=== PATIENT | male | born 1945 | race Caucasian/White ===

== ENCOUNTER 2018-07-10 10:20 | Inpatient (IN) ==
[2018-07-10] MEDS ORDERED: ACETAMINOPHEN 500 MG TAB PO STA (10:54)
[2018-07-10] MEDS ORDERED: SODIUM CHLORIDE 0.9% 500 ML IV SCH (11:00)
[2018-07-10] MEDS ORDERED: ACETAMINOPHEN 650 MG SUPP PR STA (11:14)
[2018-07-10 11:25] LABS: Basophils # (auto) 0.02 K/uL (0-0.2); Basophils % (auto) 0.1 %; Eosinophils # (auto) 0.18 K/uL (0-0.5); Eosinophils % (auto) 1.1 %; Hematocrit (blood only) 38.1 % (42-52); Hemoglobin 12.4 g/dL (14.0-18.0); Immature Granulocytes # (auto) 0.04 K/uL (0.00-0.02); Immature Granulocytes % (auto) 0.2 %; Lymphocytes # (auto) 1.27 K/uL (1.2-3.4); Lymphocytes % (auto) 7.7 %; Mean Corpuscular Hgb Conc 32.5 g/dL (32-36); Mean Corpuscular Volume 76.4 fL (80-100); Mean Platelet Volume 10.4 fL (7.4-10.4); Monocytes # (auto) 0.79 K/uL (0.11-0.59); Monocytes % (auto) 4.8 %; Neutrophils # (auto) 14.23 K/uL (1.4-6.5); Neutrophils % (auto) 86.1 %; Platelet Count 118 K/uL (130-400); RDW Coefficient of Variation 19.7 % (11.5-14.5); RDW Standard Deviation 54.1 fL (36.4-46.3); Red Blood Count 4.99 M/uL (4.7-6.1); White Blood Count 16.53 K/uL (4.8-10.8)
[2018-07-10 11:41] LABS: Albumin Level 3.2 gm/dl (3.4-5.0); BUN Creatinine Ratio 22.7 (10-20); Creatinine Clr Calc Pharmacy 40.5 ml/min; Est GFR (African American) 43.2; Est GFR (Non-African American) 37.3; Potassium 3.9 mmol/L (3.5-5.1)
[2018-07-10 11:45] LABS: Albumin Globulin Ratio 0.7 (0.9-2); Bilirubin,Total 0.3 mg/dl (0.2-1); Globulin 4.5 gm/dl (2.5-4.0); Total Protein 7.7 gm/dl (6.4-8.2); Troponin I 0.038 ng/ml (0-0.045)
[2018-07-10 11:48] LABS: Appearance Urine Clear (Clear); Bilirubin Urine Negative (Negative); Blood Urine Negative (Negative); Color Urine Yellow; Glucose Urine UA Negative (Negative); Ketones Urine Negative (Negative); Leukocyte Esterase Urine Negative (Negative); Nitrite Urine Negative (Negative); Protein Urine Negative (Negative); Specific Gravity Urine 1.015 (1.000-1.030); Urobilinogen Urine Negative (Negative)
[2018-07-10 11:53] LABS: Influenza A virus by PCR Neg for Influ A (Neg); Influenza B virus by PCR Neg for Influ B (Neg)
[2018-07-10] MEDS ORDERED: SODIUM CHLORIDE 0.9% 1000ML 500 ML IV ONE (12:08)
--- NOTE | 2018-07-10 12:35 | XRay Report ---
XR chest 1V portable HISTORY: fever COMPARISON: Chest 03/20/2018. FINDINGS: The lungs are clear. The heart remains mildly enlarged. There is a left-sided dual-chamber pacemaker. No pleural effusions. No pneumothorax. IMPRESSION: Stable mild cardiomegaly. No acute process within the chest. Electronically signed by: Stewart Winslow M.D. 07/10/2018 12:34 PM
[2018-07-10] MEDS ORDERED: PIPERACILLIN/TAZOBACTAM 4.5 GM/120 ML BAG IV ONE (12:45)
[2018-07-10] MEDS ORDERED: VANCOMYCIN HCL 1,750 MG in SODIUM CHLORIDE 0.9% 500 ML IV ONE (12:45)
[2018-07-10] MEDS ORDERED: VANCOMYCIN CONSULT ACTIVE PRN ×2 (12:45→18:23)
[2018-07-10] MEDS ORDERED: PIPERACILL/TAZOBAC CONSULT ACTIVE PRN (12:45)
--- NOTE | 2018-07-10 13:18 | Cardiology Consultation ---
Date of Consultation July 10, 2018 Assessment & Plan (1) Left lower lobe pneumonia: When the patient had initially been assessed by the undersigned in the emergency room earlier this afternoon, I ordered a stat CT of the chest. Results reveal that the sternotomy wires have been removed and there is mild soft tissue thickening around the sternum but no organized fluid collection to suggest abscess as per the radiology report. There is however a described patchy airspace consolidation throughout the left lower lobe of the lung. Per the radiology report this is typical in appearance for pneumonia/aspiration pneumonitis. A transthoracic echocardiogram has already been performed and reviewed by the undersigned. Within the limitations of this imaging modality, there is no gross abnormality to suggest aortic valve prosthetic dysfunction or vegetation or vegetation elsewhere. I had initially planned to proceed with a transesophageal echocardiogram today, but with the results the CT I think it is most prudent to cancel the transesophageal echocardiogram and avoid sedation and potential further aspiration risk, pending the availability of culture results and reassessment after treatment with appropriate antibiotics for pneumonia. 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 Recurrence doing well wound infection has therefore been considered, but based on CT results and the patient's clinical presentation, I believe it is most reasonable to proceed with treatment for pneumonia. The patient did note mild cough this morning. He has been outside having been to his grandson's [employer] meet yesterday, and although it was mild outside there was a significant weaned. Influenza screen was negative. The patient's clinical presentation was discussed with Dr. Stark of CT surgery at [facility] who has operated on the patient for the initial aortic valve surgery as well as the sternal wound operation. The CT images obtained at the [facility] emergency department today was successfully transferred electronically to the [employer] PACS system, and her impression was that the CT was consistent with stable postoperative changes in the sternum rather than recurrent infection. (2) Fever: As above (3) CESAR (acute kidney injury): Gentle IV fluids (4) S/P AVR: Bioprosthetic aortic valve function stable on transthoracic echo today. History of Present Illness History of Present Illness Tariq Fischer is a 72 year old male seen in cardiology consultation in the emergency department per the request of Dr Stevie. The patient's primary collection officer is Dr Vinnie Stephens. The patient was seen and examined in emergency department room D1B. His spouse was accompanying him at the bedside. He was comfortable and in no acute distress at the time when I had seen him. He states that overall he has been feeling well. He had recently had significant lower extremity edema that had trended toward improvement in his nearly completely resolved. He notes no recent infections symptoms within the last few weeks until this morning when he woke up with a sensation of chills, with inability to get warm, and rigors. His spouse took his temperature orally at home this morning and he was found to have a fever 102 F. He had a routine cardiology follow-up appointment with Dr. Stephens already scheduled for today and when he arrived for that appointment, vital signs included a tympanic temperature of 102.5 F. He was afebrile on arrival to the emergency room, with most recent temperature 37.1C. Past Cardiac / Cardiac Surgery History: 1. History of paroxysmal atrial arrhythmias including atrial fibrillation, previously on beta-yesenia and flecainide, now on amiodarone and metoprolol. Off of anticoagulation. 2. 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 Follows with [facility], Dr Ashley, most recent device interrogation had apparently been performed yesterday 07/09/18 at the [facility] office with stable findings per patien'ts recollection. 3. History of calcific aortic stenosis for which patient underwent bioprosthetic aortic valve replacement 02/11/2018, [facility] Dr. Rachelle Mathew, with placement of a [address] Joey Epic prosthesis and application of left atrial appendage clip 4. 03/26/18: Sternal wound infection, underwent sternal debridement, application of wound VAC 5. 03/31/18: Further sternal debridement took place 6. 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 Wound was found to have Enterobacter cloque and staph aureus 8. Patient completed 6 week course of IV cefepime, tunneled catheter subsequently removed on 05/13/18 9. Diagnostic cardiac catheterization January 2018 with normal coronaries Allergies Allergy/AdvReac Type Severity Reaction Status Date / Time carbamazepine Allergy Unknown TOXIC, Verified 07/10/18 10:49 DOUBLE VISION indigotindisulfonic acid Allergy Unknown TOXIC, Verified 07/10/18 10:49 DOUBLE VISION doxazosin AdvReac Unknown BP LOSS Verified 07/10/18 10:49 nitrofurantoin AdvReac Unknown DIZZINESS Verified 07/10/18 10:49 Home Medications Home Medications Medication Instructions Recorded Confirmed Type acetaminophen [Tylenol] 650 mg PO DIRECTED PRN 03/20/18 07/10/18 History aspirin 81 mg PO DAILY 03/20/18 07/10/18 History divalproex 500 mg PO DAILY 03/20/18 07/10/18 History divalproex 750 mg PO PM 03/20/18 07/10/18 History fluticasone propionate [Flonase 2 spray INTRANASAL DAILY 03/20/18 07/10/18 History Allergy Relief] furosemide [Lasix] 40 mg PO DAILY 03/20/18 07/10/18 History levothyroxine 75 mcg PO DAILY 03/20/18 07/10/18 History metoprolol succinate [Toprol XL] 100 mg PO DAILY 03/20/18 07/10/18 History multivitamin 1 tab PO DAILY 03/20/18 07/10/18 History pyridoxine (vitamin B6) 100 mg PO DAILY 03/20/18 07/10/18 History ropinirole [Requip] 1.5 mg PO TID 03/20/18 07/10/18 History simvastatin 10 mg PO HS 03/20/18 07/10/18 History amiodarone 100 mg PO DAILY 07/10/18 07/10/18 History docusate sodium [Colace] 100 mg PO DAILY 07/10/18 07/10/18 History fexofenadine [Maria E Allergy] 180 mg PO DAILY 07/10/18 07/10/18 History lisinopril 2.5 mg PO DAILY 07/10/18 07/10/18 History spironolactone 12.5 mg PO DAILY 07/10/18 07/10/18 History Patient History Medical History Sinoatrial node dysfunction (Chronic) Thrombocytopenia (Chronic) Hypothyroidism (Chronic) Chronic systolic heart failure (Chronic) BPH (benign prostatic hyperplasia) (Chronic) Atrial fibrillation (Chronic) GERD (gastroesophageal reflux disease) (Chronic) Dyslipidemia (Chronic) Parkinson's disease (Chronic) Hypertension (Chronic) Aortic stenosis (Chronic) Seizure disorder (Chronic) Surgical History History of cholecystectomy (Resolved) S/P placement of cardiac pacemaker (Chronic) History of cardiac cath (Resolved) 01/29/18 - Dr Stephens - normal coronary arteries History of cataract extraction with lens replacement (Resolved) History of aortic valve replacement (Resolved) 02/11/18 bioprosthetic valve and left atrial appendege clip at [facility] by Dr Rachelle Stark Social History Preferred Language: Surinamese Beliefs That Will Affect Care: None marital status: Current Living Situation: Spouse Feels Safe at Home: Yes Smoking Status: Never smoker Hx Alcohol Use: No Hx Substance Use: No Review of Systems 10 point review systems is reviewed and is negative with the exception of that above Physical Exam Vital Signs (Past 24 Hours): Last Vital Signs Temp 37.1 C 07/10/18 10:24 Pulse 67 07/10/18 12:39 Resp 14 07/10/18 12:39 BP 113/52 L 07/10/18 12:39 Pulse Ox 95 07/10/18 12:39 Constitutional: no acute distress Neck: trachea midline, no thyromegaly Cardiovascular: RRR, no murmur, no edema Vessels: no JVD Extremities: no edema Chest (Breasts): Chest: + pacemaker (Pocket incision clean dry and intact without evidence of erythema or erosion) Additional Comments: Well-healed midline sternotomy incision and chest tube incisions without drainage Gastrointestinal (Abdomen): normal bowel sounds, soft, nontender, no hepatosplenomegaly Skin: no rashes, warm and dry Neurologic: Mild tremor of Parkinson's, chronic finding, alert and oriented, no focal deficits, follows commands Results & Data Laboratory Results Cardiac Enzymes 07/10/18 Range/Units 11:11 AST 32 (15-37) U/L Troponin I 0.038 (0-0.045) ng/ml CBC 07/10/18 Range/Units 11:11 WBC 16.53 H (4.8-10.8) K/uL RBC 4.99 (4.7-6.1) M/uL Hgb 12.4 L (14.0-18.0) g/dL Hct 38.1 L (42-52) % Plt Count 118 L (130-400) K/uL Neut # (Auto) 14.23 H (1.4-6.5) K/uL Lymph # (Auto) 1.27 (1.2-3.4) K/uL Saunders # (Auto) 0.79 H (0.11-0.59) K/uL Eos # (Auto) 0.18 (0-0.5) K/uL Baso # (Auto) 0.02 (0-0.2) K/uL Comprehensive Metabolic Panel 07/10/18 Range/Units 11:11 Sodium 141 (136-145) mmol/L Potassium 3.9 (3.5-5.1) mmol/L Chloride 104 (98-107) mmol/L Carbon Dioxide 32 (21-32) mmol/L BUN 40 H (7-18) mg/dl Creatinine 1.78 H (0.6-1.4) mg/dl Glucose 67 L (70-99) mg/dl Calcium 9.0 (8.5-10.1) mg/dl AST 32 (15-37) U/L ALT 19 (12-78) U/L Alkaline Phosphatase 112 (45-117) U/L Total Protein 7.7 (6.4-8.2) gm/dl Albumin 3.2 L (3.4-5.0) gm/dl Intake and Output 07/09/18 07/10/18 07/10/18 22:59 06:59 14:59 Intake Total 1000 / 1000 Balance 1000 / 1000 Intake: IV 1000 / 1000 Nss 1000ML 500 ml @ 999 mls/hr 500 / 500 IV .Q31M ONE Rx#:[id number] Nss 500 ml @ 999 mls/hr IV . 500 / 500 Q31M [facility] Rx#:[id number] Other: Weight 85 kg Patient Weight 07/11/18 06:59 Weight 85 kg Diagnostic Findings EKG reveals sinus rhythm with atrial pacing, gambell QRS complexes, with diffuse repolarization changes. Compared to prior EKG dated 03/20/18 atrial pacing is now present, the repolarization changes are unchanged.
[2018-07-10] MEDS ORDERED: IOVERSOL 100ml IV PRN (13:30)
[2018-07-10] MEDS: SODIUM CHLORIDE 0.9% 1000ML 1,000 ML IV SCH ×2 (13:44→17:51)
--- NOTE | 2018-07-10 13:59 | CT Scan Report ---
CT SCAN OF THE CHEST WITH IV CONTRAST CLINICAL HISTORY: Fever. History of sternal wound infection. COMPARISON STUDY: Chest x-ray dated 07/10/2018. TECHNIQUE: Following the IV administration of 70 cc of Optiray 320, CT scan of the thorax was perform ed from the thoracic inlet to the upper abdomen. Images are reviewed in the axial, sagittal, and mohit nal planes. IV contrast was administered without complication. A dose lowering technique was utilize d adhering to the principles of ALARA. CT DOSE: 412.81 mGy.cm FINDINGS: Thyroid: Imaged portions of the thyroid gland are normal in size and attenuation. Thoracic aorta: There is atherosclerotic calcification of the thoracic aorta, which is normal in shannan jorge and demonstrates bovine variant arch anatomy. No dissection is seen. Pulmonary vasculature: The pulmonary trunk is normal in caliber. There are no filling defects identif ied in the central pulmonary vessels to indicate pulmonary embolus. Note that this examination was no t protocoled for evaluation of the pulmonary arteries. Heart: A 2-lead cardiac pacemaker is present in the left chest wall. There is evidence of previous ao rtic valve surgery. The heart is enlarged and there is trace pericardial effusion. The coronary arter ies are densely calcified. Lungs and pleural spaces: There is mild emphysematous change. Patchy airspace consolidation is seen t hroughout the left lower lobe the right lung appears clear. The trachea and central airways are paten t. Mediastinum: There are numerous subcentimeter mediastinal lymph nodes. These are not pathologically e nlarged by size criteria. Cherri: Clear. Axillae: There is no axillary lymphadenopathy. Upper abdomen: Cholecystectomy clips are noted. There is mild intrahepatic biliary ductal dilatation. A duodenal diverticulum is noted. There is a fat-containing ventral hernia located at and below the xiphoid process of the sternum. Skeletal structures: The skeletal structures are osteopenic. There is evidence of previous sternotomy . There is mild soft tissue induration surrounding the sternotomy site and sternotomy wires have been removed. No organized fluid collection is identified. Degenerative change is noted throughout the th oracic spine. No lytic or blastic bony lesions are seen. IMPRESSION: 1. There is patchy airspace consolidation throughout the left lower lobe. This is typical in appearan ce for pneumonia/aspiration pneumonitis. Clinical correlation will be required and radiographic follo w-up to resolution is recommended. 2. Cardiomegaly and mild emphysema. 3. The patient is status post midline sternotomy. The sternotomy wires have been removed and there is mild soft tissue thickening around the sternum. This is likely related to the reported history of pr evious sternal infection. There is no organized fluid collection to suggest abscess. 4. Additional findings as above. Electronically signed by: Salvatore Rodrigez M.D. 07/10/2018 1:57 PM
[2018-07-10] MEDS ORDERED: PERFLUTREN LIPID MICROSPHERE (DEFINITY) IV ONE (14:20)
--- NOTE | 2018-07-10 16:10 | History & Physical Report ---
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 -Fever of 102 F, leukocytosis of 16.5 K, CT chest with evidence of patchy airspace consolidation throughout left lower lobe -No evidence of active infection or abscess in area of prior sternal osteomyelitis -Dr. Davis discussed imaging with patient's surgeon, Dr. Stark of CT surgery at [facility], who felt that CT was consistent with stable postoperative changes in the sternum rather than recurrent infection -Bedside 2D echo with normal left ventricular systolic function with estimated EF of 55-60%. No regional wall abnormalities, no evidence of vegetation on bioprosthetic aortic valve -Will consider BONG pending the availability of culture results and reassessment after treatment with appropriate antibiotics for pneumonia -Started on Zosyn and Vanco empirically in the ED. 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 -Follows with [facility], Dr Ashley, most recent device interrogation had apparently been performed yesterday 07/09/18 at the [facility] [place] with stable findings per patien'ts recollection. (7) Hypertension: Normotensive. Continue Toprol, Spironolactone -Holding lisinopril in setting of CESAR (8) Paroxysmal atrial fibrillation: Continue amiodarone and Toprol (9) Parkinson's disease: Continue home dose Requip (10) Hypothyroidism: Continue levothyroxine (11) Dyslipidemia: Continue statin DVT Ppx: SQ heparin Code status: FULL per discussion with patient PCP: Kj Dispo: [facility]. Plan to return home once medically stable. Patient seen in collaboration with Dr. Hernandez. Please see addendum. 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 Patient completed IV antibiotics for sternal osteomyelitis and wound infection (growing Enterobacter cloque and staph aureus) at the beginning of May 2018. Since then, patient has been feeling well until this morning when he woke up with sensation of chills, rigors and cough. His spouse took his temperature orally at home this morning and he was found to have a fever 102 F. Was found to be febrile at 102.5 F upon arrival to routine cardiology appointment with Dr. Stephens and was directed to ED for further evaluation. Patient was afebrile on arrival to the emergency room, with most recent temperature 37.1C. Still with intermittent dry cough. Denies any chills, rigors, lightheadedness, headache, wheezing, hemoptysis, chest pain, shortness of breath, nausea, vomiting, abdominal pain, dysuria, diarrhea or constipation. Was recently experiencing bilateral lower extremity edema but it has recently resolved. Vital signs stable, leukocytosis of 16.5 K, CT chest with evidence of patchy airspace consolidation throughout left lower lobe. No evidence of active infection or abscess in area of prior sternal osteomyelitis. Was evaluated by Dr. Davis in the ED, who performed an echo that showed normal left ventricular systolic function with estimated EF of 55-60%. No regional wall abnormalities, no evidence of vegetation on bioprosthetic aortic valve. Allergies Allergy/AdvReac Type Severity Reaction Status Date / Time carbamazepine Allergy Unknown TOXIC, Verified 07/10/18 10:49 DOUBLE VISION indigotindisulfonic acid Allergy Unknown TOXIC, Verified 07/10/18 10:49 DOUBLE VISION doxazosin AdvReac Unknown BP LOSS Verified 07/10/18 10:49 nitrofurantoin AdvReac Unknown DIZZINESS Verified 07/10/18 10:49 Home Medications Home Medications Medication Instructions Recorded Confirmed Type acetaminophen [Tylenol] 650 mg PO DIRECTED PRN 03/20/18 07/10/18 History aspirin 81 mg PO DAILY 03/20/18 07/10/18 History divalproex 500 mg PO DAILY 03/20/18 07/10/18 History divalproex 750 mg PO PM 03/20/18 07/10/18 History fluticasone propionate [Flonase 2 spray INTRANASAL DAILY 03/20/18 07/10/18 History Allergy Relief] furosemide [Lasix] 40 mg PO DAILY 03/20/18 07/10/18 History metoprolol succinate [Toprol XL] 100 mg PO DAILY 03/20/18 07/10/18 History multivitamin 1 tab PO DAILY 03/20/18 07/10/18 History pyridoxine (vitamin B6) 100 mg PO DAILY 03/20/18 07/10/18 History ropinirole [Requip] 1.5 mg PO TID 03/20/18 07/10/18 History simvastatin 10 mg PO HS 03/20/18 07/10/18 History amiodarone 100 mg PO DAILY 07/10/18 07/10/18 History docusate sodium [Colace] 100 mg PO DAILY 07/10/18 07/10/18 History fexofenadine [Maria E Allergy] 180 mg PO DAILY 07/10/18 07/10/18 History levothyroxine 88 mcg PO DAILY 07/10/18 07/10/18 History lisinopril 2.5 mg PO DAILY 07/10/18 07/10/18 History spironolactone 12.5 mg PO DAILY 07/10/18 07/10/18 History Past Med/Surg History Medical History Paroxysmal atrial fibrillation (Chronic) Sinoatrial node dysfunction (Chronic) Thrombocytopenia (Chronic) Hypothyroidism (Chronic) Chronic systolic heart failure (Chronic) BPH (benign prostatic hyperplasia) (Chronic) GERD (gastroesophageal reflux disease) (Chronic) Dyslipidemia (Chronic) Parkinson's disease (Chronic) Hypertension (Chronic) Aortic stenosis (Chronic) Seizure disorder (Chronic) Surgical History History of cholecystectomy (Resolved) S/P placement of cardiac pacemaker (Chronic) History of cardiac cath (Resolved) 01/29/18 - Dr Stephens - normal coronary arteries History of cataract extraction with lens replacement (Resolved) History of aortic valve replacement (Resolved) 02/11/18 bioprosthetic valve and left atrial appendege clip at [facility] by Dr Rachelle Stark Social History Preferred Language: Slovenian Communication Ability: Effective Sash Sticker Required: No Beliefs That Will Affect Care: None marital status: Current Living Situation: Spouse Other Information That Helps Us Care for You: No Feels Safe at Home: Yes Safety Concerns: Feels Safe At This Time Smoking Status: Never smoker Hx Alcohol Use: No Hx Substance Use: No Review of Systems All systems reviewed & are unremarkable except as noted in HPI & below Physical Exam Vital Signs (Past 24 Hours): Last Vital Signs Temp 37.1 C 07/10/18 10:24 Pulse 68 07/10/18 13:47 Resp 16 07/10/18 13:47 BP 108/60 07/10/18 13:47 Pulse Ox 97 07/10/18 13:47 Physical Exam: General Appearance: WD/WN, no apparent distress, resting comfortably Head: normocephalic, atraumatic Eyes: normal inspection, PERRL, EOMI ENT: hearing grossly normal, pharynx normal (dry mucous membranes) Neck: supple, no JVD, no adenopathy Respiratory/Chest: Chest with sternotomy scar clean, dry, intact. No drainage. Lungs clear to auscultation. No wheezes, rales or rhonci. No respiratory distress or accessory muscle use Cardiovascular: regular rate, rhythm, no murmur, normal peripheral pulses, no BLE edema Abdomen/GI: normal bowel sounds, soft, non-tender to palpation Extremities/Musculoskelatal: normal inspection, no calf tenderness, normal capillary refill, no pedal edema Neurologic/Psych: alert, normal mood/affect, oriented x 3 Skin: normal color, warm/dry Results & Data Laboratory Results Short CBC 07/10/18 Range/Units 11:11 WBC 16.53 H (4.8-10.8) K/uL Hgb 12.4 L (14.0-18.0) g/dL Hct 38.1 L (42-52) % Plt Count 118 L (130-400) K/uL BMP 07/10/18 11:11 Sodium 141 Potassium 3.9 Chloride 104 Carbon Dioxide 32 BUN 40 H Creatinine 1.78 H Glucose 67 L Calcium 9.0 Cardiac Enzymes 07/10/18 Range/Units 11:11 Troponin I 0.038 (0-0.045) ng/ml Liver Function 07/10/18 Range/Units 11:11 Total Bilirubin 0.3 (0.2-1) mg/dl AST 32 (15-37) U/L ALT 19 (12-78) U/L Alkaline Phosphatase 112 (45-117) U/L Albumin 3.2 L (3.4-5.0) gm/dl Urine 07/10/18 Range/Units 11:35 Urine Color Yellow Urine Appearance Clear (Clear) Urine pH 5.0 (4.5-7.5) Ur Specific Disney 1.015 (1.000-1.030) Urine Protein Negative (Negative) Urine Glucose (UA) Negative (Negative) Diagnostic Findings CXR: IMPRESSION: Stable mild cardiomegaly. No acute process within the chest. CT Chest: IMPRESSION: 1. There is patchy airspace consolidation throughout the left lower lobe. This is typical in appearance for pneumonia/aspiration pneumonitis. Clinical correlation will be required and radiographic follow-up to resolution is recommended. 2. Cardiomegaly and mild emphysema. 3. The patient is status post midline sternotomy. The sternotomy wires have been removed and there is mild soft tissue thickening around the sternum. This is likely related to the reported history of previous sternal infection. There is no organized fluid collection to suggest abscess. 4. Additional findings as above. ECG Findings: + paced rhythm Supervising Physician Co-Signing Physician Notes Patient is a 72-year-old male with history of bioprosthetic aortic valve replacement, sternal osteomyelitis, tachybradycardia syndrome and other medical problems presents with history of fever, chills, rigors and cough since 1 day duration. Patient was referred by his research librarian for further evaluation and management. Please review HPI for complete details of the presentation. Patient was noted to have patchy airspace consolidation throughout the left lower lobe. Patient was also noted to have mild creatinine elevation from his baseline. On exam patient is moderately built and nourished, no apparent distress, normocephalic atraumatic, lungs clear to auscultation, normal breath sounds, abdomen is soft nontender, S1-S2,+ murmur, + pacemaker, abdomen is soft nontender, 1+ bilateral lower extremity edema, grossly no focal deficits neurologically. Patient is admitted for management of left lower lobe pneumonia. Patient will be started on broad-spectrum antibiotics including Vanco and Zosyn. His echo showed no gross abnormality to suggest aortic valve prosthetic dysfunction or vegetation. Appreciate cardiology recommendations. Consider BONG based on blood cultures. Monitor platelets while on subcu heparin. Agree with holding lisinopril until his renal function is baseline. Gentle IV fluids. Currently patient is not on any chronic anticoagulation. I personally reviewed the record. Patient is interviewed and examined at bedside. Patient's care is coordinated with Zo Melendez PA-C. Please refer to the documentation above for details of patient's presentation and for discussion of other issues. (1) PNA (pneumonia) Laterality: left Lung location: lower lobe of lung Pneumonia type: due to unspecified organism Qualified Code(s): J18.1 - Lobar pneumonia, unspecified organism
--- NOTE | 2018-07-10 16:48 | Emergency Department Note ---
Entered by Ernestine Rivera acting as a scribe for Winnie Hubbard MD History of Present Illness General Chief complaint: Fever Stated complaint: FEVER, WEAK Time Seen by Provider: 07/10/18 10:39 Source: patient and family () History of Present Illness Provider complaint: shaking Onset (ago): hour(s) (this morning ) Location: left and right Maximum Pain Intensity: 0 Quality: + other (shaking) Associated symptoms: + fever/chills (fever) and + weakness; no chest pain and no shortness of breath The patient is a 72 year old male who presents to the Emergency Room with complaints of shaking this morning. The patient also reports feeling weak but denies having chest pain or shortness of breath. 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 Per wi fe, the patient did take his morning medication including Aspirin. His states that Dr. Stephens-cardiology referred the patient here. 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 The patient states that he has not been on antibiotics recently. His states that the patient is no longer on blood thinners. Home Medications Home Medications Medication Instructions Recorded Confirmed Type acetaminophen [Tylenol] 650 mg PO DIRECTED PRN 03/20/18 07/10/18 History aspirin 81 mg PO DAILY 03/20/18 07/10/18 History divalproex 500 mg PO DAILY 03/20/18 07/10/18 History divalproex 750 mg PO PM 03/20/18 07/10/18 History fluticasone propionate [Flonase 2 spray INTRANASAL DAILY 03/20/18 07/10/18 History Allergy Relief] furosemide [Lasix] 40 mg PO DAILY 03/20/18 07/10/18 History metoprolol succinate [Toprol XL] 100 mg PO DAILY 03/20/18 07/10/18 History multivitamin 1 tab PO DAILY 03/20/18 07/10/18 History pyridoxine (vitamin B6) 100 mg PO DAILY 03/20/18 07/10/18 History ropinirole [Requip] 1.5 mg PO TID 03/20/18 07/10/18 History simvastatin 10 mg PO HS 03/20/18 07/10/18 History amiodarone 100 mg PO DAILY 07/10/18 07/10/18 History docusate sodium [Colace] 100 mg PO DAILY 07/10/18 07/10/18 History fexofenadine [Maria E Allergy] 180 mg PO DAILY 07/10/18 07/10/18 History levothyroxine 88 mcg PO DAILY 07/10/18 07/10/18 History lisinopril 2.5 mg PO DAILY 07/10/18 07/10/18 History spironolactone 12.5 mg PO DAILY 07/10/18 07/10/18 History Allergies Allergy/AdvReac Type Severity Reaction Status Date / Time carbamazepine Allergy Unknown TOXIC, Verified 07/10/18 10:49 DOUBLE VISION indigotindisulfonic acid Allergy Unknown TOXIC, Verified 07/10/18 10:49 DOUBLE VISION doxazosin AdvReac Unknown BP LOSS Verified 07/10/18 10:49 nitrofurantoin AdvReac Unknown DIZZINESS Verified 07/10/18 10:49 Past Med/Surg History Medical History Paroxysmal atrial fibrillation (Chronic) Sinoatrial node dysfunction (Chronic) Thrombocytopenia (Chronic) Hypothyroidism (Chronic) Chronic systolic heart failure (Chronic) BPH (benign prostatic hyperplasia) (Chronic) GERD (gastroesophageal reflux disease) (Chronic) Dyslipidemia (Chronic) Parkinson's disease (Chronic) Hypertension (Chronic) Aortic stenosis (Chronic) Seizure disorder (Chronic) Surgical History History of cholecystectomy (Resolved) S/P placement of cardiac pacemaker (Chronic) History of cardiac cath (Resolved) 01/29/18 - Dr Stephens - normal coronary arteries History of cataract extraction with lens replacement (Resolved) History of aortic valve replacement (Resolved) 02/11/18 bioprosthetic valve and left atrial appendege clip at [facility] by Dr Rachelle Stark Social History Communication Ability: Effective Beliefs That Will Affect Care: None marital status: Current Living Situation: Spouse Other Information That Helps Us Care for You: No Feels Safe at Home: Yes Safety Concerns: Feels Safe At This Time Smoking Status: Never smoker Hx Alcohol Use: No Hx Substance Use: No Review of Systems See HPI for pertinent positives & negatives. and A total of 10 systems reviewed and were otherwise negative Physical Exam Vital Signs Vital Signs - 24 hr 07/11/18 07:22 07/11/18 08:00 07/11/18 11:57 Temperature 36.5 C 36.4 C L Temperature Source Oral Oral Pulse Rate 72 Pulse Rate [Right Finger] 71 Respiratory Rate 17 17 Respiratory Effort / Characteristics Respiratory Depth Respiratory Pattern Blood Pressure [Left Arm] 146/79 H 146/70 H Blood Pressure Mean [Left Arm] 101 95 Blood Pressure Position [Left Arm] Lying Lying Pulse Oximetry 100 99 Oxygen Delivery Method Room Air Room Air 07/11/18 15:58 07/11/18 16:00 07/11/18 20:39 Temperature 36.5 C 36.5 C Temperature Source Oral Oral Pulse Rate 68 Pulse Rate [Right Finger] 72 75 Respiratory Rate 17 18 Respiratory Effort / Characteristics Non-Labored Spontaneous Respiratory Depth Normal Respiratory Pattern Regular Blood Pressure [Left Arm] 110/65 177/83 H Blood Pressure Mean [Left Arm] 80 114 Blood Pressure Position [Left Arm] Lying Pulse Oximetry 99 100 Oxygen Delivery Method Room Air Room Air Room Air 07/12/18 00:06 07/12/18 00:31 07/12/18 03:00 Temperature 36.5 C 36.6 C Temperature Source Oral Oral Pulse Rate Pulse Rate [Right Finger] 70 66 Respiratory Rate 17 17 Respiratory Effort / Characteristics Non-Labored Spontaneous Respiratory Depth Normal Respiratory Pattern Blood Pressure [Left Arm] 165/78 H 186/76 H Blood Pressure Mean [Left Arm] 107 112 Blood Pressure Position [Left Arm] Pulse Oximetry 96 96 Oxygen Delivery Method Room Air Room Air Vital signs reviewed. General: Well-appearing male, in some discomfort. HEENT: No scleral icterus, PERRLA, neck supple. Atraumatic. Cardiovascular: Regular rate and rhythm, systolic ejection murmur. Pulmonary: Clear to auscultation bilaterally, normal work of breathing. Abdomen: Soft, nontender, nondistended, positive bowel sounds. Musculoskeletal: Atraumatic, no peripheral edema. Neurologic: Patient awake alert and oriented x 3 Skin: Warm, dry, no rash. Large midline incision that appears to be healing with some scabbing and mild erythematous changes. No drainage. Course 1053: The patient was evaluated in room D1B, and a complete history and physical examination were performed. 1246: I discussed the patient's case with Dr. Davis-Cardiology. 1415: I spoke with Dr. Davis who said that the CT surgeon in [place] will look at the CT. The tech is doing the TTE right now. He will let me know about transferring versus keeping the patient. 1434: Dr. Davis said to keep the patient here and that he will call the hospitalist. Consultations Consultation #1: Dr. Davis-Cardiology Time: 12:46 Administered Medications Amiodarone HCl (Cordarone) 100 mg PO DAILY VARSHA Stop: 08/10/18 08:59 Last Admin: 07/11/18 08:24 Dose: 100 mg Documented by: [id number] Aspirin (Ecotrin Ectab) 81 mg PO DAILY VARSHA Stop: 08/10/18 08:59 Last Admin: 07/11/18 08:25 Dose: 81 mg Documented by: [id number] Divalproex Sodium (Depakote Delay Release) 500 mg PO DAILY VARSHA Stop: 08/10/18 08:59 Last Admin: 07/11/18 08:25 Dose: 500 mg Documented by: [id number] Divalproex Sodium (Depakote Delay Release) 750 mg PO PM VARSHA Stop: 08/09/18 20:59 Last Admin: 07/11/18 20:33 Dose: 750 mg Documented by: [id number] Admin: 07/10/18 19:47 Dose: 750 mg Documented by: [id number] Docusate Sodium (Colace) 100 mg PO DAILY VARSHA Stop: 08/10/18 08:59 Last Admin: 07/11/18 08:24 Dose: 100 mg Documented by: [id number] Fexofenadine HCl (Maria E) 180 mg PO DAILY VARSHA Stop: 08/10/18 08:59 Last Admin: 07/11/18 08:25 Dose: 180 mg Documented by: [id number] Fluticasone Propionate (Flonase) 2 sprays VIOLETA DAILY VARSHA Stop: 08/10/18 08:59 Last Admin: 07/11/18 08:25 Dose: 2 sprays Documented by: [id number] Heparin Sodium (Porcine) (Heparin Sodium (Porcine)) 5,000 units SQ Q8 VARSHA Stop: 08/09/18 21:59 Last Admin: 07/11/18 13:52 Dose: Not Given Documented by: [id number] Admin: 07/11/18 05:46 Dose: Not Given Documented by: [id number] Admin: 07/10/18 21:54 Dose: Not Given Documented by: [id number] Piperacillin Sod/Tazobactam (Sod 3.375 gm/ Dextrose) 115 mls @ 28.75 mls/hr IV Q8H FOR[facility], 1928–1983; Protocol Stop: 07/17/18 18:59 Last Admin: 07/12/18 03:05 Dose: 28.8 mls/hr Documented by: [id number] Infusion: 07/11/18 23:01 Dose: 0 mls/hr Documented by: [id number] Admin: 07/11/18 19:01 Dose: 28.8 mls/hr Documented by: [id number] Infusion: 07/11/18 16:14 Dose: 0 mls/hr Documented by: [id number] Admin: 07/11/18 11:23 Dose: 28.8 mls/hr Documented by: [id number] Infusion: 07/11/18 07:31 Dose: 0 mls/hr Documented by: [id number] Admin: 07/11/18 03:16 Dose: 28.8 mls/hr Documented by: [id number] Infusion: 07/10/18 23:54 Dose: 0 mls/hr Documented by: [id number] Admin: 07/10/18 19:42 Dose: 28.8 mls/hr Documented by: [id number] Levothyroxine Sodium (Synthroid) 88 mcg PO DAILYBB [facility], 1928–1983 Stop: 08/10/18 06:29 Last Admin: 07/12/18 06:35 Dose: 88 mcg Documented by: [id number] Admin: 07/11/18 05:46 Dose: 88 mcg Documented by: [id number] Metoprolol Succinate (Toprol Xl) 100 mg PO DAILY [facility], [facility]1983 Stop: 08/10/18 08:59 Last Admin: 07/11/18 08:24 Dose: 100 mg Documented by: [id number] Multivitamins (Multivitamin Tab) 1 tab PO DAILY [facility], [facility] Stop: 08/10/18 08:59 Last Admin: 07/11/18 08:25 Dose: 1 tab Documented by: [id number] Pyridoxine HCl (Vitamin B-6) 100 mg PO DAILY [facility], [facility] Stop: 08/10/18 08:59 Last Admin: 07/11/18 08:25 Dose: 100 mg Documented by: [id number] Ropinirole HCl (Requip) 1.5 mg PO TID [facility], [facility] Stop: 08/09/18 20:59 Last Admin: 07/11/18 20:32 Dose: 1.5 mg Documented by: [id number] Admin: 07/11/18 13:52 Dose: 1.5 mg Documented by: [id number] Admin: 07/11/18 08:25 Dose: 1.5 mg Documented by: [id number] Admin: 07/10/18 19:45 Dose: 1.5 mg Documented by: [id number] Simvastatin (Zocor) 10 mg PO HS VARSHA Stop: 08/09/18 20:59 Last Admin: 07/11/18 20:32 Dose: 10 mg Documented by: [id number] Admin: 07/10/18 19:46 Dose: 10 mg Documented by: [id number] Spironolactone (Aldactone) 12.5 mg PO DAILY VARSHA Stop: 08/10/18 08:59 Last Admin: 07/11/18 08:25 Dose: 12.5 mg Documented by: [id number] Discontinued Medications Acetaminophen (Tylenol) 1,000 mg PO ONE STA Stop: 07/10/18 10:55 Last Admin: 07/10/18 11:28 Dose: Not Given Documented by: [id number] Acetaminophen (Tylenol) 650 mg PA NOW STA Stop: 07/10/18 11:15 Last Admin: 07/10/18 11:28 Dose: 650 mg Documented by: [id number] Sodium Chloride (Nss) 500 mls @ 999 mls/hr IV .Q31M VARSHA Stop: 07/10/18 11:30 Last Infusion: 07/10/18 12:06 Dose: 0 mls/hr Documented by: [id number] Admin: 07/10/18 11:28 Dose: 999 mls/hr Documented by: [id number] Sodium Chloride (Nss 1000ml) 500 mls @ 999 mls/hr IV .Q31M ONE Stop: 07/10/18 12:38 Last Infusion: 07/10/18 12:41 Dose: 0 mls/hr Documented by: [id number] Admin: 07/10/18 12:10 Dose: 999 mls/hr Documented by: [id number] Vancomycin HCl 1,750 mg/ (Sodium Chloride) 535 mls @ 200 mls/hr IV NOW ONE Stop: 07/10/18 15:25 Last Infusion: 07/10/18 17:51 Dose: 0 mls/hr Documented by: [id number] Admin: 07/10/18 13:44 Dose: 200 mls/hr Documented by: [id number] Piperacillin Sod/Tazobactam Sod (Zosyn) 4.5 gm in 120 mls @ 240 mls/hr IV NOW ONE Stop: 07/10/18 13:14 Last Infusion: 07/10/18 13:30 Dose: 0 mls/hr Documented by: [id number] Admin: 07/10/18 13:00 Dose: 240 mls/hr Documented by: [id number] Sodium Chloride (Nss 1000ml) 1,000 mls @ 200 mls/hr IV .Q5H VARSHA Stop: 08/09/18 12:44 Last Admin: 07/10/18 17:51 Dose: Not Given Documented by: [id number] Infusion: 07/10/18 16:46 Dose: 0 mls/hr Documented by: [id number] Admin: 07/10/18 13:44 Dose: 200 mls/hr Documented by: [id number] Sodium Chloride (Nss 1000ml) 1,000 mls @ 80 mls/hr IV .[id number] [facility], [facility]–1983 Stop: 07/11/18 06:16 Last Infusion: 07/11/18 08:28 Dose: 0 mls/hr Documented by: [id number] Infusion: 07/11/18 03:22 Dose: 0 mls/hr Documented by: [id number] Admin: 07/10/18 18:13 Dose: 80 mls/hr Documented by: [id number] Ioversol (Optiray 320 100ml) 70 ml IV ONCE PRN PRN Reason: Interaction Checking Stop: 07/14/18 13:29 Last Admin: 07/10/18 13:31 Dose: 70 ml Documented by: [id number] Perflutren Lipid Microsphere (Definity) 1 ml IV ONCE ONE Stop: 07/10/18 14:21 Last Admin: 07/10/18 14:21 Dose: 1 ml Documented by: [id number] Medical Decision Making Differential Diagnosis Differential diagnosis: Etiologies such as osteomyelitis, abscess collection of the chest, pacemaker infection, endocarditis, viral syndrome, otitis, pharyngitis, pneumonia, influenza, meningitis, urinary tract infection, septic arthritis, soft tissue infectious process, intra-abdominal process, sepsis, bacteremia, as well as others were entertained. Medical Records Attestation: I reviewed the patient's medical records. Home Medications Current Medication List: was personally reviewed by me Laboratory Data Attestation: I reviewed the patient's lab results. Result diagrams: 07/12/18 05:19 07/12/18 05:19 Lab Results 07/10/18 07/10/18 07/10/18 Range/Units 11:05 11:11 11:11 WBC 16.53 H (4.8-10.8) K/uL RBC 4.99 (4.7-6.1) M/uL Hgb 12.4 L (14.0-18.0) g/dL Hct 38.1 L (42-52) % MCV 76.4 L (80-100) fL MCH 24.8 L (25-34) pg MCHC 32.5 (32-36) g/dL RDW Std Deviation 54.1 H (36.4-46.3) fL RDW Coeff of Arik 19.7 H (11.5-14.5) % Plt Count 118 L (130-400) K/uL MPV 10.4 (7.4-10.4) fL Immature Gran % (Auto) 0.2 % Neut % (Auto) 86.1 % Lymph % (Auto) 7.7 % [place] % (Auto) 4.8 % Eos % (Auto) 1.1 % Baso % (Auto) 0.1 % Immature Gran # (Auto) 0.04 H (0.00-0.02) K/uL Neut # (Auto) 14.23 H (1.4-6.5) K/uL Lymph # (Auto) 1.27 (1.2-3.4) K/uL [place] # (Auto) 0.79 H (0.11-0.59) K/uL Eos # (Auto) 0.18 (0-0.5) K/uL Baso # (Auto) 0.02 (0-0.2) K/uL Platelet Estimate (Normal) PT (9.0-12.0) Seconds INR (0.9-1.1) APTT (21.0-31.0) Seconds PTT Ratio Sodium 141 (136-145) mmol/L Potassium 3.9 (3.5-5.1) mmol/L Chloride 104 (98-107) mmol/L Carbon Dioxide 32 (21-32) mmol/L Anion Gap 5.0 (3-11) BUN 40 H (7-18) mg/dl Creatinine 1.78 H (0.6-1.4) mg/dl Est Cr Clr Drug Dosing 40.5 ml/min Est GFR ( Amer) 43.2 Est GFR (Non-Af Amer) 37.3 BUN/Creatinine Ratio 22.7 H (10-20) Glucose 67 L (70-99) mg/dl Lactate (0.4-2.0) mmol/L Calcium 9.0 (8.5-10.1) mg/dl Magnesium (1.8-2.4) mg/dl Total Bilirubin 0.3 (0.2-1) mg/dl AST 32 (15-37) U/L ALT 19 (12-78) U/L Alkaline Phosphatase 112 (45-117) U/L Troponin I 0.038 (0-0.045) ng/ml Total Protein 7.7 (6.4-8.2) gm/dl Albumin 3.2 L (3.4-5.0) gm/dl Globulin 4.5 H (2.5-4.0) gm/dl Albumin/Globulin Ratio 0.7 L (0.9-2) Urine Color Urine Appearance (Clear) Urine pH (4.5-7.5) Ur Specific [place] (1.000-1.030) Urine Protein (Negative) Urine Glucose (UA) (Negative) Urine Ketones (Negative) Urine Blood (Negative) Urine Nitrite (Negative) Urine Bilirubin (Negative) Urine Urobilinogen (Negative) Ur Leukocyte Esterase (Negative) Nasal Screen MRSA (PCR) (Negative) Influenza Type A (PCR) Neg for Influ A (Neg) Influenza Type B (PCR) Neg for Influ B (Neg) 07/10/18 07/10/18 07/10/18 Range/Units 11:11 11:35 18:58 WBC (4.8-10.8) K/uL RBC (4.7-6.1) M/uL Hgb (14.0-18.0) g/dL Hct (42-52) % MCV (80-100) fL MCH (25-34) pg MCHC (32-36) g/dL RDW Std Deviation (36.4-46.3) fL RDW Coeff of Arik (11.5-14.5) % Plt Count (130-400) K/uL MPV (7.4-10.4) fL Immature Gran % (Auto) % Neut % (Auto) % Lymph % (Auto) % [place] % (Auto) % Eos % (Auto) % Baso % (Auto) % Immature Gran # (Auto) (0.00-0.02) K/uL Neut # (Auto) (1.4-6.5) K/uL Lymph # (Auto) (1.2-3.4) K/uL [place] # (Auto) (0.11-0.59) K/uL Eos # (Auto) (0-0.5) K/uL Baso # (Auto) (0-0.2) K/uL Platelet Estimate (Normal) PT (9.0-12.0) Seconds INR (0.9-1.1) APTT 25.2 (21.0-31.0) Seconds PTT Ratio 0.9 Sodium (136-145) mmol/L Potassium (3.5-5.1) mmol/L Chloride (98-107) mmol/L Carbon Dioxide (21-32) mmol/L Anion Gap (3-11) BUN (7-18) mg/dl Creatinine (0.6-1.4) mg/dl Est Cr Clr Drug Dosing ml/min Est GFR ( Amer) Est GFR (Non-Af Amer) BUN/Creatinine Ratio (10-20) Glucose (70-99) mg/dl Lactate 1.6 (0.4-2.0) mmol/L Calcium (8.5-10.1) mg/dl Magnesium (1.8-2.4) mg/dl Total Bilirubin (0.2-1) mg/dl AST (15-37) U/L ALT (12-78) U/L Alkaline Phosphatase (45-117) U/L Troponin I (0-0.045) ng/ml Total Protein (6.4-8.2) gm/dl Albumin (3.4-5.0) gm/dl Globulin (2.5-4.0) gm/dl Albumin/Globulin Ratio (0.9-2) Urine Color Yellow Urine Appearance Clear (Clear) Urine pH 5.0 (4.5-7.5) Ur Specific [place] 1.015 (1.000-1.030) Urine Protein Negative (Negative) Urine Glucose (UA) Negative (Negative) Urine Ketones Negative (Negative) Urine Blood Negative (Negative) Urine Nitrite Negative (Negative) Urine Bilirubin Negative (Negative) Urine Urobilinogen Negative (Negative) Ur Leukocyte Esterase Negative (Negative) Nasal Screen MRSA (PCR) (Negative) Influenza Type A (PCR) (Neg) Influenza Type B (PCR) (Neg) 07/10/18 07/10/18 07/11/18 Range/Units 18:58 Unknown 06:24 WBC 12.70 H (4.8-10.8) K/uL RBC 4.28 L (4.7-6.1) M/uL Hgb 10.5 L (14.0-18.0) g/dL Hct 33.2 L (42-52) % MCV 77.6 L (80-100) fL MCH 24.5 L (25-34) pg MCHC 31.6 L (32-36) g/dL RDW Std Deviation 56.7 H (36.4-46.3) fL RDW Coeff of Arik 20.5 H (11.5-14.5) % Plt Count 79 L (130-400) K/uL MPV 10.8 H (7.4-10.4) fL Immature Gran % (Auto) % Neut % (Auto) % Lymph % (Auto) % [place] % (Auto) % Eos % (Auto) % Baso % (Auto) % Immature Gran # (Auto) (0.00-0.02) K/uL Neut # (Auto) (1.4-6.5) K/uL Lymph # (Auto) (1.2-3.4) K/uL [place] # (Auto) (0.11-0.59) K/uL Eos # (Auto) (0-0.5) K/uL Baso # (Auto) (0-0.2) K/uL Platelet Estimate Decreased (Normal) PT 12.2 H (9.0-12.0) Seconds INR 1.2 H (0.9-1.1) APTT (21.0-31.0) Seconds PTT Ratio Sodium (136-145) mmol/L Potassium (3.5-5.1) mmol/L Chloride (98-107) mmol/L Carbon Dioxide (21-32) mmol/L Anion Gap (3-11) BUN (7-18) mg/dl Creatinine (0.6-1.4) mg/dl Est Cr Clr Drug Dosing ml/min Est GFR ( Amer) Est GFR (Non-Af Amer) BUN/Creatinine Ratio (10-20) Glucose (70-99) mg/dl Lactate (0.4-2.0) mmol/L Calcium (8.5-10.1) mg/dl Magnesium (1.8-2.4) mg/dl Total Bilirubin (0.2-1) mg/dl AST (15-37) U/L ALT (12-78) U/L Alkaline Phosphatase (45-117) U/L Troponin I (0-0.045) ng/ml Total Protein (6.4-8.2) gm/dl Albumin (3.4-5.0) gm/dl Globulin (2.5-4.0) gm/dl Albumin/Globulin Ratio (0.9-2) Urine Color Urine Appearance (Clear) Urine pH (4.5-7.5) Ur Specific [place] (1.000-1.030) Urine Protein (Negative) Urine Glucose (UA) (Negative) Urine Ketones (Negative) Urine Blood (Negative) Urine Nitrite (Negative) Urine Bilirubin (Negative) Urine Urobilinogen (Negative) Ur Leukocyte Esterase (Negative) Nasal Screen MRSA (PCR) Negative (Negative) Influenza Type A (PCR) (Neg) Influenza Type B (PCR) (Neg) 07/11/18 07/12/18 07/12/18 Range/Units 06:24 05:19 05:19 WBC 8.04 (4.8-10.8) K/uL RBC 4.19 L (4.7-6.1) M/uL Hgb 10.6 L (14.0-18.0) g/dL Hct 32.5 L (42-52) % MCV 77.6 L (80-100) fL MCH 25.3 (25-34) pg MCHC 32.6 (32-36) g/dL RDW Std Deviation 57.1 H (36.4-46.3) fL RDW Coeff of Arik 20.4 H (11.5-14.5) % Plt Count 75 L (130-400) K/uL MPV 10.4 (7.4-10.4) fL Immature Gran % (Auto) % Neut % (Auto) % Lymph % (Auto) % [place] % (Auto) % Eos % (Auto) % Baso % (Auto) % Immature Gran # (Auto) (0.00-0.02) K/uL Neut # (Auto) (1.4-6.5) K/uL Lymph # (Auto) (1.2-3.4) K/uL [place] # (Auto) (0.11-0.59) K/uL Eos # (Auto) (0-0.5) K/uL Baso # (Auto) (0-0.2) K/uL Platelet Estimate (Normal) PT (9.0-12.0) Seconds INR (0.9-1.1) APTT (21.0-31.0) Seconds PTT Ratio Sodium 141 141 (136-145) mmol/L Potassium 3.9 4.1 (3.5-5.1) mmol/L Chloride 107 107 (98-107) mmol/L Carbon Dioxide 30 29 (21-32) mmol/L Anion Gap 4.0 5.0 (3-11) BUN 32 H 24 H (7-18) mg/dl Creatinine 1.46 H D 1.14 D (0.6-1.4) mg/dl Est Cr Clr Drug Dosing 49.4 64.1 ml/min Est GFR ( Amer) 54.9 74.1 Est GFR (Non-Af Amer) 47.4 63.9 BUN/Creatinine Ratio 21.6 H 20.6 H (10-20) Glucose 76 84 (70-99) mg/dl Lactate (0.4-2.0) mmol/L Calcium 8.6 8.7 (8.5-10.1) mg/dl Magnesium 2.1 (1.8-2.4) mg/dl Total Bilirubin (0.2-1) mg/dl AST (15-37) U/L ALT (12-78) U/L Alkaline Phosphatase (45-117) U/L Troponin I (0-0.045) ng/ml Total Protein (6.4-8.2) gm/dl Albumin (3.4-5.0) gm/dl Globulin (2.5-4.0) gm/dl Albumin/Globulin Ratio (0.9-2) Urine Color Urine Appearance (Clear) Urine pH (4.5-7.5) Ur Specific [place] (1.000-1.030) Urine Protein (Negative) Urine Glucose (UA) (Negative) Urine Ketones (Negative) Urine Blood (Negative) Urine Nitrite (Negative) Urine Bilirubin (Negative) Urine Urobilinogen (Negative) Ur Leukocyte Esterase (Negative) Nasal Screen MRSA (PCR) (Negative) Influenza Type A (PCR) (Neg) Influenza Type B (PCR) (Neg) Imaging Data Radiologist's Impression: Radiology results as stated below per my review and the radiologist's interpretation: XR chest 1V portable HISTORY: fever COMPARISON: Chest 03/20/2018. FINDINGS: The lungs are clear. The heart remains mildly enlarged. There is a left-sided dual-chamber pacemaker. No pleural effusions. No pneumothorax. IMPRESSION: Stable mild cardiomegaly. No acute process within the chest. Electronically signed by: Stewart Winslow M.D. 07/10/2018 12:[address] SCAN OF THE CHEST WITH IV CONTRAST CLINICAL HISTORY: Fever. History of sternal wound infection. COMPARISON STUDY: Chest x-ray dated 07/10/2018. TECHNIQUE: Following the IV administration of 70 cc of Optiray 320, CT scan of the thorax was performed from the thoracic inlet to the upper abdomen. Images are reviewed in the axial, sagittal, and coronal planes. IV contrast was administered without complication. A dose lowering technique was utilized adhering to the principles of ALARA. CT DOSE: 412.81 mGy.cm FINDINGS: Thyroid: Imaged portions of the thyroid gland are normal in size and attenuation. Thoracic aorta: There is atherosclerotic calcification of the thoracic aorta, which is normal in caliber and demonstrates bovine variant arch anatomy. No dissection is seen. Pulmonary vasculature: The pulmonary trunk is normal in caliber. There are no filling defects identified in the central pulmonary vessels to indicate pulmonary embolus. Note that this examination was not protocoled for evaluation of the pulmonary arteries. Heart: A 2-lead cardiac pacemaker is present in the left chest wall. There is evidence of previous aortic valve surgery. The heart is enlarged and there is trace pericardial effusion. The coronary arteries are densely calcified. Lungs and pleural spaces: There is mild emphysematous change. Patchy airspace consolidation is seen throughout the left lower lobe the right lung appears clear. The trachea and central airways are patent. Mediastinum: There are numerous subcentimeter mediastinal lymph nodes. These are not pathologically enlarged by size criteria. Cherri: Clear. Axillae: There is no axillary lymphadenopathy. Upper abdomen: Cholecystectomy clips are noted. There is mild intrahepatic biliary ductal dilatation. A duodenal diverticulum is noted. There is a fat- containing ventral hernia located at and below the xiphoid process of the sternum. Skeletal structures: The skeletal structures are osteopenic. There is evidence of previous sternotomy. There is mild soft tissue induration surrounding the sternotomy site and sternotomy wires have been removed. No organized fluid collection is identified. Degenerative change is noted throughout the thoracic spine. No lytic or blastic bony lesions are seen. IMPRESSION: 1. There is patchy airspace consolidation throughout the left lower lobe. This is typical in appearance for pneumonia/aspiration pneumonitis. Clinical correlation will be required and radiographic follow-up to resolution is recommended. 2. Cardiomegaly and mild emphysema. 3. The patient is status post midline sternotomy. The sternotomy wires have been removed and there is mild soft tissue thickening around the sternum. This is likely related to the reported history of previous sternal infection. There is no organized fluid collection to suggest abscess. 4. Additional findings as above. Electronically signed by: Salvatore Rodrigez M.D. 07/10/2018 1:57 PM ECG Data Attestation: I personally reviewed and interpreted this ECG as follows: Indication: weakness Rate (beats per minute): 72 Rhythm: other (atrial paced) Findings: + other (prolonged AV conduction, repolarization abnormality in the lateral leads, QTC 444); no ST depression, no ST elevation and no acute ischemic change Blood Pressure Blood Pressure Findings: Normal blood pressure MDM Narrative This patient was evaluated and appeared to be in no significant distress. Patient is noted to be slightly febrile. Vital signs are stable. Upon review of old records and discussion with cardiology, the patient has had an extensive history status post aortic valve replacement and sternal infection postoperatively. IV access was obtained and laboratory work was drawn. The patient was placed on the dye operator. Treated with normal saline solution, given Tylenol PA for fever. Chest x-ray is negative. Influenza swab was negative. Patient has a leukocytosis. Blood cultures were obtained, lactate is normal. Dr. Davis of cardiology did arrive in the emergency department to e valuate the patient as he is familiar. Patient was started on IV Zosyn and vancomycin due to history of postoperative wound infections. CT scan of the chest was ordered by Dr. Davis. There is evidence of pneumonia, otherwise the sternum has chronic changes but no acute abnormality. Bedside echo was performed at cardiology's request. After discussion with CT surgery at [facility], Dr. Davis thought it was reasonable to keep the patient here at [facility] and the patient will be evaluated for further management. Impression & Plan PNA (pneumonia), Fever Discharge Plan Visit Data *Final* Discharge Date/Time: 07/10/18 17:56 Chief Complaint: Fever Stated Complaint: FEVER, WEAK ED Provider: Winnie Hubbard Discharge Problem: PNA (pneumonia), Fever Patient Disposition: Admitted As Inpatient Discharge Instructions Interventions: ED Discharge Assessment Last Done: 07/10/18 17:56 Discharge Problem: PNA (pneumonia) Qualifiers: Pneumonia type: due to unspecified organism Laterality: left Lung location: lower lobe of lung Qualified Code(s): J18.1 - Lobar pneumonia, unspecified organism The scribe's documentation has been prepared under my direction and personally reviewed by me in its entirety. I confirm that the note above accurately reflects all work, treatment, procedures, and medical decision making performed by me.
[2018-07-10] MEDS ORDERED: POLYETHYLENE (MIRALAX) 17 GM PACK PO PRN (17:47)
[2018-07-10] MEDS ORDERED: SODIUM CHLORIDE 0.9% 1000ML 1,000 ML IV SCH (17:47)
[2018-07-10] MEDS ORDERED: ACETAMINOPHEN 325 MG TAB PO PRN (17:47)
[2018-07-10 19:22] LABS: Partial Thromboplastin Ratio 0.9; Partial Thromboplastin Time 25.2 Seconds (21.0-31.0)
[2018-07-10] MEDS: PIPERACILLIN/TAZOBACTAM 3.375 GM in DEXTROSE 5% 100 ML IV SCH (19:42)
[2018-07-10] MEDS: ROPINIROLE HCL 1 MG TABLET PO SCH (19:45)
[2018-07-10] MEDS: SIMVASTATIN 10 MG TAB PO SCH (19:46)
[2018-07-10] MEDS: DIVALPROEX DELAY RELEASE 250 MG TABEC PO SCH (19:47)
[2018-07-10 20:05] LABS: INR 1.2 (0.9-1.1); Prothrombin Time 12.2 Seconds (9.0-12.0)
[2018-07-10] MEDS: HEPARIN SOD 5,000 UNIT/0.5 ML VIAL SQ SCH (21:54)
[2018-07-11] MEDS ORDERED: VANCOMYCIN HCL 1,500 MG in SODIUM CHLORIDE 0.9% 500 ML IV SCH (02:00)
[2018-07-11] MEDS: PIPERACILLIN/TAZOBACTAM 3.375 GM in DEXTROSE 5% 100 ML IV SCH ×3 (03:16→19:01)
[2018-07-11] MEDS: LEVOTHYROXINE SODIUM 88 MCG TABLET PO SCH (05:46)
[2018-07-11] MEDS: HEPARIN SOD 5,000 UNIT/0.5 ML VIAL SQ SCH ×2 (05:46→13:52)
[2018-07-11 07:11] LABS: Hematocrit (blood only) 33.2 % (42-52); Hemoglobin 10.5 g/dL (14.0-18.0); Mean Corpuscular Hgb Conc 31.6 g/dL (32-36); Mean Corpuscular Volume 77.6 fL (80-100); RDW Coefficient of Variation 20.5 % (11.5-14.5); RDW Standard Deviation 56.7 fL (36.4-46.3); Red Blood Count 4.28 M/uL (4.7-6.1)
[2018-07-11 07:31] LABS: Mean Platelet Volume 10.8 fL (7.4-10.4); Platelet Count 79 K/uL (130-400)
[2018-07-11 07:32] LABS: Platelet Estimate Decreased (Normal)
[2018-07-11 07:38] LABS: BUN Creatinine Ratio 21.6 (10-20); Calcium 8.6 mg/dl (8.5-10.1); Creatinine Clr Calc Pharmacy 49.4 ml/min; Est GFR (African American) 54.9; Est GFR (Non-African American) 47.4; Magnesium 2.1 mg/dl (1.8-2.4); Potassium 3.9 mmol/L (3.5-5.1)
[2018-07-11] MEDS: DOCUSATE SODIUM 100 MG CAP PO SCH (08:24)
[2018-07-11] MEDS: METOPROLOL SUCC 50MG EXT REL TAB PO SCH (08:24)
[2018-07-11] MEDS: AMIODARONE 200 MG TAB PO SCH (08:24)
[2018-07-11] MEDS: FLUTICASONE PROPIONATE NA SPR 16 GM BTL NAE SCH (08:25)
[2018-07-11] MEDS: PYRIDOXINE HCL 50 MG TAB PO SCH (08:25)
[2018-07-11] MEDS: MULTIVITAMIN TAB PO SCH (08:25)
[2018-07-11] MEDS: ASPIRIN 81 MG ECTAB PO SCH (08:25)
[2018-07-11] MEDS: ROPINIROLE HCL 1 MG TABLET PO SCH ×3 (08:25→20:32)
[2018-07-11] MEDS: FEXOFENADINE HCL 180 MG TAB PO SCH (08:25)
[2018-07-11] MEDS: SPIRONOLACTONE 25 MG TAB PO SCH (08:25)
[2018-07-11] MEDS: DIVALPROEX DELAY RELEASE 500 MG TAB PO SCH (08:25)
--- NOTE | 2018-07-11 12:18 | Hospitalist Progress Note ---
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 -Fever of 102 F, Now afebrile, leukocytosis of 16.5 on admission, CT chest with evidence of patchy airspace consolidation throughout left lower lobe -No evidence of active infection or abscess in area of prior sternal osteomyelit is -Dr. Davis discussed imaging with patient's surgeon, Dr. Stark of CT surgery at [facility], who felt that CT was consistent with stable postoperative changes in the sternum rather than recurrent infection -Bedside 2D echo with normal left ventricular systolic function with estimated EF of 55-60%. No regional wall abnormalities, no evidence of vegetation on bioprosthetic aortic valve -Will consider BONG pending the availability of culture results and reassessment after treatment with appropriate antibiotics for pneumonia -Started on Zosyn and Vanco empirically in the ED. We will continue with Vanco and Zosyn for now -Follow blood cultures (2) Acute kidney injury superimposed on chronic kidney disease: Cr elevated to 1.78 (baseline ~1.4) -In setting of lasix, lisinopril use -Denies decreased PO intake, so likely a renal etiology -Giving gentle fluids, will plan to hold lasix and lisinopril tomorrow -Repeat BMP in AM (3) Aortic stenosis: s/p AVR (4) History of aortic valve replacement: Performed in Feb 2018, complicated by sternal osteomyelitis in Mar 2018 (s/p sternal debridement and IV antibiotics) (5) Seizure disorder: Most recent seizure was 2003 -Continue home dose Depakote (6) S/P placement of cardiac pacemaker: 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 -Follows with [facility], Dr Ashley, most recent device interrogation had apparently been performed yesterday 07/09/18 at the [facility] office with stable findings per patien'ts recollection. (7) Hypertension: Normotensive. Continue Toprol, Spironolactone -Holding lisinopril in setting of CESAR (8) Paroxysmal atrial fibrillation: Continue amiodarone and Toprol (9) Parkinson's disease: Continue home dose Requip (10) Hypothyroidism: Continue levothyroxine (11) Dyslipidemia: Continue statin DC when Afeb 24-48 Hours, Not on O2 and WBCs normal, Likely 4/6 DVT Ppx: SQ heparin Code status: FULL PCP: Kj Dispo: Tele. Plan to return home once medically stable. Subjective Feels a lot better, breathing better ROS-No Headache, No Visual Changes, No Nausea, No Vomiting, No Fever, No Chills, No Neck Pain or Stiffness, No Chest Pain, No Palpitations, No SOB, No LUIS, No Cough, No Sputum, No Wheezing, No Abdominal Pain, No Diarrhea, No Hematemesis, No Hemoptysis, No Unexpected Weight Loss, No Flank pain, No Melena, No Hematochezia, No Frequency, No Urgency, No Burning, No Hematuria, No Rashes, No Diaphoresis. Appetite is Normal Physical Exam Gen-AAO x 3, NAD, Afebrile Head-NCAT, EOMI, PERRLA, Anicteric Sclera, No Posterior Pharyngeal Erythema Neck-Supple, No JVD, No Thyromegaly, No Masses, No LAD, No Bruits Lungs-Clear to Auscultation Bilaterally, No Rales, No Rhonchi, No Wheezing, No Crepitus Chest-No S4, +S1, +S2, No S3, No Murmurs, No Rubs, No Gallops, No Ectopy Abdomen-Soft, Bowel Sounds Present, Non Tender, Non Distended, No Hepatomegaly, No Splenomegaly, No Palpable Masses, No Rebound, No Rigidity, No Guarding Musculoskeletal-Full Range of Motion Bilaterally, No CVAT Extremities-No Cyanosis, No Clubbing, No Edema Nuero-Cranial Nerves II-XII grossly intact, Motor WNL, DTRs WNL, Strength WNL, Non Focal Psych-Normal Mood Physical Exam Vital Signs (Past 24 Hours): Last Vital Signs Temp 36.4 C L 07/11/18 11:57 Pulse 71 07/11/18 11:57 Resp 17 07/11/18 11:57 BP 146/70 H 07/11/18 11:57 Pulse Ox 99 04/05/19 11:57 Results & Data Laboratory Results Current Diagnoses Hypothyroidism, unspecified (07/10/18) Hyperlipidemia, unspecified (07/10/18) Parkinson's disease (07/10/18) Epilepsy, unspecified, not intractable, without status epilepticus (07/10/18) Essential (primary) hypertension (07/10/18) Nonrheumatic aortic (valve) stenosis (07/10/18) Paroxysmal atrial fibrillation (07/10/18) Lobar pneumonia, unspecified organism (07/10/18) Acute kidney failure, unspecified (07/10/18) Chronic kidney disease, unspecified (07/10/18) Fever, unspecified (07/10/18) Presence of cardiac pacemaker (07/10/18) Presence of prosthetic heart valve (07/10/18) Allergies carbamazepine Allergy (Unknown, Verified 07/10/18 10:49) TOXIC, DOUBLE VISION indigotindisulfonic acid Allergy (Unknown, Verified 07/10/18 10:49) TOXIC, DOUBLE VISION doxazosin Adverse Reaction (Unknown, Verified 07/10/18 10:49) BP LOSS nitrofurantoin Adverse Reaction (Unknown, Verified 07/10/18 10:49) DIZZINESS Height/Weight/Isolation Height 5 ft 9 in Weight 85 kg Chemistry 07/10/18 07/11/18 11:11 06:24 Sodium 141 141 Potassium 3.9 3.9 Chloride 104 107 Carbon Dioxide 32 30 Anion Gap 5.0 4.0 BUN 40 H 32 H Creatinine 1.78 H 1.46 H D Glucose 67 L 76 Urinalysis 07/10/18 11:35 Urine Color Yellow Urine Appearance Clear Urine pH 5.0 Ur Specific [place] 1.015 Urine Protein Negative Urine Glucose (UA) Negative Urine Ketones Negative Urine Blood Negative Urine Nitrite Negative Urine Bilirubin Negative Microbiology 07/10/18 11:11 Blood Blood Culture - Pending 07/10/18 11:11 Blood Blood Culture - Pending (1) PNA (pneumonia) Laterality: left Lung location: lower lobe of lung Pneumonia type: due to unspecified organism Qualified Code(s): J18.1 - Lobar pneumonia, unspecified organism
--- NOTE | 2018-07-11 16:54 | Cardiology Progress Note ---
Date of Service July 11, 2018 Assessment & Plan (1) PNA (pneumonia): Left lower lobe pneumonia, possible aspiration pneumonitis. Continue Zosyn. Await blood cultures. (2) Acute kidney injury superimposed on chronic kidney disease: Creatinine trending toward improvement, received IV contrast for CT scan of 07/10/18. (3) S/P AVR: Stable appearance of bioprosthetic aortic valve on transthoracic echocardiogram. Afebrile, at present clinical suspicion of endocarditis is low. (4) Sinoatrial node dysfunction: Has history of dual-chamber permanent pacemaker. -Does have history of paroxysmal atrial fibrillation, maintained in sinus rhythm with beta-yesenia and amiodarone. Coumadin discontinued post open heart surgery, in addition to bioprosthetic aortic valve replacement in February 2018, left atrial appendage clip was also placed operatively (5) Thrombocytopenia: Has history of mild thrombocytopenia with platelet count in the range of 104-119,000 in March 2018 during that admission. On 07/10/18 platelet count was 118,000, 79,000 today. Perhaps due to sepsis. I have placed a hold on his subcutaneous heparin DVT prophylaxis. A repeat CBC is planned for tomorrow. Knee-high sequential pneumatic compression devices have been ordered in the meantime for DVT prophylaxis. The patient is ambulating in the hallway which should also be helpful in terms of DVT prophylaxis. Subjective Chief complaint: Follow-up fever Subjective: Patient feeling much improved. He is sitting upright in bed, he appears much more alert and has more energy. He has been afebrile since presentation to the emergency room. Review of Systems All systems reviewed & are unremarkable except as noted in HPI & below Physical Exam Vital Signs (Past 24 Hours): Last Vital Signs Temp 36.5 C 07/11/18 15:58 Pulse 72 07/11/18 15:58 Resp 17 07/11/18 15:58 BP 110/65 07/11/18 15:58 Pulse Ox 99 07/11/18 15:58 Physical Exam: General: no acute distress and stated age Eyes: conjunctiva are pink and non-injected, sclera clear Neck: normal jugular venous pulse, no hepatojugular reflux Chest: normal shape and normal respiratory effort -Well-healed midline sternotomy incision, no drainage Lungs: clear to auscultation and percussion Cardiac Exam: - regular heart sounds, no murmurs, rubs, or gallops, no jugular venous distention Abdomen: abdomen soft, non-tender, no abnormal masses and no hepatosplenomegaly Extremities: no edema and no cyanosis Neuro:awake, coversant, follows commands, no focal motor deficits Psych: appropriate affect and insight. Results & Data Laboratory Results Coagulation 07/10/18 07/10/18 Range/Units 18:58 18:58 PT 12.2 H (9.0-12.0) Seconds APTT 25.2 (21.0-31.0) Seconds CBC 07/11/18 Range/Units 06:24 WBC 12.70 H (4.8-10.8) K/uL RBC 4.28 L (4.7-6.1) M/uL Hgb 10.5 L (14.0-18.0) g/dL Hct 33.2 L (42-52) % Plt Count 79 L (130-400) K/uL Comprehensive Metabolic Panel 07/11/18 Range/Units 06:24 Sodium 141 (136-145) mmol/L Potassium 3.9 (3.5-5.1) mmol/L Chloride 107 (98-107) mmol/L Carbon Dioxide 30 (21-32) mmol/L BUN 32 H (7-18) mg/dl Creatinine 1.46 H D (0.6-1.4) mg/dl Glucose 76 (70-99) mg/dl Calcium 8.6 (8.5-10.1) mg/dl Intake and Output 07/11/18 07/11/18 07/11/18 06:59 14:59 22:59 Intake Total 1087 / 3742 975 / 1090 115 / 1090 Balance 1087 / 3442 975 / 1090 115 / 1090 Intake: IV 847 / 3502 115 / 230 115 / 230 Zosyn 3.375 gm In D5 100 ml @ 115 / 115 115 / 230 115 / 230 28.75 mls/hr IV Q8H VARSHA Rx#: [id number] Nss 1000ML 1,000 ml @ 80 mls/hr 732 / 732 0 / 0 IV .[id number] VARSHA Rx#:[id number] Oral 240 / 240 860 / 860 Other: Weight 85 kg Diagnostic Findings Blood cultures from 07/10/18 negative thus far (1) PNA (pneumonia) Laterality: left Lung location: lower lobe of lung Pneumonia type: due to unspecified organism Qualified Code(s): J18.1 - Lobar pneumonia, unspecified organism
[2018-07-11] MEDS: SIMVASTATIN 10 MG TAB PO SCH (20:32)
[2018-07-11] MEDS: DIVALPROEX DELAY RELEASE 250 MG TABEC PO SCH (20:33)
[2018-07-12] MEDS: PIPERACILLIN/TAZOBACTAM 3.375 GM in DEXTROSE 5% 100 ML IV SCH (03:05)
[2018-07-12 06:07] LABS: Hematocrit (blood only) 32.5 % (42-52); Hemoglobin 10.6 g/dL (14.0-18.0); Mean Corpuscular Hgb Conc 32.6 g/dL (32-36); Mean Corpuscular Volume 77.6 fL (80-100); RDW Coefficient of Variation 20.4 % (11.5-14.5); RDW Standard Deviation 57.1 fL (36.4-46.3); Red Blood Count 4.19 M/uL (4.7-6.1); White Blood Count 8.04 K/uL (4.8-10.8)
[2018-07-12 06:13] LABS: Mean Platelet Volume 10.4 fL (7.4-10.4); Platelet Count 75 K/uL (130-400)
[2018-07-12 06:25] LABS: BUN Creatinine Ratio 20.6 (10-20); Calcium 8.7 mg/dl (8.5-10.1); Creatinine Clr Calc Pharmacy 64.1 ml/min; Est GFR (African American) 74.1; Est GFR (Non-African American) 63.9; Potassium 4.1 mmol/L (3.5-5.1)
[2018-07-12] MEDS: LEVOTHYROXINE SODIUM 88 MCG TABLET PO SCH (06:35)
[2018-07-12] MEDS: DOCUSATE SODIUM 100 MG CAP PO SCH (07:41)
[2018-07-12] MEDS: SPIRONOLACTONE 25 MG TAB PO SCH (07:41)
[2018-07-12] MEDS: PYRIDOXINE HCL 50 MG TAB PO SCH (07:41)
[2018-07-12] MEDS: DIVALPROEX DELAY RELEASE 500 MG TAB PO SCH (07:41)
[2018-07-12] MEDS: MULTIVITAMIN TAB PO SCH (07:41)
[2018-07-12] MEDS: AMIODARONE 200 MG TAB PO SCH (07:41)
[2018-07-12] MEDS: ROPINIROLE HCL 1 MG TABLET PO SCH (07:41)
[2018-07-12] MEDS: FEXOFENADINE HCL 180 MG TAB PO SCH (07:41)
[2018-07-12] MEDS: ASPIRIN 81 MG ECTAB PO SCH (07:41)
[2018-07-12] MEDS: FLUTICASONE PROPIONATE NA SPR 16 GM BTL NAE SCH (07:42)
[2018-07-12] MEDS: METOPROLOL SUCC 50MG EXT REL TAB PO SCH (07:42)
--- NOTE | 2018-07-12 09:53 | Discharge Summary ---
Date of Service July 12, 2018 Admission HPI Per Admitting Provider This is a 72yo M with a PMH of bioprosthetic aortic valve replacement in Feb 2018 complicated by sternal osteomyelitis in Mar 2018 (s/p sternal debridement and IV antibiotics), tachy-rob syndrome (s/p pacemaker placement), paroxysmal A Fib, HTN, seizure disorder, Parkinson's disease, hypothyroidism and other medical problems listed below who presents from cardiology clinic with a fever. Patient completed IV antibiotics for sternal osteomyelitis and wound infection (growing Enterobacter cloque and staph aureus) at the beginning of May 2018. Since then, patient has been feeling well until this morning when he woke up with sensation of chills, rigors and cough. His spouse took his temperature orally at home this morning and he was found to have a fever 102 F. Was found to be febrile at 102.5 F upon arrival to routine cardiology appointment with Dr. Stephens and was directed to ED for further evaluation. Patient was afebrile on arrival to the emergency room, with most recent temperature 37.1C. Still with intermittent dry cough. Denies any chills, rigors, lightheadedness, headache, wheezing, hemoptysis, chest pain, shortness of breath, nausea, vomiting, abdominal pain, dysuria, diarrhea or constipation. Was recently experiencing bilateral lower extremity edema but it has recently resolved. Vital signs stable, leukocytosis of 16.5 K, CT chest with evidence of patchy airspace consolidation throughout left lower lobe. No evidence of active infection or abscess in area of prior sternal osteomyelitis. Was evaluated by Dr. Davis in the ED, who performed an echo that showed normal left ventri cular systolic function with estimated EF of 55-60%. No regional wall abnormalities, no evidence of vegetation on bioprosthetic aortic valve. Admission Exam Per Admitting Provider Temp 37.1 C 07/10/18 10:24 Pulse 68 07/10/18 13:47 Resp 16 07/10/18 13:47 BP 108/60 07/10/18 13:47 Pulse Ox 97 07/10/18 13:47 Physical Exam: General Appearance: WD/WN, no apparent distress, resting comfortably Head: normocephalic, atraumatic Eyes: normal inspection, PERRL, EOMI ENT: hearing grossly normal, pharynx normal (dry mucous membranes) Neck: supple, no JVD, no adenopathy Respiratory/Chest: Chest with sternotomy scar clean, dry, intact. No drainage. Lungs clear to auscultation. No wheezes, rales or rhonci. No respiratory distress or accessory muscle use Cardiovascular: regular rate, rhythm, no murmur, normal peripheral pulses, no BLE edema Abdomen/GI: normal bowel sounds, soft, non-tender to palpation Extremities/Musculoskelatal: normal inspection, no calf tenderness, normal capillary refill, no pedal edema Neurologic/Psych: alert, normal mood/affect, oriented x 3 Skin: normal color, warm/dry Principal Diagnosis LLL Pneumonia Acute on Chronic Kidney Diease stage II AFIB BPH Hypothyroid GERD Obesity HLD Parkinsons Seizure d/o HTN Pacer Discharge Exam ROS-No Headache, No Visual Changes, No Nausea, No Vomiting, No Fever, No Chills, No Neck Pain or Stiffness, No Chest Pain, No Palpitations, No SOB, No LUIS, No Cough, No Sputum, No Wheezing, No Abdominal Pain, No Diarrhea, No Hematemesis, No Hemoptysis, No Unexpected Weight Loss, No Flank pain, No Melena, No Hematochezia, No Frequency, No Urgency, No Burning, No Hematuria, No Rashes, No Diaphoresis. Appetite is Normal Physical Exam Gen-AAO x 3, NAD, Afebrile, Obese Head-NCAT, EOMI, PERRLA, Anicteric Sclera, No Posterior Pharyngeal Erythema Neck-Supple, No JVD, No Thyromegaly, No Masses, No LAD, No Bruits Lungs-L Rales, No Rhonchi, No Wheezing, No Crepitus Chest-No S4, +S1, +S2, No S3, No Murmurs, No Rubs, No Gallops, No Ectopy Abdomen-Soft, Bowel Sounds Present, Non Tender, Non Distended, No Hepatomegaly, No Splenomegaly, No Palpable Masses, No Rebound, No Rigidity, No Guarding Musculoskeletal-Full Range of Motion Bilaterally, No CVAT Extremities-No Cyanosis, No Clubbing, No Edema Nuero-Cranial Nerves II-XII grossly intact, Motor WNL, DTRs WNL, Strength WNL, Non Focal Psych-Normal Mood Discharge Data Allergies Allergy/AdvReac Type Severity Reaction Status Date / Time carbamazepine Allergy Unknown TOXIC, Verified 07/10/18 10:49 DOUBLE VISION indigotindisulfonic acid Allergy Unknown TOXIC, Verified 07/10/18 10:49 DOUBLE VISION doxazosin AdvReac Unknown BP LOSS Verified 07/10/18 10:49 nitrofurantoin AdvReac Unknown DIZZINESS Verified 07/10/18 10:49 Consultations 07/10/18 14:44 ED Decision to Admit Stat 07/10/18 17:47 Consult Cardiology Routine Procedures Performed Operation Date: 07/10/18 16:00 <No data on this case meets the specified criteria> Current Diagnoses Thrombocytopenia, unspecified (07/10/18) Hypothyroidism, unspecified (07/10/18) Hyperlipidemia, unspecified (07/10/18) Parkinson's disease (07/10/18) Epilepsy, unspecified, not intractable, without status epilepticus (07/10/18) Essential (primary) hypertension (07/10/18) Nonrheumatic aortic (valve) stenosis (07/10/18) Paroxysmal atrial fibrillation (07/10/18) Sick sinus syndrome (07/10/18) Lobar pneumonia, unspecified organism (07/10/18) Acute kidney failure, unspecified (07/10/18) Chronic kidney disease, unspecified (07/10/18) Fever, unspecified (07/10/18) Presence of cardiac pacemaker (07/10/18) Presence of prosthetic heart valve (07/10/18) Allergies carbamazepine Allergy (Unknown, Verified 07/10/18 10:49) TOXIC, DOUBLE VISION indigotindisulfonic acid Allergy (Unknown, Verified 07/10/18 10:49) TOXIC, DOUBLE VISION doxazosin Adverse Reaction (Unknown, Verified 07/10/18 10:49) BP LOSS nitrofurantoin Adverse Reaction (Unknown, Verified 07/10/18 10:49) DIZZINESS Height/Weight/Isolation Height 5 ft 9 in Weight 87.4 kg Chemistry 07/10/18 07/11/18 07/12/18 11:11 06:24 05:19 Sodium 141 141 141 Potassium 3.9 3.9 4.1 Chloride 104 107 107 Carbon Dioxide 32 30 29 Anion Gap 5.0 4.0 5.0 BUN 40 H 32 H 24 H Creatinine 1.78 H 1.46 H D 1.14 D Glucose 67 L 76 84 Urinalysis 07/10/18 11:35 Urine Color Yellow Urine Appearance Clear Urine pH 5.0 Ur Specific [place] 1.015 Urine Protein Negative Urine Glucose (UA) Negative Urine Ketones Negative Urine Blood Negative Urine Nitrite Negative Urine Bilirubin Negative Microbiology 07/10/18 11:11 Blood Blood Culture - Preliminary No growth to date. 07/10/18 11:11 Blood Blood Culture - Preliminary No growth to date. Ordered Studies 07/10/18 12:55 CT chest w con Stat Hospital Course (1) PNA (pneumonia): This is a 72yo M with a PMH of bioprosthetic aortic valve replacement in Feb 2018 complicated by sternal osteomyelitis in Mar 2018 (s/p sternal debri tate and IV antibiotics), tachy-rob syndrome (s/p pacemaker placement), paroxysmal A Fib, HTN, seizure disorder, Parkinson's disease, hypothyroidism and other medical problems listed below who presents from cardiology clinic with a fever. -Fever of 102 F, Now afebrile, leukocytosis of 16.5 on admission, CT chest with evidence of patchy airspace consolidation throughout left lower lobe -No evidence of active infection or abscess in area of prior sternal osteomyelitis -Dr. Davis discussed imaging with patient's surgeon, Dr. Stark of CT surgery at [facility], who felt that CT was consistent with stable postoperative changes in the sternum rather than recurrent infection -Bedside 2D echo with normal left ventricular systolic function with estimated EF of 55-60%. No regional wall abnormalities, no evidence of vegetation on bioprosthetic aortic valve -No BONG pending culture results neg and WBCs down to normal now, DC on Augmentin and Doxy (2) Acute kidney injury superimposed on chronic kidney disease: Cr normal (baseline ~1.4) -In setting of lasix, lisinopril use -Denies decreased PO intake, so likely a renal etiology (3) Aortic stenosis: s/p AVR (4) History of aortic valve replacement: Performed in Feb 2018, complicated by sternal osteomyelitis in Mar 2018 (s/p sternal debridement and IV antibiotics) (5) Seizure disorder: Most recent seizure was 2003 -Continue home dose Depakote (6) S/P placement of cardiac pacemaker: 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 -Follows with [facility], Dr Ashley, most recent device interrogation had [place] been [place] [facility] [place] stable findings per patien'ts recollection. (7) Hypertension: Normotensive. Continue Toprol, Spironolactone -Holding lisinopril in setting of CESAR (8) Paroxysmal atrial fibrillation: Continue amiodarone and Toprol (9) Parkinson's disease: Continue home dose Requip (10) Hypothyroidism: Continue levothyroxine (11) Dyslipidemia: Continue statin DC today DVT Ppx: SQ heparin Code status: FULL PCP: Kj Dispo: As above. Total Time Total Time Spent Total Time Spent (In Minutes): 40 mins Total Time Includes: Examination of the Patient, Discharge Planning, Medication Reconciliation and Communication With Other Providers Discharge Plan Discharge Items Patient Disposition: Home - Self-Care Reason For Visit: PNA Discharge Diagnosis: LLL Pneumonia Acute on Chronic Kidney Diease stage II AFIB BPH Hypothyroid GERD Obesity HLD Parkinsons Seizure d/o HTN Pacer Condition: Good Discharge Goals: Improve function Activity: Resume your previous activity Lifting: Gradually increase as tolerated Bathing: No limitations Sexual Activity: When tolerated Exercise/Sports: Gradually increase as tolerated Driving/Machine Use: No limitations Weightbearing: Left weightbearing and Right weightbearing Non-emergency contact: Primary Care Provider and Msw Call non-emergency contact if: you have any medication questions, your symptoms worsen and your temperature is above 100.5 Follow-up/Referrals: Pillo Davis DO [Msw] - (Call for first opening) Dom Underwood MD [Primary Care Provider] - Diet: Heart Healthy Addtl Provider Instructions: Repeat CT 8-12 weeks to make sure pneumonia resolves to full resolution Prescriptions: New doxycycline monohydrate 100 mg tablet 100 mg PO BID 12 Days Qty: 24 RF: 0 amoxicillin-pot clavulanate [Augmentin] 875-125 mg tablet 1 tab PO Q12H Qty: 12 RF: 0 Continued multivitamin Tablet 1 tab PO DAILY RF: 0 acetaminophen [Tylenol] 325 mg Tablet 650 mg PO DIRECTED PRN (Reason: pain, fever) RF: 0 ropinirole [Requip] 1 mg Tablet 1.5 mg PO TID RF: 0 metoprolol succinate [Toprol XL] 100 mg Tablet Extended Release 24 Hr 100 mg PO DAILY RF: 0 simvastatin 10 mg Tablet 10 mg PO HS RF: 0 aspirin 81 mg Tablet,Delayed Release (Dr/Ec) 81 mg PO DAILY RF: 0 furosemide [Lasix] 80 mg Tablet 40 mg PO DAILY RF: 0 fluticasone propionate [Flonase Allergy Relief] 50 mcg/actuation [place],Suspension 2 spray INTRANASAL DAILY RF: 0 divalproex 250 mg Tablet,Delayed Release (Dr/Ec) 500 mg PO DAILY RF: 0 divalproex 250 mg Tablet,Delayed Release (Dr/Ec) 750 mg PO PM RF: 0 pyridoxine (vitamin B6) 100 mg Tablet 100 mg PO DAILY RF: 0 fexofenadine [Maria E Allergy] 180 mg Tablet 180 mg PO DAILY RF: 0 spironolactone 25 mg Tablet 12.5 mg PO DAILY RF: 0 docusate sodium [Colace] 100 mg Capsule 100 mg PO DAILY RF: 0 lisinopril 2.5 mg Tablet 2.5 mg PO DAILY RF: 0 amiodarone 100 mg Tablet 100 mg PO DAILY RF: 0 levothyroxine 88 mcg Tablet 88 mcg PO DAILY RF: 0 Visit Report Forms: Smoking Cessation Stand-Alone Forms: [facility] Discharge Orders: Discharge Order (Routine); Ordered 07/12/18 Ordered By: Galileo Schmid Admission Data Admit Date/Time: 07/10/18 16:06 Attending Provider: Galileo Schmid Admit Provider: Shahid Hernandez Primary Care Provider: Dom Underwood Other Providers: Pillo Davis ; Shahid Hernandez Service: Telemetry Medical
== END 2018-07-12 11:18 | disposition home or self-care (01) | DRG 194 ==
LOC: ED 10:20 → 2W 16:06

== ENCOUNTER 2024-05-22 09:14 | Inpatient (IN) ==
--- NOTE | 2024-05-22 09:34 | Emergency Department Note ---
Impression & Plan Acute exacerbation of CHF (congestive heart failure), Pacemaker, Bilateral edema of lower extremity, Elevated troponin ED Provider Note NAME: EDILSON SAMPSON AGE: 78 SEX: M : 1945 ARRIVES VIA: Walk-In INFORMANT: Patient, ED PROVIDER(S): Scottie Dominguez MD CHIEF COMPLAINT: Shortness of breath MEDICAL DECISION MAKING: Patient presents due to concern for shortness of breath. Review of records show the patient is about 5 pounds greater than his most recent EP visit earlier in the month. Patient's blood work shows a normal white count hemoglobin and platelet count. The patient's kidney function is unremarkable. BSG 129 nonfasting and not DKA. Next troponin 25. EKG shows paced rhythm. BNP of 345. Light of this as well as the patient's weight gain and lower extremity edema patient was ordered IV Lasix 40 mg. As the patient has had worsening shortness of breath and LUIS I did speak with the on-call hospital service. CONRADO Jennings and Dr. Redman. Patient was informed of the findings and recommendations and was comfortable plan of care as his at bedside. Patient's chest x-ray was read as possible right lower lobe opacity versus atelectatic changes. The patient has not had any cough and no fever white count is normal. Will defer any antibiotic treatment to inpatient service at this time. Patient's pacemaker was interrogated and report placed on the patient's chart. Discussion w/ other healthcare providers: Delphine Jennings PA-C and Dr. Redman inpatient medicine service Prior /Outside records reviewed: I reviewed part of an EP visit from Dr. Arreaga from May 13. Known history of cardiac pacemaker A-fib long-term anticoagulant use and aortic stenosis. Patient reportedly has had more persistent A-fib. Patient likely has been in A- fib for about the last 4 months prior to that it was more intermittent in nature. Patient was to be restarted on flecainide 100 twice daily we discussed cardioversion. Patient currently on Eliquis. Differential diagnosis: Reactive airway disease, pneumonia, pneumothorax, COPD, CHF, ACS, pulmonary embolism, musculoskeletal, GERD as well as other pathologies were considered. Diagnostics, as interpreted by me: ECG: Primarily V-paced rhythm, rate of 79 wide QRS, left bundle branch block pattern, left axis deviation. Cardiac monitoring: An order was placed for continuous cardiac monitoring. The monitor shows a rate of 82 with paced rhythm. Patient was placed on pulse oximetry Medical decision rules: None Imaging studies: I informally interpreted the patient's Chest x-ray does not show obvious pneumothorax device noted.possible opacity in the right lower chest. With formal report to follow. HPI: Patient presents due to concern for shortness of breath. Shortness of breath has been ongoing maybe several months but seems to have worsened over since her recent EP visit with Dr. Arreaga and the patient was placed on flecainide. Patient also found out that the patient has likely been in A-fib for the last 4 months. Patient denies any current chest pains. He has had some associated abdominal pain in his lower abdomen but this has been ongoing for months. 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 Patient denies any leg pain. The patient does report he has had some associated leg swelling which is new for patient. He is compliant with medications and does take a water pill. Patient does not take a daily weight. PAST MEDICAL HISTORY: See Below PAST SURGICAL HISTORY: See Below SOCIAL HISTORY: See Below HOME MEDICATIONS: See Below ALLERGIES: See Below VITALS: See Below PHYSICAL EXAMINATION: GENERAL: NAD, non-toxic. EYE EXAM: Normal conjunctiva. PERRL, no anisocoria and EOM's grossly intact w/o pain. OROPHARYNX: Moist mucus membranes, grossly normal dentition. NECK: Trachea midline, no stridor. Supple, no nuchal rigidity, no adenopathy, non-tender. No signs of meningismus. FROM of the neck with good chin to chest and neck extension. Chest: Midline sternotomy scar noted. Device noted in left chest. LUNGS: Clear to auscultation. Normal chest wall mechanics. HEART: NSR, no MRG. ABDOMEN: Abdomen soft, right mid abdominal hernia reducible, prior scarring noted, no masses, no rebound or guarding. BACK: No CVA TTP. SKIN: No rashes and no bruising. UPPER EXTREMITIES: Upper extremities are grossly normal. LOWER EXTREMITIES: Grossly normal, 1+ symmetric lower extremity edema without calf pain or erythema. NEURO EXAM: A&O x3, cranial nerves II-XII grossly intact, normal speech, moves all 4 extremities. Past Med/Surg History Problem List (Updated 05/22/24 @ 17:30 by Scottie Dominguez MD) Elevated troponin (Acute) Bilateral edema of lower extremity (Acute) Pacemaker (Acute) Acute exacerbation of CHF (congestive heart failure) (Acute) Hyperlipidemia Epilepsy Ichthyosis Chronic mesenteric ischemia Persistent atrial fibrillation Acute on chronic diastolic heart failure with preserved ejection fraction Anticoagulant long-term use Encounter for pre-operative examination S/P AVR (Chronic) PNA (pneumonia) (Acute) Acute kidney injury superimposed on chronic kidney disease (Acute) Encounter for pre-operative examination Abnormal esophagram Syncope Cardiac pacemaker Paroxysmal atrial fibrillation (Chronic) has not had since valve replacement Sinoatrial node dysfunction (Chronic) S/P placement of cardiac pacemaker (Chronic) placed 2015 --biotronic- last checked 6 mo ago (to be checked 05/11/20)--follows with Dr. Ashley Thrombocytopenia (Chronic) Hypothyroidism (Chronic) Chronic systolic heart failure (Chronic) BPH (benign prostatic hyperplasia) (Chronic) GERD (gastroesophageal reflux disease) (Chronic) Dyslipidemia (Chronic) Parkinson's disease (Chronic) Hypertension (Chronic) Aortic stenosis (Chronic) following with vascular surgery [facility] - last checked 02/2020 and will be checked every 6 mo Seizure disorder (Chronic) last 2003 "grand mal"--reason for depakote, follows with Dr. Dyson Medical History History of COVID-19 dx 03/[address] [facility], [place]. coughing, congestion, fevers; all symptoms resolved History of syncope syncopal episode 03/2020 prior to covid diagnosis; last episode prior to 03/2020 was in 2016 pre pacemaker History of anesthesia reaction had a seizure when waking up from cholecystectomy in 1999 per pt and "was on the wrong seizure medicine, is on the right medication now and has not had any issues with any other surgeries since" Surgical History Status post excisional debridement x3 from aortic valve incision History of colonoscopy History of esophagogastroduodenoscopy (EGD) History of phacoemulsification of cataract of both eyes with intraocular lens implantation Family History Other Cerebral aneurysm Heart disease No family history of adverse response to anesthesia Social History Smoking Status: Never smoker Second Hand Exposure: Yes (as a child); Do You Dip or Chew Tobacco: No; Hx Alcohol Use: No Hx Substance Use: No Preferred Language: Pakistani Communication Ability: Effective Visual Impairment: No Limitations Hearing Ability: Normal Forensic Dna Analyst Required: No Beliefs That Will Affect Care: None marital status: Current Living Situation: Spouse Feels Safe at Home: Yes Assistive Devices: Denture - Lower and Glasses Allergies Allergies Allergy/AdvReac Type Severity Reaction Status Date / Time carbamazepine Allergy Unknown TOXIC, Verified 05/13/24 14:04 DOUBLE VISION indigotindisulfonic acid Allergy Unknown TOXIC, Verified 05/13/24 14:04 DOUBLE VISION doxazosin AdvReac Unknown BP LOSS Verified 05/13/24 14:04 nitrofurantoin AdvReac Unknown DIZZINESS Verified 05/13/24 14:04 Home Meds Home Medications Medication Instructions Recorded Confirmed acetaminophen 325 mg tablet 650 mg PO DIRECTED PRN pain, 03/20/18 05/22/24 (Tylenol) fever aspirin 81 mg tablet,delayed 81 mg PO QAM 03/20/18 05/22/24 release divalproex 250 mg tablet,delayed 500 mg PO QAM 03/20/18 05/22/24 release divalproex 250 mg tablet,delayed 750 mg PO PM 03/20/18 05/22/24 release furosemide 80 mg tablet (Lasix) 40 mg PO QAM 03/20/18 05/22/24 metoprolol succinate 100 mg 100 mg PO QAM 03/20/18 05/22/24 tablet,extended release 24 hr (Toprol XL) multivitamin 1 tab PO QAM 03/20/18 05/22/24 pyridoxine (vitamin B6) 100 mg 100 mg PO QAM 03/20/18 05/22/24 tablet docusate sodium 100 mg capsule 100 mg PO QAM 07/10/18 05/22/24 (Colace) fexofenadine 180 mg tablet 180 mg PO QAM 07/10/18 05/22/24 (Maria E Allergy) levothyroxine 88 mcg tablet 88 mcg PO QAM 07/10/18 05/22/24 lisinopril 2.5 mg tablet 2.5 mg PO QAM 07/10/18 05/22/24 spironolactone 25 mg tablet 12.5 mg PO QAM 07/10/18 05/22/24 ammonium lactate-sodium 1 applic topical DAILY PRN 10/13/18 05/22/24 lactate-potassium lactate topical Ichthyosis cream (AmLactin topical cream) ropinirole 1 mg tablet See Rx Instructions .Route .COMPLEX 10/13/18 05/22/24 atorvastatin 20 mg tablet 20 mg PO DAILY 10/16/21 05/22/24 sodium chloride 5 % eye drops 1 drp ophthalmic (eye) DAILY 10/16/21 05/22/24 flecainide 100 mg tablet 100 mg PO BID 05/22/24 05/22/24 melatonin 5 mg tablet 5 mg PO HS 05/22/24 05/22/24 omeprazole 20 mg capsule,delayed 20 mg PO QAM 05/22/24 05/22/24 release Previous Rx's Medication Instructions Recorded apixaban 5 mg tablet (Eliquis) 5 mg PO BID #180 tabs 03/26/24 Results & Data (ED) Vital Signs Vital Signs - 24 hr 05/22/24 09:25 05/22/24 09:43 05/22/24 09:48 Temperature 36.4 C L Temperature Source Temporal Artery Scan Pulse Rate 76 Pulse Rate from SpO2 Sensor Respiratory Rate 18 Respiratory Effort / Characteristics Non-Labored Respiratory Depth Normal Respiratory Pattern Regular Blood Pressure 114/82 122/73 Blood Pressure Mean 92 89 Pulse Oximetry 94 93 Oxygen Delivery Method Room Air Room Air Sepsis Recent Fever Within 48 Hours No Sepsis New/Unexplained Change in Mental Status N/A Sepsis Action Taken by Nursing No Action Required 05/22/24 09:48 05/22/24 09:48 05/22/24 09:52 Temperature Temperature Source Pulse Rate 77 75 Pulse Rate from SpO2 Sensor 76 Respiratory Rate Respiratory Effort / Characteristics Respiratory Depth Respiratory Pattern Blood Pressure Blood Pressure Mean Pulse Oximetry 97 94 Oxygen Delivery Method Room Air Sepsis Recent Fever Within 48 Hours Sepsis New/Unexplained Change in Mental Status Sepsis Action Taken by Nursing 05/22/24 10:18 05/22/24 10:30 05/22/24 10:57 Temperature Temperature Source Pulse Rate 95 H 75 76 Pulse Rate from SpO2 Sensor 96 H 73 75 Respiratory Rate 18 19 19 Respiratory Effort / Characteristics Respiratory Depth Respiratory Pattern Blood Pressure Blood Pressure Mean Pulse Oximetry 96 93 94 Oxygen Delivery Method Sepsis Recent Fever Within 48 Hours Sepsis New/Unexplained Change in Mental Status Sepsis Action Taken by Nursing 05/22/24 11:00 05/22/24 11:03 05/22/24 11:24 Temperature Temperature Source Pulse Rate 74 76 Pulse Rate from SpO2 Sensor 75 78 Respiratory Rate 18 17 Respiratory Effort / Characteristics Respiratory Depth Respiratory Pattern Blood Pressure 121/74 Blood Pressure Mean 89 Pulse Oximetry 92 91 Oxygen Delivery Method Sepsis Recent Fever Within 48 Hours Sepsis New/Unexplained Change in Mental Status Sepsis Action Taken by Nursing 05/22/24 11:30 05/22/24 11:42 05/22/24 12:00 Temperature Temperature Source Pulse Rate 75 Pulse Rate from SpO2 Sensor 75 Respiratory Rate Respiratory Effort / Characteristics Respiratory Depth Respiratory Pattern Blood Pressure 114/77 121/85 Blood Pressure Mean 92 98 Pulse Oximetry 96 Oxygen Delivery Method Sepsis Recent Fever Within 48 Hours Sepsis New/Unexplained Change in Mental Status Sepsis Action Taken by Nursing 05/22/24 12:00 05/22/24 12:27 05/22/24 12:30 Temperature Temperature Source Pulse Rate 75 75 Pulse Rate from SpO2 Sensor 75 75 Respiratory Rate 17 19 Respiratory Effort / Characteristics Respiratory Depth Respiratory Pattern Blood Pressure 128/86 Blood Pressure Mean 93 Pulse Oximetry 97 96 Oxygen Delivery Method Sepsis Recent Fever Within 48 Hours Sepsis New/Unexplained Change in Mental Status Sepsis Action Taken by Usp Medications Current Medication List: was personally reviewed by me Laboratory Data Attestation: I reviewed the patient's lab results. 05/22/24 09:45 05/22/24 09:45 Lab Results 05/22/24 05/22/24 05/22/24 Range/Units 09:45 10:18 12:07 WBC 8.52 (4.8-10.8) K/ul RBC 4.53 L (4.70-6.10) M/uL Hgb 14.0 (14.0-18.0) g/dl Hct 41.8 L (42.0-52.0) % MCV 92.3 (80.0-100.0) fL MCH 30.9 (25.0-34.0) pg MCHC 33.5 (32.0-36.0) g/dL RDW Std Deviation 50.4 H (36.4-46.3) fL RDW Coeff of Arik 15.0 H (11.5-14.5) % Plt Count 133 (130-400) K/uL MPV 13.0 H (9.4-12.4) fL Immature Gran % (Auto) 0.2 % Neut % (Auto) 70.4 % Lymph % (Auto) 15.5 % [place] % (Auto) 11.4 % Eos % (Auto) 2.1 % Baso % (Auto) 0.4 % Neut # (Auto) 6.00 (1.40-6.50) K/uL Lymph # (Auto) 1.32 (1.20-3.40) K/uL [place] # (Auto) 0.97 H (0.11-0.59) K/uL Eos # (Auto) 0.18 (0.00-0.50) K/uL Baso # (Auto) 0.03 (0.00-0.20) K/uL Immature Gran # (Auto) 0.02 (0.01-0.20) K/uL PT 12.5 H (9.0-12.0) Seconds INR 1.2 H (0.9-1.1) APTT 28 (21-31) Seconds PTT Ratio 1.0 Sodium 137 (136-145) mmol/L Potassium 4.1 (3.5-5.1) mmol/L Chloride 101 (98-107) mmol/L Carbon Dioxide 29 (21-32) mmol/L Anion Gap 7 (3-11) BUN 32 H (6-23) mg/dl Creatinine 1.30 (0.6-1.4) mg/dl Est Cr Clr Drug Dosing 51.5 ml/min eGFR 56.23 BUN/Creatinine Ratio 24.6 H (10-20) Glucose 129 H (70-99(Fasting)) mg/dl Calcium 9.5 (8.6-10.3) mg/dl Magnesium 1.9 (1.7-2.4) mg/dl Total Bilirubin 0.7 (0.2-1.0) mg/dl AST 36 (13-39) U/L ALT 21 (7-52) U/L Alkaline Phosphatase 69 (34-104) U/L Troponin I High Sens 25.7 H 30.6 H (0-20) pg/ml B-Natriuretic Peptide 345 H (0-100) pg/ml Total Protein 7.5 (6.0-8.3) gm/dl Albumin 3.9 (3.4-5.0) gm/dl Globulin 3.6 (2.5-4.0) gm/dl Albumin/Globulin Ratio 1.1 (0.9-2) Adenovirus (PCR) Not Detected (NotDetected) B. pertussis DNA (PCR) Not Detected (NotDetected) B.parapertussis DNA PCR Not Detected (NotDetected) C. pneumoniae DNA (PCR) Not Detected (NotDetected) Coronavirus OC43 (PCR) Not Detected (NotDetected) Coronavirus HKU1 (PCR) Not Detected (NotDetected) Coronavirus 229E (PCR) Not Detected (NotDetected) SARS-CoV-2 (PCR) Not Detected (NotDetected) Coronavirus NL63 (PCR) Not Detected (NotDetected) Human Metapneumovir PCR Not Detected (NotDetected) Influenza Type A (PCR) Not Detected (NotDetected) Influenza Type B (PCR) Not Detected (NotDetected) M. pneumoniae (PCR) Not Detected (NotDetected) Parainfluenza 1 (PCR) Not Detected (NotDetected) Parainfluenza 2 (PCR) Not Detected (NotDetected) Parainfluenza 3 (PCR) Not Detected (NotDetected) Parainfluenza 4 (PCR) Not Detected (NotDetected) RSV (PCR) Not Detected (NotDetected) Entero/Rhino (PCR) Not Detected (NotDetected) Administered Medications Discontinued Medications Furosemide (Furosemide 40 Mg/4 Ml Vial) 40 mg IV ONE ONE Stop: 05/22/24 11:42 Last Admin: 05/22/24 12:46 Dose: 40 mg Documented By: TNK Magnesium Sulfate/Dextrose (Magnesium Sulfate / D5w) 1 gm in 100 mls @ 100 mls/hr IV Q1H [facility] Stop: 05/22/24 16:59 Last Admin: 05/22/24 17:08 Dose: 100 mls/hr Documented By: Infusion: 05/22/24 16:34 Dose: Infused Documented By: Admin: 05/22/24 15:34 Dose: 100 mls/hr Documented By: YOBANY Potassium Chloride (Potassium Chloride Crtab 20 Meq Tabcr) 20 meq PO NOW STA Stop: 05/22/24 14:40 Last Admin: 05/22/24 15:34 Dose: 20 meq Documented By: SW Imaging Data Radiologist's Impression: Chest X-Ray 05/22/24 09:49 XR chest 1V portable CLINICAL HISTORY: Dyspnea COMPARISON STUDY: Chest CT and chest radiograph July 10, 2018. FINDINGS: Left subclavian pacer and left atrial appendage occluder device are in place. Cardiomegaly is unchanged. There is no pneumothorax or pleural fusion. Mild interstitial thickening is present. There is mild right basilar opacity. Left lung is clear. IMPRESSION: 1. Mild right basilar opacity which could reflect pneumonia or atelectasis. 2. Cardiomegaly. Pulmonary vascular congestion without overt pulmonary edema. ACT 112: Negative or not required by law. Electronically signed by: Aiden Carrillo M.D. 05/22/2024 10:26 AM Discharge Plan Visit Data Chief Complaint: Shortness of Breath/Dyspnea Stated Complaint: SOB,BACK PAIN, AB PAIN ED Provider: Scottie Dominguez Discharge Problem: Acute exacerbation of CHF (congestive heart failure), Pacemaker, Bilateral edema of lower extremity, Elevated troponin Discharge Instructions Interventions: ED Discharge Assessment Last Done: 05/22/24 15:24 Discharge Problem: Acute exacerbation of CHF (congestive heart failure) Qualifiers: Heart failure type: unspecified Qualified Code(s): I50.9 - Heart failure, unspecified
--- NOTE | 2024-05-22 10:27 | XRay Report ---
XR chest 1V portable CLINICAL HISTORY: Dyspnea COMPARISON STUDY: Chest CT and chest radiograph July 10, 2018. FINDINGS: Left subclavian pacer and left atrial appendage occluder device are in place. Cardiomegaly is unchanged. There is no pneumothorax or pleural fusion. Mild interstitial thickening is present. Th ere is mild right basilar opacity. Left lung is clear. IMPRESSION: 1. Mild right basilar opacity which could reflect pneumonia or atelectasis. 2. Cardiomegaly. Pulmonary vascular congestion without overt pulmonary edema. ACT 112: Negative or not required by law. Electronically signed by: Aiden Carrillo M.D. 05/22/2024 10:26 AM
[2024-05-22 10:33] LABS: Basophils # (auto) 0.03 K/uL (0.00-0.20); Basophils % (auto) 0.4 %; Eosinophils # (auto) 0.18 K/uL (0.00-0.50); Eosinophils % (auto) 2.1 %; Hematocrit (blood only) 41.8 % (42.0-52.0); Immature Granulocytes # (auto) 0.02 K/uL (0.01-0.20); Immature Granulocytes % (auto) 0.2 %; Lymphocytes # (auto) 1.32 K/uL (1.20-3.40); Lymphocytes % (auto) 15.5 %; Mean Corpuscular Hemoglobin 30.9 pg (25.0-34.0); Mean Corpuscular Hgb Conc 33.5 g/dL (32.0-36.0); Mean Corpuscular Volume 92.3 fL (80.0-100.0); Monocytes # (auto) 0.97 K/uL (0.11-0.59); Monocytes % (auto) 11.4 %; Neutrophils % (auto) 70.4 %; Platelet Count 133 K/uL (130-400); RDW Standard Deviation 50.4 fL (36.4-46.3); Red Blood Count 4.53 M/uL (4.70-6.10); White Blood Count 8.52 K/ul (4.8-10.8)
[2024-05-22 10:35] LABS: Albumin Level 3.9 gm/dl (3.4-5.0); Bilirubin,Total 0.7 mg/dl (0.2-1.0); Calcium 9.5 mg/dl (8.6-10.3); Magnesium 1.9 mg/dl (1.7-2.4); Potassium 4.1 mmol/L (3.5-5.1)
[2024-05-22 10:41] LABS: Albumin Globulin Ratio 1.1 (0.9-2); BUN Creatinine Ratio 24.6 (10-20); Creatinine Clr Calc Pharmacy 51.5 ml/min; Globulin 3.6 gm/dl (2.5-4.0); Total Protein 7.5 gm/dl (6.0-8.3)
[2024-05-22 10:46] LABS: INR 1.2 (0.9-1.1); Partial Thromboplastin Time 28 Seconds (21-31); Prothrombin Time 12.5 Seconds (9.0-12.0)
--- OUTSIDE RECORDS SUMMARY | 2024-05-22 11:18 | External Medical Summary ---
Author Name Unknown Address Unknown Organization [id number]:[facility] [place] - [address] [place] [address] Laboratory Report Ordering Provider Test Date Status BROOKLYNNKAYLEEHARPREET 05/20/2024 11:23:18 Final Exclude Heart Failure: <300 pg/mL
Diagnose Heart Failure:
Age <50 yr: >450 pg/mL
50-75 yr: >900 pg/mL
>75 yr: >1800 pg/mL
GFR is 30-59 mL/min: >1200 pg/mL or Age- adjusted values
GFR <30 mL/min: do not use, not reliable

Prognostic threshold: 1000 pg/mL Observation Date Value Abnormality Reference (Units ) Status BNP, Pro-hormone 05/20/2024 11:23:18 3152 Above high no rmal <300 (pg/mL) Final Performing Location [facility] [place] - [address] [place] [address]
--- OUTSIDE RECORDS SUMMARY | 2024-05-22 11:18 | External Medical Summary ---
Author Name Unknown Address Unknown Organization [id number]:[facility] [place] [address] Laboratory Report Ordering Provider Test Date Status RUSH OVERTON 05/20/2024 11:23:18 Final Observation Date Value Abnormality Reference (Units ) Status WBC, Total 05/20/2024 11:23:18 9.40 4.00-10.8 0 (K/uL) Final RBC 05/20/2024 11:23:18 4.52 4.50-5.25 (M/uL) Final Hemoglobin 05/20/2024 11:23:18 14.2 14.0-16.8 (g/dL) Final HCT 05/20/2024 11:23:18 44.5 40.0-48.4 (%) Final MCV 05/20/2024 11:23:18 98.5 82.0-99.5 (fL) Final MCH 05/20/2024 11:23:18 31.4 27.0-34.0 (pg) Final MCHC 05/20/2024 11:23:18 31.9 32.0-36.0 (g/dL) Final RDW 05/20/2024 11:23:18 15.6 11.5-15.5 (%) Final Platelets 05/20/2024 11:23:18 112 Below low normal 140 -400 (K/uL) Final MPV 05/20/2024 11:23:18 12.9 6.6-11.1 ( fL) Final Performing Location [facility] [place] [address]
--- OUTSIDE RECORDS SUMMARY | 2024-05-22 11:18 | External Medical Summary ---
Author Name Unknown Address Unknown Organization [id number]:[facility] [place] [address] [place] [address] Laboratory Report Ordering Provider Test Date Status RUSH OVERTON 05/20/2024 11:23:18 Final Rheumatoid factor at a level above 50 IU/mL may lead to an overestimation of the D-dimer level. A normal D-dimer result (<0.50 ug/mL FEU) has a negative predictive value of approximately 95% for the exclusion of acute pulmonary embolism (PE) or deep vein thrombosis when there is low or moderate pretest PE probability. Increased D-dimer values are abnormal but do not indicate a specific disease state and the D-dimer increase does not definitively correlate with clinical severity of disease. Observation Date Value Abnormality Reference (Units ) Status Fibrin D-dimer FEU [Mass/volume] in Platelet poor plasma by Immunoassay 05/20/2024 11:23:18 0.48 <0.50 (ug/mL FEU) Final Performing Location [facility] [place] - [facility] [address] [place] [address]
--- OUTSIDE RECORDS SUMMARY | 2024-05-22 11:18 | External Medical Summary | Summary of Care ---
Author Name Unknown Organization [facility] Address [address] [place] [address] Phone [phone] Care Team Providers Care Patient Ambassador Name Role Phone Dom Underwood MD Primary Care Provider + Reason for Visit * Reason Comments Short of Breath Congestion Afib/flutter Encounter Details Date Type Department Care Team (Latest Contact Info) Description 05/20/2024 10:20 AM EST Office Visit General Internal Medicine [facility] [address] [place] [address] Shoshana Newman MD [address] [place] [address] LUIS (dyspnea on exertion)*; Edema, unspecified type; Parkinson's disease without dyskinesia or fluctuating manifestations (HCC); Paroxysmal atrial fibrillation (HCC); Convulsions, unspecified convulsion type (HCC); HTN, goal below 140/90; Hypothyroidism due to acquired atrophy of thyroid; Mixed hyperlipidemia; PAF (paroxysmal atrial fibrillation) (HCC) Allergies Active Allergy Reactions Criticality Noted Date Comments Carbamazepine 03/20/2018 Other reaction(s): TOXIC, DOUBLE VISION Other reaction(s): TOXIC, DOUBLE VISION Carbitol Medium 03/23/2010 Uncontrolled seizures Doxazosin Mesylate Medium 03/23/2010 Uncontrolled Seizures Doxazosin 07/10/2018 Other reaction(s): BP LOSS Nitrofurantoin Medium 03/23/2010 Extreme dizziness Other reaction(s): DIZZINESS Pollen 03/11/2024 documented as of this encounter (statuses as of 05/21/2024) Medications MULTIVITAMINS PO TABS 1 TABLET DAILY 03/23/20 10 Active AMLACTIN CERAPEUTIC EX LOTNIndications:Ic hthyosis, X-linked use as directed 1 Bottle 6 11/20/19 14 Active docusate sodium (COLACE) 100 MG CAPS Take 1 Cap by mouth daily. 30 Cap 04/09/19 19 Active fexofenadine (JOCELINE) 180 MG Tablet Take 1 Tablet by mouth in the morning. Active aspirin enteric coated 81 MG TBEC Take 1 Tablet by mouth in the morning. 30 Tab 3 04/11/19 19 Active pyridOXINE (VITAMIN B-6) 100 MG Tablet 1 PILL DAILY 03/20/20 18 Active Sodium Chloride (Hypertonic) 5 % Ophthalmic Solution Instill 1 Drop into both eyes in the morning. 15 mL 12 08/03/19 20 Active Acetaminophen 500 MG Oral Tablet (Tylenol)Indicatio ns:Hand arthritis Take 2 Tabs by mouth every 8 hours as needed for Pain, Severe. 100 Tab 07/29/19 21 Active Saline [place] 0.2 % Nasal Solution (Rhinaris) Administer into nostril . Use in both nostrils as needed Active Metoprolol Succinate ER 100 MG Oral Tablet Extended Release 24 Hour (toPROL XL)Indications:Par oxysmal atrial fibrillation (HCC) TAKE ONE TABLET BY MOUTH IN THE MORNING 100 Tablet 3 03/03/2024 2:41 PM EST 08/19/19 24 025 Active Atorvastatin Calcium 20 MG Oral Tablet (Lipitor)Indicatio ns:Mesenteric artery stenosis (HCC),Mixed hyperlipidemia TAKE ONE TABLET BY MOUTH EVERY DAY 100 Tablet 2 03/17/2024 6:16 PM EST 08/30/19 24 Active Spironolactone 25 MG Oral Tablet (Aldactone)Indicat ions:Chronic systolic HF (heart failure) (HCC) Take 0.5 Tablets by mouth in the morning. 45 Tablet 3 03/09/2024 12:51 PM EST 09/13/19 24 025 Active Furosemide 40 MG Oral Tablet (Lasix)Indications :Chronic systolic HF (heart failure) (HCC),HTN, goal below 140/90 TAKE ONE TABLET BY MOUTH EVERY DAY 90 Tablet 3 03/10/2024 3:13 PM EST 09/13/19 24 025 Active Omeprazole 20 MG Oral Capsule Delayed Release (PriLOSEC) Take 1 Capsule by mouth in the morning. 90 Capsule 3 03/16/2024 2:49 PM EST 09/20/19 24 Active Levothyroxine Sodium 88 MCG Oral Tablet (Levoxyl)Indicatio ns:Hypothyroidism due to acquired atrophy of thyroid TAKE ONE TABLET BY MOUTH DAILY AT LEAST 30 MINUTES PRIOR TO FIRST MEAL OF THE DAY OR OTHER MEDICATIONS 100 Tablet 3 04/20/2024 6:34 AM EST 10/05/19 24 025 Active rOPINIRole HCl 1 MG Oral Tablet (Requip) Take one tablet by mouth in the morning, one tablet in the afternoon and one and one-half tablets in the evening 360 Tablet 1 02/19/2024 2:01 PM EST 11/28/19 24 Active Divalproex Sodium 250 MG Oral Tablet Delayed Release (Depakote DR) TAKE TWO TABLETS BY MOUTH IN THE MORNING AND TAKE THREE TABLETS BY MOUTH IN THE EVENING. 500 Tablet 1 04/13/2024 1:05 PM EST 01/02/20 24 025 Active Lisinopril 2.5 MG Oral Tablet (Prinivil)Indicati ons:HTN, goal below 140/90 TAKE ONE TABLET BY MOUTH EVERY DAY 90 Tablet 3 04/21/2024 7:48 AM EST 01/21/20 24 025 Active Melatonin 5 MG Oral Tablet Disintegrating Take by mouth as needed. Active Senna 8.6 MG Oral Capsule Take by mouth as needed. Active Eliquis 5 MG Oral Tablet (Apixaban) take 1 tablet by mouth twice a day 180 Tablet 3 04/09/2024 10:48 AM EST 03/26/20 24 Active Flecainide Acetate 100 MG Oral Tablet (Tambocor) 05/13/19 25 Active documented as of this encounter (statuses as of 05/21/2024) Active Problems Problem Noted Date Diagnosed Date Hypothyroidism due to acquired atrophy of thyroi d 09/19/2022 PAF (paroxysmal atrial fibrillation) 04/11/2021 Mixed hyperlipidemia 07/28/2020 Mesenteric artery stenosis 07/28/2020 Generalized idiopathic epile psy and epileptic syndromes, not intractable, without status epilepticus 01/28/2020 Presence of cardiac pacemaker 10/19/2019 Dysphonia 09/24/2018 S/P AVR (aortic valve replacement) 03/03/2018 Status post ligation of left atrial appendage Aortic valve disease 02/20/2018 Parkinson's disease 04/30/2014 Ichthyosis, 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 Esophageal reflux 08/21/2010 HEARING LOSS D-T NOISE,R>L 08/21/2010 Allergic rhinitis 08/21/2010 Convulsions Overview (03/23/2010): Is controlled by medication for past 6 years, has had Grand Mal HTN, goal below 140/90 Other cataract documented as of this encounter (statuses as of 05/21/2024) Resolved Problems Problem Noted Date Diagnosed Date Resolved Date Chronic systolic HF (heart failure) 09/19/2022 06/04/2023 Prediabetes 07/26/2021 07/19/2022 Chronic kidney disease, stage 3a 05/22/2021 11/08/2022 Overview: Per CKD protocol Benign hypertension with sta ge 3a chronic kidney disease 04/17/2021 11/08/2022 Overview: Per CKD protocol History of 2018 novel zuniga virus disease (COVID-19) 07/28/2020 06/04/2023 Hand arthritis 07/28/2020 06/04/2023 Lab test positive for detect ion of COVID-19 virus 03/31/2020 07/28/2020 Paroxysmal atrial fibrillation 07/02/2019 04/11/2021 Kidney disease, chronic, sta ge III (GFR 30-59 ml/min) 09/16/2018 10/16/2018 Benign hypertension with CKD (chronic kidney disease) stage III 09/16/2018 04/20/2021 Overview: Per CKD protocol History of wound infection 09/16/2018 0 12/18/2018 Chronic vascular disorder of intestine 04/17/2018 01/28/2020 Chronic systolic HF (heart failure) 03/03/2018 07/02/2019 Postoperative anemia due to acute blood loss 8 09/16/2018 Bilateral impacted cerumen 11/02/2016 1 05/06/2016 Severe aortic stenosis 09/26/201509/16 Hypothyroidism 04/30/2014 04/30/2014 Hypothyroidism 04/30/2014 07/28/2020 Thrombocytopenia 12/10/2013 07/02/2019 Vasovagal syncope 01/16/2012 04/17/2018 Subjective tinnitus 01/04/2011 03/19/20 17 VERTIGO(DYSEQUILIBRIUM) 08/21/201003/08 Noise-induced hearing loss 08/21/2010 0 08/21/2010 Primary snoring 08/21/2010 04/30/2014 CHR OTITIS EXTERNA, W/CERUMENOSIS, R>L 08/21/2010 09/17/2017 CHRONIC IRRITATIVE LARYNGITIS 08/21/2010 03/19/2017 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 Atrial fibrillation 07/29/19 21 Overview (03/23/2010): Pacemaker placed 2006 Sinoatrial node dysfunction 07/17/2018 Overview (03/23/2010): sp pacer 2006 documented as of this encounter (statuses as of 05/21/2024) Immunizations Name Administration Dates Next Due COVID-19 mRNA, LNP-s, No Pre serve, 2-Dose Series ([employer]) 03/03/2021,06/30/2020,06/09/2020 COVID-19, MRNA-LNP, 24-25, P R, 30MCG/0.3ML, IM, 12YRS AND ABOVE ([employer]-Comirnaty) 12/31/2023 COVID-19, MRNA-LNP, PF, 30 M CG/0.3 mL, 12 YRS AND ABOVE, IM ([facility]-Comirnaty) 01/21/2023 Covid-19, Mrna, Lnp-s, Pf, B ivalent, 30 Mcg, IM, 12 yrs and above ([employer]) 01/19/2022 Pneumococcal Conjugate Vacc, 13 Valent (Prevnar) 04/30/2014 Pneumococcal Polysaccharide PPV23 (Pneumovax) 09/22/2010,01/06/2005 Season Influenza, Quad, PF, Adjuvanted, 65+ Yrs, IM (FLUAD) 12/28/2019 Seasonal Influenza Vac., MDV , IM, 0.5 mL (Fluzone) 12/21/2016,12/17/2014,12/19/2013,12/26,12/21/2011,01/22/2011,01/25/2010 Seasonal Influenza Virus Vac cine, Unspecified Formulation 12/20/2017,12/16/2017,12/21/2016,12/26,12/19/2013,12/26/2012,12/21/2011 ,01/22/2011,01/25/2010 Seasonal Influenza, High Dos e, Trivalent, PF, IM (Fluzone HD) 12/19/2023,12/20/2017 Seasonal Influenza, PF, 6 M & above, IM , (FluLaval or Fluzone) 12/18/2018 Seasonal Influenza, QUAD, wi th Preserv, 6 mons & Above, 0.5 mL, IM 12/29/2022 Seasonal Influenza, Quadriva lent Hd (Fluzone Hd) 01/04/2022,01/03/2021 Seasonal Influenza, Quadriva lent, No Preserve, IM 12/27/2015 TDAP (age 10 and older)(Boostrix) 07/28/2020 TDAP, Age 7 and older, IM (Adacel) 06/21/2010 Varicella Zoster Vaccine (Adult) 12/21/2011 Zoster Vaccine Recombinant (Shingrix) 05/22/2018 ,01/20/2018,01/05/2018 documented as of this encounter Social History Tobacco Use Types Packs/Day Years Used Date Smoking Tobacco: Never Smokeless Tobacco: Never Alcohol Use Standard Drinks/Week Comments No 0 (1 standard drink = 0.6 oz pur e alcohol) PHQ-2 Answer Date Recorded PHQ Adult Total Score 0 05/08/2022 Hunger Vital Sign Answer Date Recorded Within the past 12 months, y ou worried that your food would run out before you got the money to buy more. Never true 05/08/19 23 Within the past 12 months, t he food you bought just didn't last and you didn't have money to get more. Never true 05/08/2022 Sex and Gender Information Value Date Recorded Sex Assigned at Male 07/17/2018 12:55 PM EDT Legal Sex Male 6:49 AM EST Gender Identity Male 07/17/2018 12:55 PM EDT Sexual Orientation Straight 07/17/2018 12 :55 PM EDT Occupation Industry Job Start Date Job End Date retired Not on file Not on file Not on file documented as of this encounter Last Filed Vital Signs Vital Sign Reading Time Taken Comments Blood Pressure 124/78 05/20/2024 10:28 AM EST Pulse 70 05/20/2024 10:28 AM EST Temperature 36.2 C (97.1 F) 05/20/2024 10:[address] Respiratory Rate 22 05/20/2024 10:28 AM EST Oxygen Saturation 95% 05/20/2024 10:28 AM EST Inhaled Oxygen Concentration - - Weight 90.4 kg (199 lb 3.2 oz) 05/20/2024 10:28 AM EST Height 172.7 cm (5' 7.99") 05/20/2024 10:[address] Body Mass Index 30.3 05/20/2024 10:28 AM EST documented in this encounter Functional Status * Are you deaf or do you have serious difficulty hearing? Answer Date of Assessment Author No 03/25/2018 6:11 PM Christina Sorensen RN * Are you blind or do you have serious difficulty seeing, even when wearing glasses? Answer Date of Assessment Author No 03/25/2018 6:11 PM Christina Sorensen RN * Do you have serious difficulty walking or climbing stairs? (5 years old or older) Answer Date of Assessment Author No 03/25/2018 6:11 PM Christina Sorensen RN * Do you have difficulty dressing or bathing? (5 years old or older) Answer Date of Assessment Author No 03/25/2018 6:11 PM Christina Sorensen RN * Because of a physical, mental, or emotional condition, do you have difficulty doing errands alone such as visiting a doctors office or shopping? (15 years old or older) Answer Date of Assessment Author No 03/25/2018 6:11 PM Christina Sorensen RN documented as of this encounter Mental Status * Because of a physical, mental, or emotional condition, do you have serious difficulty concentrating, remembering, or making decisions? (5 years old or older) Answer Entry Date Author No 03/25/2018 6:11 PM Christina Sorensen RN documented in this encounter Progress Notes * Shoshana Newman MD - 05/20/2024 3:40 PM EST Images from the original note were not included. History of Present Illness Tariq Fischer is a 78 year old male that presents for Short of Breath, Congestion, and Afib/flutter He has ventricular pacemaker put in by Cardiology in his last appointment with chiropractor assistant he was found to have intermittent quite regular episodes of atrial fibrillation but relatively not symptomatic. He has been planned for cardioversion soon but they have not heard from Cardiology office yet. His last echocardiogram reviewed with did show chronic atrial fibrillation , left atrium enlargement and mild mitral regurgitation but functioning aortic valve Declines any URI symptoms of feeling sick. No significant cough, chest pain or leg pain. Nonsmoker Short of Breath This is a chronic problem. The current episode started more than 1 month ago (3 months). The problem has been gradually worsening. Associated symptoms include abdominal pain, leg swelling and wheezing. Pertinent negatives include no fever, headaches, orthopnea, PND or sputum production. The symptoms are aggravated by exercise and any activity. He has tried nothing for the symptoms. His past medical history is significant for a heart failure. There is no history of asthma, chronic lung disease, COPD or PE. Afib/flutter Past medical history includes atrial fibrillation. Physical Exam Vitals: 05/20/24 1028 Temp: 97.1 F (36.2 C) Pulse: 70 Resp: 22 SpO2: 95% BP: 124/78 BMI: 30.3 Physical Exam Vitals and nursing note reviewed. Constitutional: General: He is not in acute distress. Appearance: He is normal weight. HENT: Head: Normocephalic. Cardiovascular: Rate and Rhythm: Normal rate. Rhythm irregular. Heart sounds: Murmur heard. Pulmonary: Effort: Pulmonary effort is normal. No respiratory distress. Breath sounds: Decreased breath sounds (In both bases) present. No wheezing. Abdominal: General: Bowel sounds are normal. There is no distension. Palpations: Abdomen is soft. There is no mass. Musculoskeletal: General: No swelling, tenderness or signs of injury. Cervical back: Neck supple. No rigidity. Right lower leg: No tenderness. Edema present. Left lower leg: No tenderness. Edema present. Skin: General: Skin is warm. Findings: No lesion or rash. Neurological: Mental Status: He is alert. I have reviewed the following results: Echocardiogram, CMP and CBC Assessment and Plan LUIS (dyspnea on exertion) Need to rule out heart failure , PE or anemia - XR CHEST 2 VIEWS - CBC; Future - COMPREHENSIVE METABOLIC PANEL; Future - BNP, NT-PRO; Future - D-DIMER; Future Edema, unspecified type Parkinson's disease without dyskinesia or fluctuating manifestations (HCC) Paroxysmal atrial fibrillation (HCC) Convulsions, unspecified convulsion type (HCC) HTN, goal below 140/90 Hypothyroidism due to acquired atrophy of thyroid Mixed hyperlipidemia PAF (paroxysmal atrial fibrillation) (HCC) Wrap-Up Time: I spent a total of 30-39 minutes (exact time 36 mins) on the date of service in preparation, delivery, and documentation of the care provided to Tariq Fischer excluding any time spent in the performance of separately billed services. * Shoshana Newman MD - 05/20/2024 10:39 AM EST Images from the original note were not included. History of Present Illness Tariq Fischer is a 78 year old male that presents for Short of Breath, Congestion, and Afib/flutter He has ventricular pacemaker put in by Cardiology in his last appointment with chiropractor assistant he was found to have intermittent quite regular episodes of atrial fibrillation but relatively not symptomatic. He has been planned for cardioversion soon but they have not heard from Cardiology office yet. His last echocardiogram reviewed with did show chronic atrial fibrillation , left atrium enlargement and mild mitral regurgitation but functioning aortic valve Declines any URI symptoms of feeling sick. No significant cough, chest pain or leg pain. Nonsmoker Short of Breath This is a chronic problem. The current episode started more than 1 month ago (3 months). The problem has been gradually worsening. Associated symptoms include abdominal pain, leg swelling and wheezing. Pertinent negatives include no fever, headaches, orthopnea, PND or sputum production. The symptoms are aggravated by exercise and any activity. He has tried nothing for the symptoms. His past medical history is significant for a heart failure. There is no history of asthma, chronic lung disease, COPD or PE. Physical Exam Vitals: 05/20/24 1028 Temp: 97.1 F (36.2 C) Pulse: 70 Resp: 22 SpO2: 95% BP: 124/78 BMI: 30.3 Physical Exam Vitals and nursing note reviewed. Constitutional: General: He is not in acute distress. Appearance: He is normal weight. HENT: Head: Normocephalic. Cardiovascular: Rate and Rhythm: Normal rate. Rhythm irregular. Heart sounds: Murmur heard. Pulmonary: Effort: Pulmonary effort is normal. No respiratory distress. Breath sounds: Decreased breath sounds (In both bases) present. No wheezing. Abdominal: General: Bowel sounds are normal. There is no distension. Palpations: Abdomen is soft. There is no mass. Musculoskeletal: General: No swelling, tenderness or signs of injury. Cervical back: Neck supple. No rigidity. Right lower leg: No tenderness. Edema present. Left lower leg: No tenderness. Edema present. Skin: General: Skin is warm. Findings: No lesion or rash. Neurological: Mental Status: He is alert. I have reviewed the following results: Echocardiogram, CMP and CBC Assessment and Plan LUIS (dyspnea on exertion) Need to rule out heart failure , PE or anemia - XR CHEST 2 VIEWS - CBC; Future - COMPREHENSIVE METABOLIC PANEL; Future - BNP, NT-PRO; Future - D-DIMER; Future Edema, unspecified type Parkinson's disease without dyskinesia or fluctuating manifestations (HCC) Paroxysmal atrial fibrillation (HCC) Convulsions, unspecified convulsion type (HCC) HTN, goal below 140/90 Hypothyroidism due to acquired atrophy of thyroid Mixed hyperlipidemia PAF (paroxysmal atrial fibrillation) (HCC) Wrap-Up Time: I spent a total of 30-39 minutes (exact time 36 mins) on the date of service in preparation, delivery, and documentation of the care provided to Tariq Fischer excluding any time spent in the performance of separately billed services. documented in this encounter Nursing Notes * [place] Lira CMA - 05/20/2024 10:26 AM EST Pt here today for SOB and slight congestion. Pt was dx with afib last week and his shortness of breath has been getting progressively worse as the days go on and it is becoming concerning. Pt states that he wakes up with slight congestion in the morning but it goes away throughout the day documented in this encounter Plan of Treatment Upcoming Encounters Date Type Department Care Team (Late st Contact Info) Description 06/01/2024 1:00 PM EST Office Visit Neurology [facility] [address] [facility] [place] [phone] Julienne Rush MD [address] [facility] [place] [phone] 08/18/2024 9:00 AM EDT Office Visit Cardiology, [facility] [address] [address] Danni Morgan CRNP [address] [place] [address] 09/16/2024 2:40 PM EDT Office Visit General Internal Medicine [facility] [address] [facility] [place] [phone] Dom Underwood MD [address] [facility] [place] [phone] 09/22/2024 1:30 PM EDT Office Visit Otolaryngology [facility] [address] [address] Ning Suarez PA-C [address] [place] [address] Scheduled Procedures Name Priority Associated Diagnoses Date/Ti me COLONOSCOPY FLEXIBLE PROXIMAL DIAGNOSTIC Recall History of colon polyps Health Maintenance Due Date Last Done Comments Adult Wellness Visit 02/20/2013 02/21/2012 Depression Screening 05/08/2023 05/08/2022, 08/13/19 15 COVID-19 Vaccine ( season) 2024 12/31/2023, 01/21/2023, 01/19/2022, Additional history exists TSH 05/23/2024 05/23/2023, 06/07, 07/10/2021, Additional history exists GFR 05/20/2025 05/20/2024, 01/06, 12/13/2023, Additional history exists Albumin/Creatinine Ratio 06/29/2025 06/29/2022 DTap/Tdap Vaccines (3 - Td or Tdap) 07/28/2030 07/28/2020, 06/21/2010 Pneumococcal Vaccine: 50+ Years Completed 04/30/2014, 09/22/2010, 01/06/2005 Zoster Vaccines Completed 05/22/2018, 01/06, 01/05/2018, Additional history exists Colonoscopy Discontinued 05/19/2020, 07/2016, 08/16/2006 Influenza Vaccine (FLU shot) Completed 12/19/2023, 12/29/2022, 01/04/2022, Additional history exists HPV (Gardasil) Vaccine Aged Out No lo nger eligible based on patient's age to complete this topic Hepatitis B Vaccine Aged Out No longe r eligible based on patient's age to complete this topic MENINGOCOCCAL (MENACTRA/MENVEO) Aged Out No longer eligible based on patient's age to complete this topic documented as of this encounter Medical Devices Implanted Type Area Co Pilot Device Identifier Shelf Expiration Date Model / Serial / Lot Suture Steel 6 B&S19 [id number] - [id number] Implanted:Qty: 1 on 02/11/2018 by Rachelle Stark MD at OR [facility] JNJ : [employer] 11/05/2022 M654G / / [id number] Clip Occl Atri Flex V 50mm - [id number] Implanted:Qty: 1 on 02/11/2018 by Rachelle Stark MD at OR [facility] N/A: Heart ATRICURE 07/07/2020 [id number] / / [id number] Valve Heart Aortic Epic 25mm - [id number] - [id number] Implanted:Qty: 1 on 02/11/2018 by Rachelle Stark MD at OR [facility] N/A: Heart [facility] : CARDIOVASCULAR 07/15/2021 [id number] / [id number] / [id number] Description:SN : [id number], Aortic Valve documented as of this encounter Procedures Procedure Name Priority Date/Time Associated Diagnosis Comments XR CHEST 2 VIEWS STAT 05/20/2024 11:2 4 AM EST LUIS (dyspnea on exertion) documented in this encounter Results * XR CHEST 2 VIEWS (05/20/2024 11:24 AM EST) Anatomical Region Laterality Modality Chest Computed Radiogr aphy 05/20/2024 12:2 3 PM EST Impressions 05/20/2024 12:21 PM EST IMPRESSION New, small pleural effusions compatible with acute on chronic heart failure. Narrative 05/20/2024 12:21 PM EST EXAM XR CHEST 2 VIEWS - 05/20/2024 11:24 am HISTORY cough and chest rattle and SOB - A.fib . r/o CHF TECHNIQUE Frontal and lateral radiographs of the chest were obtained. COMPARISON Chest radiograph 09/15/2021 and 08/01/2021 FINDINGS FOREIGN BODIES, SUPPORT TUBES, LINES, DEVICES: The heart is enlarged with likely chronic pulmonary vascular congestion. A dual-chamber pacemaker has leads in unchanged position. A left atrial appendage clip noted. LUNGS, PLEURA: There is relatively increased mild blunting of the costophrenic sulci suggestive of small pleural effusions as compared with prior exams. No pneumothorax. CARDIOVASCULAR, MEDIASTINUM: The heart appears enlarged. OTHER: The bones appear demineralized. Procedure Note Nick Penaloza MD - 05/20/2024 EXAM XR CHEST 2 VIEWS - 05/20/2024 11:24 am HISTORY cough and chest rattle and SOB - A.fib . r/o CHF TECHNIQUE Frontal and lateral radiographs of the chest were obtained. COMPARISON Chest radiograph 09/15/2021 and 08/01/2021 FINDINGS FOREIGN BODIES, SUPPORT TUBES, LINES, DEVICES: The heart is enlarged withlikely chronic pulmonary vascular congestion. A dual-chamber pacemakerhas leads in unchanged position. A left atrial appendage clip noted. LUNGS, PLEURA: There is relatively increased mild blunting of thecostophrenic sulci suggestive of small pleural effusions as compared withprior exams. No pneumothorax. CARDIOVASCULAR, MEDIASTINUM: The heart appears enlarged. OTHER: The bones appear demineralized. IMPRESSION IMPRESSION New, small pleural effusions compatible with acute on chronic heartfailure. Shoshana Newman MD RADIOLOGY ([facility]) Final Result * D-DIMER (05/20/2024 11:23 AM EST) D-Dimer 0.48 <0.50 ug/mL FEU 05/20/2024 5:10 PM EST LABORATORY [facility] Blood Venous blood specimen / Unknown Venipuncture / Unknown 05/20/2024 11:23 AM EST 05/20/2024 11:23 AM EST Narrative LABORATORY [facility] - 05/20/2024 5:10 PM EST Rheumatoid factor at a level above 50 [...] definitively correlate with clinical severity of disease. Shoshana Newman MD LAB BLOOD ORDERABLES Final Res ult LABORATORY [facility] [address] [place] [address] * (ABNORMAL) BNP, NT-PRO (05/20/2024 11:23 AM EST) BNP, NT-Pro 3,152(H) <300 pg/mL 05/20/2024 9:16 PM EST LABORATORY [facility] Blood Venous blood specimen / Unknown Venipuncture / Unknown 05/20/2024 11:23 AM EST 05/20/2024 11:23 AM EST Narrative LABORATORY [facility] - 05/20/2024 9:16 PM EST Exclude Heart Failure: <300 pg/mL Diagnose Heart Failure: Age <50 yr: >450 pg/mL 50-75 yr: >900 pg/mL >75 yr: >1800 pg/mL GFR is 30-59 mL/min: >1200 pg/mL or Age-adjusted values GFR <30 mL/min: do not use, not reliable Prognostic threshold: 1000 pg/mL us Shoshana Newman MD LAB BLOOD ORDERABLES Final Res ult LABORATORY [facility] [address] [place] [address] * (ABNORMAL) COMPREHENSIVE METABOLIC PANEL (05/20/2024 11:23 AM EST) BUN 31(H) 6 - 20 mg/dL 05/20/2024 11:43 AM [facility] 56- CREATININE 1.4(H) 0.6 - 1.2 mg/dL 05/20/2024 11:43 AM [facility] 56 EGFR 51(L) >=60 mL/min 05/20/2024 11:43 AM [facility] 56- Comment:eGFR is calculated b ased on the CKD-EPI 2020 equation. SODIUM 140 135 - 146 mmol/L 05/20/2024 11:43 AM [facility] 56- POTASSIUM 3.9 3.5 - 5.1 mmol/L 05/20/2024 11:43 AM [facility] 56- CHLORIDE 99 98 - 107 mmol/L 05/20/2024 11:43 AM [facility] 56- CO2 27 22 - 32 mmol/L 05/20/2024 11:43 AM [facility] 56- ANION GAP 14 7 - 15 mmol/L 05/20/2024 11:43 AM [facility] 56- GLUCOSE 89 70 - 120 mg/dL 05/20/2024 11:43 AM [facility] 56- Albumin 4.1 3.8 - 5.0 g/dL 05/20/2024 11:43 AM [facility] 56- AST 37 10 - 50 U/L 05/20/2024 11:43 AM [facility] 56- Alkaline Phosphatase 88 35 - 130 U/L 05/20/2024 11:43 AM [facility] 56- Bilirubin, Total 0.6 <=1.2 mg/dL 05/20/2024 11:43 AM [facility] 56- CALCIUM 9.7 8.4 - 10.2 mg/dL 05/20/2024 11:43 AM [facility] 56- Protein 7.9 6.0 - 8.3 g/dL 05/20/2024 11:43 AM [facility] 56- ALT 16 10 - 50 U/L 05/20/2024 11:43 AM [facility] 56- Blood Venous blood specimen / Unknown Venipuncture / Unknown 05/20/2024 11:23 AM EST 05/20/2024 11:23 AM EST us Shoshana Newman MD LAB BLOOD ORDERABLES Final Res ult [facility] 56- [address] [place] [address] * (ABNORMAL) CBC (05/20/2024 11:23 AM EST) WBC 9.40 4.00 - 10.80 K/uL 05/20/2024 11:29 AM [facility] 56- RBC 4.52 4.50 - 5.25 M/uL 05/20/2024 11:29 AM [facility] 56 HGB 14.2 14.0 - 16.8 g/dL 05/20/2024 11:29 AM [facility] 56- HCT 44.5 40.0 - 48.4 % 05/20/2024 11:29 AM [facility] 56- MCV 98.5 82.0 - 99.5 fL 05/20/2024 11:29 AM [facility] 56- MCH 31.4 27.0 - 34.0 pg 05/20/2024 11:29 AM [facility] 56- MCHC 31.9 32.0 - 36.0 g/dL 05/20/2024 11:29 AM [facility] 56 RDW 15.6 11.5 - 15.5 % 05/20/2024 11:29 AM [facility] 56 PLT 112(L) 140 - 400 K/uL 05/20/2024 11:29 AM [facility] 56 MPV 12.9 6.6 - 11.1 fL 05/20/2024 11:29 AM EST [facility] 56 Blood Venous blood specimen / Unknown Venipuncture / Unknown 05/20/2024 11:23 AM EST 05/20/2024 11:23 AM EST us Shoshana Newman MD LAB BLOOD ORDERABLES Final Res ult [facility] 56 [address] [facility] [address] documented in this encounter Visit Diagnoses Diagnosis LUIS (dyspnea on exertion)- Primary Other dyspnea and respiratory abnormality Edema, unspecified type Parkinson's disease without dyskinesia or fluctuating manifestations (HCC) Paroxysmal atrial fibrillation (HCC) Atrial fibrillation Convulsions, unspecified convulsion type (HCC) HTN, goal below 140/90 Unspecified essential hypertension Hypothyroidism due to acquired atrophy of thyroid Mixed hyperlipidemia PAF (paroxysmal atrial fibrillation) (HCC) Atrial fibrillation documented in this encounter Advance Directives Documents on File Type Date Recorded Patient Chro Expl anation Advance Directives and Living Will 03/04/2001 LIVING WILL * Full Code (Latest Code Status on File) Date Activated Date Inactivated Comments 03/25/2018 6:21 PM 04/09/2018 6:24 PM This order r eflects the patients wishes and were consensually agreed upon. * Full Code Date Activated Date Inactivated Comments 02/11/2018 12:35 PM 02/21/2018 4:33 PM This order reflects the patients wishes and were consensually agreed upon. Question Answer Comments Discussion of Advance Directives occurred with: Patient Does the patient have a Living Will? No Does the patient have Health Care Power of Attor jaswant? No Care Teams Patient Ambassador Relationship Specialty Start Date End Date [facility] [address] [facility] [address] PCP - General Internal Medicine 03/23/10 documented as of this encounter
--- OUTSIDE RECORDS SUMMARY | 2024-05-22 11:18 | External Medical Summary | Summary of Care ---
Author Name Unknown Organization [facility] Address [address] [place] [address] Phone [phone] Care Team Providers Care Testing Specialist Name Role Phone Dom Underwood MD Primary Care Provider + Reason for Visit * Reason Comments Short of Breath Congestion Afib/flutter Encounter Details Date Type Department Care Team (Latest Contact Info) Description 05/20/2024 10:20 AM EST Office Visit General Internal Medicine [facility] [address] [facility] [place] [address] Shoshana Newman MD [address] [place] [address] LUIS (dyspnea on exertion)*; Edema, unspecified type; Parkinson's disease without dyskinesia or fluctuating manifestations (HCC); Paroxysmal atrial fibrillation (HCC); Convulsions, unspecified convulsion type (HCC); HTN, goal below 140/90; Hypothyroidism due to acquired atrophy of thyroid; Mixed hyperlipidemia; PAF (paroxysmal atrial fibrillation) (HCC); Acute on chronic congestive heart failure, unspecified heart failure type (HCC) Allergies Active Allergy Reactions Criticality Noted [...] Severe. 100 Tab 07/29/19 21 Active Saline Perry 0.2 % Nasal Solution (Rhinaris) Administer into [...] fibrillation 07/29/19 21 Overview (03/23/2010): Pacemaker placed 2005 Sinoatrial node dysfunction 07/17/2018 Overview (03/23/2010): sp pacer 2006 documented as of this encounter (statuses as of 05/21/2024) Immunizations Name Administration Dates Next Due COVID-19 mRNA, LNP-s, No Pre serve, 2-Dose Series (WhatSalon) 03/03/2021,06/30/2020,06/09/2020 COVID-19, MRNA-LNP, 24-25, P R, 30MCG/0.3ML, IM, 12YRS AND ABOVE (WhatSalon-ComirnatMuufri) 12/31/2023 COVID-19, MRNA-LNP, PF, 30 M CG/0.3 mL, 12 YRS AND ABOVE, IM (Simplebooklet-Comirnaty) 01/21/2023 Covid-19, Mrna, Lnp-s, Pf, B ivalent, 30 Mcg, IM, 12 yrs and above (WhatSalon) 01/19/2022 Pneumococcal Conjugate Vacc, 13 Valent (Prevnar) [...] were not included. History of Present Illness aTriq Fischer is a 78 year old male that presents for Short of Breath, Congestion, and Afib/flutter He has ventricular pacemaker put in by Cardiology in his last appointment with incident manager he was found to have intermittent quite [...] by Cardiology in his last appointment with incident manager he was found to have intermittent quite [...] throughout the day documented in this encounter Miscellaneous Notes * Addendum Note - Shoshana Newman MD - 05/21/2024 8:47 AM ESTAddended by: SHOSHANA NEWMAN on: 05/21/2024 08:47 AM Modules accepted: Orders documented in this encounter Plan of Treatment Upcoming Encounters Date Type Department Care Team (Late st Contact Info) Description 06/01/2024 1:00 PM EST Office Visit Neurology [facility] [address] [facility] [place] [address] Julienne Rush MD [address] [facility] [place] [address] 08/18/2024 9:00 AM EDT Office Visit Cardiology, [facility] [address] [address] Danni Morgan CRNP [address] [place] [address] 09/16/2024 2:40 PM EDT Office Visit General Internal Medicine [facility] [address] [facility] [place] [address] Dom Underwood MD [address] [facility] [place] [address] 09/22/2024 1:30 PM EDT Office Visit Otolaryngology [facility] [address] [address] Nnig Suarez PA-C [address] [place] [address] Scheduled Orders Name Type Priority Associated Diagnoses Orde r Schedule BASIC METABOLIC PANEL Lab Routine LUIS (dyspnea on exertion) Acute on chronic congestive heart failure, unspecified heart failure type (HCC) Expected: 05/28/2024 (Approximate), Expires: 05/21/2025 Scheduled Procedures Name Priority Associated Diagnoses Date/Ti [...] this encounter Medical Devices Implanted Type Area Blanket Winder Helper Device Identifier Shelf Expiration Date Model / Serial / Lot Suture Steel 6 B&S19 [id number] - [id number] Implanted:Qty: 1 on 02/11/2018 by Rachelle Stark MD at OR [facility] JNJ : [employer] 11/05/2022 [id number] / / [id number] Clip Occl Atri Flex V 50mm - [id number] Implanted:Qty: 1 on 02/11/2018 by Rachelle Stark MD at OR [facility] N/A: Heart ATRICURE 07/07/2020 [id number] / / [id number] Valve Heart Aortic Epic 25mm - [id number] - [id number] Implanted:Qty: 1 on 02/11/2018 by Rachelle Stark MD at OR [facility] N/A: Heart [facility] : CARDIOVASCULAR 07/15/2021 [id number] / [id number] / [id number] Description:SN : [id number], Aortic Valve documented as of this encounter Procedures Procedure Name Priority Date/Time Associated Diagnosis Comments XR CHEST 2 VIEWS STAT 05/20/2024 11:2 4 AM EST ULIS (dyspnea on exertion) documented in this encounter [...] on chronic heartfailure. Shoshana Newman MD RADIOLOGY (RAD GENERAL) Final Result * D-DIMER (05/20/2024 11:23 AM EST) D-Dimer 0.48 <0.50 ug/mL FEU 05/20/2024 5:10 PM EST LABORATORY [facility] Blood Venous blood specimen / Unknown Venipuncture / Unknown 05/20/2024 11:23 AM EST 05/20/2024 11:23 AM EST Narrative LABORATORY [facility] - 05/20/2024 5:10 PM EST Rheumatoid factor [...] LAB BLOOD ORDERABLES Final Res ult LABORATORY [facility] [address] [place] [address] * (ABNORMAL) BNP, NT-PRO (05/20/2024 11:23 AM EST) BNP, NT-Pro 3,152(H) <300 pg/mL 05/20/2024 9:16 PM EST LABORATORY [facility] Blood Venous blood specimen / Unknown Venipuncture / Unknown 05/20/2024 11:23 AM EST 05/20/2024 11:23 AM EST Narrative LABORATORY [facility] - 05/20/2024 9:16 PM EST Exclude Heart Failure: <300 pg/mL Diagnose Heart Failure: Age <50 yr: >450 pg/mL 50-75 yr: >900 pg/mL >75 yr: >1800 pg/mL GFR is 30-59 mL/min: >1200 pg/mL or Age-adjusted values GFR <30 mL/min: do not use, not reliable Prognostic threshold: 1000 pg/mL us Shoshana Newman MD LAB BLOOD ORDERABLES Final Res ult LABORATORY [facility] [address] [place] [address] * (ABNORMAL) COMPREHENSIVE METABOLIC PANEL (05/20/2024 11:23 AM EST) Pathologist [facility] BUN 31(H) 6 - 20 mg/dL 05/20/2024 11:43 AM [facility] 56- CREATININE 1.4(H) 0.6 - 1.2 mg/dL 05/20/2024 11:43 AM [facility] 56- EGFR 51(L) >=60 mL/min 05/20/2024 11:43 AM [facility] 56- Comment:eGFR is calculated b ased on the CKD-EPI 2020 equation. SODIUM 140 135 - 146 mmol/L 05/20/2024 11:43 AM EST [facility] 56- POTASSIUM 3.9 3.5 - 5.1 mmol/L 05/20/2024 11:43 AM EST [facility] 56- CHLORIDE 99 98 - 107 mmol/L 05/20/2024 11:43 AM EST [facility] 56- CO2 27 22 - 32 mmol/L 05/20/2024 11:43 AM [facility] 56- ANION GAP 14 7 - 15 mmol/L 05/20/2024 11:43 AM [facility] 56- GLUCOSE 89 70 - 120 mg/dL 05/20/2024 11:43 AM [facility] 56- Albumin 4.1 3.8 - 5.0 g/dL 05/20/2024 11:43 AM [facility] 56- AST 37 10 - 50 U/L 05/20/2024 11:43 AM [facility] 56- Alkaline Phosphatase 88 35 - 130 U/L 05/20/2024 11:43 AM [facility] 56- Bilirubin, Total 0.6 <=1.2 mg/dL 05/20/2024 11:43 AM [facility] 56- CALCIUM 9.7 8.4 - 10.2 mg/dL 05/20/2024 11:43 AM [facility] 56- Protein 7.9 6.0 - 8.3 g/dL 05/20/2024 11:43 AM [facility] 56 ALT 16 10 - 50 U/L 05/20/2024 11:43 AM [facility] 56 Blood Venous blood specimen / Unknown Venipuncture / Unknown 05/20/2024 11:23 AM EST 05/20/2024 11:23 AM EST us Shoshana Newman MD LAB BLOOD ORDERABLES Final Res ult [facility] 56- [address] [place] [address] * (ABNORMAL) CBC (05/20/2024 11:23 AM EST) WBC 9.40 4.00 - 10.80 K/uL 05/20/2024 11:29 AM [facility] 56- RBC 4.52 4.50 - 5.25 M/uL 05/20/2024 11:29 AM [facility] 56 HGB 14.2 14.0 - 16.8 g/dL 05/20/2024 11:29 AM [facility] 56- HCT 44.5 40.0 - 48.4 % 05/20/2024 11:29 AM [facility] 56- MCV 98.5 82.0 - 99.5 fL 05/20/2024 11:29 AM EST [facility] 56- MCH 31.4 27.0 - 34.0 pg 05/20/2024 11:29 AM [facility] 56- MCHC 31.9 32.0 - 36.0 g/dL 05/20/2024 11:29 AM EST [facility] 56 RDW 15.6 11.5 - 15.5 % 05/20/2024 11:29 AM [facility] 56 PLT 112(L) 140 - 400 K/uL 05/20/2024 11:29 AM [facility] 56 MPV 12.9 6.6 - 11.1 fL 05/20/2024 11:29 AM [facility] 56 Blood Venous blood specimen / Unknown Venipuncture / Unknown 05/20/2024 11:23 AM EST 05/20/2024 11:23 AM EST us Shoshana Newman MD LAB BLOOD ORDERABLES Final Res ult [facility] 56[facility] [address] [place] [address] documented in this encounter Visit Diagnoses Diagnosis LUIS (dyspnea on exertion)- Primary Other dyspnea and respiratory abnormality Edema, unspecified type Parkinson's disease without dyskinesia or fluctuating manifestations (HCC) Paroxysmal atrial fibrillation (HCC) Atrial fibrillation Convulsions, unspecified convulsion type (HCC) HTN, goal below 140/90 Unspecified essential hypertension Hypothyroidism due to acquired atrophy of thyroid Mixed hyperlipidemia PAF (paroxysmal atrial fibrillation) (HCC) Atrial fibrillation Acute on chronic congestive heart failure, unspecified heart failure type (HCC) documented in this encounter Advance Directives Documents on File Type Date Recorded 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 No Care Teams Testing Specialist Relationship Specialty Start Date End Date Dom Underwood MD [address] [place] [address] PCP - General Internal Medicine 03/23/10 documented as of this encounter
--- OUTSIDE RECORDS SUMMARY | 2024-05-22 11:18 | External Medical Summary ---
Author Name Unknown Address Unknown Organization [id number]:[facility]-[address] [place] [address] Laboratory Report Ordering Provider Test Date Status [facility] [place] 05/20/2024 11:23:18 Final Observation Date Value Abnormality Reference (Units ) Status BUN 05/20/2024 11:23:18 31 Above high normal 6-20 (mg/dL) Final Creatinine 05/20/2024 11:23:18 1.4 Above high normal 0.6-1.2 (mg/dL) Final Glomerular filtration rate/1.73 sq M.predicted [Volume Rate/Area] in Serum, Plasma or Blood by Creatinine-based formula (CKD-EPI) 05/20/2024 11:23:18 51 Below low normal >=60 (mL/min) Final eGFR is calculated based on the CKD-EPI 2020 equation. Sodium 05/20/2024 11:23:18 140 135-146 (m mol/L) Final Potassium 05/20/2024 11:23:18 3.9 3.5-5.1 (m mol/L) Final Cl 05/20/2024 11:23:18 99 98-107 (mm ol/L) Final CO2 05/20/2024 11:23:18 27 22-32 (mmo l/L) Final Anion gap 05/20/2024 11:23:18 14 7-15 (mmol /L) Final Glucose 05/20/2024 11:23:18 89 70-120 (mg /dL) Final Albumin 05/20/2024 11:23:18 4.1 3.8-5.0 (g /dL) Final AST (Aspartate aminotransferase) 05/20/2024 11:23:18 37 10-50 (U/L) Final Alk Phos 05/20/2024 11:23:18 88 35-130 (U/ L) Final Bilirubin, Total 05/20/2024 11:23:18 0.6 <=1 .2 (mg/dL) Final Calcium 05/20/2024 11:23:18 9.7 8.4-10.2 ( mg/dL) Final Protein 05/20/2024 11:23:18 7.9 6.0-8.3 (g /dL) Final ALT (Alanine aminotransferase) 05/20/2024 11:23:18 16 10-50 (U/L) Final Performing Location [facility] [address] [place] [address]
--- OUTSIDE RECORDS SUMMARY | 2024-05-22 11:18 | External Medical Summary | Summary of Care ---
Author Name Unknown Organization [facility] Address [address] [facility] [place] [address] Phone [phone] Care Team Providers Care Traffic Maintenance Supervisor Name Role Phone Dom Underwood MD Primary Care Provider + Reason for Visit * Reason Comments Outpatient Testing Encounter Details Date Type Department Care Team (Late st Contact Info) Description 05/20/2024 11:10 AM EST Laboratory Laboratory [facility] [address] [place] [address] [facility] [address] [place] [address] HTN, goal below 140/90; LUIS (dyspnea on exertion) Allergies Active Allergy Reactions Criticality Noted Date Comments Carbamazepine 03/20/2018 Other reaction(s): TOXIC, DOUBLE VISION Other reaction(s): TOXIC, DOUBLE VISION Carbitol Medium 03/23/2010 Uncontrolled seizures Doxazosin Mesylate Medium 03/23/2010 Uncontrolled Seizures Doxazosin 07/10/2018 Other reaction(s): BP LOSS Nitrofurantoin Medium 03/23/2010 Extreme dizziness Other reaction(s): DIZZINESS Pollen 03/11/2024 documented as of this encounter (statuses as of 05/20/2024) Medications MULTIVITAMINS PO TABS 1 TABLET DAILY [...] Severe. 100 Tab 07/29/19 21 Active Saline [place] 0.2 % Nasal Solution (Rhinaris) Administer into [...] as of this encounter (statuses as of 05/20/2024) Active Problems Problem Noted Date Diagnosed Date [...] as of this encounter (statuses as of 05/20/2024) Resolved Problems Problem Noted Date Diagnosed Date Resolved Date Chronic systolic HF (heart failure) 09/19/2022 06/04/2023 Prediabetes 07/26/2021 07/19/2022 Chronic kidney disease, stage 3a 05/22/2021 11/08/2022 Overview: Per CKD protocol Benign hypertension with sta ge 3a chronic kidney disease 04/17/2021 11/08/2022 Overview: Per CKD protocol History of 2019 novel zuniga virus disease (COVID-19) 07/28/2020 06/04/2023 [...] as of this encounter (statuses as of 05/20/2024) Immunizations Name Administration Dates Next Due COVID-19 mRNA, LNP-s, No Pre serve, 2-Dose Series ([employer]) 03/03/2021,06/30/2020,06/09/2020 COVID-19, MRNA-LNP, 24-25, P R, 30MCG/0.3ML, IM, 12YRS AND ABOVE ([email or web address]) 12/31/2023 COVID-19, MRNA-LNP, PF, 30 M CG/0.3 mL, 12 YRS AND ABOVE, IM ([employer]) 01/21/2023 Covid-19, Mrna, Lnp-s, Pf, B ivalent, 30 Mcg, IM, 12 yrs and above ([employer]) 01/19/2022 Pneumococcal Conjugate Vacc, 13 Valent (Prevnar) [...] on file documented as of this encounter Functional Status * Are you [...] Christina Sorensen RN documented in this encounter Plan of Treatment Upcoming Encounters Date Type Department Care Team (Late st Contact Info) Description 06/01/2024 1:00 PM EST Office Visit Neurology [facility] [address] [facility] [place] [address] Julienne Rush MD [address] [facility] [place] [address] 08/18/2024 9:00 AM EDT Office Visit Cardiology, [facility] [address] [place] [address] Danni Morgan CRNP [address] [place] [address] 09/16/2024 2:40 PM EDT Office Visit General Internal Medicine [facility] [address] [facility] [place], [place] [address] Dom Underwood MD [address] [facility] [place] [address] 09/22/2024 1:30 PM EDT Office Visit Otolaryngology [facility] [address] [place] [address] Ning Suarez PA-C [address] [place] [address] Pending Results Name Type Priority Associated Diagnoses Date /Time BNP, NT-PRO Lab Routine LUIS (dyspnea on exertion) 05/20/2024 11:23 AM EST Scheduled Procedures Name Priority Associated Diagnoses Date/Ti [...] 01/05/2018, Additional history exists Colonoscopy Discontinued 05/19/2020, 05/07/2016, 08/16/2006 Influenza Vaccine (FLU shot) Completed 12/19/2023, [...] this encounter Medical Devices Implanted Type Area Veterinary Surgery Technician Device Identifier Shelf Expiration Date Model / Serial / Lot Suture Steel 6 [id number]&S19 [id number] - [id number] Implanted:Qty: 1 on 02/11/2018 by Rachelle Stark MD at OR [facility] [place] JNJ : [employer] 11/05/2022 [id number] / / [id number] Clip Occl Atri Flex V 50mm - [id number] Implanted:Qty: 1 on 02/11/2018 by Rachelle Stark MD at OR [facility] [place] N/A: Heart ATR[employer]URE 07/07/2020 [id number] / / [id number] Valve Heart Aortic Epic 25mm - [id number] - [id number] Implanted:Qty: 1 on 02/11/2018 by Rachelle Stark MD at OR [facility] [place] N/A: Heart [facility] : CARDIOVASCULAR 07/15/2021 [id number] / [id number] / [id number] Description:SN : [id number], Aortic Valve documented as of this encounter Procedures Procedure Name Priority Date/Time Associated Diagnosis Comments COMPREHENSIVE METABOLIC PANEL Routine 05/20/2024 11:23 AM EST LUIS (dyspnea on exertion) D-DIMER Routine 05/20/2024 11:23 AM EST LUIS (dyspnea on exertion) CBC Routine 05/20/2024 11:23 AM EST LUIS (dyspnea on exertion) documented in this encounter Results * D-DIMER (05/20/2024 11:23 AM EST) D-Dimer 0.48 <0.50 ug/mL FEU 05/20/2024 5:10 PM EST LAB[facility]ATORY [facility] [place] Blood Venous blood specimen / Unknown Venipuncture / Unknown 05/20/2024 11:23 AM EST 05/20/2024 11:23 AM EST [facility]ATORY [facility] [place] - 05/20/2024 5:10 PM EST Rheumatoid factor [...] definitively correlate with clinical severity of disease. us Shoshana Newman MD LAB BLOOD ORDERABLES Final Res ult LAB[facility]ATORY [facility] [place] [address] [place] [address] * (ABNORMAL) COMPREHENSIVE METABOLIC PANEL (05/20/2024 11:23 AM EST) BUN 31(H) 6 - 20 mg/dL 05/20/2024 11:43 AM [facility] 56- CREATININE 1.4(H) 0.6 - 1.2 mg/dL 05/20/2024 11:43 AM [facility] 56- EGFR 51(L) >=60 mL/min 05/20/2024 11:43 AM [facility] 56- Comment:eGFR is calculated b ased on the CKD-EPI 2020 equation. SODIUM 140 135 - 146 mmol/L 05/20/2024 11:43 AM [facility] 56- POTASSIUM 3.9 3.5 - 5.1 mmol/L 05/20/2024 11:43 AM EST [facility] 56- CHLORIDE 99 98 - 107 mmol/L 05/20/2024 11:43 AM [facility] 56- CO2 27 22 - 32 mmol/L 05/20/2024 11:43 AM [facility] 56- ANION GAP 14 7 - 15 mmol/L 05/20/2024 11:43 AM [facility] 56- GLUCOSE 89 70 - 120 mg/dL 05/20/2024 11:43 AM [facility] 56- Albumin 4.1 3.8 - 5.0 g/dL 05/20/2024 11:43 AM [facility] 56 AST 37 10 - 50 U/L 05/20/2024 11:43 AM [facility] 56 Alkaline Phosphatase 88 35 - 130 U/L 05/20/2024 11:43 AM [facility] 56 Bilirubin, Total 0.6 <=1.2 mg/dL 05/20/2024 11:43 AM [facility] 56 CALCIUM 9.7 8.4 - 10.2 mg/dL 05/20/2024 11:43 AM [facility] 56- Protein 7.9 6.0 - 8.3 g/dL 05/20/2024 11:43 AM [facility] 56 ALT 16 10 - 50 U/L 05/20/2024 11:43 AM [facility] 56 Blood Venous blood specimen / Unknown Venipuncture / Unknown 05/20/2024 11:23 AM EST 05/20/2024 11:23 AM EST us Shoshana Newman MD LAB BLOOD ORDERABLES Final Res ult [facility] [address] [place] [address] * (ABNORMAL) CBC (05/20/2024 11:23 AM EST) WBC 9.40 4.00 - 10.80 K/uL 05/20/2024 11:29 AM [facility] 56 RBC 4.52 4.50 - 5.25 M/uL 05/20/2024 11:29 AM [facility] 56 HGB 14.2 14.0 - 16.8 g/dL 05/20/2024 11:29 AM [facility] 56 HCT 44.5 40.0 - 48.4 % 05/20/2024 11:29 AM [facility] 56 MCV 98.5 82.0 - 99.5 fL 05/20/2024 11:29 AM [facility] 56 MCH 31.4 27.0 - 34.0 pg 05/20/2024 11:29 AM [facility] 56- MCHC 31.9 32.0 - 36.0 g/dL 05/20/2024 11:29 AM [facility] 56- RDW 15.6 11.5 - 15.5 % 05/20/2024 11:29 AM [facility] 56- PLT 112(L) 140 - 400 K/uL 05/20/2024 11:29 AM [facility] 56- MPV 12.9 6.6 - 11.1 fL 05/20/2024 11:29 AM [facility] 56- Blood Venous blood specimen / Unknown Venipuncture / Unknown 05/20/2024 11:23 AM EST 05/20/2024 11:23 AM EST us Shoshana Newman MD LAB BLOOD ORDERABLES Final Res ult [facility]- [address] [facility] [address] documented in this encounter Visit Diagnoses Diagnosis HTN, goal below 140/90 Unspecified essential hypertension LUIS (dyspnea on exertion) Other dyspnea and respiratory abnormality documented in this encounter Advance Directives Documents on File Type Date Recorded 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 No Care Teams Traffic Maintenance Supervisor Relationship Specialty Start Date End Date Dom Underwood MD [address] [facility] [address] P[facility] - General Internal Medicine 03/23/10 documented as of this encounter
[2024-05-22 11:30] LABS: Adenovirus PCR Not Detected (NotDetected); Bordetella parapertussis PCR Not Detected (NotDetected); Bordetella pertussis PCR Not Detected (NotDetected); Chlamydia pneumoniae PCR Not Detected (NotDetected); Coronavirus 229E PCR Not Detected (NotDetected); Coronavirus CoV-2 (COVID19)PCR Not Detected (NotDetected); Coronavirus HKU1 PCR Not Detected (NotDetected); Coronavirus NL63 PCR Not Detected (NotDetected); Coronavirus OC43PCR Not Detected (NotDetected); Human Metapneumovirus PCR Not Detected (NotDetected); Influenza A PCR Not Detected (NotDetected); Influenza B PCR Not Detected (NotDetected); Mycoplasma pneumoniae PCR Not Detected (NotDetected); Parainfluenza Virus 1 PCR Not Detected (NotDetected); Parainfluenza Virus 2 PCR Not Detected (NotDetected); Parainfluenza Virus 3 PCR Not Detected (NotDetected); Parainfluenza Virus 4 PCR Not Detected (NotDetected); Respiratory Syncytial VirusPCR Not Detected (NotDetected); Rhinovirus/Enterovirus PCR Not Detected (NotDetected)
[2024-05-22 11:51] LABS: Troponin I High Sensitivity 25.7 pg/ml (0-20)
--- NOTE | 2024-05-22 12:20 | History & Physical Report ---
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 Refer to HPI for further details. Follows with [facility], Dr. Stephens and ANTONIO Thomas. Took his morning medications today, including Lasix 40mg and Aldactone 12.5mg. Weight on 05/13/24 = 89.1kg and weight today = 91.7kg. Weight now up 2.6kg since 05/13/24. CXR notable for pulmonary vascular congestion without overt pulmonary edema. S/p 40 mg IV Lasix in ED. BNP 345. Reviewed resting echocardiogram from 02/2024 - LVEF=55-59%, moderately enlarged LA, grade 1 DD and mild mitral regurgitation. Cardiology consult. Continue IV Lasix 40mg daily starting tomorrow AM. Update resting echocardiogram. Hold home diuretics ISO IV diuresis as per above. Replete K+ and Mag PRN. Daily weights, strict I&Os. HH, low Na diet. Telemetry monitoring. (2) Persistent atrial fibrillation: (3) S/P placement of cardiac pacemaker: Plan: Follows with Dr. Ashley from [place] [facility] - recently saw him on 05/13/24. Interrogation of his pacemaker at that time demonstrated persistent atrial fibrillation for about the last 4 months however before that it was only intermittently that he would be in atrial fibrillation. He was started on flecainide 100mg BID during that visit. Continue flecainide 100mg BID, metoprolol succinate 100mg QAM. Continue Eliquis 5mg BID. Dr. Ashley considering possible cardioversion as an outpatient - cardiology to evaluate as per above. (4) Epilepsy: Plan: Chronic, stable. Follows with [facility]. Continue Valproate. Seizure precautions. (5) Parkinson's disease: Plan: Follows with [facility] as per above. Continue ropinirole. (6) Ichthyosis: Plan: Chronic, stable. Continue AmLactin application. (7) Hypertension: (8) Hyperlipidemia: Plan: BP stable. Continue atorvastatin, lisinopril and ASA. Routine BP monitoring. (9) Hypothyroidism: Plan: Continue levothyroxine. Check TSH/T4 in AM. DVT Prophylaxis: Continue LOCATION WORK[employer] Eliquis. Code Status: FULL CODE PCP: Dom Underwood MD Disposition: Admit to Med/Telemetry for further inpatient evaluation and monitoring. Patient seen in collaboration with Dr. Redman. Please see addendum. I spent a total of 60 minutes coordinating, documenting, and providing care for this patient excluding time spent in the performance of separately billed services or time spent by another provider/QHP. This included personally reviewing all current laboratories and imaging studies, medical reconciliation, outpatient chart review and discussion with specialists. This chart was completed in part utilizing Speech Voice Recognition Software. Grammatical errors, random word insertions, pronoun errors, and incomplete sentences are an occasional consequence of this system due to software limitations, ambient noise, and hardware issues. Any formal questions or concerns about the content, text, or information contained within the body of this dictation should be directly addressed to the provider for clarification. 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 History obtained from the patient, at bedside and associated chart review. Patient with progressive LUIS over the past year per his , however she notes that has worsened over the past week or so. He can no longer walk to the mailbox from his house without significant SOB hindering his activity and causing him to take numerous breaks to catch his breath. Patient recently saw Dr. Ashley with [place] [facility] on 05/13/24. Interrogation of his pacemaker at that time demonstrated persistent atrial fibrillation for about the last 4 months however before that it was only intermittently that he would be in atrial fibrillation. He was started on flecainide 100mg BID. There was also discussion regarding cardioversion however patient has not yet had this done. Patient reports compliance with his medications and confirms this. He took his morning medications today, including Lasix 40mg and Aldactone 12.5mg. Denies any chest pain or chest discomfort with his LUIS. Patient with intermittent periods of confusion at baseline per discussion with his - known history of Parkinson's disease. No recent falls or trauma. Denies any cough, fevers or myalgias. Neither him nor his have been ill recently. Denies any recent issues with urination or bowel habits. Last night had an episode of orthopnea requiring several pillows to sleep comfortably. Weight on 05/13/24 was 89.1kg and weight today is 91.7kg. Weight now up 2.6kg since 05/13/24. has not noticed any major BLE swelling. Mentions his feel are "usually swollen." Laboratory evaluation in the ED is grossly unremarkable for exception of BNP 345 and elevated high-sensitivity troponin x 2 (initial = 25.7 and repeat = 30.6). Respiratory BioFire panel negative. UA negative. CXR notable for pulmonary vascular congestion without overt pulmonary edema and cardiomegaly. CXR also notes a mild right basilar opacity which could reflect pneumonia versus atelectasis. Low suspicion for pneumonia given no leukocytosis, no recent fever and no evidence of respiratory complaints. Allergies Allergy/AdvReac Type Severity Reaction Status Date / Time carbamazepine Allergy Unknown TOXIC, Verified 05/13/24 14:04 DOUBLE VISION indigotindisulfonic acid Allergy Unknown TOXIC, Verified 05/13/24 14:04 DOUBLE VISION doxazosin AdvReac Unknown BP LOSS Verified 05/13/24 14:04 nitrofurantoin AdvReac Unknown DIZZINESS Verified 05/13/24 14:04 Home Medications Medication Instructions Recorded Confirmed Type acetaminophen 325 mg tablet 650 mg PO DIRECTED PRN pain, 03/20/18 05/22/24 History (Tylenol) fever aspirin 81 mg tablet,delayed 81 mg PO QAM 03/20/18 05/22/24 History release divalproex 250 mg tablet,delayed 500 mg PO QAM 03/20/18 05/22/24 History release divalproex 250 mg tablet,delayed 750 mg PO PM 03/20/18 05/22/24 History release furosemide 80 mg tablet (Lasix) 40 mg PO QAM 03/20/18 05/22/24 History metoprolol succinate 100 mg 100 mg PO QAM 03/20/18 05/22/24 History tablet,extended release 24 hr (Toprol XL) multivitamin 1 tab PO QAM 03/20/18 05/22/24 History pyridoxine (vitamin B6) 100 mg 100 mg PO QAM 03/20/18 05/22/24 History tablet docusate sodium 100 mg capsule 100 mg PO QAM 07/10/18 05/22/24 History (Colace) fexofenadine 180 mg tablet 180 mg PO QAM 07/10/18 05/22/24 History (Maria E Allergy) levothyroxine 88 mcg tablet 88 mcg PO QAM 07/10/18 05/22/24 History lisinopril 2.5 mg tablet 2.5 mg PO QAM 07/10/18 05/22/24 History spironolactone 25 mg tablet 12.5 mg PO QAM 07/10/18 05/22/24 History ammonium lactate-sodium 1 applic topical DAILY PRN 10/13/18 05/22/24 History lactate-potassium lactate topical Ichthyosis cream (AmLactin topical cream) ropinirole 1 mg tablet See Rx Instructions .Route .COMPLEX 10/13/18 05/22/24 History atorvastatin 20 mg tablet 20 mg PO DAILY 10/16/21 05/22/24 History sodium chloride 5 % eye drops 1 drp ophthalmic (eye) DAILY 10/16/21 05/22/24 History apixaban 5 mg tablet (Eliquis) 5 mg PO BID #180 tabs 03/26/24 05/22/24 Rx flecainide 100 mg tablet 100 mg PO BID 05/22/24 05/22/24 History melatonin 5 mg tablet 5 mg PO HS 05/22/24 05/22/24 History omeprazole 20 mg capsule,delayed 20 mg PO QAM 05/22/24 05/22/24 History release Past Med/Surg History Problem List (Updated 05/22/24 @ 17:30 by Scottie Dominguez MD) Elevated troponin (Acute) Bilateral edema of lower extremity (Acute) Pacemaker (Acute) Acute exacerbation of CHF (congestive heart failure) (Acute) Hyperlipidemia Epilepsy Ichthyosis Chronic mesenteric ischemia Persistent atrial fibrillation Acute on chronic diastolic heart failure with preserved ejection fraction Anticoagulant long-term use Encounter for pre-operative examination S/P AVR (Chronic) PNA (pneumonia) (Acute) Acute kidney injury superimposed on chronic kidney disease (Acute) Encounter for pre-operative examination Abnormal esophagram Syncope Cardiac pacemaker Paroxysmal atrial fibrillation (Chronic) has not had since valve replacement Sinoatrial node dysfunction (Chronic) S/P placement of cardiac pacemaker (Chronic) placed 2015 --biotronic- last checked 6 mo ago (to be checked 05/11/20)--follows with Dr. Ashley Thrombocytopenia (Chronic) Hypothyroidism (Chronic) Chronic systolic heart failure (Chronic) BPH (benign prostatic hyperplasia) (Chronic) GERD (gastroesophageal reflux disease) (Chronic) Dyslipidemia (Chronic) Parkinson's disease (Chronic) Hypertension (Chronic) Aortic stenosis (Chronic) following with vascular surgery [facility] - last checked 02/2020 and will be checked every 6 mo Seizure disorder (Chronic) last 2003 "grand mal"--reason for depakote, follows with Dr. Dyson Medical History History of COVID-19 dx 03/31 - Urgent [facility] [place]. coughing, congestion, fevers; all symptoms resolved History of syncope syncopal episode 03/2020 prior to covid diagnosis; last episode prior to 03/2020 was in 2016 pre pacemaker History of anesthesia reaction had a seizure when waking up from cholecystectomy in 1999 per pt and "was on the wrong seizure medicine, is on the right medication now and has not had any issues with any other surgeries since" Surgical History Status post excisional debridement x3 from aortic valve incision History of colonoscopy History of esophagogastroduodenoscopy (EGD) History of phacoemulsification of cataract of both eyes with intraocular lens implantation Family History Other Cerebral aneurysm Heart disease No family history of adverse response to anesthesia Social History Smoking Status: Never smoker Second Hand Exposure: Yes (as a child); Do You Dip or Chew Tobacco: No; Hx Alcohol Use: No Hx Substance Use: No Preferred Language: [place] Communication Ability: Effective Visual Impairment: No Limitations Hearing Ability: Normal Brusher Required: No Beliefs That Will Affect Care: None marital status: Current Living Situation: Spouse Feels Safe at Home: Yes Assistive Devices: Denture - Lower and Glasses Review of Systems Review of Systems: At least ten systems reviewed and negative, except as noted in the HPI. Physical Exam Physical Exam: Please refer to Dr. Redman's addendum for physical examination findings. Results & Data Results & Data Vital Signs (Past 12 Hours) Vital Signs Temp Pulse Resp BP Pulse Ox O2 Del Method 05/22/24 11:03 74 18 92 05/22/24 11:00 121/74 05/22/24 10:57 76 19 94 05/22/24 10:30 75 19 93 05/22/24 10:18 95 H 18 96 05/22/24 09:52 94 Room Air 05/22/24 09:48 75 97 05/22/24 09:48 77 05/22/24 09:48 93 Room Air 05/22/24 09:43 122/73 05/22/24 09:25 36.4 C L 76 18 114/82 94 Room Air Laboratory Results Short CBC 05/22/24 Range/Units 09:45 WBC 8.52 (4.8-10.8) K/ul Hgb 14.0 (14.0-18.0) g/dl Hct 41.8 L (42.0-52.0) % Plt Count 133 (130-400) K/uL BMP 05/22/24 09:45 Sodium 137 Potassium 4.1 Chloride 101 Carbon Dioxide 29 BUN 32 H Creatinine 1.30 Glucose 129 H Calcium 9.5 Liver Function 05/22/24 Range/Units 09:45 Total Bilirubin 0.7 (0.2-1.0) mg/dl AST 36 (13-39) U/L ALT 21 (7-52) U/L Alkaline Phosphatase 69 (34-104) U/L Albumin 3.9 (3.4-5.0) gm/dl Diagnostic Findings Chest X-Ray 05/22/24 09:49 XR chest 1V portable CLINICAL HISTORY: Dyspnea COMPARISON STUDY: Chest CT and chest radiograph July 10, 2018. FINDINGS: Left subclavian pacer and left atrial appendage occluder device are in place. Cardiomegaly is unchanged. There is no pneumothorax or pleural fusion. Mild interstitial thickening is present. There is mild right basilar opacity. Left lung is clear. IMPRESSION: 1. Mild right basilar opacity which could reflect pneumonia or atelectasis. 2. Cardiomegaly. Pulmonary vascular congestion without overt pulmonary edema. ACT 112: Negative or not required by law. Electronically signed by: Aiden Carrillo M.D. 05/22/2024 10:26 AM Medications Administered Magnesium Sulfate/Dextrose (Magnesium Sulfate / D5w) 1 gm in 100 mls @ 100 mls/hr IV Q1H VARSHA Stop: 05/22/24 16:59 Last Admin: 05/22/24 15:34 Dose: 100 mls/hr Documented By: YOBANY Discontinued Medications Furosemide (Furosemide 40 Mg/4 Ml Vial) 40 mg IV ONE ONE Stop: 05/22/24 11:42 Last Admin: 05/22/24 12:46 Dose: 40 mg Documented By: TNK Potassium Chloride (Potassium Chloride Crtab 20 Meq Tabcr) 20 meq PO NOW STA Stop: 05/22/24 14:40 Last Admin: 05/22/24 15:34 Dose: 20 meq Documented By: YOBANY Code Status & VTE Plan Code Status FULL CODE Supervising Physician Co-Signing Physician Notes 78-year-old male with PMH of HLD, HTN, hypothyroidism due to acquired atrophy of thyroid, allergic rhinitis, tachybrady syndrome s/p dual-chamber pacemaker insertion 2005 with generator exchange June 2015, calcific aortic valve disease s/p bioprosthetic aortic valve replacement February 2018, PAF on Eliquis, chronic systolic HF, mesenteric artery stenosis, CKD stage III, GERD, Pa rkinson's disease, primary generalized epilepsy and BPH w/ LUTS presented to the ED for evaluation of his worsening shortness of breath with exertion. Patient is on and off confused at baseline per patient's at bedside. Patient's states that patient is having shortness of breath with exertion since last fall, it has been worsening since last week more so and hence they brought him to the hospital. She denies any cough/fever/complaint of sore throat or myalgia from patient or complaint of pain and burning while passing urine. Patient denies any pain. Patient appears confused at bedside exam which is his baseline per patient's . Labs reviewed, WBC feels WNL, renal function tests fairly WNL, LFT WNL. Troponin flat trend in high 20s. BNP elevated at 345. Urinalysis negative for UTI. Respiratory pathogen panel needed. CXR with pulmonary vascular congestion. No concern of pneumonia given patient does not have fever/cough/leukocytosis. Acute on chronic systolic heart failure: Patient received 40 Mg IV Lasix in the ED, will continue with 40 Mg IV Lasix daily. I's and O's, monitor replete electrolytes. Give 2 g IV magnesium and 20 of KCl. Echo. Cardiology consult. Telemetry monitoring. Dry BLE: Lac-Hydrin twice daily Other chronic medical conditions: Continue with/resume home meds as when able. On exam: GENERAL: Alert, pleasantly confused. NAD, on RA. appears chronically ill/frail/weak. HEENT: No pallor, no icterus. Pupils equal, round and reactive to light. Oral mucosa moist. NECK: No JVD, no neck masses. HEART: S1 and S2 heard. Regular rate and rhythm. No murmur, no gallop. RESPIRATORY SYSTEM: Normal AP diameter. No accessory muscle use. No wheezing, bb crackles. ABDOMEN: Soft, bowel sounds present, nontender, no distention. CENTRAL NERVOUS SYSTEM: No facial droop. Speech is clear. Obeys simple commands. Moves extremities. EXTREMITIES: 1-2 + ble edema, no erythema seen. ble dry skin noted. I have seen and examined the patient and have discussed the case with the provider above. I agree with the assessment and plan as stated. Time spent: 30 min. (4) Epilepsy Epilepsy type: unspecified Intractability: not intractable Status epilepticus: without status epilepticus Qualified Code(s): G40.909 - Epilepsy, unspecified, not intractable, without status epilepticus (5) Parkinson's disease Dyskinesia presence: unspecified whether dyskinesia Fluctuating manifestations: unspecified whether manifestations fluctuate Qualified Code(s): G20.A1 - Parkinson's disease without dyskinesia, without mention of fluctuations (7) Hypertension Hypertension type: unspecified Qualified Code(s): I10 - Essential (primary) hypertension (8) Hyperlipidemia Hyperlipidemia type: unspecified Qualified Code(s): E78.5 - Hyperlipidemia, unspecified (9) Hypothyroidism Hypothyroidism type: unspecified Qualified Code(s): E03.9 - Hypothyroidism, unspecified
[2024-05-22] MEDS: FUROSEMIDE 40 MG/4 ML VIAL IV ONE (12:46)
--- NOTE | 2024-05-22 13:23 | Electrocardiogram Report ---
Test Reason : Blood Pressure : */* mmHG Vent. Rate : 79 BPM Atrial Rate : * BPM P-R Int : * ms QRS Dur : 136 ms QT Int : 442 ms P-R-T Axes : * -5 -81 degrees QTcB Int : 506 ms Poor data quality, interpretation may be adversely affected Atrial fibrillation with frequent ventricular-paced complexes Left bundle branch block Abnormal ECG When compared with ECG of 12-Jul-2018 07:16, Electronic ventricular pacemaker has replaced Electronic atrial pacemaker Confirmed by Sean Colvin ([id number]) on 05/22/2024 1:22:55 PM Referred By: Confirmed By: Sean Colvin
[2024-05-22] MEDS ORDERED: [UNRECOGNIZED DRUG - OTHER] TOP PRN (14:06)
[2024-05-22 15:10] LABS: Appearance Urine Clear (Clear); Bilirubin Urine Negative (Negative); Blood Urine Negative (Negative); Color Urine Yellow; Glucose Urine UA Negative (Negative); Ketones Urine Negative (Negative); Leukocyte Esterase Urine Negative (Negative); Nitrite Urine Negative (Negative); Protein Urine Negative (Negative); Urobilinogen Urine Negative (Negative)
[2024-05-22] MEDS ORDERED: MAGNESIUM HYDROXIDE SUSP 30 ML UDC PO PRN (15:19)
[2024-05-22] MEDS: POTASSIUM CHLORIDE CRTAB 20 MEQ TABCR PO STA (15:34)
[2024-05-22] MEDS: MAGNESIUM SULFATE / D5W 1 GM/100 ML BAG IV SCH (15:34)
--- NOTE | 2024-05-22 15:37 | Cardiology Consultation ---
Date of Consultation May 22, 2024 Assessment & Plan (1) Acute on chronic diastolic heart failure with preserved ejection fraction: (2) Persistent atrial fibrillation: (3) S/P AVR: (4) Chronic mesenteric ischemia: (5) S/P placement of cardiac pacemaker: Plan Patient presenting to ER with worsening SOB/dyspnea x the last few months. More recently, symptoms progressed over the last few days with associated increased LE edema, weight gain off about 5 lbs, and orthopnea noted last night while trying to sleep. Brought to ER by family due to concerns about his significant dyspnea with limited activity. Chest xray with findings of mild pulm vascular congestion. given his symptoms, findings consistent with acute on chronic HFpEF exacerbation likely in setting of dietary indiscretion and recent persistent afib. Recommend IV furosemide - He was started on 40 mg IV daily. Thus far, he reports filling up 2 urinals with brisk diuresis. Monitor I+O's. Monitor renal function Monitor electrolytes Low sodium diet. Update echo to reassess LVEF and AVR prosthesis. He recently had increase in ventricular pacing percentage with afib. He remains in persistent afib over the last few months. Recently saw EP, Dr. Ashley who follows his pacemaker interrogations. Flecainide was started at 100 mg BID. Planned future DCCV on 06/01 was arranged. Patient has been compliant with Eliquis without missed/skipped/held doses over the last few months. Will proceed with DCCV on Thursday 05/25 in attempt to restore NSR NPO on Saturday night Continue flecainide, metoprolol and Eliquis Given his intermittent abdominal pain, history of mesenteric ischemia with recent duplex limited as an outpatient. Consider abdominal CTA as outpatient follow up. No current symptoms Continue ASA, statin, lisinopril, metoprolol, flecainide. Case discussed with Dr. Davis I spent a total of 60 minutes on the date of service in preparation, delivery, and documentation of the care provided to this patient, excluding any time spent in the performance of separately billed services. Rossi Block PA-C Department of Cardiology, [facility] This chart was completed in part utilizing Speech Voice Recognition Software. Grammatical errors, random word insertions, pronoun errors, and incomplete sentences are an occasional consequence of this system due to software limitations, ambient noise, and hardware issues. Any formal questions or concerns about the content, text, or information contained within the body of this dictation should be directly addressed to the provider for clarification. Supervising Physician Co-Signing Physician Notes Attending attestation: Case reviewed with the advanced practitioner. I have personally performed a history and physical examination on the patient. I have reviewed the advanced practitioner's documentation on the date of service referenced in note, and I agree with, and take responsibility for the plan of care. Subjective: Patient describes as separate complaints of easy fatigability, shortness of breath, mostly observed by his spouse as well as vague abdominal discomfort. Device check noted at the time of recent EP follow-up earlier this month revealed the patient has been in persistent atrial fibrillation for 4 months. He was noted to be in atrial fibrillation at the time of his echocardiogram performed in February. Exam: Cardiovascular: Regular rhythm, no murmur, no lower extremity edema Chest: Midline sternotomy incision well-healed with a subxiphoid hernia noted consistent with patient's previous history Data: EKG performed today 05/22/2024 at 9:43 AM interpreted pendantly: Atrial fibrillation with demand ventricular pacing at 79 bpm. EKG performed 08/07/2023 as an outpatient revealed sinus rhythm with atrial pacing and long AV delay and [place]uke[place] QRS complexes, 87 bpm. Impression/ Plan: Dyspnea on exertion, perhaps mild volume overload Question if patient has increased dyspnea on exertion related to loss of AV synchrony in the setting of atrial fibrillation. -Update echocardiogram -Continue anticoagulation -Continue flecainide recently started at the time of EP visit, patient has been on the flecainide for 7 days. -He has been on Eliquis long-term with no recent missed doses in the last month. -Plan for direct-current cardioversion on Saturday. -Follow-up with vascular for reassessment of mesenteric ischemia. I spent a total of 20 minutes coordinating, documenting, and providing care for this patient excluding time spent in the performance of separately billed services or time spent by another provider. Pillo Davis DO History of Present Illness Reason for Consultation: SOB Requesting Physician: Gregorio Francisist Attending Physician: Dr. Davis History of Present Illness Patient is a 78 year old male who presents to [facility] with complaints of worsening SOB with activity over the last few months. Recently saw outpatient EP, Dr. Ashley with [facility] and found to have persistent atrial fibrillation over the last several months on device check with higher degree of ventricular pacing. He was started on Flecainide 100 mg BID on 05/13 and planned cardioversion arranged for 06/01/24. He reports compliance with Eliquis. His SOB then worsened over the last few days to the point of SOB with ambulation the bathroom or in his house. Last night he also had orthopnea, requiring sev eral pillows to sleep. He admits to dietary indiscretion eating frequent meals at [employer] as well. He does not often weigh himself but reports possible 5 lb weight gain over the last few weeks. He notes increased LE edema as well. Patient reports ongoing issue with abdominal pain and hernia. He is followed closely by vascular surgery at [facility] for Supererior mesenteric artery ischemia. Most recent vascular duplex was limited by bowel gas. He reported no significant symptoms to vascular at follow up and it was felt no further intervention was needed at that time. The patient reports intermittent abdominal pain comes and goes. No acute abdominal pain currently, but he had some this morning Since admission, chest X -ray demonstrated mild pulmonary vascular congestion. minimally elevated BNP. Minimally elevated HS troponin. Telemetry reveals persistent atrial fib with intermittent ventricular pacing. Rates controlled. He was given IV lasix upon admission. He is reporting frequent urination with the lasix. Currently resting comfortably. Denies chest pain or SOB at rest. Cardiac Problems: 1. Paroxysmal atrial arrhythmias, chronic Eliquis. 2. Tachycardia-bradycardia syndrome, status post dual-chamber pacemaker insertion in 2005 with generator exchange in June 2015, Biotronik device. Follows with [facility] (Dr. Ashley) 3. History of recurrent vagally mediated syncope. 4. History of chronic seizure disorder and Parkinson's 5. Calcific aortic valve disease, aortic valve replacement in Feb 2018 [facility] bioprosthesis 25 mm with JEWEL clip 6. Labile hypertension. 7. Hyperlipidemia. 8. Diagnostic cardiac catheterization January 2018 normal coronaries 9. Sternal wound dehiscence without sepsis, Enterobacter cloacae and staph aureus with omental flap closure April 04, 2018, requiring wound vac with resolve 10. Stage III chronic renal insufficiency Allergies Allergy/AdvReac Type Severity Reaction Status Date / Time carbamazepine Allergy Unknown TOXIC, Verified 05/13/24 14:04 DOUBLE VISION indigotindisulfonic acid Allergy Unknown TOXIC, Verified 05/13/24 14:04 DOUBLE VISION doxazosin AdvReac Unknown BP LOSS Verified 05/13/24 14:04 nitrofurantoin AdvReac Unknown DIZZINESS Verified 05/13/24 14:04 Home Medications Medication Instructions Recorded Confirmed Type acetaminophen 325 mg tablet 650 mg PO DIRECTED PRN pain, 03/20/18 05/22/24 History (Tylenol) fever aspirin 81 mg tablet,delayed 81 mg PO QAM 03/20/18 05/22/24 History release divalproex 250 mg tablet,delayed 500 mg PO QAM 03/20/18 05/22/24 History release divalproex 250 mg tablet,delayed 750 mg PO PM 03/20/18 05/22/24 History release furosemide 80 mg tablet (Lasix) 40 mg PO QAM 03/20/18 05/22/24 History metoprolol succinate 100 mg 100 mg PO QAM 03/20/18 05/22/24 History tablet,extended release 24 hr (Toprol XL) multivitamin 1 tab PO QAM 03/20/18 05/22/24 History pyridoxine (vitamin B6) 100 mg 100 mg PO QAM 03/20/18 05/22/24 History tablet docusate sodium 100 mg capsule 100 mg PO QAM 07/10/18 05/22/24 History (Colace) fexofenadine 180 mg tablet 180 mg PO QAM 07/10/18 05/22/24 History (Maria E Allergy) levothyroxine 88 mcg tablet 88 mcg PO QAM 07/10/18 05/22/24 History lisinopril 2.5 mg tablet 2.5 mg PO QAM 07/10/18 05/22/24 History spironolactone 25 mg tablet 12.5 mg PO QAM 07/10/18 05/22/24 History ammonium lactate-sodium 1 applic topical DAILY PRN 10/13/18 05/22/24 History lactate-potassium lactate topical Ichthyosis cream (AmLactin topical cream) ropinirole 1 mg tablet See Rx Instructions .Route .COMPLEX 10/13/18 05/22/24 History atorvastatin 20 mg tablet 20 mg PO DAILY 10/16/21 05/22/24 History sodium chloride 5 % eye drops 1 drp ophthalmic (eye) DAILY 10/16/21 05/22/24 History apixaban 5 mg tablet (Eliquis) 5 mg PO BID #180 tabs 03/26/24 05/22/24 Rx flecainide 100 mg tablet 100 mg PO BID 05/22/24 05/22/24 History melatonin 5 mg tablet 5 mg PO HS 05/22/24 05/22/24 History omeprazole 20 mg capsule,delayed 20 mg PO QAM 05/22/24 05/22/24 History release Patient History Medical History History of COVID-19 dx 03/31 - Urgent [facility]. coughing, congestion, fevers; all symptoms resolved History of syncope syncopal episode 03/2020 prior to covid diagnosis; last episode prior to 03/2020 was in 2016 pre pacemaker History of anesthesia reaction had a seizure when waking up from cholecystectomy in 1999 per pt and "was on the wrong seizure medicine, is on the right medication now and has not had any issues with any other surgeries since" Surgical History Status post excisional debridement x3 from aortic valve incision History of colonoscopy History of esophagogastroduodenoscopy (EGD) History of phacoemulsification of cataract of both eyes with intraocular lens implantation Family History Other Cerebral aneurysm Heart disease No family history of adverse response to anesthesia Social History Smoking Status: Never smoker Second Hand Exposure: Yes (as a child); Do You Dip or Chew Tobacco: No; Hx Alcohol Use: No Hx Substance Use: No Preferred Language: [place] Helen[place] Communication Ability: Effective Visual Impairment: No Limitations Hearing Ability: Normal Bilingual Medical Assistant Required: No Beliefs That Will Affect Care: None marital status: Current Living Situation: Spouse Feels Safe at Home: Yes Assistive Devices: Denture - Lower and Glasses Review of Systems Review of Systems: All systems reviewed & are unremarkable except as noted in HPI & below Physical Exam Constitutional: well developed; no acute distress Neck: normal visual inspection Respiratory: normal respiratory effort Auscultation: + diminished lung sounds and + crackles (faint bibasilar rales) Cardiovascular: Rate/Rhythm: + irregularly irregular Heart Sounds: + murmur (II/ systolic murmur) Vessels: + JVD Extremities: + edema (1-2+ pedal and ankle edema) Gastrointestinal (Abdomen): normal bowel sounds, soft, nontender, no hepatosplenomegaly Musculoskeletal: no cyanosis or clubbing, extremities motor strength 5/5 Neurologic: PERRL, EOMI, accommodation nl, no face palsy, no dysarthria Results & Data Vital Signs (Past 12 Hours) Vital Signs Temp Pulse Resp BP BP Pulse Ox O2 Del Method 05/22/24 15:10 80 05/22/24 14:30 76 17 99 05/22/24 14:30 125/87 05/22/24 14:15 76 18 99 05/22/24 14:00 141/86 H 05/22/24 13:33 83 18 96 05/22/24 13:31 151/115 H 05/22/24 13:18 75 21 95 05/22/24 13:06 76 22 94 05/22/24 13:00 127/83 05/22/24 12:51 77 22 95 05/22/24 12:30 128/86 05/22/24 12:27 75 19 96 05/22/24 12:00 75 17 97 05/22/24 12:00 121/85 05/22/24 11:42 75 96 05/22/24 11:30 114/77 05/22/24 11:24 76 17 91 05/22/24 11:03 74 18 92 05/22/24 11:00 121/74 05/22/24 10:57 76 19 94 05/22/24 10:30 75 19 93 05/22/24 10:18 95 H 18 96 05/22/24 09:52 94 Room Air 05/22/24 09:48 75 97 05/22/24 09:48 77 05/22/24 09:48 93 Room Air 05/22/24 09:43 122/73 05/22/24 09:25 36.4 C L 76 18 114/82 94 Room Air Laboratory Results Cardiac Enzymes 05/22/24 05/22/24 Range/Units 09:45 12:07 AST 36 (13-39) U/L Troponin I High Sens 25.7 H 30.6 H (0-20) pg/ml B-Natriuretic Peptide 345 H (0-100) pg/ml Coagulation 05/22/24 Range/Units 09:45 PT 12.5 H (9.0-12.0) Seconds APTT 28 (21-31) Seconds B-Natriuretic Peptide 345 H (0-100) pg/ml CBC 05/22/24 Range/Units 09:45 WBC 8.52 (4.8-10.8) K/ul RBC 4.53 L (4.70-6.10) M/uL Hgb 14.0 (14.0-18.0) g/dl Hct 41.8 L (42.0-52.0) % Plt Count 133 (130-400) K/uL Neut # (Auto) 6.00 (1.40-6.50) K/uL Lymph # (Auto) 1.32 (1.20-3.40) K/uL Divide # (Auto) 0.97 H (0.11-0.59) K/uL Eos # (Auto) 0.18 (0.00-0.50) K/uL Baso # (Auto) 0.03 (0.00-0.20) K/uL Comprehensive Metabolic Panel 05/22/24 Range/Units 09:45 Sodium 137 (136-145) mmol/L Potassium 4.1 (3.5-5.1) mmol/L Chloride 101 (98-107) mmol/L Carbon Dioxide 29 (21-32) mmol/L BUN 32 H (6-23) mg/dl Creatinine 1.30 (0.6-1.4) mg/dl Glucose 129 H (70-99(Fasting)) mg/dl Calcium 9.5 (8.6-10.3) mg/dl AST 36 (13-39) U/L ALT 21 (7-52) U/L Alkaline Phosphatase 69 (34-104) U/L Total Protein 7.5 (6.0-8.3) gm/dl Albumin 3.9 (3.4-5.0) gm/dl Intake and Output 05/22/24 05/22/24 05/22/24 06:59 14:59 22:59 Other: Weight 91.7 kg Weight Measurement Method Built in [facility] Patient Weight 05/23/24 06:59 Weight 91.7 kg Diagnostic Findings Telemetry reviewed: Atrial fibrillation with intermittent ventricular pacing EKG reviewed from admission: Atrial fib with intermittent ventricular pacing Chest X-Ray 05/22/24 09:49 IMPRESSION: 1. Mild right basilar opacity which could reflect pneumonia or atelectasis. 2. Cardiomegaly. Pulmonary vascular congestion without overt pulmonary edema. TTecho performed at [facility] [address] 02/18/25 Interpretation Summary The rhythm during the transthoracic echo examination was atrial fibrillation with controlled ventricular response. The qualitative LV ejection fraction is 55-59% (normal). The LV wall thickness is mildly increased (concentric). The septal motion is abnormal consistent with right ventricular pacemaker. The left atrium is moderately enlarged (42-48 ml/m^2). The left ventricular diastolic function is mildly abnormal (grade I). There is an aortic valve bioprosthetic present. The aortic valve prosthesis systolic gradients are normal for this type prosthesis. Significant aortic valve prosthesis regurgitation is absent. There is moderate mitral annular calcification. Mild mitral regurgitation is present Vascular mesenteric duplex completed Feb 2024: CONCLUSION: Bowel gas limits the examination. If clinically indicated, consider alternative imaging study to further evaluate the mesenteric arteries. Medications Administered Current Inpatient Medications Acetaminophen (Acetaminophen 325 Mg Tab) 650 mg PO Q4H PRN PRN Reason: Pain or Fever Stop: 06/21/24 15:18 Apixaban (Apixaban 5 Mg Tablet) 5 mg PO BID [facility] Stop: 06/21/24 20:59 Aspirin (Aspirin 81 Mg Ectab) 81 mg PO QAM [facility] Stop: 06/22/24 08:59 Atorvastatin Calcium (Atorvastatin 20 Mg Tab) 20 mg PO DAILY [facility] Stop: 06/22/24 08:59 Divalproex Sodium (Divalproex Delay Release 500 Mg Tab) 500 mg PO QAM [facility] Stop: 06/22/24 08:59 Divalproex Sodium (Divalproex Delay Release 250 Mg Tabec) 750 mg PO PM [facility] Stop: 06/21/24 20:59 Docusate Sodium (Docusate Sodium 100 Mg Cap) 100 mg PO QAM [facility] Stop: 06/22/24 08:59 Fexofenadine HCl (Fexofenadine Hcl 180 Mg Tab) 180 mg PO QAM [facility] Stop: 06/22/24 08:59 Flecainide Acetate (Flecainide Acetate 100 Mg Tablet) 100 mg PO BID [facility] Stop: 06/21/24 20:59 Furosemide (Furosemide 40 Mg/4 Ml Vial) 40 mg IV QAM [facility] Stop: 06/22/24 08:59 Magnesium Sulfate/Dextrose (Magnesium Sulfate / D5w) 1 gm in 100 mls @ 100 mls/hr IV Q1H [facility] Stop: 05/22/24 16:59 Last Admin: 05/22/24 15:34 Dose: 100 mls/hr Promethazine HCl (Phenergan) 6.25 mg in 50.25 mls @ 201 mls/hr IV Q6H PRN PRN Reason: Nausea And Vomiting Stop: 06/21/24 15:18 Lactic Acid (Ammonium Lactate 12% Lotion 225 Gm Btl) 1 gm EXT BID [facility] Stop: 06/21/24 20:59 Levothyroxine Sodium (Levothyroxine Sodium 88 Mcg Tablet) 88 mcg PO DAILYBB [facility] Stop: 06/22/24 06:29 Lisinopril (Lisinopril 2.5 Mg Tab) 2.5 mg PO QAM [facility] Stop: 06/22/24 08:59 Magnesium Hydroxide (Magnesium Hydroxide Susp 30 Ml Udc) 30 ml PO Q12H PRN PRN Reason: Constipation Stop: 06/21/24 15:18 Melatonin (Melatonin 3 Mg Tab) 3 mg PO HSZ [facility] Stop: 06/21/24 21:59 Metoprolol Succinate (Metoprolol Succ 50mg Ext Rel Tab) 100 mg PO QAM [facility] Stop: 06/22/24 08:59 Multivitamins (Multivitamin Tab) 1 tab PO QAM [facility] Stop: 06/22/24 08:59 Pantoprazole Sodium (Pantoprazole 40 Mg Tab) 40 mg PO QAM [facility] Stop: 06/22/24 08:59 Polyethylene Glycol (Polyethylene (Miralax) 17 Gm Pack) 17 gm PO DAILY PRN PRN Reason: Constipation Stop: 06/21/24 15:18 Ropinirole HCl (Ropinirole Hcl 1 Mg Tablet) 1 mg PO QAM [facility] Stop: 06/22/24 08:59 Ropinirole HCl (Ropinirole Hcl 1 Mg Tablet) 1.5 mg PO 1300,2100 [facility] Stop: 06/21/24 20:59 Sodium Chloride (Sodium Chloride 5% Op Soln 15 Ml Btl) 1 drops OP DAILY [facility] Stop: 06/22/24 08:59
[2024-05-22] MEDS: rOPINIRole HCL 1 MG TABLET PO SCH (20:18)
[2024-05-22] MEDS: APIXABAN 5 MG TABLET PO SCH (20:19)
[2024-05-22] MEDS: FLECAINIDE ACETATE 100 MG TABLET PO SCH (20:19)
[2024-05-22] MEDS: DIVALPROEX DELAY RELEASE 250 MG TABEC PO SCH (20:20)
[2024-05-22] MEDS: MELATONIN 3 MG TAB PO SCH (20:20)
[2024-05-22] MEDS: AMMONIUM LACTATE 12% LOTION 225 GM BTL EXT SCH (20:21)
[2024-05-23] MEDS: LEVOTHYROXINE SODIUM 88 MCG TABLET PO SCH (06:05)
[2024-05-23 06:21] LABS: Hemoglobin 13.9 g/dl (14.0-18.0); Mean Corpuscular Hemoglobin 31.2 pg (25.0-34.0); Mean Corpuscular Hgb Conc 33.9 g/dL (32.0-36.0); Mean Corpuscular Volume 92.1 fL (80.0-100.0); Mean Platelet Volume 12.6 fL (9.4-12.4); Platelet Count 114 K/uL (130-400); RDW Coefficient of Variation 14.7 % (11.5-14.5); RDW Standard Deviation 49.4 fL (36.4-46.3); Red Blood Count 4.45 M/uL (4.70-6.10); White Blood Count 7.12 K/ul (4.8-10.8)
[2024-05-23 06:41] LABS: BUN Creatinine Ratio 22.4 (10-20); Calcium 9.3 mg/dl (8.6-10.3); Creatinine Clr Calc Pharmacy 45.4 ml/min; Magnesium 2.3 mg/dl (1.7-2.4); Phosphorus 3.8 mg/dl (2.5-4.9); Potassium 4.2 mmol/L (3.5-5.1)
[2024-05-23 06:56] LABS: Thyroid Stimulating Hormone 4.285 uIu/ml (0.300-4.500)
--- NOTE | 2024-05-23 08:42 | Cardiology Progress Note ---
Date of Service May 23, 2024 Assessment & Plan (1) Acute on chronic diastolic heart failure with preserved ejection fraction: (2) Persistent atrial fibrillation: (3) S/P AVR: (4) Chronic mesenteric ischemia: (5) S/P placement of cardiac pacemaker: Plan 05/23/2024: -patient resting comfortably in bed with family visiting. -Endorses that he is voiding well. Poor I&O recordings on chart -Continues with mild hypervolemia. Continue IV lasix today; however, slight decrease in renal function. Monitor renal function closely in the AM. -Strict I &O, daily weights with a standing scale. Close monitoring of renal function as well as serum electrolytes Goal serum K > 4.0 and serum mag > 2.0 -He follows with n[facility] for general cardiology and was recently seen by Dr. Arreaga [place] [facility] [place]. He has remained in persistent A-fib for the last few months per pacer interrogations that are followed by Dr. Arreaga. -Continues on Flecainide. he was slated for OP DCCV on 06/01/24; however given hospitalization with HF symptoms, plan is to make patient NPO after midnight on Saturday for DCCV on Thursday 05/25 in an attempt to restore NSR. -Patient reports compliant on his Eliquis. No missed, skipped or held doses for the past few months. -Continue Flecainide, metoprolol and Eliquis. -Continue ASA and Statin along with Lisinopril as part of GDMT Case has been discussed with Dr. Davis. Further recommendations regarding plan of care as per his assessment. I spent a total of 30 minutes on the date of service in preparation, delivery, documentation of the care provided to the patient excluding any time spent in the performance of separately billed services. ANTONIO Nicholson [facility] Cardiology [facility] Admission and Anticipated Discharge Date Admission Date: May 22, 2024 Supervising Physician Co-Signing Physician Notes Attending attestation: Case reviewed with the advanced practitioner. I have personally performed a history and physical examination on the patient. I have reviewed the advanced practitioner's documentation on the date of service referenced in note, and I agree with, and take responsibility for the plan of care. Echocardiogram reveals stable findings. Continue flecainide, Eliquis, furosemide. CV on Saturday. I spent a total of 20 minutes coordinating, documenting, and providing care for this patient excluding time spent in the performance of separately billed services or time spent by another provider. Pillo Davis DO Subjective 05/23/2024: Patient seen and examined in follow up today. Feeling fair. Offers no acute complaints. Denies any chest pain, pressure or palpitations, no shortness of breath;however, states that he has not been out of bed either. Reports voiding well. Labs, vitals, diagnostics, telemetry and documentation reviewed. Telemetry reviewed showing Paced rates 70-90 with underlying atrial fibrillation. Cr. 1.47 Review of Systems Review of Systems: All systems reviewed & are unremarkable except as noted in HPI & below Physical Exam Constitutional: well developed and well nourished; no acute distress and not ill appearing Neck: normal visual inspection and trachea midline Respiratory: normal respiratory effort; no respiratory distress and no labored breathing Auscultation: + diminished lung sounds (diminished BL bases ); no crackles, no rales, no rhonchi and no wheezes Cardiovascular: Rate/Rhythm: + irregularly irregular (Paced with underlying A- fib noted on tele) Heart Sounds: normal S1, normal S2 and + murmur (+1/6 systolic ) Vessels: dorsalis pedis pulses present; no JVD Extremities: + edema (trace BLE ) Skin: no rashes, warm and dry Results & Data Vital Signs (Past 12 Hours) Vital Signs Temp Pulse Pulse Resp BP BP Pulse Ox 05/23/24 08:03 36.3 C L 76 18 150/93 H 149/102 H 97 05/23/24 07:45 75 05/23/24 04:17 36.3 C L 75 20 131/89 97 05/22/24 23:10 36.6 C 74 18 133/87 96 05/22/24 21:48 75 O2 Del Method 05/23/24 08:03 Room Air 05/23/24 07:45 05/23/24 04:17 Room Air 05/22/24 23:10 Room Air 05/22/24 21:48 Laboratory Results Cardiac Enzymes 05/22/24 05/22/24 05/22/24 Range/Units 09:45 12:07 18:47 Troponin I High Sens 25.7 H 30.6 H 31.2 H (0-20) pg/ml B-Natriuretic Peptide 345 H (0-100) pg/ml 05/23/24 05/23/24 Range/Units 00:16 05:55 Troponin I High Sens 30.2 H 31.7 H (0-20) pg/ml B-Natriuretic Peptide (0-100) pg/ml Coagulation 05/22/24 Range/Units 09:45 B-Natriuretic Peptide 345 H (0-100) pg/ml CBC 05/23/24 Range/Units 05:55 WBC 7.12 (4.8-10.8) K/ul RBC 4.45 L (4.70-6.10) M/uL Hgb 13.9 L (14.0-18.0) g/dl Hct 41.0 L (42.0-52.0) % Plt Count 114 L (130-400) K/uL Comprehensive Metabolic Panel 05/23/24 Range/Units 05:55 Sodium 137 (136-145) mmol/L Potassium 4.2 (3.5-5.1) mmol/L Chloride 98 (98-107) mmol/L Carbon Dioxide 34 H (21-32) mmol/L BUN 33 H (6-23) mg/dl Creatinine 1.47 H (0.6-1.4) mg/dl Glucose 84 (70-99(Fasting)) mg/dl Calcium 9.3 (8.6-10.3) mg/dl Intake and Output 05/22/24 05/23/24 05/23/24 22:59 06:59 14:59 Intake Total 500 / 775 275 / 775 Output Total 300 / 850 550 / 850 Balance 200 / -75 -275 / -75 Intake: IV 200 / 200 Magnesium Sulfate / D5w 1 gm In 200 / 200 100 ml @ 100 mls/hr IV Q1H [facility] Rx#:[id number] Oral 300 / 575 275 / 575 Output: Urine 300 / 300 Other 550 / 550 Other: Weight 91.3 kg Weight Measurement Method Standing Scale
[2024-05-23] MEDS: MULTIVITAMIN TAB PO SCH (08:53)
[2024-05-23] MEDS: ASPIRIN 81 MG ECTAB PO SCH (08:53)
[2024-05-23] MEDS: rOPINIRole HCL 1 MG TABLET PO SCH (08:54)
[2024-05-23] MEDS: METOPROLOL SUCC 50MG EXT REL TAB PO SCH (08:54)
[2024-05-23] MEDS: lisinopril 2.5 MG TAB PO SCH (08:54)
[2024-05-23] MEDS: FEXOFENADINE HCL 180 MG TAB PO SCH (08:54)
[2024-05-23] MEDS: SODIUM CHLORIDE 5% OP SOLN 15 ML BTL OP SCH (08:55)
[2024-05-23] MEDS: DIVALPROEX DELAY RELEASE 500 MG TAB PO SCH (08:55)
[2024-05-23] MEDS: ATORVASTATIN 20 MG TAB PO SCH (08:55)
[2024-05-23] MEDS: PANTOprazole 40 MG TAB PO SCH (08:55)
[2024-05-23] MEDS: FUROSEMIDE 40 MG/4 ML VIAL IV SCH (08:55)
[2024-05-23] MEDS: DOCUSATE SODIUM 100 MG CAP PO SCH (09:05)
[2024-05-23] MEDS: POLYETHYLENE (MIRALAX) 17 GM PACK PO PRN (09:05)
--- NOTE | 2024-05-23 11:33 | Hospitalist Progress Note ---
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 CXR notable for pulmonary vascular congestion without overt pulmonary edema. Echocardiogram from 02/2024 - LVEF=55-59%, moderately enlarged LA, grade 1 DD and mild mitral regurgitation. Evaluated by cardiology; patient remains in persistent A-fib for last few months. He was recently seen by cardiology EP as outpatient. Started on flecainide 100 mg twice daily with planned direct cardioversion on June 01. Plan for cardioversion on Saturday, May 25, 2023. Continue on flecainide, metoprolol and Eliquis. Continue on IV Lasix 40 mg, strict input and output monitoring. (4) Epilepsy: Plan: Chronic, stable. [facility]. Continue Valproate. Seizure precautions. (5) Parkinson's disease: Plan: [facility] as per above. Continue ropinirole. (6) Ichthyosis: Plan: Chronic, stable. Continue AmLactin application. (7) Hypertension: (8) Hyperlipidemia: Plan: BP stable. Continue atorvastatin, lisinopril and ASA. Routine BP monitoring. (9) Hypothyroidism: Plan: Continue levothyroxine. DVT Prophylaxis: Continue [employer] Eliquis. Code Status: FULL CODE PCP: Dom Underwood MD Time spent evaluating patient, direct bedside care, chart review, placing orders, interpretation of diagnostic studies, discussion with consultants, patient, and family members, as well as other required patient management activities is 50 minutes Please note the above document was generated using voice recognition software. It may contain grammatical, syntax or spelling errors. Any formal questions or concerns about the content, text or information contained within the body of this dictation should be directly addressed to the provider for clarification Admission and Anticipated Discharge Date Admission Date: May 22, 2024 Subjective Patient seen and examined at bedside. Is comfortable; not in distress Reports that he could not get any sleep last night Denies any chest pain or discomfort Review of Systems Review of Systems: All systems reviewed & are unremarkable except as noted in Subjective Physical Exam Physical Exam: Constitutional: WD/WN, vitals as above, NAD, sitting up in bed, pleasant, conversing easily Respiratory: normal respiratory effort, lungs clear to auscultation, no wheeze, rales, rhonchi. Normal insp/exp effort, no accessory muscle use Cardiovascular: RRR, no murmur, no edema Vessels: no JVD or carotid bruit Chest: normal inspection of chest Abdomen: normal bowel sounds, soft, nontender, no hepatosplenomegaly Musculoskeletal: no cyanosis or clubbing, extremities motor strength 5/5 Skin: no rashes, warm and dry normal turgor Neurologic: PERRL, EOMI, accommodation nl, no face palsy, no dysarthria CN's II- XI intact bilaterally and moves all extremities Psychiatric: A+Ox3, euthymic affect Results & Data Results & Data Vital Signs (Past 12 Hours) Vital Signs Temp Pulse Pulse Resp BP BP Pulse Ox 05/23/24 08:03 36.3 C L 76 18 150/93 H 149/102 H 97 05/23/24 07:45 75 05/23/24 04:17 36.3 C L 75 20 131/89 97 O2 Del Method 05/23/24 08:03 Room Air 05/23/24 07:45 05/23/24 04:17 Room Air (4) Epilepsy Epilepsy type: unspecified Intractability: not intractable Status epilepticus: without status epilepticus Qualified Code(s): G40.909 - Epilepsy, unspecified, not intractable, without status epilepticus (5) Parkinson's disease Dyskinesia presence: unspecified whether dyskinesia Fluctuating manifestations: unspecified whether manifestations fluctuate Qualified Code(s): G20.A1 - Parkinson's disease without dyskinesia, without mention of fluctuations (7) Hypertension Hypertension type: unspecified Qualified Code(s): I10 - Essential (primary) hypertension (8) Hyperlipidemia Hyperlipidemia type: unspecified Qualified Code(s): E78.5 - Hyperlipidemia, unspecified (9) Hypothyroidism Hypothyroidism type: unspecified Qualified Code(s): E03.9 - Hypothyroidism, unspecified
[2024-05-23] MEDS: LORazepam 0.5 MG TAB PO STA (21:49)
[2024-05-24] MEDS: ACETAMINOPHEN 325 MG TAB PO PRN (09:41)
[2024-05-24] MEDS: PROMETHAZINE 6.25 MG/50.25 ML BAG IV PRN (09:42)
[2024-05-24 11:03] LABS: BUN Creatinine Ratio 28.1 (10-20); Calcium 9.3 mg/dl (8.6-10.3); Potassium 4.3 mmol/L (3.5-5.1)
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
--- NOTE | 2024-05-24 12:17 | Hospitalist Progress Note ---
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 CXR notable for pulmonary vascular congestion without overt pulmonary edema. Echocardiogram from 02/2024 - LVEF=55-59%, moderately enlarged LA, grade 1 DD and mild mitral regurgitation. Evaluated by cardiology; patient remains in persistent A-fib for last few months. He was recently seen by cardiology EP as outpatient. Started on flecainide 100 mg twice daily with planned direct cardioversion on June 01. Plan for cardioversion on Saturday, May 25, 2023. Continue on flecainide, metoprolol and Eliquis. Continue on IV Lasix 40 mg, strict input and output monitoring. (4) Constipation: Plan: Patient reported not having bowel movement for several days.Reports nausea/vomiting Will obtain KUB x-ray [place] bisacodyl Monitor (5) Epilepsy: Plan: Chronic, stable. Follows with [facility]. Continue Valproate. Seizure precautions. (6) Parkinson's disease: Plan: [facility] as per above. Continue ropinirole. (7) Ichthyosis: Plan: Chronic, stable. Continue AmLactin application. (8) Hypertension: (9) Hyperlipidemia: Plan: BP stable. Continue atorvastatin, lisinopril and ASA. Routine BP monitoring. (10) Hypothyroidism: Plan: Continue levothyroxine. DVT Prophylaxis: Continue ENDOSCOPY TECH Eliquis. Code Status: FULL CODE PCP: Dom Underwood MD Time spent evaluating patient, direct bedside care, chart review, placing orders, interpretation of diagnostic studies, discussion with consultants, patient, and family members, as well as other required patient management activities is 50 minutes Please note the above document was generated using voice recognition software. It may contain grammatical, syntax or spelling errors. Any formal questions or concerns about the content, text or information contained within the body of this dictation should be directly addressed to the provider for clarification Admission and Anticipated Discharge Date Admission Date: May 22, 2024 Subjective Overnight, patient became delirious and aggressive requiring restraints and IM Zyprexa. In the AM, patient was calm and composed. His was at bedside. He had nausea and vomiting Review of Systems Review of Systems: All systems reviewed & are unremarkable except as noted in Subjective Physical Exam Physical Exam: Constitutional: WD/WN, vitals as above, NAD, sitting up in bed, pleasant, conversing easily Respiratory: normal respiratory effort, lungs clear to auscultation, no wheeze, rales, rhonchi. Normal insp/exp effort, no accessory muscle use Cardiovascular: RRR, no murmur, no edema Vessels: no JVD or carotid bruit Chest: normal inspection of chest Abdomen: normal bowel sounds, soft, nontender, no hepatosplenomegaly Musculoskeletal: no cyanosis or clubbing, extremities motor strength 5/5 Skin: no rashes, warm and dry normal turgor Neurologic: PERRL, EOMI, accommodation nl, no face palsy, no dysarthria CN's II- XI intact bilaterally and moves all extremities Psychiatric: A+Ox3, euthymic affect Results & Data Results & Data Vital Signs (Past 12 Hours) Vital Signs Temp Pulse Pulse Resp BP Pulse Ox O2 Del Method 05/24/24 11:25 36.5 C 76 20 111/75 95 Room Air 05/24/24 09:43 36.9 C 72 20 136/96 92 Room Air 05/24/24 07:30 77 05/24/24 04:30 36.3 C L 79 20 97/56 L 94 Room Air (5) Epilepsy Epilepsy type: unspecified Intractability: not intractable Status epilepticus: without status epilepticus Qualified Code(s): G40.909 - Epilepsy, unspecified, not intractable, without status epilepticus (6) Parkinson's disease Dyskinesia presence: unspecified whether dyskinesia Fluctuating manifestations: unspecified whether manifestations fluctuate Qualified Code(s): G20.A1 - Parkinson's disease without dyskinesia, without mention of fluctuations (8) Hypertension Hypertension type: unspecified Qualified Code(s): I10 - Essential (primary) hypertension (9) Hyperlipidemia Hyperlipidemia type: unspecified Qualified Code(s): E78.5 - Hyperlipidemia, unspecified (10) Hypothyroidism Hypothyroidism type: unspecified Qualified Code(s): E03.9 - Hypothyroidism, unspecified
[2024-05-24] MEDS: METOCLOPRAMIDE HCL INJ 5 MG/ML 2 ML VIAL IV ONE (12:31)
[2024-05-24] MEDS: bisacodyL 10 MG SUPP PR STA (13:19)
[2024-05-24] MEDS: PROMETHAZINE 6.25 MG/50.25 ML BAG IV STA (13:21)
--- NOTE | 2024-05-24 16:28 | CT Scan Report ---
EXAMINATION: Abdomen and pelvis CT without CLINICAL HISTORY: Right lower quadrant pain PRIORS: None TECHNIQUE: Contiguous axial images were obtained through the abdomen and pelvis without the use of intravenous contrast. Sagittal and coronal reformations are supplied. FINDINGS: Small to moderate bilateral pleural effusions present. Evaluation of solid organs is limited without the use of intravenous contrast. Allowing for this, the liver, pancreas, spleen, adrenals, and IVC are morphologically unremarkable. Advanced atherosclerotic disease of the abdominal aorta and splenic artery. Rectus abdominis muscle diastases is noted, image series 50, image 3, measuring 4.2 cm containing mesenteric fat with mild inflammatory change. No incarcerated loops of bowel. The stomach is mildly distended with fluid and gas. Kidneys are symmetric. No obstructing renal calculus. Suspected right renal cyst is present. Punctate nonobstructing right renal calculi present. A large amount of formed stool present throughout the entire colon. No dilated loops of bowel or bowel wall thickening. A second ventral hernia is present just above the umbilicus, image 44, series 301. This measures 6.3 cm and contains loops of small bowel with no wall thickening or evidence of strangulation. Appendix is normal on image 157, series 3. No ascites, extraluminal gas or adenopathy. No free fluid in the pelvis. Prostate is not enlarged. In bone windows, advanced osseous demineralization and advanced degenerative change throughout the lumbar spine. No high-grade compression fracture. IMPRESSION: 1. No CT evidence of an acute abdominal or pelvic abnormality. 2. Small to moderate bilateral pleural effusions. 3. Two ventral hernias with no strangulated loops of bowel. ACT 112: Positive. There are findings on this examination that require communication between the performing entity and the patient following Patient Test Result Information Act ([place] ACT 112) guidelines. Electronically signed by Halley Pepe 05-24-2024 4:27 PM
--- NOTE | 2024-05-24 17:55 | CT Scan Report ---
EXAMINATION: Head CT without CLINICAL HISTORY: AMS, lethargic, combative PRIORS: None TECHNIQUE: Contiguous axial images were obtained through the head without the use of intravenous contrast. Sagittal and coronal reformations are supplied. FINDINGS: Dental amalgam creates beam hardening artifact diminishing image quality. Motion artifact noted. Mild parenchymal volume loss noted canchola-white differentiation is preserved. No edema or midline shift. No intra-axial or extra-axial hemorrhage. Ventricles are normal in size and configuration. Brainstem and cerebellum have a normal appearance. Calvarium unremarkable. Paranasal sinuses and mastoid air cells are well-pneumatized. Globes are intact. No retrobulbar abnormality. IMPRESSION: No CT evidence of an acute intracranial abnormality. Electronically signed by Halley Pepe 05-24-2024 5:55 PM
[2024-05-24] MEDS: OLANZapine 10 MG/2.1 ML SDV IM STA (22:11)
[2024-05-25 07:19] LABS: Basophils # (auto) 0.01 K/uL (0.00-0.20); Basophils % (auto) 0.2 %; Eosinophils # (auto) 0.02 K/uL (0.00-0.50); Eosinophils % (auto) 0.3 %; Hematocrit (blood only) 40.6 % (42.0-52.0); Hemoglobin 13.5 g/dl (14.0-18.0); Immature Granulocytes # (auto) 0.03 K/uL (0.01-0.20); Immature Granulocytes % (auto) 0.5 %; Lymphocytes # (auto) 0.31 K/uL (1.20-3.40); Lymphocytes % (auto) 4.9 %; Mean Corpuscular Hgb Conc 33.3 g/dL (32.0-36.0); Mean Corpuscular Volume 93.3 fL (80.0-100.0); Mean Platelet Volume 12.1 fL (9.4-12.4); Monocytes # (auto) 0.92 K/uL (0.11-0.59); Monocytes % (auto) 14.4 %; Neutrophils # (auto) 5.09 K/uL (1.40-6.50); Neutrophils % (auto) 79.7 %; Platelet Count 112 K/uL (130-400); RDW Coefficient of Variation 15.2 % (11.5-14.5); RDW Standard Deviation 51.9 fL (36.4-46.3); Red Blood Count 4.35 M/uL (4.70-6.10); White Blood Count 6.38 K/ul (4.8-10.8)
[2024-05-25 07:21] LABS: BUN Creatinine Ratio 26.1 (10-20); Calcium 8.5 mg/dl (8.6-10.3); Creatinine Clr Calc Pharmacy 43.9 ml/min; Potassium 4.4 mmol/L (3.5-5.1)
--- NOTE | 2024-05-25 07:22 | History & Physical Bridge Note ---
Date of Service May 25, 2024 History & Physical Bridge Note I have examined the patient, reviewed the History & Physical and in the interval since the performance of the History & Physical I have noted the following changes of clinical significance: no changes noted. Mental status improved. At baseline. Informed consent for cardioversion obtained. Patient elects to proceed.
--- NOTE | 2024-05-25 08:06 | Anesthesiology Consultation ---
Date of Service May 25, 2024 Assessment & Plan Chart Review Chart Review: Acceptable Risk for Surgery and Patient NOT seen in Pre Admission Testing Consults Requested none ASA ASA4 Proposed Anesthesia Anesthesia Type: MAC Risk / Benefits Reviewed With: PT / POA / Parent / Guardian, Accepts Plan and Informed Consent Obtained History Surgery Operation Date: 05/25/24 07:15 Proposed Procedures p Cardioversion - Pillo Davis, Height/Weight Height: 5 ft 8 in Weight: 92.6 kg Allergies Allergy/AdvReac Type Severity Reaction Status Date / Time carbamazepine Allergy Unknown TOXIC, Verified 05/13/24 14:04 DOUBLE VISION indigotindisulfonic acid Allergy Unknown TOXIC, Verified 05/13/24 14:04 DOUBLE VISION doxazosin AdvReac Unknown BP LOSS Verified 05/13/24 14:04 nitrofurantoin AdvReac Unknown DIZZINESS Verified 05/13/24 14:04 Medications Home Medications Medication Instructions Recorded Confirmed Last Taken acetaminophen 325 mg tablet 650 mg PO DIRECTED PRN pain, 03/20/18 05/22/24 05/19/20 06:30 (Tylenol) fever aspirin 81 mg tablet,delayed 81 mg PO QAM 03/20/18 05/22/24 05/18/20 07:00 release divalproex 250 mg tablet,delayed 500 mg PO QAM 03/20/18 05/22/24 05/19/20 06:30 release divalproex 250 mg tablet,delayed 750 mg PO PM 03/20/18 05/22/24 05/19/20 06:30 release furosemide 80 mg tablet (Lasix) 40 mg PO QAM 03/20/18 05/22/24 05/18/20 05:00 metoprolol succinate 100 mg 100 mg PO QAM 03/20/18 05/22/24 05/19/20 05:00 tablet,extended release 24 hr (Toprol XL) multivitamin 1 tab PO QAM 03/20/18 05/22/24 05/18/20 06:00 pyridoxine (vitamin B6) 100 mg 100 mg PO QAM 03/20/18 05/22/24 05/11/20 06:00 tablet docusate sodium 100 mg capsule 100 mg PO QAM 07/10/18 05/22/24 05/18/20 20:00 (Colace) fexofenadine 180 mg tablet 180 mg PO QAM 07/10/18 05/22/24 10/13/18 08:00 (Maria E Allergy) levothyroxine 88 mcg tablet 88 mcg PO QAM 07/10/18 05/22/24 05/19/20 05:00 lisinopril 2.5 mg tablet 2.5 mg PO QAM 07/10/18 05/22/24 05/19/20 05:00 spironolactone 25 mg tablet 12.5 mg PO QAM 07/10/18 05/22/24 05/18/20 05:00 ammonium lactate-sodium 1 applic topical DAILY PRN 10/13/18 05/22/24 05/15/20 lactate-potassium lactate topical Ichthyosis cream (AmLactin topical cream) ropinirole 1 mg tablet See Rx Instructions .Route .COMPLEX 10/13/18 05/22/24 05/18/20 20:00 atorvastatin 20 mg tablet 20 mg PO DAILY 10/16/21 05/22/24 Unknown sodium chloride 5 % eye drops 1 drp ophthalmic (eye) DAILY 10/16/21 05/22/24 Unknown apixaban 5 mg tablet (Eliquis) 5 mg PO BID #180 tabs 03/26/24 05/22/24 Unknown flecainide 100 mg tablet 100 mg PO BID 05/22/24 05/22/24 Unknown melatonin 5 mg tablet 5 mg PO HS 05/22/24 05/22/24 Unknown omeprazole 20 mg capsule,delayed 20 mg PO QAM 05/22/24 05/22/24 Unknown release Active Medications Generic Name Dose Route Start Last Admin Trade Name Cricketq PRN Reason Stop Dose Admin Acetaminophen 650 mg 05/22/24 15:19 05/24/24 09:41 Acetaminophen 325 Mg Tab PO 06/21/24 15:18 650 mg Q4H PRN Administration Pain or Fever Apixaban 5 mg 05/22/24 21:00 05/24/24 20:32 Apixaban 5 Mg Tablet PO 06/21/24 20:59 5 mg BID VARSHA Administration Aspirin 81 mg 05/23/24 09:00 05/24/24 09:44 Aspirin 81 Mg Ectab PO 06/22/24 08:59 81 mg QAM VARSHA Administration Atorvastatin Calcium 20 mg 05/23/24 09:00 05/24/24 09:46 Atorvastatin 20 Mg Tab PO 06/22/24 08:59 20 mg DAILY VARSHA Administration Divalproex Sodium 500 mg 05/23/24 09:00 05/24/24 09:44 Divalproex Delay Release 500 Mg Tab PO 06/22/24 08:59 500 mg QAM VARSHA Administration Divalproex Sodium 750 mg 05/22/24 21:00 05/24/24 20:33 Divalproex Delay Release 250 Mg Tabec PO 06/21/24 20:59 750 mg PM VARSHA Administration Docusate Sodium 100 mg 05/23/24 09:00 05/24/24 09:48 Docusate Sodium 100 Mg Cap PO 06/22/24 08:59 100 mg QAM VARSHA Administration Fexofenadine HCl 180 mg 05/23/24 09:00 05/24/24 09:45 Fexofenadine Hcl 180 Mg Tab PO 06/22/24 08:59 180 mg QAM VARSHA Administration Flecainide Acetate 100 mg 05/22/24 21:00 05/24/24 20:32 Flecainide Acetate 100 Mg Tablet PO 06/21/24 20:59 100 mg BID VARSHA Administration Furosemide 40 mg 05/23/24 09:00 05/24/24 09:43 Furosemide 40 Mg/4 Ml Vial IV 06/22/24 08:59 40 mg QAM VARSHA Administration Promethazine HCl 6.25 mg in 50.25 mls @ 201 mls/hr 05/22/24 15:19 05/24/24 09:57 Phenergan IV 06/21/24 15:18 Infused Q6H PRN Infusion Nausea And Vomiting Lactic Acid 1 gm 05/22/24 21:00 05/24/24 20:34 Ammonium Lactate 12% Lotion 225 Gm Btl EXT 06/21/24 20:59 1 gm BID VARSHA Administration Levothyroxine Sodium 88 mcg 05/23/24 06:30 05/25/24 05:18 Levothyroxine Sodium 88 Mcg Tablet PO 06/22/24 06:29 88 mcg DAILYBB VARSHA Administration Lisinopril 2.5 mg 05/23/24 09:00 05/24/24 09:44 Lisinopril 2.5 Mg Tab PO 06/22/24 08:59 2.5 mg QAM VARSHA Administration Melatonin 3 mg 05/22/24 22:00 05/24/24 20:31 Melatonin 3 Mg Tab PO 06/21/24 21:59 3 mg HSZ VARSHA Administration Metoprolol Succinate 100 mg 05/23/24 09:00 05/24/24 09:46 Metoprolol Succ 50mg Ext Rel Tab PO 06/22/24 08:59 100 mg QAM VARSHA Administration Multivitamins 1 tab 05/23/24 09:00 05/24/24 09:45 Multivitamin Tab PO 06/22/24 08:59 1 tab QAM VARSHA Administration Pantoprazole Sodium 40 mg 05/23/24 09:00 05/24/24 09:46 Pantoprazole 40 Mg Tab PO 06/22/24 08:59 40 mg QAM VARSHA Administration Polyethylene Glycol 17 gm 05/22/24 15:19 05/23/24 09:05 Polyethylene (Miralax) 17 Gm Pack PO 06/21/24 15:18 17 gm DAILY PRN Administration Constipation Ropinirole HCl 1 mg 05/23/24 09:00 05/24/24 09:45 Ropinirole Hcl 1 Mg Tablet PO 06/22/24 08:59 1 mg QAM VARSHA Administration Ropinirole HCl 1.5 mg 05/22/24 21:00 05/24/24 20:31 Ropinirole Hcl 1 Mg Tablet PO 06/21/24 20:59 1.5 mg 1300,2100 VARSHA Administration Sodium Chloride 1 drops 05/23/24 09:00 05/24/24 09:46 Sodium Chloride 5% Op Soln 15 Ml Btl OP 06/22/24 08:59 Not Given DAILY VARSHA Past Medical History Medical History History of COVID-19 dx 03/31 - Urgent [facility]. coughing, congestion, fevers; all symptoms resolved History of syncope syncopal episode 03/2020 prior to covid diagnosis; last episode prior to 03/2020 was in 2016 pre pacemaker History of anesthesia reaction had a seizure when waking up from cholecystectomy in 1999 per pt and "was on the wrong seizure medicine, is on the right medication now and has not had any issues with any other surgeries since" Exercise / Class Metabolic Activity II 4-5 Yardwork/Stairs/Walk up hill Past Family History Family History Other Cerebral aneurysm Heart disease No family history of adverse response to anesthesia Past Surgical History Surgical History Status post excisional debridement x3 from aortic valve incision History of colonoscopy History of esophagogastroduodenoscopy (EGD) History of phacoemulsification of cataract of both eyes with intraocular lens implantation Past Anesthesia History No Hx of Anesthesia Complications and No Family Hx of Anesthesia Complications History of PONV No Hx of PONV and No Hx of Motion Sickness Social History Smoking Status: Never smoker Do You Dip or Chew Tobacco: No Hx Alcohol Use: No Hx Substance Use: No substance use type: does not use Physical Exam Vital Signs Last Vital Signs Temp 37.0 C 05/25/24 07:10 Pulse 90 05/25/24 08:01 Resp 17 05/25/24 08:01 BP 74/50 L 05/25/24 08:01 Pulse Ox 100 05/25/24 08:01 O2 Del Method Oxymask 05/25/24 08:01 O2 Flow Rate 5 05/25/24 08:01 ENMT Mouth: + dentures Thyromental Distance: > or= 3.5 Finger Breadths Mallampati Class: II Neck normal visual inspection Respiratory normal respiratory effort Auscultation: lungs clear to auscultation bilaterally Cardiovascular Rate/Rhythm: regular rate; + abnormal rhythm (v paced afib) Chest (Breasts) Chest: + pacemaker Psychiatric Orientation: alert Testing Laboratory Results 05/25/24 06:05 05/25/24 06:05 PT 12.5 Seconds (9.0-12.0) H 05/22/24 09:45 INR 1.2 (0.9-1.1) H 05/22/24 09:45 APTT 28 Seconds (21-31) 05/22/24 09:45 Urine Color Yellow 05/22/24 14:42 Urine Appearance Clear (Clear) 05/22/24 14:42 Urine pH 6.0 (4.5-7.5) 05/22/24 14:42 Ur Specific [place] 1.010 (1.000-1.030) 05/22/24 14:42 Urine Protein Negative (Negative) 05/22/24 14:42 Urine Glucose (UA) Negative (Negative) 05/22/24 14:42 Urine Ketones Negative (Negative) 05/22/24 14:42 Urine Nitrite Negative (Negative) 05/22/24 14:42 Ur Leukocyte Esterase Negative (Negative) 05/22/24 14:42
--- NOTE | 2024-05-25 08:07 | Anesthesiology Progress Note ---
Date of Service May 25, 2024 Anesthesia Post Procedure Vital Signs Vital Signs: Temp Pulse Pulse Resp BP Pulse Ox O2 Del Method 05/25/24 08:01 90 17 74/50 L 100 Oxymask 05/25/24 07:10 37.0 C 83 17 141/103 H 95 Room Air 05/25/24 03:11 36.7 C 88 18 97/61 L 93 Room Air 05/24/24 22:47 36.7 C 77 18 105/72 92 Room Air 05/24/24 21:50 84 05/24/24 19:34 36.8 C 83 18 112/68 99 Room Air 05/24/24 19:30 Room Air 05/24/24 16:17 37.0 C 87 20 127/85 94 Room Air 05/24/24 16:11 86 05/24/24 11:25 36.5 C 76 20 111/75 95 Room Air 05/24/24 09:43 36.9 C 72 20 136/96 92 Room Air O2 Flow Rate 05/25/24 08:01 5 05/25/24 07:10 05/25/24 03:11 05/24/24 22:47 05/24/24 21:50 05/24/24 19:34 05/24/24 19:30 05/24/24 16:17 05/24/24 16:11 05/24/24 11:25 05/24/24 09:43 Transfer of Care Handoff Completed per policy Notes Mental Status: alert / awake / arousable Patient Amnestic to Procedure: Yes Nausea / Vomiting: adequately controlled Pain: adequately controlled Airway Patency, RR, SpO2: stable & adequate BP & HR: stable & adequate Hydration State: stable & adequate Anesthetic Complications: no major complications apparent
[2024-05-25 08:17] VITALS: RESP 18
[2024-05-25] MEDS: LIDOCAINE 2% 2 ML VIAL/AMP(20MG/ML) INFIL ONE (08:29)
[2024-05-25] MEDS: PROPOFOL IV EMULSION 10 MG/ML 20 ML VIAL IV ONE (08:29)
--- NOTE | 2024-05-25 08:34 | Post Operative Brief Note ---
Cardiology Brief Post Op Date of Surgery May 25, 2024 Pre & Post Diagnosis Operation Date: 05/25/24 07:15 Procedure Preprocedure diagnosis: Symptomatic persistent atrial fibrillation Postprocedure diagnosis: Successful conversion to sinus rhythm Direct-current cardioversion procedure: The patient's vital signs were monitored via the standard fashion. After informed consent was obtained a timeout was performed the patient was sedated with the assistance of Dr. Huertas of the anesthesia service receiving a total of 50 mg of IV propofol, 80 mg of IV lidocaine. The patient then underwent direct-current cardioversion receiving a single dose of 150 J of synchronized biphasic energy with successful conversion to sinus rhythm. Post procedure EKG and Biotronik pacemaker interrogation revealed AV sequential paced rhythm in the 90s. Roller Stitcher Pillo Davis DO Piano Stringer none Estimated Blood Loss 0 Findings Consistent with Post-Op Diagnosis Anesthesia Type MAC Complications No complications were immediately apparent
--- NOTE | 2024-05-25 08:38 | Cardiology Progress Note ---
Date of Service May 25, 2024 Assessment & Plan (1) Acute on chronic diastolic heart failure with preserved ejection fraction: (2) Persistent atrial fibrillation: (3) S/P AVR: (4) Chronic mesenteric ischemia: (5) S/P placement of cardiac pacemaker: Plan Continue outpatient medications including Eliquis 5 mg twice daily, flecainide 100 mg twice daily, lisinopril 2.5 mg daily, aspirin 81 mg daily, metoprolol succinate 100 mg daily. Discontinue IV furosemide 40 mg p.o. daily. Possible discharge later today. Admission and Anticipated Discharge Date Admission Date: May 22, 2024 Subjective Patient seen prior to, during, post cardioversion. Mental status improved this morning. Underwent cardioversion with successful conversion to sinus rhythm. Physical Exam Constitutional: well developed; no acute distress Neck: normal visual inspection Respiratory: normal respiratory effort Auscultation: + diminished lung sounds and + crackles (faint bibasilar rales) Cardiovascular: Rate/Rhythm: + irregularly irregular Heart Sounds: + murmur (II/ systolic murmur) Vessels: + JVD Extremities: + edema (1-2+ pedal and ankle edema) Gastrointestinal (Abdomen): normal bowel sounds, soft, nontender, no hep atosplenomegaly Musculoskeletal: no cyanosis or clubbing, extremities motor strength 5/5 Neurologic: PERRL, EOMI, accommodation nl, no face palsy, no dysarthria Results & Data Vital Signs (Past 12 Hours) Vital Signs Temp Pulse Pulse Resp BP BP Pulse Ox 05/25/24 08:15 67 18 112/61 94 05/25/24 08:04 90 17 101/72 100 05/25/24 08:01 90 17 74/50 L 100 05/25/24 07:10 37.0 C 83 17 141/103 H 95 05/25/24 03:11 36.7 C 88 18 97/61 L 93 05/24/24 22:47 36.7 C 77 18 105/72 92 05/24/24 21:50 84 O2 Del Method O2 Flow Rate 05/25/24 08:15 Room Air 05/25/24 08:04 Oxymask 5 05/25/24 08:01 Oxymask 5 05/25/24 07:10 Room Air 05/25/24 03:11 Room Air 05/24/24 22:47 Room Air 05/24/24 21:50 Laboratory Results CBC 05/25/24 Range/Units 06:05 WBC 6.38 (4.8-10.8) K/ul RBC 4.35 L (4.70-6.10) M/uL Hgb 13.5 L (14.0-18.0) g/dl Hct 40.6 L (42.0-52.0) % Plt Count 112 L (130-400) K/uL Neut # (Auto) 5.09 (1.40-6.50) K/uL Lymph # (Auto) 0.31 L (1.20-3.40) K/uL Arthur # (Auto) 0.92 H (0.11-0.59) K/uL Eos # (Auto) 0.02 (0.00-0.50) K/uL Baso # (Auto) 0.01 (0.00-0.20) K/uL Comprehensive Metabolic Panel 05/24/24 05/25/24 Range/Units 10:07 06:05 Sodium 137 138 (136-145) mmol/L Potassium 4.3 4.4 (3.5-5.1) mmol/L Chloride 98 99 (98-107) mmol/L Carbon Dioxide 32 33 H (21-32) mmol/L BUN 41 H 40 H (6-23) mg/dl Creatinine 1.46 H 1.53 H (0.6-1.4) mg/dl Glucose 90 79 (70-99(Fasting)) mg/dl Calcium 9.3 8.5 L (8.6-10.3) mg/dl Intake and Output 05/24/24 05/25/24 05/25/24 22:59 06:59 14:59 Intake Total 120 / 520.50 300 / 520.50 Output Total 800 / 800 Balance -680 / -279.50 300 / -279.50 Intake: Oral 120 / 420 300 / 420 Output: Urine 800 / 800 Other: # Unmeasured Voids 1 Weight 92.6 kg 92.6 kg Weight Measurement Method Built in [facility] Patient Weight 05/26/24 06:59 Weight 92.6 kg
[2024-05-25] MEDS: FUROSEMIDE 40 MG TAB PO SCH (09:05)
--- NOTE | 2024-05-25 10:12 | Discharge Summary ---
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 History obtained from the patient, at bedside and associated chart review. Patient with progressive LUIS over the past year per his , however she notes that has worsened over the past week or so. He can no longer walk to the mailbox from his house without significant SOB hindering his activity and causing him to take numerous breaks to catch his breath. Patient recently saw Dr. Ashley with [facility] on 05/13/24. Interrogation of his pacemaker at that time demonstrated persistent atrial fibrillation for about the last 4 months however before that it was only intermittently that he would be in atrial fibrillation. He was started on flecainide 100mg BID. There was also discussion regarding cardioversion however patient has not yet had this done. Patient reports compliance with his medications and confirms this. He took his morning medications today, including Lasix 40mg and Aldactone 12.5mg. Denies any chest pain or chest discomfort with his LUIS. Patient with intermittent periods of confusion at baseline per discussion with his - known history of Parkinson's disease. No recent falls or trauma. Denies any cough, fevers or myalgias. Neither him nor his have been ill recently. Denies any recent issues with urination or bowel habits. Last night had an episode of orthopnea requiring several pillows to sleep comfortably. Weight on 05/13/24 was 89.1kg and weight today is 91.7kg. Weight now up 2.6kg since 05/13/24. has not noticed any major BLE swelling. Mentions his feel are "usually swollen." Laboratory evaluation in the ED is grossly unremarkable for exception of BNP 345 and elevated high-sensitivity troponin x 2 (initial = 25.7 and repeat = 30.6). Respiratory BioFire panel negative. UA negative. CXR notable for pulmonary vascular congestion without overt pulmonary edema and cardiomegaly. CXR also notes a mild right basilar opacity which could reflect pneumonia versus atelectasis. Low suspicion for pneumonia given no leukocytosis, no recent fever and no evidence of respiratory complaints. Admission Exam Per Admitting Provider GENERAL: Alert, pleasantly confused. NAD, on RA. appears chronically ill/frail/weak. HEENT: No pallor, no icterus. Pupils equal, round and reactive to light. Oral mucosa moist. NECK: No JVD, no neck masses. HEART: S1 and S2 heard. Regular rate and rhythm. No murmur, no gallop. RESPIRATORY SYSTEM: Normal AP diameter. No accessory muscle use. No wheezing, bb crackles. ABDOMEN: Soft, bowel sounds present, nontender, no distention. CENTRAL NERVOUS SYSTEM: No facial droop. Speech is clear. Obeys simple commands. Moves extremities. EXTREMITIES: 1-2 + ble edema, no erythema seen. ble dry skin noted. Principal Diagnosis (1) Acute on chronic diastolic heart failure with preserved ejection fraction: (2) Persistent atrial fibrillation: (3) S/P placement of cardiac pacemaker: Discharge Exam Constitutional: WD/WN, vitals as above, NAD, sitting up in bed, pleasant, conversing easily Respiratory: normal respiratory effort, lungs clear to auscultation, no wheeze, rales, rhonchi. Normal insp/exp effort, no accessory muscle use Cardiovascular: RRR, no murmur, no edema Vessels: no JVD or carotid bruit Chest: normal inspection of chest Abdomen: normal bowel sounds, soft, nontender, no hepatosplenomegaly Musculoskeletal: no cyanosis or clubbing, extremities motor strength 5/5 Skin: no rashes, warm and dry normal turgor Neurologic: PERRL, EOMI, accommodation nl, no face palsy, no dysarthria CN's II- XI intact bilaterally and moves all extremities Psychiatric: A+Ox3, euthymic affect Discharge Data Allergies Allergy/AdvReac Type Severity Reaction Status Date / Time carbamazepine Allergy Unknown TOXIC, Verified 05/13/24 14:04 DOUBLE VISION indigotindisulfonic acid Allergy Unknown TOXIC, Verified 05/13/24 14:04 DOUBLE VISION doxazosin AdvReac Unknown BP LOSS Verified 05/13/24 14:04 nitrofurantoin AdvReac Unknown DIZZINESS Verified 05/13/24 14:04 Consultations 05/22/24 11:47 ED Decision to Admit Stat 05/22/24 14:41 Consult Cardiology Routine 05/22/24 15:37 Consult Anesthesiology Routine Procedures Performed Operation Date: 05/25/24 07:15 Actual Procedures p Cardioversion - Pillo Davis DO Ordered Studies 05/24/24 13:35 CT abd pelvis wo con Urgent 05/24/24 17:09 CT head/brain wo con Urgent Hospital Course (1) Acute on chronic diastolic heart failure with preserved ejection fraction: (2) Persistent atrial fibrillation: (3) S/P placement of cardiac pacemaker: Tariq Fischer is a 78y/o M with PMHx significant for HLD, HTN, hypothyroidism due to acquired atrophy of thyroid, allergic rhinitis, 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 CXR notable for pulmonary vascular congestion without overt pulmonary edema. Echocardiogram from 02/2024 - LVEF=55-59%, moderately enlarged LA, grade 1 DD and mild mitral regurgitation. Evaluated by cardiology; patient remains in persistent A-fib for last few months. He was recently seen by cardiology EP as outpatient. Started on fleca inide 100 mg twice daily with planned direct cardioversion on June 01. Patient was admitted to the hospital; was started on IV diuretic with improvement in shortness of breath Patient underwent cardioversion on May 25, 2023 No changes were made to his medication regimen (4) Constipation: Patient reported not having bowel movement for several days.Reports nausea/vomiting CT abdomen and pelvis showed large amount of formed stool; no other acute finding. Patient advised to continue to take MiraLAX at home (5) Epilepsy: Chronic, stable. Follows with [facility]. Continue Valproate. Seizure precautions. (6) Parkinson's disease: Follows with [facility] as per above. Continue ropinirole. Patient had Periods of delirium during the hospitalization. CT head without contrast did not show any acute finding. (7) Ichthyosis: Chronic, stable. Continue AmLactin application. (8) Hypertension: (9) Hyperlipidemia: BP stable. Continue atorvastatin, lisinopril and ASA. Routine BP monitoring. (10) Hypothyroidism: Continue levothyroxine. Please note the above document was generated using voice recognition software. It may contain grammatical, syntax or spelling errors. Any formal questions or concerns about the content, text or information contained within the body of this dictation should be directly addressed to the provider for clarification Total Time Total Time Spent Total Time Spent (In Minutes): 45 Total Time Includes: Examination of the Patient, Discharge Planning, Medication Reconciliation, Communication With Other Providers and Other Discharge Plan Discharge Items Patient Disposition: Home - Self-Care Reason For Visit: POSSIBLE ACUTE HF EXACERBATION Discharge Diagnosis: Acute on chronic heart failure Atrial fibrillation status post cardioversion Activity: Resume your previous activity Non-emergency contact: Primary Care Provider Call non-emergency contact if: you have any medication questions and your symptoms worsen Follow-up/Referrals: Dom Underwood MD [Primary Care Provider] - 05/29/24 10:40 am (Date & Time 05/29/2024 10:40 AM Provider: Dom Underwood MD General Internal Medicine [facility] ) Diet: Regular Addtl Attending Provider Instructions: You were admitted to the hospital with atrial fibrillation; you underwent cardioversion by cardiology. Please continue to take your medication as before. Follow-up appointment will be made with your primary care doctor for sometime next week. Please use MiraLAX twice a day until you have regular bowel movement. Pending Studies at Discharge: No Stand-Alone Forms: My [employer], Smoking Cessation Medications and DC Order Prescriptions: Continued Eliquis 5 mg tablet 5 mg PO BID Qty: 180 3RF atorvastatin 20 mg tablet 20 mg PO DAILY sodium chloride 5 % drops 1 drp ophthalmic (eye) DAILY Rx Instructions: Both eyes multivitamin Tablet 1 tab PO QAM acetaminophen [Tylenol] 325 mg Tablet 650 mg PO DIRECTED PRN (Reason: pain, fever) metoprolol succinate [Toprol XL] 100 mg Tablet Extended Release 24 Hr 100 mg PO QAM aspirin 81 mg Tablet,Delayed Release (Dr/Ec) 81 mg PO QAM furosemide [Lasix] 80 mg Tablet 40 mg PO QAM divalproex 250 mg Tablet,Delayed Release (Dr/Ec) 500 mg PO QAM divalproex 250 mg Tablet,Delayed Release (Dr/Ec) 750 mg PO PM pyridoxine (vitamin B6) 100 mg Tablet 100 mg PO QAM fexofenadine [Maria E Allergy] 180 mg Tablet 180 mg PO QAM spironolactone 25 mg Tablet 12.5 mg PO QAM docusate sodium [Colace] 100 mg Capsule 100 mg PO QAM lisinopril 2.5 mg Tablet 2.5 mg PO QAM levothyroxine 88 mcg Tablet 88 mcg PO QAM ropinirole 1 mg Tablet See Rx Instructions .ROUTE .COMPLEX Rx Instructions: Take 1 tablet in the morning and 1 and 1/2 tablets by mouth with lunch and evening meals. AmLactin Cream 1 applic TOPICAL DAILY PRN (Reason: Ichthyosis) omeprazole 20 mg capsule,delayed release(DR/EC) 20 mg PO QAM melatonin 5 mg Tablet 5 mg PO HS flecainide 100 mg tablet 100 mg PO BID Discharge Orders: Discharge Order (Routine); Ordered 05/25/24 Ordered By: Terence Santana Admission Data Admit Date/Time: 05/22/24 12:39 Attending Provider: Terence Santana Admit Provider: Dilcia Redman Primary Care Provider: Dom Underwood Other Providers: Pillo Davis; Dilcia Redman; Salvatore Stewart Other Interventions: Discharge Summary Assessment (RN) Last Done: 05/25/24 11:47
[2024-05-25] MEDS: POLYETHYLENE (MIRALAX) 17 GM PACK PO SCH (10:20)
[2024-05-25 10:56] VITALS: BP 97/64; TEMP 98.1; O2SAT 93
[2024-05-25 11:48] VITALS: PULSE 74
--- NOTE | 2024-05-25 12:55 | Electrocardiogram Report ---
Test Reason : Blood Pressure : */* mmHG Vent. Rate : 78 BPM Atrial Rate : 312 BPM P-R Int : * ms QRS Dur : 150 ms QT Int : 420 ms P-R-T Axes : * -27 -43 degrees QTcB Int : 478 ms Atrial fibrillation with frequent ventricular-paced complexes Abnormal ECG When compared with ECG of 22-May-2024 09:43, Premature supraventricular complexes are no longer Present Confirmed by Vignesh Márquez ([id number]) on 05/25/2024 12:55:26 PM Referred By: REFERRED SELF Confirmed By: Vignesh Márquez
--- NOTE | 2024-05-25 13:08 | Electrocardiogram Report ---
Test Reason : Blood Pressure : */* mmHG Vent. Rate : 91 BPM Atrial Rate : 91 BPM P-R Int : * ms QRS Dur : 190 ms QT Int : 474 ms P-R-T Axes : * -68 133 degrees QTcB Int : 583 ms AV dual-paced rhythm Abnormal ECG When compared with ECG of 23-May-2024 22:05, (unconfirmed) Vent. rate has increased by 13 bpm Confirmed by Vignesh Márquez ([id number]) on 05/25/2024 1:08:21 PM Referred By: REFERRED SELF Confirmed By: Vignesh Márquez
== END 2024-05-25 13:29 | disposition home or self-care (01) | DRG 291 ==
LOC: ED 09:14 → SUATTDRO 12:39 → EDINP 12:39 → 2N 15:24

== ENCOUNTER 2024-09-18 05:53 | Inpatient (IN) ==
--- NOTE | 2024-09-18 06:25 | Emergency Department Note ---
Impression & Plan Fall against object, Elevated troponin, Ambulatory dysfunction, Hematoma of left flank ED Provider Note Name: EDILSON SAMPSON Age: 79 Sex: Male Arrives Via: Ambulance Informant:, EMS, and patient ED Provider: Forest Hogan MD Chief Complaint: Fall Impression: As per impressions above Medical Decision Makin-year-old gentleman with a complex past medical history who was recently cardioverted and then had an ICD placed. This occurred about 1 week ago. He has had progressive worsening of his weakness and deconditioning. Today he had a fall against a dresser. Resultant was a large hematoma over the left flank and onto his left shoulder. Trauma evaluation was completed by me. A trauma workup including CT scanning head neck chest abdomen pelvis with IV contrast were obtained. There is a hematoma on the left flank but there is no evidence of intra-abdominal or intrathoracic injury. Head and cervical spine are clear. Laboratory workup does show an elevated troponin which is somewhat nonspecific given the recent cardiac intervention. Given degree of weakness I do think that hospitalization would be indicated. He does not require transfer to higher level trauma care at this time. Triage/Nursing Notes reviewed by Me External Chart Review by me: I reviewed the discharge summary from 09/09/2024 discussing recent hospitalization and intervention Differential:Fracture, dislocation, contusion, intra-abdominal, pneumothorax, intrathoracic, intracranial, neurologic, compartment syndrome, rhabdomyolysis, as well as other pathologies. Vital Signs: reviewed and remarkable for no significant abnormalities Interventions: Fentanyl 50 mcg IV Labs:ED labs Reviewed by me and remarkable for elevated troponin Imaging:Extensive imaging as per chart. EKG:As per my interpretation. Indication weakness. Atrial sensed ventricular paced at 78 bpm QTc of 494. There is no ectopy nor ischemia. When compared to EKG of September 09, 2024 no significant change. Cardiac/Tele Monitoring: Cardiac Monitoring: An Order was placed for continuous cardiac monitoring. The monitor shows a rate of 80 with a paced rhythm. Consults:Discussed with hospital service who will further evaluate and manage. Plan: Disposition:Hospitalization. Condition: Fair History of Present Illness: 79-year-old gentleman arrives for evaluation following a fall. Patient was ambulating around 4 AM this morning with his walker when he slipped backwards falling against a table. He struck his left buttocks, lower back, left shoulder and left arm. notes it was very loud fall to the ground. No loss of consciousness patient does not think he actually hit his head. He denies any headache or neck pain. He does note though that everything on him hurts primarily along the left side. No significant associated shortness of breath or specific chest pain. He does note that he had a pacemaker defibrillator placement a week ago. Following this he been quite weak though believes he has been getting a bit better the last 2 to 3 days. His though notes he has been having a runny nose and increasing cough for the last day or so. No associated fevers, chills, nausea, vomiting, syncope. He denies any lightheadedness palpitations or presyncopal symptoms prior to the fall this morning. Patient was on Eliquis up until about a week ago when he stopped prior to procedure. Past Medical History:See Below Home Medications:See Below Allergies:See Below Vitals:Blood Pressure: 148/71, Pulse 80, RR 16, T 36.6C, O2 96% on RA Physical Exam: Primary and secondary surveys per ATLS were completed by me with nursing at bedside GENERAL: Patient is very uncomfortable appearing and in mild to moderate distress. Elderly, frail, somewhat cachectic. HEAD: AT/NC without scalp hematoma. FACE: No deformity/bruising, no tenderness. EYES: Pupils equal and reactive. No scleral icterus. Normal EOM. ENT: No hemotympanum, moist mucous membranes, no nasal congestion/hematoma. NECK: No stridor, no tenderness or step-off of the posterior C-spine, trachea is midline. C-spine cleared on my initial evaluation by examination. CHEST: Hematoma over the right upper chest from recent ICD placement (family states this is same size as it was). Non-tender, equal chest rise with breath. Clavicles stable/non-tender. LUNGS: Clear to auscultation bilaterally, no wheeze, no rhonchi, breath sounds equal. No dyspnea. HEART: Regular rate and rhythm. No murmurs/gallops/rhonchi appreciated. ABDOMEN: Soft, nontender, bowel sounds positive, no peritonitis. No masses appreciated. BACK: Extensive bruising and hematoma over the left flank. Tenderness palpation of this area. Abrasion over the left upper back as well. PELVIS: Stable. Non-tender EXTREMITIES: No cyanosis or edema, full range of motion of all the joints without pain or difficulty, no signs for acute trauma. Distal pulses intact. SKIN: Multiple open abrasions over the left forearm. No rash, no jaundice, no diaphoresis. NEUROLOGIC: GCS [15]. Oriented x 3, no acute motor or sensory deficits, no focal weakness. ED Course: Times/Reassessments: Multiple repeat evaluations. Patient feeling significantly better with IV fentanyl and is agreeable to hospitalization. Forest Hogan MD Past Med/Surg History Problem List (Updated 09/18/24 @ 15:01 by Forest Hogan MD) Hematoma of left flank (Acute) Ambulatory dysfunction (Acute) Presence of combination internal cardiac defibrillator (ICD) and pacemaker Systolic and diastolic CHF, chronic Fall against object (Acute) Parkinson's disease Elevated troponin (Acute) Paroxysmal atrial fibrillation (Chronic) has not had since valve replacement Seizure disorder (Chronic) last 2003 "grand mal"--reason for depakote, follows with Dr. 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 Wide-complex tachycardia Vasovagal syncope Bilateral edema of lower extremity Pacemaker Acute exacerbation of CHF (congestive heart failure) Hyperlipidemia Epilepsy Ichthyosis Chronic mesenteric ischemia Persistent atrial fibrillation Acute on chronic diastolic heart failure with preserved ejection fraction Anticoagulant long-term use Encounter for pre-operative examination Cardiac pacemaker Syncope Abnormal esophagram Encounter for pre-operative examination Acute kidney injury superimposed on chronic kidney disease PNA (pneumonia) Sinoatrial node dysfunction Thrombocytopenia Hypothyroidism Chronic systolic heart failure BPH (benign prostatic hyperplasia) GERD (gastroesophageal reflux disease) Dyslipidemia Aortic stenosis following with vascular surgery [facility] - last checked 02/2020 and will be checked every 6 mo Hypertension Constipation History of COVID-19 dx 03/31 - [facility] [place]. coughing, congestion, fevers; all symptoms resolved History of syncope syncopal episode 03/2020 prior to covid diagnosis; last episode prior to 03/2020 was in 2016 pre pacemaker History of anesthesia reaction had a seizure when waking up from cholecystectomy in 1999 per pt and "was on the wrong seizure medicine, is on the right medication now and has not had any issues with any other surgeries since" Surgical History (Updated 09/18/24 @ 09:05 by ANTONIO Cohen) S/P AVR History of cholecystectomy S/P placement of cardiac pacemaker placed 2016 --biotronic- last checked 6 mo ago (to be checked 05/11/20)--follows with Dr. Ashley History of cardiac cath 01/29/18 - Dr Stephens - normal coronary arteries History of cataract extraction with lens replacement History of aortic valve replacement 02/11/18 bioprosthetic valve and left atrial appendege clip at [facility] by Dr Rachelle Stark Status post excisional debridement x3 from aortic valve incision History of colonoscopy History of esophagogastroduodenoscopy (EGD) History of phacoemulsification of cataract of both eyes with intraocular lens implantation Family History Other Cerebral aneurysm Heart disease No family history of adverse response to anesthesia Social History (Updated 09/18/24 @ 10:17 by ANTONIO Cohen) Smoking Status: Never smoker Second Hand Exposure: Yes (as a child); Do You Dip or Chew Tobacco: No; Hx Alcohol Use: No Hx Substance Use: No Preferred Language: Turkish Communication Ability: Effective Visual Impairment: No Limitations Hearing Ability: Normal Cosmetologist Required: No Beliefs That Will Affect Care: None marital status: Current Living Situation: Spouse Current Living Situation Comment: Lives at home w/ Feels Safe at Home: Yes Assistive Devices: Walker Allergies Allergies Allergy/AdvReac Type Severity Reaction Status Date / Time pollen extracts Allergy Severe Sneezing Unverified 09/18/24 08:04 carbamazepine Allergy Unknown TOXIC, Verified 09/18/24 08:04 DOUBLE VISION indigotindisulfonic acid Allergy Unknown TOXIC, Verified 09/18/24 08:04 DOUBLE VISION doxazosin AdvReac Unknown BP LOSS Verified 09/18/24 08:04 nitrofurantoin AdvReac Unknown DIZZINESS Verified 09/18/24 08:04 Home Meds Home Medications Medication Instructions Recorded Confirmed acetaminophen 325 mg tablet 650 mg PO DIRECTED PRN pain, 03/20/18 09/18/24 (Tylenol) fever aspirin 81 mg tablet,delayed 81 mg PO QAM 03/20/18 09/18/24 release divalproex 250 mg tablet,delayed 500 mg PO QAM 03/20/18 09/18/24 release divalproex 250 mg tablet,delayed 750 mg PO PM 03/20/18 09/18/24 release metoprolol succinate 100 mg 100 mg PO QAM 03/20/18 09/18/24 tablet,extended release 24 hr (Toprol XL) multivitamin 1 tab PO QAM 03/20/18 09/18/24 docusate sodium 100 mg capsule 100 mg PO QAM 07/10/18 09/18/24 (Colace) levothyroxine 88 mcg tablet 88 mcg PO QAM 07/10/18 09/18/24 spironolactone 25 mg tablet 12.5 mg PO QAM 07/10/18 09/18/24 melatonin 5 mg tablet 5 mg PO HS 05/22/24 09/18/24 omeprazole 20 mg capsule,delayed 20 mg PO QAM 05/22/24 09/18/24 release carbidopa 25 mg-levodopa 100 mg 1 tab PO TIDWMEAL 09/08/24 09/18/24 tablet furosemide 40 mg tablet 40 mg PO QAM 09/08/24 09/18/24 sennosides 8.6 mg tablet (senna) 8.6 mg PO DAILY 09/08/24 09/18/24 fexofenadine 180 mg tablet 180 mg PO DAILY 09/18/24 09/18/24 Previous Rx's Medication Instructions Recorded amiodarone 200 mg tablet 200 mg PO BIDM #60 tabs 09/11/24 atorvastatin 20 mg tablet 10 mg (1/2 x 20 mg) PO DAILY #15 09/11/24 tabs Results & Data (ED) Vital Signs Vital Signs - 24 hr 09/18/24 05:55 09/18/24 05:55 09/18/24 05:55 Temperature 36.6 C 36.6 C 36.6 C Temperature Source Oral Oral Pulse Rate 79 78 Pulse Rate [Left Finger] 80 Pulse Rate from SpO2 Sensor Pulse Rhythm Pulse Strength [Bilateral Carotid] Normal Respiratory Rate 18 16 16 Respiratory Effort / Characteristics Non-Labored Spontaneous Non-Labored Spontaneous Respiratory Depth Normal Normal Respiratory Pattern Regular Regular Blood Pressure 148/71 H 148/64 H Blood Pressure [Left Arm] 148/71 H Blood Pressure Mean 96 Blood Pressure Mean [Left Arm] 96 Blood Pressure Position Lying Blood Pressure Position [Left Arm] Lying Pulse Oximetry 96 96 96 Oxygen Delivery Method Room Air Room Air Room Air Oxygen Flow Rate 0 Sepsis Recent Fever Within 48 Hours No Sepsis New/Unexplained Change in Mental Status N/A Sepsis Action Taken by Nursing No Action Required 09/18/24 05:57 09/18/24 06:05 09/18/24 06:12 Temperature Temperature Source Pulse Rate 82 80 80 Pulse Rate [Left Finger] Pulse Rate from SpO2 Sensor 80 Pulse Rhythm Regular Pulse Strength [Bilateral Carotid] Respiratory Rate 16 16 Respiratory Effort / Characteristics Respiratory Depth Respiratory Pattern Blood Pressure 148/65 H Blood Pressure [Left Arm] Blood Pressure Mean 92 Blood Pressure Mean [Left Arm] Blood Pressure Position Blood Pressure Position [Left Arm] Pulse Oximetry 96 94 Oxygen Delivery Method Room Air Room Air Oxygen Flow Rate Sepsis Recent Fever Within 48 Hours Sepsis New/Unexplained Change in Mental Status Sepsis Action Taken by Nursing 09/18/24 07:39 09/18/24 08:03 09/18/24 08:24 Temperature Temperature Source Pulse Rate 80 80 75 Pulse Rate [Left Finger] Pulse Rate from SpO2 Sensor 79 79 75 Pulse Rhythm Pulse Strength [Bilateral Carotid] Respiratory Rate 22 14 16 Respiratory Effort / Characteristics Respiratory Depth Respiratory Pattern Blood Pressure 143/61 H 135/60 133/72 Blood Pressure [Left Arm] Blood Pressure Mean 88 85 92 Blood Pressure Mean [Left Arm] Blood Pressure Position Blood Pressure Position [Left Arm] Pulse Oximetry 95 100 99 Oxygen Delivery Method Room Air Nasal Cannula Nasal Cannula Oxygen Flow Rate 2 2 Sepsis Recent Fever Within 48 Hours Sepsis New/Unexplained Change in Mental Status Sepsis Action Taken by Nursing 09/18/24 09:00 Temperature Temperature Source Pulse Rate 70 Pulse Rate [Left Finger] Pulse Rate from SpO2 Sensor 70 Pulse Rhythm Pulse Strength [Bilateral Carotid] Respiratory Rate 7 L Respiratory Effort / Characteristics Respiratory Depth Respiratory Pattern Blood Pressure 123/66 Blood Pressure [Left Arm] Blood Pressure Mean 85 Blood Pressure Mean [Left Arm] Blood Pressure Position Blood Pressure Position [Left Arm] Pulse Oximetry 100 Oxygen Delivery Method Oxygen Flow Rate Sepsis Recent Fever Within 48 Hours Sepsis New/Unexplained Change in Mental Status Sepsis Action Taken by Nursing Laboratory Data 09/18/24 06:05 09/18/24 06:05 Lab Results 09/18/24 09/18/24 09/18/24 Range/Units 06:05 06:07 07:57 WBC 11.01 H (4.8-10.8) K/ul RBC 3.69 L (4.70-6.10) M/uL Hgb 11.8 L (14.0-18.0) g/dl POC Hgb 12.2 L (14.0-18.0) g/dl Hct 35.3 L (42.0-52.0) % POC Hct 36 L (42-52) % MCV 95.7 (80.0-100.0) fL MCH 32.0 (25.0-34.0) pg MCHC 33.4 (32.0-36.0) g/dL RDW Std Deviation 56.1 H (36.4-46.3) fL RDW Coeff of Arik 15.9 H (11.5-14.5) % Plt Count 128 L (130-400) K/uL MPV 10.2 (9.4-12.4) fL Immature Gran % (Auto) 0.5 % Neut % (Auto) 78.2 % Lymph % (Auto) 5.0 % [place] % (Auto) 10.9 % Eos % (Auto) 5.1 % Baso % (Auto) 0.3 % Neut # (Auto) 8.61 H (1.40-6.50) K/uL Lymph # (Auto) 0.55 L (1.20-3.40) K/uL [place] # (Auto) 1.20 H (0.11-0.59) K/uL Eos # (Auto) 0.56 H (0.00-0.50) K/uL Baso # (Auto) 0.03 (0.00-0.20) K/uL Immature Gran # (Auto) 0.06 (0.01-0.20) K/uL PT 11.1 (9.0-12.0) Seconds INR 1.0 (0.9-1.1) APTT 27 (21-31) Seconds PTT Ratio 1.0 POC Sodium 138 (135-144) mmol/L Sodium 139 (136-145) mmol/L POC Potassium 4.2 (3.3-5.0) mmol/L Potassium 4.4 (3.5-5.1) mmol/L POC Chloride 96 L (101-112) mmol/L Chloride 99 (98-107) mmol/L Carbon Dioxide 34 H (21-32) mmol/L POC Total CO2 32 H (24-31) mmol/L Anion Gap 6 (3-11) POC Anion Gap 14.0 L (16-25) mmol/L POC BUN 28 H (7-18) mg/dl BUN 28 H (6-23) mg/dl Creatinine 1.43 H (0.6-1.4) mg/dl POC Creatinine 1.6 H (0.6-1.3) mg/dl Est Cr Clr Drug Dosing 41.9 ml/min eGFR 49.84 BUN/Creatinine Ratio 19.6 (10-20) Glucose 90 (70-99(Fasting)) mg/dl POC Glucose (other) 91 (70-99) mg/dl Calcium 9.6 (8.6-10.3) mg/dl POC Ioniz Calcium Jennie 1.21 (1.12-1.32) mmol/l Total Bilirubin 0.6 (0.2-1.0) mg/dl AST 28 (13-39) U/L ALT 9 (7-52) U/L Alkaline Phosphatase 75 (34-104) U/L Total Creatine Kinase 36 (30-223) U/L Troponin I High Sens 96.3 H* 88.8 H* (0-20) pg/ml Total Protein 7.1 (6.0-8.3) gm/dl Albumin 3.6 (3.4-5.0) gm/dl Globulin 3.5 (2.5-4.0) gm/dl Albumin/Globulin Ratio 1.0 (0.9-2) Lipase 26 (11-82) U/L Urine Color Urine Appearance (Clear) Urine pH (4.5-7.5) Ur Specific [place] (1.000-1.030) Urine Protein (Negative) Urine Glucose (UA) (Negative) Urine Ketones (Negative) Urine Blood (Negative) Urine Nitrite (Negative) Urine Bilirubin (Negative) Urine Urobilinogen (Negative) Ur Leukocyte Esterase (Negative) Urine WBC (Auto) (0-5) /hpf Urine RBC (Auto) (0-2) /hpf U Hyaline Cast (Auto) (0-2) /lpf U Epithel Cells (Auto) (0-2) /hpf Urine Bacteria (Auto) (None Seen) Urine Comment Valproic Acid 78 (50-100) mcg/ml SARS-CoV-2 (PCR) NEGATIVE (Negative) Influenza Type A (PCR) Negative (Neg) Influenza Type B (PCR) Negative (Neg) RSV (RT-PCR) Negative (Neg) 09/18/24 Range/Units 08:25 WBC (4.8-10.8) K/ul RBC (4.70-6.10) M/uL Hgb (14.0-18.0) g/dl POC Hgb (14.0-18.0) g/dl Hct (42.0-52.0) % POC Hct (42-52) % MCV (80.0-100.0) fL MCH (25.0-34.0) pg MCHC (32.0-36.0) g/dL RDW Std Deviation (36.4-46.3) fL RDW Coeff of Arik (11.5-14.5) % Plt Count (130-400) K/uL MPV (9.4-12.4) fL Immature Gran % (Auto) % Neut % (Auto) % Lymph % (Auto) % [place] % (Auto) % Eos % (Auto) % Baso % (Auto) % Neut # (Auto) (1.40-6.50) K/uL Lymph # (Auto) (1.20-3.40) K/uL [place] # (Auto) (0.11-0.59) K/uL Eos # (Auto) (0.00-0.50) K/uL Baso # (Auto) (0.00-0.20) K/uL Immature Gran # (Auto) (0.01-0.20) K/uL PT (9.0-12.0) Seconds INR (0.9-1.1) APTT (21-31) Seconds PTT Ratio POC Sodium (135-144) mmol/L Sodium (136-145) mmol/L POC Potassium (3.3-5.0) mmol/L Potassium (3.5-5.1) mmol/L POC Chloride (101-112) mmol/L Chloride (98-107) mmol/L Carbon Dioxide (21-32) mmol/L POC Total CO2 (24-31) mmol/L Anion Gap (3-11) POC Anion Gap (16-25) mmol/L POC BUN (7-18) mg/dl BUN (6-23) mg/dl Creatinine (0.6-1.4) mg/dl POC Creatinine (0.6-1.3) mg/dl Est Cr Clr Drug Dosing ml/min eGFR BUN/Creatinine Ratio (10-20) Glucose (70-99(Fasting)) mg/dl POC Glucose (other) (70-99) mg/dl Calcium (8.6-10.3) mg/dl POC Ioniz Calcium Jennie (1.12-1.32) mmol/l Total Bilirubin (0.2-1.0) mg/dl AST (13-39) U/L ALT (7-52) U/L Alkaline Phosphatase (34-104) U/L Total Creatine Kinase (30-223) U/L Troponin I High Sens (0-20) pg/ml Total Protein (6.0-8.3) gm/dl Albumin (3.4-5.0) gm/dl Globulin (2.5-4.0) gm/dl Albumin/Globulin Ratio (0.9-2) Lipase (11-82) U/L Urine Color Yellow Urine Appearance Clear (Clear) Urine pH 8.0 H (4.5-7.5) Ur Specific [place] > 1.045 H (1.000-1.030) Urine Protein Trace H (Negative) Urine Glucose (UA) Negative (Negative) Urine Ketones 1+ H (Negative) Urine Blood Negative (Negative) Urine Nitrite Negative (Negative) Urine Bilirubin Negative (Negative) Urine Urobilinogen Positive H (Negative) Ur Leukocyte Esterase Negative (Negative) Urine WBC (Auto) 0-5 (0-5) /hpf Urine RBC (Auto) 3-5 H (0-2) /hpf U Hyaline Cast (Auto) 0-2 (0-2) /lpf U Epithel Cells (Auto) 0-2 (0-2) /hpf Urine Bacteria (Auto) None Seen (None Seen) Urine Comment Valproic Acid (50-100) mcg/ml SARS-CoV-2 (PCR) (Negative) Influenza Type A (PCR) (Neg) Influenza Type B (PCR) (Neg) RSV (RT-PCR) (Neg) Administered Medications Acetaminophen (Acetaminophen 325 Mg Tab) 650 mg PO Q6 [facility] Stop: 10/18/24 11:59 Last Admin: 09/18/24 11:48 Dose: 650 mg Documented By: AMB Amiodarone HCl (Amiodarone 200 Mg Tab) 200 mg PO BIDM [facility] Stop: 10/18/24 09:49 Last Admin: 09/18/24 11:50 Dose: 200 mg Documented By: AMB Aspirin (Aspirin 81 Mg Ectab) 81 mg PO QAM [facility] Stop: 10/18/24 09:59 Last Admin: 09/18/24 11:49 Dose: 81 mg Documented By: AMB Atorvastatin Calcium (Atorvastatin 10 Mg Tab) 10 mg PO DAILY [facility] Stop: 10/18/24 09:59 Last Admin: 09/18/24 11:51 Dose: 10 mg Documented By: AMB Carbidopa/Levodopa (Carbidopa/Levodopa 25/100mg Tab) 1 tab PO TIDM [facility] Stop: 10/18/24 11:59 Last Admin: 09/18/24 11:51 Dose: 1 tab Documented By: AMB Divalproex Sodium (Divalproex Delay Release 500 Mg Tab) 500 mg PO QAM [facility] Stop: 10/18/24 09:59 Last Admin: 09/18/24 11:49 Dose: 500 mg Documented By: AMB Fexofenadine HCl (Fexofenadine Hcl 180 Mg Tab) 180 mg PO DAILY [facility] Stop: 10/18/24 10:14 Last Admin: 09/18/24 11:50 Dose: 180 mg Documented By: AMB Furosemide (Furosemide 40 Mg Tab) 40 mg PO QAM [facility] Stop: 10/18/24 09:59 Last Admin: 09/18/24 11:50 Dose: 40 mg Documented By: AMB Lidocaine (Lidocaine 5% 1 Patch) 1 patch TD [facility] PRN PRN Reason: Pain Stop: 10/18/24 09:59 Last Admin: 09/18/24 12:04 Dose: 1 patch Documented By: AMB Metoprolol Succinate (Metoprolol Succ 50mg Ext Rel Tab) [facility]: 10/18/24 09:59 Last Admin: 09/18/24 11:50 Dose: 100 mg Documented By: AMB Pantoprazole Sodium (Pantoprazole 40 Mg Tab) 40 mg PO QAM [facility] Stop: 10/18/24 10:29 Last Admin: 09/18/24 11:50 Dose: 40 mg Documented By: AMB Spironolactone (Spironolactone 12.5 Mg Tab) 12.5 mg PO QAM [facility] Stop: 10/18/24 09:59 Last Admin: 09/18/24 11:50 Dose: 12.5 mg Documented By: AMB Discontinued Medications Fentanyl Citrate (Fentanyl Citrate Pf 100 Mcg/2 Ml Vial) 50 mcg IV NOW STA Stop: 09/18/24 06:24 Last Admin: 09/18/24 06:36 Dose: 50 mcg Documented By: ARTURO Sodium Chloride (Nss) 500 mls @ 999 mls/hr IV .Q31M ONE Stop: 09/18/24 06:53 Last Infusion: 09/18/24 07:33 Dose: Infused [place]ed [place] [facility] [place] Admin: 09/18/24 06:36 Dose: 999 mls/hr Documented By: ARTURO Ioversol (Optiray 320 100ml) 94 ml IV ONCE ONE Stop: 09/18/24 06:44 Last Admin: 09/18/24 06:44 Dose: 94 ml Documented By: ALEXEY Ondansetron HCl (Ondansetron Inj 2 Mg/Ml 2 Ml Vial) 4 mg IV NOW STA Stop: 09/18/24 06:24 Last Admin: 09/18/24 06:35 Dose: 4 mg Documented By: ARTURO Imaging Data Radiologist's Impression: Abdomen/Pelvis CT 09/18/24 06:10 EXAM: CT abd pelvis IV con only CLINICAL HISTORY: fall, lower back pain/hematoma TECHNIQUE: Contiguous axial images were obtained from the level of the diaphragm to the pubic symphysis with intravenous contrast. Coronal and sagittal reconstructions were likewise performed and indicated to increase the sensitivity for detecting clinically relevant pathology. If IV contrast material had not been administered, the likelihood of detecting abnormalities relevant to the patient's condition would have been substantially decreased. CT scan was performed according to ALARA (as low as reasonable achievable). COMPARISON: 05/24/2024 14:04:00 TRAFFIC ENGINEERING DIRECTOR FINDINGS: The visualized lung bases are clear. The liver is normal in size and attenuation. No focal liver lesions are seen. There is no intra or extrahepatic biliary ductal dilatation. Hepatic vasculature is patent. The gallbladder is removed. The spleen, pancreas, and adrenal glands are unremarkable. The kidneys are normal in size and attenuation. There is no hydronephrosis or perinephric fat stranding. No renal calculi or renal masses are identified. Few simple cortical cyst are noted in both kidneys The ureters are normal in caliber and no ureteral calculi are seen. The bladder is normal in contour. Pelvic viscera are unremarkable. No focal or diffuse bowel wall thickening or evidence of bowel obstruction is identified. No inflammed appendix is visualized in the right lower quadrant. Abdominal and pelvic vasculature is patent. No adenopathy or fluid collections are seen. No aggressive appearing osseous lesions are identified. Small fat containing epigastric hernia. A large supraumbilical hernia with herniation of bowel loop. No incarceration or bowel obstruction. Mild subcutaneous edema is noted involving left lower back region. IMPRESSION: 1. Small fat containing epigastric hernia.-stable. 2. A large supraumbilical hernia with herniation of bowel loop. No incarceration or bowel obstruction.-stable. 3. Few simple cortical cyst are noted in both kidneys -stable. 4. Previous bowel dilatation is resolved in present scan. 5. Mild subcutaneous edema is noted involving left lower back region.-new finding. 6. No other abnormality seen. Electronically signed by Denis Carty 09-18-2024 07:30 AM Chest X-Ray 09/18/24 06:11 EXAM: XR chest 1V portable CLINICAL HISTORY: fall. trauma TECHNIQUE: Radiograph of chest was acquired. COMPARISON: CR, 09/09/2024 16:09:00 TRAFFIC ENGINEERING DIRECTOR FINDINGS: The lungs are clear and well-expanded with no pulmonary infiltrate or pleural effusion. The cardiomediastinal silhouette is within normal limits. No acute osseous abnormality. Cardiac pacemaker seen. IMPRESSION: 1. No acute cardiopulmonary disease. 2. No interval changes. Electronically signed by Denis Carty 09-18-2024 07:17 AM Pelvis X-Ray 09/18/24 06:20 EXAM: XR pelvis 1-2V routine CLINICAL HISTORY: trauma TECHNIQUE: Radiograph of pelvis was acquired. COMPARISON: none FINDINGS: No acute fracture or dislocation. The soft tissues are unremarkable. Visualized joint spaces are well maintained. IMPRESSION: 1. No acute osseous or soft tissue abnormality. Electronically signed by Denis Carty 09-18-2024 07:[address] 09/18/24 06:22 EXAM: CT cervical spine wo con CLINICAL HISTORY: Trauma TECHNIQUE: Computed tomography of the cervical spine performed without intravenous contrast. Contiguous axial images were obtained from the skull base to T2, with sagittal and coronal reformatted images reconstructed from the axial data. CT scan was performed according to ALARA (as low as reasonable achievable). COMPARISON: None. FINDINGS: Loss of cervical lordosis - suggest possibility of muscle spasm/positional. Degenerative changes involving cervical spine in the form of multilevel marginal osteophytes, disc space reduction and facetal arthrosis. Cervical vertebral bodies are normal in height and alignment, with no evidence of fracture or subluxation. Lateral masses of C1 are symmetrical, and the dens is intact. Prevertebral soft tissues are not widened. The remaining suprahyoid and infrahyoid soft tissues in the neck are unremarkable. Posterior uncovertebral arthrosis is noted at C4-C5 to C6-C7 levels, which indenting ventral thecal sac and causes bilateral neuroforaminal narrowing. Thyroid gland appears unremarkable. Phenomena noted is IMPRESSION: 1.No acute fracture or subluxation in the cervical spine. 2.Cervical spondylosis. Alveolar Electronically signed by Denis Carty 09-18-2024 07:[address] 09/18/24 06:22 EXAM: CT chest diagnostic w con CLINICAL HISTORY: Trauma TECHNIQUE: Contiguous axial images were obtained from the neck base through the upper abdomen following intravenous administration of contrast material. If IV contrast material had not been administered, the likelihood of detecting abnormalities relevant to the patient's condition would have been substantially decreased. In addition, sagittal and coronal reconstructions were performed. CT scan was performed according to ALARA (as low as reasonable achievable). COMPARISON: None. FINDINGS: The lungs are clear, with no focal areas of consolidation. No pulmonary nodules are seen. The central airways are patent. There are no pleural effusions. No pneumothorax is seen. No axillary, hilar, or mediastinal adenopathy is identified. The visualized thyroid is unremarkable. The heart, aorta, and pulmonary arteries are of normal size and configuration. No pericardial effusion is identified. Imaged portions of the upper abdomen are unremarkable. No aggressive appearing osseous lesions are identified. IMPRESSION: No significant abnormality detected Electronically signed by Denis Carty 09-18-2024 07:[address] 09/18/24 06:22 EXAM: CT head/brain wo con CLINICAL HISTORY: trauma TECHNIQUE: Multiple axial images are obtained from the skull base to the vertex without contrast. CT scan was performed according to ALARA (as low as reasonable achievable). 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 FINDINGS: There is cerebral atrophy. No evidence of space occupying lesion, hemorrhage, edema, mass effect, midline shift, extra axial collection, or hydrocephalus is noted. Basal cisterns are symmetric and normal in size and configuration. There are scattered periventricular hypodensities as can be seen with chronic microvascular ischemic changes. The canchola-white matter differentiation is preserved. Visualized paranasal sinuses and mastoid air cells are well aerated. Orbital contents are within normal limits. Bony structures are intact. IMPRESSION: 1. No evidence of acute intracranial abnormality is demonstrated. 2. Chronic microvascular ischemic changes.-stable. 3. Cerebral atrophy. -stable. No other new interval abnormality since prior study. Electronically signed by Denis Carty 09-18-2024 07:[address] 09/18/24 06:57 EXAM: CT lumbar spine w con CLINICAL HISTORY: trauma TECHNIQUE: Multiple contiguous axial images were obtained through the lumbar spine without IV contrast. Sagittal and coronal reformatted images were obtained from the axial data. CT scan was performed according to ALARA (as low as reasonable achievable). COMPARISON: None. FINDINGS: Loss of lumbar lordosis - suggest possibility of muscle spasm/positional. Degenerative changes involving lumbar spine in the form of multilevel marginal osteophytes, disc space reduction and facetal arthrosis. Lumbar vertebral bodies are maintained in height and alignment. No vertebral destructive changes are seen. Posterior disc osteophyte complex is noted at L1-L2 to L5-S1 level, indenting ventral thecal sac, and causing bilateral lateral recess and foraminal narrowing. Paravertebral soft tissues are unremarkable. IMPRESSION: 1. Lumbar spondylosis. 2. No obvious acute trauma related abnormality seen. Electronically signed by Denis Carty 09-18-2024 07:57 AM Discharge Plan Visit Data Chief Complaint: Trauma Stated Complaint: Fall, Lower Back Pain ED Provider: Forest Hogan Discharge Problem: Fall against object, Elevated troponin, Ambulatory dysfunction, Hematoma of left flank Patient Disposition: Admitted As Inpatient Condition: Fair Discharge Instructions Interventions: ED Discharge Assessment Last Done: 09/18/24 11:10 Discharge Problem: Hematoma of left flank Qualifiers: Encounter type: initial encounter Qualified Code(s): S30.1XXA - Contusion of abdominal wall, initial encounter
[2024-09-18 06:27] LABS: Basophils # (auto) 0.03 K/uL (0.00-0.20); Basophils % (auto) 0.3 %; Eosinophils # (auto) 0.56 K/uL (0.00-0.50); Eosinophils % (auto) 5.1 %; Hematocrit (blood only) 35.3 % (42.0-52.0); Hemoglobin 11.8 g/dl (14.0-18.0); Immature Granulocytes # (auto) 0.06 K/uL (0.01-0.20); Immature Granulocytes % (auto) 0.5 %; Lymphocytes # (auto) 0.55 K/uL (1.20-3.40); Mean Corpuscular Hgb Conc 33.4 g/dL (32.0-36.0); Mean Corpuscular Volume 95.7 fL (80.0-100.0); Mean Platelet Volume 10.2 fL (9.4-12.4); Monocytes % (auto) 10.9 %; Neutrophils # (auto) 8.61 K/uL (1.40-6.50); Neutrophils % (auto) 78.2 %; Platelet Count 128 K/uL (130-400); RDW Coefficient of Variation 15.9 % (11.5-14.5); RDW Standard Deviation 56.1 fL (36.4-46.3); Red Blood Count 3.69 M/uL (4.70-6.10); White Blood Count 11.01 K/ul (4.8-10.8)
[2024-09-18] MEDS: ONDANSETRON INJ 2 MG/ML 2 ML VIAL IV STA (06:35)
[2024-09-18] MEDS: SODIUM CHLORIDE 0.9% 500 ML IV ONE ×3 (06:36→18:28)
[2024-09-18] MEDS: fentaNYL citrate PF 100 MCG/2 ML VIAL IV STA (06:36)
[2024-09-18] MEDS: OPTIRAY 320 100ml IV ONE (06:44)
[2024-09-18 06:48] LABS: Albumin Level 3.6 gm/dl (3.4-5.0); BUN Creatinine Ratio 19.6 (10-20); Bilirubin,Total 0.6 mg/dl (0.2-1.0); Calcium 9.6 mg/dl (8.6-10.3); Creatinine Clr Calc Pharmacy 41.9 ml/min; Globulin 3.5 gm/dl (2.5-4.0); Potassium 4.4 mmol/L (3.5-5.1); Total Protein 7.1 gm/dl (6.0-8.3)
[2024-09-18 07:02] LABS: Troponin I High Sensitivity 96.3 pg/ml (0-20)
[2024-09-18 07:10] LABS: Partial Thromboplastin Time 27 Seconds (21-31); Prothrombin Time 11.1 Seconds (9.0-12.0)
--- NOTE | 2024-09-18 07:16 | XRay Report ---
EXAM: XR pelvis 1-2V routine CLINICAL HISTORY: trauma TECHNIQUE: Radiograph of pelvis was acquired. COMPARISON: none FINDINGS: No acute fracture or dislocation. The soft tissues are unremarkable. Visualized joint spaces are well maintained. IMPRESSION: 1. No acute osseous or soft tissue abnormality. Electronically signed by Denis Carty 09-18-2024 07:16 AM
--- NOTE | 2024-09-18 07:17 | XRay Report ---
EXAM: XR chest 1V portable CLINICAL HISTORY: fall. trauma TECHNIQUE: Radiograph of chest was acquired. COMPARISON: YUSUF, 09/09/2024 16:09:00 DEPUTY CITY CLERK FINDINGS: The lungs are clear and well-expanded with no pulmonary infiltrate or pleural effusion. The cardiomediastinal silhouette is within normal limits. No acute osseous abnormality. Cardiac pacemaker seen. IMPRESSION: 1. No acute cardiopulmonary disease. 2. No interval changes. Electronically signed by Denis Carty 09-18-2024 07:17 AM
[2024-09-18 07:23] LABS: iSTAT Creatinine 1.6 mg/dl (0.6-1.3); iSTAT Hemoglobin 12.2 g/dl (14.0-18.0); iSTAT Ionized Calcium 1.21 mmol/l (1.12-1.32); iSTAT Potassium 4.2 mmol/L (3.3-5.0)
--- NOTE | 2024-09-18 07:30 | CT Scan Report ---
EXAM: CT abd pelvis IV con only CLINICAL HISTORY: fall, lower back pain/hematoma TECHNIQUE: Contiguous axial images were obtained from the level of the diaphragm to the pubic symphysis with intravenous contrast. Coronal and sagittal reconstructions were likewise performed and indicated to increase the sensitivity for detecting clinically relevant pathology. If IV contrast material had not been administered, the likelihood of detecting abnormalities relevant to the patient's condition would have been substantially decreased. CT scan was performed according to ALARA (as low as reasonable achievable). 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 The liver is normal in size and attenuation. No focal liver lesions are seen. There is no intra or extrahepatic biliary ductal dilatation. Hepatic vasculature is patent. The gallbladder is removed. The spleen, pancreas, and adrenal glands are unremarkable. The kidneys are normal in size and attenuation. There is no hydronephrosis or perinephric fat stranding. No renal calculi or renal masses are identified. Few simple cortical cyst are noted in both kidneys The ureters are normal in caliber and no ureteral calculi are seen. The bladder is normal in contour. Pelvic viscera are unremarkable. No focal or diffuse bowel wall thickening or evidence of bowel obstruction is identified. No inflammed appendix is visualized in the right lower quadrant. Abdominal and pelvic vasculature is patent. No adenopathy or fluid collections are seen. No aggressive appearing osseous lesions are identified. Small fat containing epigastric hernia. A large supraumbilical hernia with herniation of bowel loop. No incarceration or bowel obstruction. Mild subcutaneous edema is noted involving left lower back region. IMPRESSION: 1. Small fat containing epigastric hernia.-stable. 2. A large supraumbilical hernia with herniation of bowel loop. No incarceration or bowel obstruction.-stable. 3. Few simple cortical cyst are noted in both kidneys -stable. 4. Previous bowel dilatation is resolved in present scan. 5. Mild subcutaneous edema is noted involving left lower back region.-new finding. 6. No other abnormality seen. Electronically signed by Denis Carty 09-18-2024 07:30 AM
--- NOTE | 2024-09-18 07:31 | CT Scan Report ---
EXAM: CT head/brain wo con CLINICAL HISTORY: trauma TECHNIQUE: Multiple axial images are obtained from the skull base to the vertex without contrast. CT scan was performed according to ALARA (as low as reasonable achievable). COMPARISON: 05/24/2024 16:31:00 CONSUMER EDUCATOR. FINDINGS: There is cerebral atrophy. No evidence of space occupying lesion, hemorrhage, edema, mass effect, midline shift, extra axial collection, or hydrocephalus is noted. Basal cisterns are symmetric and normal in size and configuration. There are scattered periventricular hypodensities as can be seen with chronic microvascular ischemic changes. The canchola-white matter differentiation is preserved. Visualized paranasal sinuses and mastoid air cells are well aerated. Orbital contents are within normal limits. Bony structures are intact. IMPRESSION: 1. No evidence of acute intracranial abnormality is demonstrated. 2. Chronic microvascular ischemic changes.-stable. 3. Cerebral atrophy. -stable. No other new interval abnormality since prior study. Electronically signed by Denis Carty 09-18-2024 07:31 AM
--- NOTE | 2024-09-18 07:40 | CT Scan Report ---
EXAM: CT cervical spine wo con CLINICAL HISTORY: Trauma TECHNIQUE: Computed tomography of the cervical spine performed without intravenous contrast. Contiguous axial images were obtained from the skull base to T2, with sagittal and coronal reformatted images reconstructed from the axial data. CT scan was performed according to ALARA (as low as reasonable achievable). COMPARISON: None. FINDINGS: Loss of cervical lordosis - suggest possibility of muscle spasm/positional. Degenerative changes involving cervical spine in the form of multilevel marginal osteophytes, disc space reduction and facetal arthrosis. Cervical vertebral bodies are normal in height and alignment, with no evidence of fracture or subluxation. Lateral masses of C1 are symmetrical, and the dens is intact. Prevertebral soft tissues are not widened. The remaining suprahyoid and infrahyoid soft tissues in the neck are unremarkable. Posterior uncovertebral arthrosis is noted at C4-C5 to C6-C7 levels, which indenting ventral thecal sac and causes bilateral neuroforaminal narrowing. Thyroid gland appears unremarkable. Phenomena noted is IMPRESSION: 1.No acute fracture or subluxation in the cervical spine. 2.Cervical spondylosis. Alveolar Electronically signed by Denis Carty 09-18-2024 07:40 AM
--- NOTE | 2024-09-18 07:53 | CT Scan Report ---
EXAM: CT chest diagnostic w con CLINICAL HISTORY: Trauma TECHNIQUE: Contiguous axial images were obtained from the neck base through the upper abdomen following intravenous administration of contrast material. If IV contrast material had not been administered, the likelihood of detecting abnormalities relevant to the patient's condition would have been substantially decreased. In addition, sagittal and coronal reconstructions were performed. CT scan was performed according to ALARA (as low as reasonable achievable). COMPARISON: None. FINDINGS: The lungs are clear, with no focal areas of consolidation. No pulmonary nodules are seen. The central airways are patent. There are no pleural effusions. No pneumothorax is seen. No axillary, hilar, or mediastinal adenopathy is identified. The visualized thyroid is unremarkable. The heart, aorta, and pulmonary arteries are of normal size and configuration. No pericardial effusion is identified. Imaged portions of the upper abdomen are unremarkable. No aggressive appearing osseous lesions are identified. IMPRESSION: No significant abnormality detected Electronically signed by Denis Carty 09-18-2024 07:53 AM
--- NOTE | 2024-09-18 07:58 | CT Scan Report ---
EXAM: CT lumbar spine w con CLINICAL HISTORY: trauma TECHNIQUE: Multiple contiguous axial images were obtained through the lumbar spine without IV contrast. Sagittal and coronal reformatted images were obtained from the axial data. CT scan was performed according to ALARA (as low as reasonable achievable). COMPARISON: None. FINDINGS: Loss of lumbar lordosis - suggest possibility of muscle spasm/positional. Degenerative changes involving lumbar spine in the form of multilevel marginal osteophytes, disc space reduction and facetal arthrosis. Lumbar vertebral bodies are maintained in height and alignment. No vertebral destructive changes are seen. Posterior disc osteophyte complex is noted at L1-L2 to L5-S1 level, indenting ventral thecal sac, and causing bilateral lateral recess and foraminal narrowing. Paravertebral soft tissues are unremarkable. IMPRESSION: 1. Lumbar spondylosis. 2. No obvious acute trauma related abnormality seen. Electronically signed by Denis Carty 09-18-2024 07:57 AM
--- NOTE | 2024-09-18 08:33 | History & Physical Report ---
Date of Service September 18, 2024 Assessment & Plan (1) Fall against object: (2) Elevated troponin: (3) Monomorphic ventricular tachycardia: (4) Presence of combination internal cardiac defibrillator (ICD) and pacemaker: (5) Paroxysmal atrial fibrillation: (6) Seizure disorder: (7) Parkinson's disease: (8) Systolic and diastolic CHF, chronic: (9) S/P AVR: (10) Hyperlipidemia: (11) Hypothyroidism: (12) GERD (gastroesophageal reflux disease): (13) CKD (chronic kidney disease), stage III: Plan 79 year old male with PMH significant for paroxysmal A fib (not on anticoagulation), s/p AVR (2017), history of tachy-rob syndrome s/p pacemaker (2005), systolic and diastolic CHF, seizure disorder, Parkinsons disease, HLD, hypothyroidism, GERD, seasonal allergies, CKD III, and recent syncope secondary to monomorphic v tach s/p dual chamber pacemaker/ICD placement on 09/09/2024 who presented to the ED this morning after suffering a fall at home around 0400. Fall against object Patient fell into bedside table while trying to get out of bed to go to the bathroom Seems to be mechanical per patient history but consider arrhythmia in setting of new ICD and seizure disorder as differentials Scans all negative for acute injury Pain control with scheduled tylenol, lidocaine patch, PRN oxycodone PT/OT consults History of monomorphic v tach s/p pacemaker/ICD s/p right sided dual chamber [place] pacemaker/ICD on 09/09/2024 Interrogation ordered - Cardiology consult if any significant finding Monitor telemetry closely for arrhythmias Continue amiodarone Elevated troponin Likely due to traumatic fall Initial 96 downtrended to 88 Recheck at 1400 Leukocytosis Likely due to traumatic fall Mild elevation to [address] abdomen negative for infectious processes UA unremarkable Patient denies s/s of infection Monitor CBC in am PAF Continue metoprolol Eliquis was stopped last admission due to risk of fall Seizure disorder Continue valproic acid Drug level therapeutic Parkinson's disease Continue sinemet Systolic and diastolic CHF Echo 09/08/2024 revealed LVEF 40-45%, mild concentric LVH, septal motion consistent with conduction abnormality, mild mitral regurgitation, mild tricuspid regurgitation Continue metoprolol, furosemide, spironolactone Lisinopril was stopped last admission due to hypotension s/p AVR Hold baby aspirin in setting of hematoma Hyperlipidemia Continue atorvastatin Hypothyroidism Continue levothyroxine GERD Continue omeprazole Seasonal allergies Continue akshat CKD III Creat 1.4 (at baseline per record review) DVT Prophylaxis: SCDs for now Code Status: DNR/DNI PCP: Dom Underwood Disposition: admit to PCU Patient seen in collaboration with Dr Chavez. Please see addendum. I spent a total of 70 minutes coordinating, documenting and providing care for this patient excluding time spent in the performance of separately billed services or time spent by another provider/QHP. Admission and Anticipated Discharge Date Admission Date: 09/18/2024 History of Present Illness Chief Complaint: fall Primary Care Provider: Dom Underwood MD 79 year old male with PMH significant for paroxysmal A fib (not on anticoagulation), s/p AVR (2017), history of tachy-rob syndrome s/p pacemaker (2005), systolic and diastolic CHF, seizure disorder, Parkinsons disease, HLD, hypothyroidism, GERD, seasonal allergies, CKD III, and recent syncope secondary to monomorphic v tach s/p dual chamber pacemaker/ICD placement on 09/09/2024 who presented to the ED this morning after suffering a fall at home around 0400. Patient reports he woke up and was getting out of bed to go to the bathroom. He recalls sitting on the edge of the bed and when he went to get up and reach for his walker, he fell backwards into the bedside table. His reports she heard him yell out and crash into the table. He is not on anticoagulation. He denies hitting his head. He denies any dizziness or lightheadedness prior to the fall. He and his do not believe this was a syncopal episode nor seizure. His reports that since being discharged last week, he had been getting progressively stronger with ambulation. She was previously helping him to the bathroom in the middle of the night, but hasn't needed to help him the last few nights because he was doing well ambulating independently with his walker. Patient has been compliant with the medication changes made last week during his admission. He reports a runny nose and cough that were present last night, but these have both resolved as of today. He notes spending a lot of time outside the last few days and has seasonal allergies. He denies fevers, chills, chest pain, SOB, abdominal pain, N/V/D, edema. His denies weight gain and notes a poor appetite that has been ongoing for the last few months. He is not currently in pain but if he has to do any movement he has severe pain in his left side/back where he hit the bedside table. Allergies Allergy/AdvReac Type Severity Reaction Status Date / Time pollen extracts Allergy Severe Sneezing Unverified 09/18/24 08:04 carbamazepine Allergy Unknown TOXIC, Verified 09/18/24 08:04 DOUBLE VISION indigotindisulfonic acid Allergy Unknown TOXIC, Verified 09/18/24 08:04 DOUBLE VISION doxazosin AdvReac Unknown BP LOSS Verified 09/18/24 08:04 nitrofurantoin AdvReac Unknown DIZZINESS Verified 09/18/24 08:04 Home Medications Medication Instructions Recorded Confirmed Type acetaminophen 325 mg tablet 650 mg PO DIRECTED PRN pain, 03/20/18 09/18/24 History (Tylenol) fever aspirin 81 mg tablet,delayed 81 mg PO QAM 03/20/18 09/18/24 History release divalproex 250 mg tablet,delayed 500 mg PO QAM 03/20/18 09/18/24 History release divalproex 250 mg tablet,delayed 750 mg PO PM 03/20/18 09/18/24 History release metoprolol succinate 100 mg 100 mg PO QAM 03/20/18 09/18/24 History tablet,extended release 24 hr (Toprol XL) multivitamin 1 tab PO QAM 03/20/18 09/18/24 History docusate sodium 100 mg capsule 100 mg PO QAM 07/10/18 09/18/24 History (Colace) levothyroxine 88 mcg tablet 88 mcg PO QAM 07/10/18 09/18/24 History spironolactone 25 mg tablet 12.5 mg PO QAM 07/10/18 09/18/24 History melatonin 5 mg tablet 5 mg PO HS 05/22/24 09/18/24 History omeprazole 20 mg capsule,delayed 20 mg PO QAM 05/22/24 09/18/24 History release carbidopa 25 mg-levodopa 100 mg 1 tab PO TIDWMEAL 09/08/24 09/18/24 History tablet furosemide 40 mg tablet 40 mg PO QAM 09/08/24 09/18/24 History sennosides 8.6 mg tablet (senna) 8.6 mg PO DAILY 09/08/24 09/18/24 History amiodarone 200 mg tablet 200 mg PO BIDM #60 tabs 09/11/24 09/18/24 Rx atorvastatin 20 mg tablet 10 mg (1/2 x 20 mg) PO DAILY #15 09/11/24 09/18/24 Rx tabs fexofenadine 180 mg tablet 180 mg PO DAILY 09/18/24 09/18/24 History Past Med/Surg History Problem List (Updated 09/18/24 @ 15:01 by Forest Hogan MD) Hematoma of left flank (Acute) Ambulatory dysfunction (Acute) Presence of combination internal cardiac defibrillator (ICD) and pacemaker Systolic and diastolic CHF, chronic Fall against object (Acute) Parkinson's disease Elevated troponin (Acute) Paroxysmal atrial fibrillation (Chronic) has not had since valve replacement Seizure disorder (Chronic) last 2003 "grand mal"--reason for depakote, follows with Dr. 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 Wide-complex tachycardia Vasovagal syncope Bilateral edema of lower extremity Pacemaker Acute exacerbation of CHF (congestive heart failure) Hyperlipidemia Epilepsy Ichthyosis Chronic mesenteric ischemia Persistent atrial fibrillation Acute on chronic diastolic heart failure with preserved ejection fraction Anticoagulant long-term use Encounter for pre-operative examination Cardiac pacemaker Syncope Abnormal esophagram Encounter for pre-operative examination Acute kidney injury superimposed on chronic kidney disease PNA (pneumonia) Sinoatrial node dysfunction Thrombocytopenia Hypothyroidism Chronic systolic heart failure BPH (benign prostatic hyperplasia) GERD (gastroesophageal reflux disease) Dyslipidemia Aortic stenosis following with vascular surgery [facility] - last checked 02/2020 and will be checked every 6 mo Hypertension Constipation History of COVID-19 dx 03/31 - [facility] [place] [place]. coughing, congestion, fevers; all symptoms resolved History of syncope syncopal episode 03/2020 prior to covid diagnosis; last episode prior to 03/2020 was in 2016 pre pacemaker History of anesthesia reaction had a seizure when waking up from cholecystectomy in 1999 per pt and "was on the wrong seizure medicine, is on the right medication now and has not had any issues with any other surgeries since" Surgical History (Updated 09/18/24 @ 09:05 by ANTONIO Cohen) S/P AVR History of cholecystectomy S/P placement of cardiac pacemaker placed 2016 --biotronic- last checked 6 mo ago (to be checked 05/11/20)--follows with Dr. Ashley History of cardiac cath 01/29/18 - Dr Stephens - normal coronary arteries History of cataract extraction with lens replacement History of aortic valve replacement 02/11/18 bioprosthetic valve [place] [facility] [place] Status post excisional debridement x3 from aortic valve incision History of colonoscopy History of esophagogastroduodenoscopy (EGD) History of phacoemulsification of cataract of both eyes with intraocular lens implantation Family History Other Cerebral aneurysm Heart disease No family history of adverse response to anesthesia Social History (Updated 09/18/24 @ 10:17 by ANTONIO Cohen) Smoking Status: Never smoker Second Hand Exposure: Yes (as a child); Do You Dip or Chew Tobacco: No; Hx Alcohol Use: No Hx Substance Use: No Preferred Language: Belgian Communication Ability: Effective Visual Impairment: No Limitations Hearing Ability: Normal Powerhouse [employer] Required: No Beliefs That Will Affect Care: None marital status: Current Living Situation: Spouse Current Living Situation Comment: Lives at home w/ Other Information That Helps Us Care for You: No Feels Safe at Home: Yes Safety Concerns: Feels Safe At This Time Assistive Devices: Oxygen - at Night and Walker Review of Systems Review of Systems: All systems reviewed & are unremarkable except as noted in HPI & below Physical Exam Physical Exam: General/Psych: frail, laying in bed, conversing easily Head: normocephalic, atraumatic Eyes: normal inspection, PERRL, conjunctivae pink, anicteric sclerae ENT: external ear and nose normal, oropharynx normal Neck: normal visual inspection, trachea midline Respiratory: normal respiratory effort, lungs clear to auscultation, no wheeze/rales/rhonchi, no accessory muscle use Cardiovascular: regular rate and rhythm, no murmur/rub/gallop, no JVD Extremities: no cyanosis or clubbing, normal peripheral pulses, no BLE edema Abdomen/GI: normal bowel sounds, soft, nontender, no hepatosplenomegaly, hematoma to left flank Neurologic/MSK: A+Ox3, moves all extremities, unable to sit up due to significant pain Skin: no rashes, normal color, warm and dry, dressing over right chest c/d/i, scattered ecchymosis on legs and arms due to prior falls Results & Data Results & Data Vital Signs (Past 12 Hours) Vital Signs Temp Pulse Pulse Resp BP BP Pulse Ox 09/18/24 07:39 80 22 143/61 H 95 09/18/24 06:12 80 16 148/65 H 94 09/18/24 06:05 80 16 96 09/18/24 05:57 82 09/18/24 05:55 36.6 C 80 16 148/71 H 96 09/18/24 05:55 36.6 C 78 16 148/64 H 96 09/18/24 05:55 36.6 C 79 18 148/71 H 96 O2 Del Method O2 Flow Rate 09/18/24 07:39 Room Air 09/18/24 06:12 Room Air 09/18/24 06:05 Room Air 09/18/24 05:57 09/18/24 05:55 Room Air 09/18/24 05:55 Room Air 0 09/18/24 05:55 Room Air Laboratory Results Short CBC 09/18/24 Range/Units 06:05 WBC 11.01 H (4.8-10.8) K/ul Hgb 11.8 L (14.0-18.0) g/dl Hct 35.3 L (42.0-52.0) % Plt Count 128 L (130-400) K/uL BMP 09/18/24 06:05 Sodium 139 Potassium 4.4 Chloride 99 Carbon Dioxide 34 H BUN 28 H Creatinine 1.43 H Glucose 90 Calcium 9.6 Cardiac Enzymes 09/18/24 Range/Units 06:05 Total Creatine Kinase 36 (30-223) U/L Liver Function 09/18/24 Range/Units 06:05 Total Bilirubin 0.6 (0.2-1.0) mg/dl AST 28 (13-39) U/L ALT 9 (7-52) U/L Alkaline Phosphatase 75 (34-104) U/L Albumin 3.6 (3.4-5.0) gm/dl Urine 09/18/24 Range/Units 08:25 Urine Color Yellow Urine Appearance Clear (Clear) Urine pH 8.0 H (4.5-7.5) Ur Specific [place] > 1.045 H (1.000-1.030) Urine Protein Trace H (Negative) Urine Glucose (UA) Negative (Negative) I have independently reviewed and interpreted patient's admitting labs including CBC, CMP, PTT, PT/INR, CK, troponin, UA. Diagnostic Findings Abdomen/Pelvis CT 09/18/24 06:10 EXAM: CT abd pelvis IV con only CLINICAL HISTORY: fall, lower back pain/hematoma TECHNIQUE: Contiguous axial images were obtained from the level of the diaphragm to the pubic symphysis with intravenous contrast. Coronal and sagittal reconstructions were likewise performed and indicated to increase the sensitivity for detecting clinically relevant pathology. If IV contrast material had not been administered, the likelihood of detecting abnormalities relevant to the patient's condition would have been substantially decreased. CT scan was performed according to ALARA (as low as reasonable achievable). COMPARISON: 05/24/2024 14:04:00 MEDICAL NURSE FINDINGS: The visualized lung bases are clear. The liver is normal in size and attenuation. No focal liver lesions are seen. There is no intra or extrahepatic biliary ductal dilatation. Hepatic vasculature is patent. The gallbladder is removed. The spleen, pancreas, and adrenal glands are unremarkable. The kidneys are normal in size and attenuation. There is no hydronephrosis or perinephric fat stranding. No renal calculi or renal masses are identified. Few simple cortical cyst are noted in both kidneys The ureters are normal in caliber and no ureteral calculi are seen. The bladder is normal in contour. Pelvic viscera are unremarkable. No focal or diffuse bowel wall thickening or evidence of bowel obstruction is identified. No inflammed appendix is visualized in the right lower quadrant. Abdominal and pelvic vasculature is patent. No adenopathy or fluid collections are seen. No aggressive appearing osseous lesions are identified. Small fat containing epigastric hernia. A large supraumbilical hernia with herniation of bowel loop. No incarceration or bowel obstruction. Mild subcutaneous edema is noted involving left lower back region. IMPRESSION: 1. Small fat containing epigastric hernia.-stable. 2. A large supraumbilical hernia with herniation of bowel loop. No incarceration or bowel obstruction.-stable. 3. Few simple cortical cyst are noted in both kidneys -stable. 4. Previous bowel dilatation is resolved in present scan. 5. Mild subcutaneous edema is noted involving left lower back region.-new finding. 6. No other abnormality seen. Electronically signed by Denis Carty 09-18-2024 07:30 AM Chest X-Ray 09/18/24 06:11 EXAM: XR chest 1V portable CLINICAL HISTORY: fall. trauma TECHNIQUE: Radiograph of chest was acquired. COMPARISON: CR, 09/09/2024 16:09:00 MEDICAL NURSE FINDINGS: The lungs are clear and well-expanded with no pulmonary infiltrate or pleural effusion. The cardiomediastinal silhouette is within normal limits. No acute osseous abnormality. Cardiac pacemaker seen. IMPRESSION: 1. No acute cardiopulmonary disease. 2. No interval changes. Electronically signed by Denis Carty 09-18-2024 07:17 AM Pelvis X-Ray 09/18/24 06:20 EXAM: XR pelvis 1-2V routine CLINICAL HISTORY: trauma TECHNIQUE: Radiograph of pelvis was acquired. COMPARISON: none FINDINGS: No acute fracture or dislocation. The soft tissues are unremarkable. Visualized joint spaces are well maintained. IMPRESSION: 1. No acute osseous or soft tissue abnormality. Electronically signed by Denis Carty 09-18-2024 07:[address] 09/18/24 06:22 EXAM: CT cervical spine wo con CLINICAL HISTORY: Trauma TECHNIQUE: Computed tomography of the cervical spine performed without intravenous contrast. Contiguous axial images were obtained from the skull base to T2, with sagittal and coronal reformatted images reconstructed from the axial data. CT scan was performed according to ALARA (as low as reasonable achievable). COMPARISON: None. FINDINGS: Loss of cervical lordosis - suggest possibility of muscle spasm/positional. Degenerative changes involving cervical spine in the form of multilevel marginal osteophytes, disc space reduction and facetal arthrosis. Cervical vertebral bodies are normal in height and alignment, with no evidence of fracture or subluxation. Lateral masses of C1 are symmetrical, and the dens is intact. Prevertebral soft tissues are not widened. The remaining suprahyoid and infrahyoid soft tissues in the neck are unremarkable. Posterior uncovertebral arthrosis is noted at C4-C5 to C6-C7 levels, which indenting ventral thecal sac and causes bilateral neuroforaminal narrowing. Thyroid gland appears unremarkable. Phenomena noted is IMPRESSION: 1.No acute fracture or subluxation in the cervical spine. 2.Cervical spondylosis. Alveolar Electronically signed by Denis Carty 09-18-2024 07:[address] 09/18/24 06:22 EXAM: CT chest diagnostic w con CLINICAL HISTORY: Trauma TECHNIQUE: Contiguous axial images were obtained from the neck base through the upper abdomen following intravenous administration of contrast material. If IV contrast material had not been administered, the likelihood of detecting abnormalities relevant to the patient's condition would have been substantially decreased. In addition, sagittal and coronal reconstructions were performed. CT scan was performed according to ALARA (as low as reasonable achievable). COMPARISON: None. FINDINGS: The lungs are clear, with no focal areas of consolidation. No pulmonary nodules are seen. The central airways are patent. There are no pleural effusions. No pneumothorax is seen. No axillary, hilar, or mediastinal adenopathy is identified. The visualized thyroid is unremarkable. The heart, aorta, and pulmonary arteries are of normal size and configuration. No pericardial effusion is identified. Imaged portions of the upper abdomen are unremarkable. No aggressive appearing osseous lesions are identified. IMPRESSION: No significant abnormality detected Electronically signed by Denis Carty 09-18-2024 07:[address] 09/18/24 06:22 EXAM: CT head/brain wo con CLINICAL HISTORY: trauma TECHNIQUE: Multiple axial images are obtained from the skull base to the vertex without contrast. CT scan was performed according to ALARA (as low as reasonable achievable). COMPARISON: 05/24/2024 16:31:00 MEDICAL NURSE. FINDINGS: There is cerebral atrophy. No evidence of space occupying lesion, hemorrhage, edema, mass effect, midline shift, extra axial collection, or hydrocephalus is noted. Basal cisterns are symmetric and normal in size and configuration. There are scattered periventricular hypodensities as can be seen with chronic microvascular ischemic changes. The [place]-white matter differentiation is preserved. Visualized paranasal sinuses and mastoid air cells are well aerated. Orbital contents are within normal limits. Bony structures are intact. IMPRESSION: 1. No evidence of acute intracranial abnormality is demonstrated. 2. Chronic microvascular ischemic changes.-stable. 3. Cerebral atrophy. -stable. No other new interval abnormality since prior study. Electronically signed by Denis Carty 09-18-2024 07:[address] 09/18/24 06:57 EXAM: CT lumbar spine w con CLINICAL HISTORY: trauma TECHNIQUE: Multiple contiguous axial images were obtained through the lumbar spine without IV contrast. Sagittal and coronal reformatted images were obtained from the axial data. CT scan was performed according to ALARA (as low as reasonable achievable). COMPARISON: None. FINDINGS: Loss of lumbar lordosis - suggest possibility of muscle spasm/positional. Degenerative changes involving lumbar spine in the form of multilevel marginal osteophytes, disc space reduction and facetal arthrosis. Lumbar vertebral bodies are maintained in height and alignment. No vertebral destructive changes are seen. Posterior disc osteophyte complex is noted at L1-L2 to L5-S1 level, indenting ventral thecal sac, and causing bilateral lateral recess and foraminal narrowing. Paravertebral soft tissues are unremarkable. IMPRESSION: 1. Lumbar spondylosis. 2. No obvious acute trauma related abnormality seen. Electronically signed by Denis Carty 09-18-2024 07:57 AM ECG Additional Comments: I have independently reviewed and interpreted patient's admitting EKG which revealed: atrial sensed ventricular paced rhythm at a rate of 78 bpm Code Status & VTE Plan Code Status DNR/DNI Supervising Physician Co-Signing Physician Notes Attending Addendum: Case reviewed with the advanced practitioner. I have personally performed a history and physical examination on the patient, and son at the bedside I have reviewed the advanced practitioner's documentation on the date of service referenced in note, and I agree with, and take responsibility for the plan of care. please refer to her notes for full details patient seen and examined, records reviewed by myself as well on exam, patient seen resting in bed, comfortable, very pleasant states he feels ok overall except for pain on the lateral abdominal wall region, worse with movement no chest pain, dyspnea, palpitations, dizziness no headache, dizziness, nausea, neck pain no other symptoms VS noted and reviewed oriented x3, not in distress, speaks in sentences with no effort nor accessory muscle use pacemaker site R upper chest wall: no hematoma, bleeding/discharge, wound healing well normal rate, regular rhythm, no murmurs clear breath sounds bilaterally non distended, soft, nontender, (+) fluctuant area on the left lateral abdominal wall, tender to palpation- possible hematoma? no bipedal edema, erythema, warmth no neuro deficits all labs, imaging noted and reviewed ASSESSMENT AND PLAN> S/P FALL, LIKELY MECHANICAL R/O ARRHYTHMIA, RECENT PACEMAKER PLACEMENT - pacemaker interrogation ordered R/O ORTHOSTASIS- appears euvolemic but check Orthostatic VS POSSIBLE LEFT ABDOMINAL WALL HEMATOMA hold ASA repeat H&H at 2 pm ice pack, lidoderm patch DECONDITIONING, GENERALIZED WEAKNESS, AMBULATORY DYSFUNCTION PT/OT evaluation Boost TID other diagnoses and plan of care as per advanced practitioner's notes I spent a total of 45 minutes coordinating, documenting, and providing care for this patient, excluding time spent in the performance of separately billed services or time spent by another provider/QHP. Eliezer Chavez MD (7) Parkinson's disease Dyskinesia presence: unspecified whether dyskinesia Fluctuating manifestations: unspecified whether manifestations fluctuate Qualified Code(s): G20.A1 - Parkinson's disease without dyskinesia, without mention of fluctuations (10) Hyperlipidemia Hyperlipidemia type: unspecified Qualified Code(s): E78.5 - Hyperlipidemia, unspecified (11) Hypothyroidism Hypothyroidism type: unspecified Qualified Code(s): E03.9 - Hypothyroidism, u nspecified
[2024-09-18 08:36] LABS: Appearance Urine Clear (Clear); Bacteria Urine Automated None Seen (None Seen); Bilirubin Urine Negative (Negative); Blood Urine Negative (Negative); Cast Urine Automated 0-2 /lpf (0-2); Color Urine Yellow; Epithelial Cell Urine Auto 0-2 /hpf (0-2); Glucose Urine UA Negative (Negative); Ketones Urine 1+ (Negative); Leukocyte Esterase Urine Negative (Negative); Nitrite Urine Negative (Negative); Protein Urine Trace (Negative); Specific Gravity Urine > 1.045 (1.000-1.030); Urobilinogen Urine Positive (Negative); WBC Urine Automated 0-5 /hpf (0-5)
[2024-09-18 08:42] LABS: Influenza A virus by PCR Negative (Neg); Influenza B virus by PCR Negative (Neg); RSV by PCR Negative (Neg); SARS CoV2 RNA(COVID-19) Ceph NEGATIVE (Negative)
--- NOTE | 2024-09-18 10:08 | Electrocardiogram Report ---
Test Reason : Blood Pressure : */* mmHG Vent. Rate : 78 BPM Atrial Rate : 78 BPM P-R Int : 118 ms QRS Dur : 160 ms QT Int : 434 ms P-R-T Axes : -7 -15 -16 degrees QTcB Int : 494 ms Atrial-sensed ventricular-paced rhythm Abnormal ECG When compared with ECG of 09-Sep-2024 05:49, Vent. rate has decreased by 8 bpm Confirmed by Vignesh Márquez ([id number]) on 09/18/2024 10:08:48 AM Referred By: REFERRED SELF Confirmed By: Vignesh Márquez
[2024-09-18] MEDS: ACETAMINOPHEN 325 MG TAB PO SCH (11:48)
[2024-09-18] MEDS: ASPIRIN 81 MG ECTAB PO SCH (11:49)
[2024-09-18] MEDS: DIVALPROEX DELAY RELEASE 500 MG TAB PO SCH (11:49)
[2024-09-18] MEDS: SPIRONOLACTONE 12.5 MG TAB PO SCH (11:50)
[2024-09-18] MEDS: AMIODARONE 200 MG TAB PO SCH (11:50)
[2024-09-18] MEDS: FEXOFENADINE HCL 180 MG TAB PO SCH (11:50)
[2024-09-18] MEDS: PANTOprazole 40 MG TAB PO SCH (11:50)
[2024-09-18] MEDS: METOPROLOL SUCC 50MG EXT REL TAB PO SCH (11:50)
[2024-09-18] MEDS: FUROSEMIDE 40 MG TAB PO SCH (11:50)
[2024-09-18] MEDS: CARBIDOPA/LEVODOPA 25/100MG TAB PO SCH (11:51)
[2024-09-18] MEDS: ATORVASTATIN 10 MG TAB PO SCH (11:51)
[2024-09-18] MEDS: LIDOCAINE 5% 1 PATCH TD PRN (12:04)
--- NOTE | 2024-09-18 13:24 | Hospitalist Progress Note ---
Date of Service September 18, 2024 Assessment & Plan (1) Fall against object: (2) Elevated troponin: (3) Monomorphic ventricular tachycardia: (4) Presence of combination internal cardiac defibrillator (ICD) and pacemaker: (5) Paroxysmal atrial fibrillation: (6) Seizure disorder: (7) Parkinson's disease: (8) Systolic and diastolic CHF, chronic: (9) S/P AVR: (10) Hyperlipidemia: (11) Hypothyroidism: (12) GERD (gastroesophageal reflux disease): (13) CKD (chronic kidney disease), stage III: Plan 79 year old male with PMH significant for paroxysmal A fib (not on anticoagulation), s/p AVR (2017), history of tachy-rob syndrome s/p pacemaker (2005), systolic and diastolic CHF, seizure disorder, Parkinsons disease, HLD, hypothyroidism, GERD, seasonal allergies, CKD III, and recent syncope secondary to monomorphic v tach s/p dual chamber pacemaker/ICD placement on 09/09/2024 who presented to the ED this morning after suffering a fall at home around 0400. Fall against object Patient fell into bedside table while trying to get out of bed to go to the bathroom Seems to be mechanical per patient history but consider arrhythmia in setting of new ICD and seizure disorder as differentials Scans all negative for acute injury Pain control with scheduled tylenol, lidocaine patch, PRN oxycodone PT/OT consults History of monomorphic v tach s/p pacemaker/ICD s/p right sided dual chamber [place] pacemaker/ICD on 09/09/2024 Interrogation ordered - Cardiology consult if any significant finding Monitor telemetry closely for arrhythmias Continue amiodarone Elevated troponin Likely due to traumatic fall Initial 96 downtrended to 88 Recheck at 1400 Leukocytosis Likely due to traumatic fall Mild elevation to [address] abdomen negative for infectious processes UA unremarkable Patient denies s/s of infection Monitor CBC in am PAF Continue metoprolol Eliquis was stopped last admission due to risk of fall Seizure disorder Continue valproic acid Drug level therapeutic Parkinson's disease Continue sinemet Systolic and diastolic CHF Echo 09/08/2024 revealed LVEF 40-45%, mild concentric LVH, septal motion consistent with conduction abnormality, mild mitral regurgitation, mild tricuspid regurgitation Continue metoprolol, furosemide, spironolactone Lisinopril was stopped last admission due to hypotension s/p AVR Continue baby aspirin Hyperlipidemia Continue atorvastatin Hypothyroidism Continue levothyroxine GERD Continue omeprazole Seasonal allergies Continue akshat CKD III Creat 1.4 (at baseline per record review) DVT Prophylaxis: SCDs for now Code Status: DNR/DNI PCP: Dom Underwood Disposition: admit to PCU Patient seen in collaboration with Dr Chavez. Please see addendum. I spent a total of 70 minutes coordinating, documenting and providing care for this patient excluding time spent in the performance of separately billed services or time spent by another provider/QHP. Admission and Anticipated Discharge Date Admission Date: September 18, 2024 Supervising Physician Co-Signing Physician Notes Attending Addendum: Case reviewed with the advanced practitioner. I have personally performed a history and physical examination on the patient, and son at the bedside I have reviewed the advanced practitioner's documentation on the date of service referenced in note, and I agree with, and take responsibility for the plan of care. please refer to her notes for full details patient seen and examined, records reviewed by myself as well on exam, patient seen resting in bed, comfortable, very pleasant states he feels ok overall except for pain on the lateral abdominal wall region, worse with movement no chest pain, dyspnea, palpitations, dizziness no headache, dizziness, nausea, neck pain no other symptoms VS noted and reviewed oriented , not in distress, speaks in sentences with no effort nor x 3 accessory muscle use pacemaker site R upper chest wall: no hematoma, bleeding/discharge, wound healing well normal rate, regular rhythm, no murmurs clear breath sounds bilaterally non distended, soft, nontender, (+) fluctuant area on the left lateral abdominal wall, tender to palpation- possible hematoma? no bipedal edema, erythema, warmth no neuro deficits all labs, imaging noted and reviewed ASSESSMENT AND PLAN> S/P FALL, LIKELY MECHANICAL R/O ARRHYTHMIA, RECENT PACEMAKER PLACEMENT - pacemaker interrogation ordered R/O ORTHOSTASIS- appears euvolemic but check Orthostatic VS POSSIBLE LEFT ABDOMINAL WALL HEMATOMA hold ASA repeat H&H at 2 pm ice pack, lidoderm patch DECONDITIONING, GENERALIZED WEAKNESS, AMBULATORY DYSFUNCTION PT/OT evaluation Boost TID other diagnoses and plan of care as per advanced practitioner's notes I spent a total of 45 minutes coordinating, documenting, and providing care for this patient, excluding time spent in the performance of separately billed services or time spent by another provider/QHP. Eliezer Chavez MD Results & Data Results & Data Vital Signs (Past 12 Hours) Vital Signs Temp Pulse Pulse Resp BP BP Pulse Ox 09/18/24 10:30 71 18 135/64 100 09/18/24 10:23 72 09/18/24 09:00 70 7 L 123/66 100 09/18/24 08:24 75 16 133/72 99 09/18/24 08:03 80 14 135/60 100 09/18/24 07:39 80 22 143/61 H 95 09/18/24 06:12 80 16 148/65 H 94 09/18/24 06:05 80 16 96 09/18/24 05:57 82 09/18/24 05:55 36.6 C 80 16 148/71 H 96 09/18/24 05:55 36.6 C 78 16 148/64 H 96 09/18/24 05:55 36.6 C 79 18 148/71 H 96 O2 Del Method O2 Flow Rate 09/18/24 10:30 Nasal Cannula 2 09/18/24 10:23 09/18/24 09:00 09/18/24 08:24 Nasal Cannula 2 09/18/24 08:03 Nasal Cannula 2 09/18/24 07:39 Room Air 09/18/24 06:12 Room Air 09/18/24 06:05 Room Air 09/18/24 05:57 09/18/24 05:55 Room Air 09/18/24 05:55 Room Air 0 09/18/24 05:55 Room Air (7) Parkinson's disease Dyskinesia presence: unspecified whether dyskinesia Fluctuating manifestations: unspecified whether manifestations fluctuate Qualified Code(s): G20.A1 - Parkinson's disease without dyskinesia, without mention of fluctuations (10) Hyperlipidemia Hyperlipidemia type: unspecified Qualified Code(s): E78.5 - Hyperlipidemia, unspecified (11) Hypothyroidism Hypothyroidism type: unspecified Qualified Code(s): E03.9 - Hypothyroidism, unspecified
--- NOTE | 2024-09-18 15:01 | XRay Report ---
XR ribs LT min 2V CLINICAL HISTORY: s/p fall, pain, r/o fracture COMPARISON: Exams earlier today FINDINGS: Left cardiac pacemaker is stable. Left lung shows no consolidation, pleural effusion, or p neumothorax. There is an acute minimally displaced fracture posteriorly and laterally at the left 11t h rib. There is a possible acute nondisplaced fracture distally at the left 12th rib. IMPRESSION: Acute fracture left 11th rib with no pneumothorax. ACT 112: Negative or not required by law. Electronically signed by: Americo Harris M.D. 09/18/2024 3:00 PM
[2024-09-18 15:40] LABS: Hematocrit (blood only) 29.8 % (42.0-52.0); Hemoglobin 10.1 g/dl (14.0-18.0)
[2024-09-18] MEDS: SENNA 8.6 MG TAB PO SCH (16:09)
[2024-09-18] MEDS: DOCUSATE SODIUM 100 MG CAP PO SCH (16:09)
--- NOTE | 2024-09-18 17:42 | CT Scan Report ---
Clinical history: Fall Technique: Axial computed tomography images were obtained of the chest without intravenous contrast Comparison is made to the contrast-enhanced CT obtained earlier today and also the CT dated 07/10/2018 Findings: There are minimal bilateral pleural effusions. There is bilateral lower lobe atelectasis. There is an unchanged 3 mm nodular opacity along the left major fissure, which appears to be new since 2019. There is no pneumothorax. There is no sign of pulmonary fibrosis or other diffuse interstitial process. No endobronchial lesion is seen There is no mediastinal, hilar, or axillary adenopathy. The thoracic aorta is of normal caliber. There is no pericardial effusion. There are bilateral chest wall pacemaker devices There is a T6 compression fracture and there are mild T5, T7 and T8 compression fractures. These appear unchanged since 2019. Impression: 1. Bilateral lower lobe atelectasis 2. Minimal bilateral pleural effusions 3. Small left lung nodule, likely benign. A follow-up chest CT could be obtained in 6 months 4. Unchanged thoracic compression fractures Electronically signed by Willian Moore 09-18-2024 5:42 PM
--- NOTE | 2024-09-18 17:48 | CT Scan Report ---
Clinical History: Fall Technique: Axial computed tomography images were obtained of the abdomen and pelvis without intravenous contrast. Comparison is made to the CT obtained earlier today as well as a CT dated 05/24/2024 Findings: The liver is overall of normal size, attenuation, and contour with no sign of cirrhosis or significant fatty infiltration. No definite liver mass lesion is seen on this noncontrast study. The gallbladder has been removed. No bile duct dilatation is noted. The spleen is of normal size. No focal splenic lesion is evident. The pancreas appears normal with no sign of acute or chronic pancreatitis and no mass lesion noted. The pancreatic duct is of normal caliber. The adrenal glands appear unremarkable. There is residual contrast within the renal cortex and renal collecting systems bilaterally. There is no hydronephrosis or perinephric stranding. No definite renal mass lesion is identified. There are bilateral renal cysts, measuring up to 3.4 cm The abdominal aorta is of normal caliber. No abdominal adenopathy is seen. There is prominence of the gastric wall that is likely due to the decompressed state. There is a moderate sized epigastric hernia containing a loop of small bowel. More inferiorly, there is a separate moderate sized ventral hernia containing bowel. There is no definite sign of small bowel obstruction. The colon appears unremarkable. The appendix appears normal also. No free intraperitoneal fluid or air is identified. There is excreted contrast within the area bladder. No obvious bladder mass lesion is evident. The iliac arteries are of normal caliber. No pelvic adenopathy is noted. Lumbar scoliosis and degenerative disc disease is seen. No fracture is identified. No focal osseous lesion is seen Impression: 1. Two separate ventral hernias containing bowel loops. There is no definite sign of associated obstruction 2. Bilateral renal cysts Electronically signed by Willian Moore 09-18-2024 5:48 PM
[2024-09-18] MEDS: oxyCODONE HCL IR 5 MG TAB (IMMEDIATE RELEASE) PO PRN (19:14)
[2024-09-18] MEDS: SODIUM CHLORIDE 0.9% 1,000 ML IV SCH (19:18)
[2024-09-18] MEDS: BENZONATATE 100 MG CAPSULE PO SCH (20:56)
[2024-09-18] MEDS: guaiFENesin/DEXTROM SYRUP 100MG/10MG 5ML UDC PO PRN (21:02)
[2024-09-18] MEDS: DIVALPROEX DELAY RELEASE 250 MG TABEC PO SCH (21:04)
[2024-09-18] MEDS: MELATONIN 3 MG TAB PO SCH (21:04)
[2024-09-18 21:17] LABS: Hematocrit (blood only) 30.7 % (42.0-52.0); Hemoglobin 10.4 g/dl (14.0-18.0)
[2024-09-19 03:35] LABS: Hematocrit (blood only) 27.3 % (42.0-52.0); Hemoglobin 9.2 g/dl (14.0-18.0); Mean Corpuscular Hemoglobin 32.2 pg (25.0-34.0); Mean Corpuscular Hgb Conc 33.7 g/dL (32.0-36.0); Mean Corpuscular Volume 95.5 fL (80.0-100.0); Mean Platelet Volume 10.1 fL (9.4-12.4); Platelet Count 79 K/uL (130-400); RDW Standard Deviation 56.6 fL (36.4-46.3); Red Blood Count 2.86 M/uL (4.70-6.10); White Blood Count 7.04 K/ul (4.8-10.8)
[2024-09-19 03:51] LABS: BUN Creatinine Ratio 18.4 (10-20); Calcium 8.5 mg/dl (8.6-10.3); Creatinine Clr Calc Pharmacy 41.9 ml/min; Magnesium 1.7 mg/dl (1.7-2.4); Potassium 4.2 mmol/L (3.5-5.1)
[2024-09-19] MEDS: LEVOTHYROXINE SODIUM 88 MCG TABLET PO SCH (06:15)
--- NOTE | 2024-09-19 09:07 | Cardiology Consultation ---
Date of Consultation September 19, 2024 Assessment & Plan (1) Fall against object: (2) Elevated troponin: (3) Persistent atrial fibrillation: (4) Hyperlipidemia: Plan 79-year-old male with complex past medical history significant for paroxysmal AFIB, tachy-rob syndrome s/p dual-chamber PPM (Biotronik device; implanted 2005; generator exchange 06/2015), history of recurrent vagally mediated syncope, history of chronic seizure disorder and Parkinson's, s/p AVR (02/2018; [employer] bioprosthesis 25 mm with JEWEL clip). Recent syncope secondary to monomorphic VT s/p right-sided dual-chamber PPM/ICD implanted 09/09/24 ([place]) who presented on 09/19/24 for evaluation after a fall Plan/Recommendations: -Recent syncope secondary to monomorphic VT s/p right-sided dual chamber PPM/ICD (implanted 09/09/24; [place]) -Stable and asymptomatic from a cardiac standpoint with no anginal symptoms or recent syncope -V-paced with rates 60-70s upon telemetry review -Heart rate and blood pressure well controlled -EKG upon admission with no acute ischemic changes -Mildly elevated high-sensitivity troponins (88-87) but trending down -Right pectoral device incision intact with mild ecchymosis surrounding site and no drainage, erythema or hematoma -Device interrogated at bedside and awaiting report -Continue HOSPICE EXECUTIVE DIRECTOR amiodarone, aspirin, atorvastatin, furosemide, toPROL XL, and spironolactone as per current regimen Case discussed and coordinated with Dr. Amor. Please see Dr. Amor notes for further recommendations. I spent a total of 45 minutes coordinating, documenting, and providing care for this patient excluding time spent in the performance of separately billed services or time spent by another provider/QHP. ANTONIO Padilla Department of Cardiology Supervising Physician Co-Signing Physician Notes I spent a total of 50 minutes on the date of service in preparation, delivery, and documentation of the care provided to this patient, excluding any time spent in the performance of separately billed services. I have personally performed a history and physical examination on the patient. I have reviewed the advance practitioner's documentation, and I agree with, and take responsibility for the plan of care. 79-year-old male with a past medical history of 79-year-old male with a past medical history of paroxysmal atrial fibrillation, tachybradycardia syndrome history of Biotronik pacemaker implantation in 2005, recent admission earlier this month for wide-complex tachycardia consistent with monomorphic ventricular tachycardia underwent a device upgrade to a ICD implanta tion, aortic valve replacement 02/2018 with [place] [employer] epic bioprosthesis, left atrial appendage clip at the time of AVR, angiographically normal coronary arteries on left heart catheterization done on 01/2018 chronic seizure disorders, Parkinson's disease, labile hypertension, orthostatic hypotension, hyperlipidemia, CKD, chronic mesenteric ischemia was recently discharged after placement of a right-sided dual-chamber [place] ICD. He presented yesterday after a mechanical fall. He states he was getting out of bed and tried to lean against the bed but missed the bed and slide down. He denies having any chest pain, dyspnea orthopnea, PND syncope. Does not believe he sustained any significant duties. Per patient's patient has been declining over the last 6 months with worsening weakness fatigue and falls. His device was interrogated and showed no arrhythmias. Her troponins were mildly elevated but flat at 96, 88 and 87. ECG showed AV dual paced rhythm. Again denies having any chest pain. This was a mechanical fall and no arrhythmias were noted on his device interrogation. Patient can follow-up with cardiology as an outpatient. History of Present Illness Reason for Consultation: Fall, elevated troponin, recent ICD/pacer placement Requesting Physician: Enedelia Dunn MD Attending Physician: Enedelia Dunn MD History of Present Illness 79-year-old male with PMHx significant for paroxysmal atrial arrhythmias, tachy- rob syndrome s/p dual-chamber PPM (Biotronik device; implanted 2005; generator exchange 06/2015), history of recurrent vagally mediated syncope, history of chronic seizure disorder and Parkinson's, s/p AVR (02/2018; [employer] bioprosthesis 25 mm with JEWEL clip), HTN, HLD, hypothyroidism, GERD, seasonal allergies, CKD stage II, and recent syncope secondary to monomorphic VT s/p right-sided dual-chamber PPM/ICD implanted 09/09/24 ([place]) who presented on 09/19/24 for evaluation after a fall. Ongoing weakness and ambulatory dysfunction since pacemaker implantation. He got up to use the bathroom early this morning at 4:00 am and had trouble getting his feet underneath him. He went to reach for his walker and slid backwards onto his mattress. Denies falling onto or reaching out with his right arm during the fall. Denies hitting head or loss of consciousness. Denies bleeding, bruising or discharge around right pectoral dressing. Denies presyncope symptoms prior to fall. Denies chest pressure, pain, tachy palpitations, recurrent syncope or near syncope, dyspnea on exertion, orthopnea, PND, or worsening edema. Chart, medications, and telemetry personally reviewed. Allergies Allergy/AdvReac Type Severity Reaction Status Date / Time pollen extracts Allergy Severe Sneezing Unverified 09/18/24 08:04 carbamazepine Allergy Unknown TOXIC, Verified 09/18/24 08:04 DOUBLE VISION indigotindisulfonic acid Allergy Unknown TOXIC, Verified 09/18/24 08:04 DOUBLE VISION doxazosin AdvReac Unknown BP LOSS Verified 09/18/24 08:04 nitrofurantoin AdvReac Unknown DIZZINESS Verified 09/18/24 08:04 Home Medications Medication Instructions Recorded Confirmed Type acetaminophen 325 mg tablet 650 mg PO DIRECTED PRN pain, 03/20/18 09/18/24 History (Tylenol) fever aspirin 81 mg tablet,delayed 81 mg PO QAM 03/20/18 09/18/24 History release divalproex 250 mg tablet,delayed 500 mg PO QAM 03/20/18 09/18/24 History release divalproex 250 mg tablet,delayed 750 mg PO PM 03/20/18 09/18/24 History release metoprolol succinate 100 mg 100 mg PO QAM 03/20/18 09/18/24 History tablet,extended release 24 hr (Toprol XL) multivitamin 1 tab PO QAM 03/20/18 09/18/24 History docusate sodium 100 mg capsule 100 mg PO QAM 07/10/18 09/18/24 History (Colace) levothyroxine 88 mcg tablet 88 mcg PO QAM 07/10/18 09/18/24 History spironolactone 25 mg tablet 12.5 mg PO QAM 07/10/18 09/18/24 History melatonin 5 mg tablet 5 mg PO HS 05/22/24 09/18/24 History omeprazole 20 mg capsule,delayed 20 mg PO QAM 05/22/24 09/18/24 History release carbidopa 25 mg-levodopa 100 mg 1 tab PO TIDWMEAL 09/08/24 09/18/24 History tablet furosemide 40 mg tablet 40 mg PO QAM 09/08/24 09/18/24 History sennosides 8.6 mg tablet (senna) 8.6 mg PO DAILY 09/08/24 09/18/24 History amiodarone 200 mg tablet 200 mg PO BIDM #60 tabs 09/11/24 09/18/24 Rx atorvastatin 20 mg tablet 10 mg (1/2 x 20 mg) PO DAILY #15 09/11/24 09/18/24 Rx tabs fexofenadine 180 mg tablet 180 mg PO DAILY 09/18/24 09/18/24 History Patient History Medical History (Updated 09/18/24 @ 15:01 by Forest Hogan MD) CKD (chronic kidney disease), stage III Syncope, cardiogenic 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 Wide-complex tachycardia Vasovagal syncope Bilateral edema of lower extremity Pacemaker Acute exacerbation of CHF (congestive heart failure) Hyperlipidemia Epilepsy Ichthyosis Chronic mesenteric ischemia Persistent atrial fibrillation Acute on chronic diastolic heart failure with preserved ejection fraction Anticoagulant long-term use Encounter for pre-operative examination Cardiac pacemaker Syncope Abnormal esophagram Encounter for pre-operative examination Acute kidney injury superimposed on chronic kidney disease PNA (pneumonia) Sinoatrial node dysfunction Thrombocytopenia Hypothyroidism Chronic systolic heart failure BPH (benign prostatic hyperplasia) GERD (gastroesophageal reflux disease) Dyslipidemia Aortic stenosis following with vascular surgery [facility] - last checked 02/2020 and will be checked every 6 mo Hypertension Constipation History of COVID-19 dx 03/31 - [facility]. coughing, congestion, fevers; all symptoms resolved History of syncope syncopal episode 03/2020 prior to covid diagnosis; last episode prior to 03/2020 was in 2016 pre pacemaker History of anesthesia reaction had a seizure when waking up from cholecystectomy in 1999 per pt and "was on the wrong seizure medicine, is on the right medication now and has not had any issues with any other surgeries since" Surgical History (Updated 09/18/24 @ 09:05 by ANTONIO Cohen) S/P AVR History of cholecystectomy S/P placement of cardiac pacemaker placed 2015 --biotronic- last checked 6 mo ago (to be checked 05/11/20)--follows with Dr. Ashley History of cardiac cath 01/29/18 - Dr Stephens - normal coronary arteries History of cataract extraction with lens replacement History of aortic valve replacement 02/11/18 bioprosthetic valve and left atrial appendege clip at [facility] by Dr Rachelle Stark Status post excisional debridement x3 from aortic valve incision History of colonoscopy History of esophagogastroduodenoscopy (EGD) History of phacoemulsification of cataract of both eyes with intraocular lens implantation Family History Other Cerebral aneurysm Heart disease No family history of adverse response to anesthesia Social History (Updated 09/18/24 @ 10:17 by ANTONIO Cohen) Smoking Status: Never smoker Second Hand Exposure: Yes (as a child); Do You Dip or Chew Tobacco: No; Hx Alcohol Use: No Hx Substance Use: No Preferred Language: Romanian Communication Ability: Effective Visual Impairment: No Limitations Hearing Ability: Normal Foreign Languages Professor Required: No Beliefs That Will Affect Care: None marital status: Current Living Situation: Spouse Current Living Situation Comment: Lives at home w/ Other Information That Helps Us Care for You: No Feels Safe at Home: Yes Safety Concerns: Feels Safe At This Time Assistive Devices: Oxygen - at Night and Walker Review of Systems Review of Systems: See HPI for pertinent positives. All others negative other than those noted in the HPI. CONSTITUTIONAL: +fatigue. No change in weight, No weakness, No fevers, No sweats or chills. HEENT: No visual changes, No epistaxis, No bleeding gums, No dysphagia, PULMONARY: No cough, sputum, or hemoptysis, No wheezing, No shortness of breath, and No recent change in breathing. CARDIOVASCULAR: No chest pain, No dyspnea on exertion, No edema, No palpitati ons, No syncope, No claudication, No calf pain. GASTROINTESTINAL: No change in appetite, No abdominal pain, No change in bowel habits, No significant heartburn, No nausea, No vomiting, No diarrhea, No constipation, No blood in stools or black tarry stools, No dysphagia. HEMATOLOGIC: No abnormal bleeding and No bruising. NEUROLOGICAL: No falls, No dizziness, No lightheadedness, Normal balance, No headaches, and No weakness. PSYCH: No sleep disturbances, No mood changes. Physical Exam Physical Exam: Vital signs within normal limits as above. General: Well developed and nourished. No acute distress. A+Ox3. HEENT: Normocephalic. Atraumatic. EOMI. Conjunctiva and sclera clear. NECK: Trachea midline. No thyromegaly. No carotid bruits. No JVD. Carotid upstrokes are brisk. Heart: RRR. S1 and S2 noted. Grade I/ systolic murmur No rubs or gallops. PMI non displaced. Lungs: No acute respiratory distress. Clear to auscultation. No wheezes.No rhonchi. No rales. Abdomen: Normal bowel sounds. Soft. Nontender. No abdominal bruits. Extremities: Normal capillary refill. No edema. No clubbing or cyanosis. Pulses: radial=2/4, dorsal pedis=2/4. Skin: Warm and dry. Right pectoral device pocket incision intact with ecchymosis surrounding site. No drainage, bleeding, and erythema. NEURO: No focal deficits. PSYCH: Appropriate affect and insight. Results & Data Vital Signs (Past 12 Hours) Vital Signs Temp Pulse Pulse Resp BP BP Pulse Ox 09/19/24 07:45 36.3 C L 70 16 132/79 99 09/19/24 07:44 70 09/19/24 04:10 107/62 09/19/24 03:17 36.4 C L 75 16 93/44 L 93 09/18/24 23:51 36.8 C 58 L 18 104/61 98 09/18/24 23:29 70 O2 Del Method O2 Flow Rate 09/19/24 07:45 Nasal Cannula 2 09/19/24 07:44 09/19/24 04:10 09/19/24 03:17 Nasal Cannula 2 09/18/24 23:51 Nasal Cannula 2 09/18/24 23:29 Laboratory Results Cardiac Enzymes 09/18/24 Range/Units 15:22 Troponin I High Sens 87.9 H* (0-20) pg/ml CBC 09/18/24 09/18/24 09/19/24 Range/Units 15:22 20:44 03:15 WBC 7.04 (4.8-10.8) K/ul RBC 2.86 L (4.70-6.10) M/uL Hgb 10.1 L 10.4 L 9.2 L (14.0-18.0) g/dl Hct 29.8 L 30.7 L 27.3 L (42.0-52.0) % Plt Count 79 L (130-400) K/uL Comprehensive Metabolic Panel 09/19/24 Range/Units 03:15 Sodium 136 (136-145) mmol/L Potassium 4.2 (3.5-5.1) mmol/L Chloride 101 (98-107) mmol/L Carbon Dioxide 30 (21-32) mmol/L BUN 25 H (6-23) mg/dl Creatinine 1.36 (0.6-1.4) mg/dl Glucose 82 (70-99(Fasting)) mg/dl Calcium 8.5 L (8.6-10.3) mg/dl Intake and Output 09/18/24 09/19/24 09/19/24 22:59 06:59 14:59 Intake Total 1000 / 2230 240 / 2230 Output Total 475 / 475 Balance 1000 / 1755 -235 / 1755 Intake: IV 1000 / 1500 Sodium Chloride 0.9% 500 ml @ 1000 / 1000 999 mls/hr IV .Q31M ONE Rx#: [id number] Oral 240 / 730 Output: Urine 475 / 475 Other: Weight 79.9 kg Weight Measurement Method Built in [facility] Diagnostic Findings EKG 09/19/23 V-paced 78 bpm QTc 494 ECHO 09/08/24 Left ventricular systolic function is mildly reduced LVEF = 40-45% Mild LVH Septal motion is consistent with conduction abnormality Mild mitral regurgitation Mild tricuspid regurgitation Moderate pulmonary hypertension (4) Hyperlipidemia Hyperlipidemia type: unspecified Qualified Code(s): E78.5 - Hyperlipidemia, unspecified
--- NOTE | 2024-09-19 15:25 | Hospitalist Progress Note ---
Date of Service September 19, 2024 Assessment & Plan (1) Fall against object: (2) Elevated troponin: (3) Monomorphic ventricular tachycardia: (4) Presence of combination internal cardiac defibrillator (ICD) and pacemaker: (5) Paroxysmal atrial fibrillation: (6) Seizure disorder: (7) Parkinson's disease: (8) Systolic and diastolic CHF, chronic: (9) S/P AVR: (10) Hyperlipidemia: (11) Hypothyroidism: (12) GERD (gastroesophageal reflux disease): (13) CKD (chronic kidney disease), stage III: Plan 79 year old male with PMH significant for paroxysmal A fib (not on anticoagulation), s/p AVR (2017), history of tachy-rob syndrome s/p pacemaker (2005), systolic and diastolic CHF, seizure disorder, Parkinsons disease, HLD, hypothyroidism, GERD, seasonal allergies, CKD III, and recent syncope secondary to monomorphic v tach s/p dual chamber pacemaker/ICD placement on 09/09/2024 who presented to the ED this morning after suffering a fall at home around 0400. Fall Contusion Left abdominal wall Hematoma Rib Fractures Patient fell into bedside table while trying to get out of bed to go to the bathroom Seems to be mechanical per patient history but consider arrhythmia in setting of new ICD and seizure disorder as differentials pacemaker interrogation ordered check Orthostatic VS Scans all negative for acute injury except rib series noting "Acute fracture left 11th rib with no pneumothorax" and "possible acute nondisplaced fracture distally at the left 12th rib." Pain control, incentive spirometer, ice packs PT/OT consults hold ASA Continue to monitor DECONDITIONING GENERALIZED WEAKNESS AMBULATORY DYSFUNCTION PT/OT evaluation Boost TID History of monomorphic v tach s/p pacemaker/ICD s/p right sided dual chamber [place] pacemaker/ICD on 09/09/2024 Interrogation ordered - Cardiology consult if any significant finding Monitor telemetry closely for arrhythmias Continue amiodarone Elevated troponin Likely due to traumatic fall Initial 96 downtrended to 88 Recheck at 1400 Leukocytosis Likely due to traumatic fall Mild elevation to [address] abdomen negative for infectious processes UA unremarkable Patient denies s/s of infection Monitor CBC in am PAF Continue metoprolol Eliquis was stopped last admission due to risk of fall Seizure disorder Continue valproic acid Drug level therapeutic Parkinson's disease Continue sinemet Systolic and diastolic CHF Echo 09/08/2024 revealed LVEF 40-45%, mild concentric LVH, septal motion consistent with conduction abnormality, mild mitral regurgitation, mild tricuspid regurgitation Continue metoprolol, furosemide, spironolactone Lisinopril was stopped last admission due to hypotension s/p AVR Hold baby aspirin in setting of hematoma Hyperlipidemia Continue atorvastatin Hypothyroidism Continue levothyroxine GERD Continue omeprazole Seasonal allergies Continue akshat CKD III Creat 1.4 (at baseline per record review) Stable Pulmonary nodule Small left nodule noted on CT chest Follow up chest CT recommended in 6 months Pt's notes that this is already scheduled DVT Prophylaxis: SCDs for now Code Status: DNR/DNI PCP: Dom Underwood Disposition: admit to PCU Patient seen in collaboration with Dr Chavez. Please see addendum. I spent a total of 70 minutes coordinating, documenting and providing care for this patient excluding time spent in the performance of separately billed services or time spent by another provider/QHP. Admission and Anticipated Discharge Date Admission Date: September 18, 2024 Subjective Pt was seen in the AM with at bedside Noted that pain was finally under control and he was comfortable Denied SOB or chest tightness per nursing cough better Review of Systems Review of Systems: All systems reviewed & are unremarkable except as noted in Subjective Physical Exam Physical Exam: General: Alert, oriented. No acute distress Skin: bruising on left flank under binder HEENT: NC/AT CV: RRR Resp: no increased effort of breathing Abdomen: Soft, nontender Extremities: Trace edema in lower extremities bilaterally. Results & Data Results & Data Vital Signs (Past 12 Hours) Vital Signs Temp Pulse Pulse Resp BP BP Pulse Ox 09/19/24 14:56 36.9 C 59 L 19 100/62 96 09/19/24 10:56 36.8 C 70 16 108/61 96 09/19/24 07:45 36.3 C L 70 16 132/79 99 09/19/24 07:44 70 09/19/24 04:10 107/62 09/19/24 03:17 36.4 C L 75 16 93/44 L 93 O2 Del Method O2 Flow Rate 09/19/24 14:56 Room Air 09/19/24 10:56 Nasal Cannula 2 09/19/24 07:45 Nasal Cannula 2 09/19/24 07:44 09/19/24 04:10 09/19/24 03:17 Nasal Cannula 2 (7) Parkinson's disease Dyskinesia presence: unspecified whether dyskinesia Fluctuating manifestations: unspecified whether manifestations fluctuate Qualified Code(s): G20.A1 - Parkinson's disease without dyskinesia, without mention of fluctuations (10) Hyperlipidemia Hyperlipidemia type: unspecified Qualified Code(s): E78.5 - Hyperlipidemia, unspecified (11) Hypothyroidism Hypothyroidism type: unspecified Qualified Code(s): E03.9 - Hypothyroidism, unspecified
[2024-09-20 04:46] LABS: Hemoglobin 8.7 g/dl (14.0-18.0); Mean Corpuscular Hgb Conc 33.5 g/dL (32.0-36.0); Mean Corpuscular Volume 95.6 fL (80.0-100.0); Mean Platelet Volume 10.2 fL (9.4-12.4); Platelet Count 93 K/uL (130-400); RDW Standard Deviation 55.8 fL (36.4-46.3); Red Blood Count 2.72 M/uL (4.70-6.10); White Blood Count 5.94 K/ul (4.8-10.8)
[2024-09-20 05:38] LABS: Albumin Level 2.8 gm/dl (3.4-5.0); Anion Gap 3 (3-11); Bilirubin,Total 0.4 mg/dl (0.2-1.0); Calcium 8.5 mg/dl (8.6-10.3); Carbon Dioxide 30 mmol/L (21-32); Chloride 101 mmol/L (98-107); Magnesium 1.8 mg/dl (1.7-2.4); Potassium 4.3 mmol/L (3.5-5.1); Sodium 134 mmol/L (136-145)
[2024-09-20 05:51] LABS: Alanine Aminotransferase < 3 U/L (7-52); Albumin Globulin Ratio 1.1 (0.9-2); Alkaline Phosphatase 94 U/L (34-104); Aspartate Aminotransferase 36 U/L (13-39); BUN Creatinine Ratio 22.3 (10-20); Blood Urea Nitrogen 23 mg/dl (6-23); Creatinine Clr Calc Pharmacy 62.2 ml/min; Globulin 2.6 gm/dl (2.5-4.0); Glucose 95 mg/dl (70-99(Fasting)); Total Protein 5.4 gm/dl (6.0-8.3)
--- NOTE | 2024-09-20 11:18 | Hospitalist Progress Note ---
Date of Service September 20, 2024 Assessment & Plan (1) Fall against object: (2) Elevated troponin: (3) Monomorphic ventricular tachycardia: (4) Presence of combination internal cardiac defibrillator (ICD) and pacemaker: (5) Paroxysmal atrial fibrillation: (6) Seizure disorder: (7) Parkinson's disease: (8) Systolic and diastolic CHF, chronic: (9) Hyperlipidemia: (10) CKD (chronic kidney disease), stage III: Plan 79 year old male with PMH significant for paroxysmal A fib (not on anticoagulation), s/p AVR (2017), history of tachy-rob syndrome s/p pacemaker (2005), systolic and diastolic CHF, seizure disorder, Parkinsons disease, HLD, hypothyroidism, GERD, seasonal allergies, CKD III, and recent syncope secondary to monomorphic v tach s/p dual chamber pacemaker/ICD placement on 09/09/2024 who presented to the ED this morning after suffering a fall at home around 0400. Fall Contusion Left abdominal wall Hematoma Rib Fractures Patient fell into bedside table while trying to get out of bed to go to the bathroom Seems to be mechanical per patient history but consider arrhythmia in setting of new ICD and seizure disorder as differentials pacemaker interrogation ordered check Orthostatic VS Scans all negative for acute injury except rib series noting "Acute fracture left 11th rib with no pneumothorax" and "possible acute nondisplaced fracture distally at the left 12th rib." Pain control, incentive spirometer, ice packs PT/OT consults hold ASA Continue to monitor DECONDITIONING GENERALIZED WEAKNESS AMBULATORY DYSFUNCTION PT/OT evaluation Boost TID History of monomorphic v tach s/p pacemaker/ICD s/p right sided dual chamber [place] pacemaker/ICD on 09/09/2024 Interrogation ordered Monitor on telemetry closely for arrhythmias Continue amiodarone Cardiology consulted, appreciate recs- outpt followup, fall mechanical, not cardiac related Elevated troponin Likely due to traumatic fall Initial 96 downtrended to 88 Recheck at 1400 Leukocytosis Likely due to traumatic fall Mild elevation to [address] abdomen negative for infectious processes UA unremarkable Patient denies s/s of infection Monitor CBC in am PAF Continue metoprolol Eliquis was stopped last admission due to risk of fall Seizure disorder Continue valproic acid Drug level therapeutic Parkinson's disease Continue sinemet Systolic and diastolic CHF Echo 09/08/2024 revealed LVEF 40-45%, mild concentric LVH, septal motion consiste nt with conduction abnormality, mild mitral regurgitation, mild tricuspid regurgitation Continue metoprolol, furosemide, spironolactone Lisinopril was stopped last admission due to hypotension s/p AVR Hold baby aspirin in setting of hematoma Hyperlipidemia Continue atorvastatin Hypothyroidism Continue levothyroxine GERD Continue omeprazole Seasonal allergies Continue akshat CKD III Creat 1.4 (at baseline per record review) Stable Pulmonary nodule Small left nodule noted on CT chest Follow up chest CT recommended in 6 months Pt's notes that this is already scheduled DVT Prophylaxis: SCDs for now Code Status: DNR/DNI PCP: Dom Underwood Disposition: admit to PCU Patient seen in collaboration with Dr Chavez. Please see addendum. I spent a total of 70 minutes coordinating, documenting and providing care for this patient excluding time spent in the performance of separately billed services or time spent by another provider/QHP. Admission and Anticipated Discharge Date Admission Date: September 18, 2024 Subjective Pt was seen in the AM AAOx3 States he only has pain with movement No longer coughing Review of Systems Review of Systems: All systems reviewed & are unremarkable except as noted in Subjective Physical Exam Physical Exam: General: Alert, oriented. No acute distress Skin: bruising on left flank under binder HEENT: NC/AT CV: RRR Resp: no increased effort of breathing Abdomen: Soft, nontender Extremities: Trace edema in lower extremities bilaterally. Results & Data Results & Data Vital Signs (Past 12 Hours) Vital Signs Temp Pulse Pulse Resp BP Pulse Ox O2 Del Method 09/20/24 07:37 36.3 C L 69 18 117/76 97 Room Air 09/20/24 04:20 36.6 C 70 16 133/73 97 Room Air 09/20/24 00:47 70 09/19/24 23:32 36.5 C 73 16 121/72 94 Room Air (7) Parkinson's disease Dyskinesia presence: unspecified whether dyskinesia Fluctuating manifestations: unspecified whether manifestations fluctuate Qualified Code(s): G20.A1 - Parkinson's disease without dyskinesia, without mention of fluctuations (9) Hyperlipidemia Hyperlipidemia type: unspecified Qualified Code(s): E78.5 - Hyperlipidemia, unspecified
[2024-09-21 05:35] LABS: Hematocrit (blood only) 26.9 % (42.0-52.0); Hemoglobin 9.1 g/dl (14.0-18.0); Mean Corpuscular Hemoglobin 31.9 pg (25.0-34.0); Mean Corpuscular Hgb Conc 33.8 g/dL (32.0-36.0); Mean Corpuscular Volume 94.4 fL (80.0-100.0); Mean Platelet Volume 10.2 fL (9.4-12.4); Platelet Count 124 K/uL (130-400); RDW Standard Deviation 55.5 fL (36.4-46.3); Red Blood Count 2.85 M/uL (4.70-6.10); White Blood Count 5.96 K/ul (4.8-10.8)
[2024-09-21 05:52] LABS: Anion Gap 5 (3-11); BUN Creatinine Ratio 18.1 (10-20); Blood Urea Nitrogen 23 mg/dl (6-23); Calcium 8.7 mg/dl (8.6-10.3); Carbon Dioxide 32 mmol/L (21-32); Chloride 100 mmol/L (98-107); Creatinine Clr Calc Pharmacy 50.4 ml/min; Glucose 82 mg/dl (70-99(Fasting)); Potassium 4.2 mmol/L (3.5-5.1); Sodium 137 mmol/L (136-145)
[2024-09-21 10:47] LABS: Alanine Aminotransferase < 3 U/L (7-52); Albumin Level 2.9 gm/dl (3.4-5.0); Alkaline Phosphatase 92 U/L (34-104); Aspartate Aminotransferase 30 U/L (13-39); Bilirubin,Total 0.4 mg/dl (0.2-1.0); Globulin 2.9 gm/dl (2.5-4.0); Magnesium 1.7 mg/dl (1.7-2.4); Total Protein 5.8 gm/dl (6.0-8.3)
--- NOTE | 2024-09-21 12:36 | Hospitalist Progress Note ---
Date of Service September 21, 2024 Assessment & Plan (1) Fall against object: (2) Elevated troponin: (3) Monomorphic ventricular tachycardia: (4) Presence of combination internal cardiac defibrillator (ICD) and pacemaker: (5) Paroxysmal atrial fibrillation: (6) Seizure disorder: (7) Parkinson's disease: (8) Systolic and diastolic CHF, chronic: (9) Hyperlipidemia: (10) CKD (chronic kidney disease), stage III: Plan 79 year old male with PMH significant for paroxysmal A fib (not on anticoagulation), s/p AVR (2017), history of tachy-rob syndrome s/p pacemaker (2005), systolic and diastolic CHF, seizure disorder, Parkinsons disease, HLD, hypothyroidism, GERD, seasonal allergies, CKD III, and recent syncope secondary to monomorphic v tach s/p dual chamber pacemaker/ICD placement on 09/09/2024 who presented to the ED this morning after suffering a fall at home around 0400. Fall Contusion Left abdominal wall Hematoma Rib Fractures Patient fell into bedside table while trying to get out of bed to go to the bathroom Seems to be mechanical per patient history but consider arrhythmia in setting of new ICD and seizure disorder as differentials pacemaker interrogation ordered check Orthostatic VS Scans all negative for acute injury except rib series noting "Acute fracture left 11th rib with no pneumothorax" and "possible acute nondisplaced fracture distally at the left 12th rib." Pain control, incentive spirometer, ice packs PT/OT consults hold ASA Continue to monitor DECONDITIONING GENERALIZED WEAKNESS AMBULATORY DYSFUNCTION PT/OT evaluation Boost TID Left arm Abrasions Wound care consult mupirocin BID History of monomorphic v tach s/p pacemaker/ICD s/p right sided dual chamber [place] pacemaker/ICD on 09/09/2024 Interrogation ordered Monitor on telemetry closely for arrhythmias Continue amiodarone Cardiology consulted, appreciate recs- outpt followup, fall mechanical, not cardiac related Elevated troponin Likely due to traumatic fall Initial 96 downtrended to 88 Recheck at 1400 Leukocytosis Likely due to traumatic fall Mild elevation to [address] abdomen negative for infectious processes UA unremarkable Patient denies s/s of infection Monitor CBC in am PAF Continue metoprolol Eliquis was stopped last admission due to risk of fall Seizure disorder Continue valproic acid Drug level therapeutic Parkinson's disease Continue sinemet Systolic and diastolic CHF Echo 09/08/2024 revealed LVEF 40-45%, mild concentric LVH, septal motion consistent with conduction abnormality, mild mitral regurgitation, mild tricuspid regurgitation Continue metoprolol, furosemide, spironolactone Lisinopril was stopped last admission due to hypotension s/p AVR Hold baby aspirin in setting of hematoma Hyperlipidemia Continue atorvastatin Hypothyroidism Continue levothyroxine GERD Continue omeprazole Seasonal allergies Continue akshat CKD III Creat 1.4 (at baseline per record review) Stable Pulmonary nodule Small left nodule noted on CT chest Follow up chest CT recommended in 6 months Pt's notes that this is already scheduled DVT Prophylaxis: SCDs for now Code Status: DNR/DNI PCP: Dom Underwood Disposition: admit to PCU Patient seen in collaboration with Dr Chavez. Please see addendum. I spent a total of 70 minutes coordinating, documenting and providing care for this patient excluding time spent in the performance of separately billed services or time spent by another provider/QHP. Admission and Anticipated Discharge Date Admission Date: September 18, 2024 Subjective pt was seen with and wound care at bedside Denied acute concerns abrasions on left arm Review of Systems Review of Systems: All systems reviewed & are unremarkable except as noted in Subjective Physical Exam Physical Exam: General: Alert, oriented. No acute distress Skin: bruising on left shoulder, flank under binder, left arm with abrasion HEENT: NC/AT CV: RRR Resp: no increased effort of breathing Abdomen: Soft, nontender Extremities: Trace edema in lower extremities bilaterally. Results & Data Results & Data Vital Signs (Past 12 Hours) Vital Signs Temp Pulse Resp BP BP Pulse Ox O2 Del Method 09/21/24 11:00 36.5 C 74 16 119/63 97 Room Air 09/21/24 08:19 36.6 C 81 18 95/54 L 96 Room Air 09/21/24 04:28 36.5 C 67 16 119/65 94 Room Air (7) Parkinson's disease Dyskinesia presence: unspecified whether dyskinesia Fluctuating manifestations: unspecified whether manifestations fluctuate Qualified Code(s): G20.A1 - Parkinson's disease without dyskinesia, without mention of fluctuations (9) Hyperlipidemia Hyperlipidemia type: unspecified Qualified Code(s): E78.5 - Hyperlipidemia, unspecified
--- NOTE | 2024-09-21 17:01 | Cardiology Progress Note ---
Date of Service September 21, 2024 Assessment & Plan (1) Fall against object: (2) Elevated troponin: (3) Persistent atrial fibrillation: (4) Hyperlipidemia: Plan Patient readmitted with mechanical fall. Right sided device pocket Dressing was removed revealing a stable degree of ecchymosis. Incision is well-approximated. No erythema. Device was interrogated on 09/19/2024 with the assistance of the [place] rep revealing normal device function, no arrhythmia events, parameters are within normal limits biventricular paced 99% the time and patient remains in sinus rhythm. Patient admitted earlier this month with syncope, sustained VT for which patient underwent emergent cardioversion on 09/08/24. * flecainide stopped. Last dose of flecainide was amt of 09/08. 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 HAS HISTORY OF SURGICAL LEFT ATRIAL APPENDAGE LIGATION , WELL PARKINSON'S , SEIZURE DISORDER, AND GAIT INSTABILITY , WALKS WITH WALKER. IF DEVELOPS RECURRENT ATRIAL FIBRILLATION REQUIRING CARDIOVERSION, CONSIDER BONG AND RESUMING ANTICOAGULATION NEEDED. Patient missed his outpatient wound check scheduled for today, so I performed it. Device was interrogated on 09/19/24. Kvng Davis DO Admission and Anticipated Discharge Date Admission Date: September 18, 2024 Subjective Patient seen in cardiology follow up. Spouse and son are at the bedside. No acute cardiac complaints. Physical Exam Constitutional: well developed Eyes: PERRL, conjunctivae normal, anicteric sclerae Neck: trachea midline, no thyromegaly Respiratory: normal respiratory effort, lungs clear to auscultation Cardiovascular: Rate/Rhythm: + irregularly irregular Heart Sounds: no murmur Vessels: no JVD Extremities: no edema Chest (Breasts): Chest: + pacemaker (right infraclavicular device pocket, dressing removed, mild ecchymosis) Gastrointestinal (Abdomen): normal bowel sounds, soft, nontender, no hepatosplenomegaly Results & Data Vital Signs (Past 12 Hours) Vital Signs Temp Pulse Resp BP Pulse Ox O2 Del Method 09/21/24 11:00 36.5 C 74 16 119/63 97 Room Air 09/21/24 08:19 36.6 C 81 18 95/54 L 96 Room Air (4) Hyperlipidemia Hyperlipidemia type: unspecified Qualified Code(s): E78.5 - Hyperlipidemia, unspecified
[2024-09-21] MEDS: MUPIROCIN 2% OINT 22 GM TUBE EXT SCH (19:30)
[2024-09-22 06:07] LABS: Basophils # (auto) 0.04 K/uL (0.00-0.20); Basophils % (auto) 0.6 %; Eosinophils # (auto) 0.59 K/uL (0.00-0.50); Eosinophils % (auto) 9.1 %; Hematocrit (blood only) 27.8 % (42.0-52.0); Hemoglobin 9.1 g/dl (14.0-18.0); Immature Granulocytes # (auto) 0.06 K/uL (0.01-0.20); Immature Granulocytes % (auto) 0.9 %; Lymphocytes % (auto) 18.5 %; Mean Corpuscular Hemoglobin 31.8 pg (25.0-34.0); Mean Corpuscular Hgb Conc 32.7 g/dL (32.0-36.0); Mean Corpuscular Volume 97.2 fL (80.0-100.0); Mean Platelet Volume 9.9 fL (9.4-12.4); Monocytes # (auto) 0.82 K/uL (0.11-0.59); Monocytes % (auto) 12.6 %; Neutrophils # (auto) 3.79 K/uL (1.40-6.50); Neutrophils % (auto) 58.3 %; Nucleated RBC # (auto) 0.03 K/uL (0.00-0.12); Nucleated RBC % (auto) 0.5 %; Platelet Count 145 K/uL (130-400); RDW Coefficient of Variation 16.2 % (11.5-14.5); RDW Standard Deviation 57.1 fL (36.4-46.3); Red Blood Count 2.86 M/uL (4.70-6.10)
[2024-09-22 06:20] LABS: Albumin Globulin Ratio 0.9 (0.9-2); Albumin Level 2.8 gm/dl (3.4-5.0); BUN Creatinine Ratio 21.2 (10-20); Bilirubin,Total 0.5 mg/dl (0.2-1.0); Calcium 8.7 mg/dl (8.6-10.3); Magnesium 1.7 mg/dl (1.7-2.4); Phosphorus 3.7 mg/dl (2.5-4.9); Potassium 4.2 mmol/L (3.5-5.1); Total Protein 5.8 gm/dl (6.0-8.3)
--- NOTE | 2024-09-22 10:49 | Hospitalist Progress Note ---
Date of Service September 22, 2024 Assessment & Plan (1) Fall against object: (2) Elevated troponin: (3) Monomorphic ventricular tachycardia: (4) Presence of combination internal cardiac defibrillator (ICD) and pacemaker: (5) Paroxysmal atrial fibrillation: (6) Seizure disorder: (7) Parkinson's disease: (8) Systolic and diastolic CHF, chronic: (9) Hyperlipidemia: (10) CKD (chronic kidney disease), stage III: Plan 79 year old male with PMH significant for paroxysmal A fib (not on anticoagulation), s/p AVR (2017), history of tachy-rob syndrome s/p pacemaker (2005), systolic and diastolic CHF, seizure disorder, Parkinsons disease, HLD, hypothyroidism, GERD, seasonal allergies, CKD III, and recent syncope secondary to monomorphic v tach s/p dual chamber pacemaker/ICD placement on 09/09/2024 who presented to the ED this morning after suffering a fall at home around 0400. Fall Contusion Left abdominal wall Hematoma Rib Fractures Patient fell into bedside table while trying to get out of bed to go to the bathroom Seems to be mechanical per patient history but consider arrhythmia in setting of new ICD and seizure disorder as differentials pacemaker interrogation ordered check Orthostatic VS Scans all negative for acute injury except rib series noting "Acute fracture left 11th rib with no pneumothorax" and "possible acute nondisplaced fracture distally at the left 12th rib." Pain control, incentive spirometer, ice packs PT/OT consults hold ASA Continue to monitor DECONDITIONING GENERALIZED WEAKNESS AMBULATORY DYSFUNCTION PT/OT evaluation Boost TID Left arm Abrasions Wound care consult mupirocin BID History of monomorphic v tach s/p pacemaker/ICD s/p right sided dual chamber [place] pacemaker/ICD on 09/09/2024 Interrogation ordered Monitor on telemetry closely for arrhythmias Continue amiodarone Cardiology consulted, appreciate recs- outpt followup, fall mechanical, not cardiac related Elevated troponin Likely due to traumatic fall Initial 96 downtrended to 88 Recheck at 1400 Leukocytosis Likely due to traumatic fall Mild elevation to [address] abdomen negative for infectious processes UA unremarkable Patient denies s/s of infection Monitor CBC in am PAF Continue metoprolol Eliquis was stopped last admission due to risk of fall Seizure disorder Continue valproic acid Drug level therapeutic Parkinson's disease Continue sinemet Systolic and diastolic CHF Echo 09/08/2024 revealed LVEF 40-45%, mild concentric LVH, septal motion consistent with conduction abnormality, mild mitral regurgitation, mild tricuspid regurgitation Continue metoprolol, furosemide, spironolactone Lisinopril was stopped last admission due to hypotension s/p AVR Hold baby aspirin in setting of hematoma Hyperlipidemia Continue atorvastatin Hypothyroidism Continue levothyroxine GERD Continue omeprazole Seasonal allergies Continue akshat CKD III Creat 1.4 (at baseline per record review) Stable Pulmonary nodule Small left nodule noted on CT chest Follow up chest CT recommended in 6 months Pt's notes that this is already scheduled DVT Prophylaxis: SCDs for now Code Status: DNR/DNI PCP: Dom Underwood Admission and Anticipated Discharge Date Admission Date: September 18, 2024 Subjective Pt was seen in the AM at bedside No acute concerns notes pain after working with PT the day before and trying to get back into bed Review of Systems Review of Systems: All systems reviewed & are unremarkable except as noted in Subjective Physical Exam Physical Exam: General: Alert, oriented. No acute distress Skin: bruising on left shoulder, flank under binder, left arm with abrasion HEENT: NC/AT CV: RRR Resp: no increased effort of breathing Abdomen: Soft, nontender Extremities: Trace edema in lower extremities bilaterally. Results & Data Results & Data Vital Signs (Past 12 Hours) Vital Signs Temp Pulse Pulse Resp BP Pulse Ox O2 Del Method 09/22/24 08:13 36.5 C 70 16 132/76 94 Room Air 09/22/24 08:00 70 09/22/24 03:59 36.9 C 70 18 132/81 97 Room Air 09/22/24 01:28 Room Air 09/22/24 00:00 70 09/21/24 23:46 36.4 C L 68 18 111/69 99 Room Air (7) Parkinson's disease Dyskinesia presence: unspecified whether dyskinesia Fluctuating manifestations: unspecified whether manifestations fluctuate Qualified Code(s): G20.A1 - Parkinson's disease without dyskinesia, without mention of fluctuations (9) Hyperlipidemia Hyperlipidemia type: unspecified Qualified Code(s): E78.5 - Hyperlipidemia, unspecified
[2024-09-23 04:04] VITALS: RESP 18
[2024-09-23 05:28] LABS: Basophils # (auto) 0.02 K/uL (0.00-0.20); Basophils % (auto) 0.3 %; Eosinophils # (auto) 0.44 K/uL (0.00-0.50); Eosinophils % (auto) 6.1 %; Hematocrit (blood only) 28.6 % (42.0-52.0); Hemoglobin 9.5 g/dl (14.0-18.0); Immature Granulocytes # (auto) 0.07 K/uL (0.01-0.20); Lymphocytes # (auto) 1.12 K/uL (1.20-3.40); Lymphocytes % (auto) 15.6 %; Mean Corpuscular Hemoglobin 31.8 pg (25.0-34.0); Mean Corpuscular Hgb Conc 33.2 g/dL (32.0-36.0); Mean Corpuscular Volume 95.7 fL (80.0-100.0); Mean Platelet Volume 9.6 fL (9.4-12.4); Monocytes % (auto) 11.2 %; Neutrophils # (auto) 4.71 K/uL (1.40-6.50); Neutrophils % (auto) 65.8 %; Nucleated RBC # (auto) 0.06 K/uL (0.00-0.12); Nucleated RBC % (auto) 0.8 %; Platelet Count 159 K/uL (130-400); RDW Coefficient of Variation 16.1 % (11.5-14.5); RDW Standard Deviation 56.4 fL (36.4-46.3); Red Blood Count 2.99 M/uL (4.70-6.10); White Blood Count 7.16 K/ul (4.8-10.8)
[2024-09-23 05:47] LABS: Albumin Globulin Ratio 0.9 (0.9-2); Albumin Level 2.9 gm/dl (3.4-5.0); BUN Creatinine Ratio 23.3 (10-20); Bilirubin,Total 0.5 mg/dl (0.2-1.0); Calcium 8.9 mg/dl (8.6-10.3); Creatinine Clr Calc Pharmacy 49.4 ml/min; Globulin 3.1 gm/dl (2.5-4.0); Magnesium 1.8 mg/dl (1.7-2.4); Phosphorus 3.8 mg/dl (2.5-4.9); Potassium 3.9 mmol/L (3.5-5.1)
[2024-09-23 07:04] VITALS: PULSE 70
[2024-09-23 08:14] VITALS: TEMP 97.3; O2SAT 94
--- NOTE | 2024-09-23 10:39 | Operative Report ---
Post Operative Report DATE OF PROCEDURE: 09/09/2024 PREOPERATIVE DIAGNOSES: VT, TBS h/o left sided dual ppm, NICM, Chronic heart failure with preserved EF-NYHA Class II POSTOPERATIVE DIAGNOSIS: Same plus left subclavian vein occlusion PROCEDURE: A BiV rate responsive implantable cardiac defibrillator, along with b/l peripheral venogram under fluoroscopic guidance. SURGEON: Julienne Simons DO ASSISTANTS: None. ANESTHESIA: Monitored conscious sedation administered under my supervision by No Ellis. Start time 12;47, end time 14:48, a total of 5 mg of Versed and 100 mcg of fentanyl. INTRAVENOUS FLUIDS: 0 mL. CONTRAST: 24 mL. ANTIBIOTICS: 2 grams of Ancef. ADDITIONAL MEDICATIONS: None BLOOD LOSS: 50 mL. URINE OUTPUT: Not applicable. SPECIMENS: None. FINDINGS: See below. DRAINS: None. COMPLICATIONS: None. CONDITION: Stable. INDICATIONS: This is a 79-year-old gentleman who has a past medical history paroxysmal AFIB, tachy-rob syndrome s/p dual-chamber PPM (Biotronik device; implanted 2005; generator exchange 06/2015), history of recurrent vagally mediated syncope, history of chronic seizure disorder and Parkinson's, s/p AVR (02/2018; [employer] bioprosthesis 25 mm with JEWEL clip). He was admitted to [facility] due to syncope from VT and recommended an upgrade to a BiV ICD. A formal shared decision making process was performed with Tariq Fischer at the office visit utilizing the IDECIDE ICD evidence based tool from [employer] [place] [employer] for Patient Centered Decisions. The discussion that followed was collaborative: detailing the information, risks, and benefits provided by the tool. We also discussed the values and preferences of Tariq Fischer to build a consensus regarding the preferred treatment plan. A decision was reached to proceed with upgrade to a BiV ICD. CONSENT: Consent was obtained prior to the patient going into the electroph ysiology lab. The patient was informed of the risks, benefits, and alternatives to the procedure. Risks include, but not limited to, sudden cardiac , cardiac arrhythmias, cerebrovascular accident, myocardial infarction, injury to his blood vessels, chamber of the heart and lung, bleeding and infection. The patient understood these risks and agreed to the procedure as planned. Informed consent was obtained. DESCRIPTION OF PROCEDURE: The patient was brought into electrophysiology lab in a fasting state. He was connected to continuous cardiac monitoring. A timeout was performed to ensure the patient's identity and procedure correctly. Then a peripheral venogram was performed prior to draping the patient on the left side where it was found that the left subclavian venous system was occluded. So a right sided peripheral venogram was performed and this was patent. He was prepped and draped in the right infraclavicular space in normal surgical standard fashion. Monitored conscious sedation was given throughout the procedure for the patient's comfort level. [place] precautions were maintained throughout the procedure. Prophylactic antibiotics were given prior to incision. A 20 mL of 1% lidocaine and bupivacaine mixture were given in the right deltopectoral groove. An incision was made in the right deltopectoral groove. Blunt dissection was performed down to the pectoralis muscle. Then, using blunt dissection over the pectoralis muscle within the pectoral fascia, a pacemaker pocket was created. Then, a peripheral venogram was performed to identify the axillary vein. Venous axillary access was obtained through a needlestick without any problems. A guidewire was inserted without any resistance. Then a second more medial venous axillary access was obtained without any problems and the guidewire was inserted without any resistance. A 6-Ukrainian sheath was inserted over the more lateral guidewire without any resistance. Dilator was removed and a second guidewire was inserted through the sheath to allow for retained venous access. Then a 7 Ukrainian sheath was advanced over one of the more lateral guidewires. The guidewire and dilator were removed. Then the defibrillator lead was advanced through the 7 Ukrainian sheath into the RV and positioned into the RV apex under fluoroscopic guidance. The screw was extended. There was adequate pacing and sensing. There was no diaphragmatic stimulation with high out put pacing. The 7 Ukrainian sheath was peeled away and the lead was fixated to the pectoralis muscle using 0 silk suture. Then a 9 Ukrainian sheath was inserted over the more medial guidewire. The guidewire and dilator were removed. Then, the [employer] Halftone Operator 3D medium sheath was inserted through the 9-Ukrainian sheath over a Glidewire into the right ventricle. The Glidewire and dilator were removed. Then, the left bundle lead was advanced through the sheath and intracardiac electrogram His bundle recordings were estimated. Once I had an idea where the His bundle I then moved the camera to CORADO 30 and marked where the His bundle estimation was on my fluoroscopy screen. I came down about 2 cm from this in a line that would extend out to the apex and then started coming on pacing. Once I found an area where I had a nice W formed pace complex in my lead V1, I then moved the camera to LYNETTE 40. Then the helix was extended into the septum. Then the helix locking tool was placed. Then the lead was screwed further into the septum while pacing by giving slow clockwise turns. The paced complex changed to a nice R' in V1 and the pacing stim to peak QRS in V6 was good. I then gave contrast through the sheath to see how far the lead was into the septum and then I slit the [place] Halftone Operator 3D large sheath under fluoroscopic guidance and left the 9-Ukrainian sheath in while I positioned the right atrial lead. A 6-Ukrainian sheath was inserted over the retained guidewire in the more lateral access, the guidewire and dilator removed. The right atrial lead was then advanced into right atrium and positioned into right atrial appendage under fluoroscopic guidance. There was adequate pacing and sensing thresholds and no diaphragmatic stimulation with high output pacing. The 6-Ukrainian sheath was peeled away and the lead was fixated to the pectoralis muscle using 0 silk suture. The 9-Ukrainian sheath around the left bundle lead was peeled away and the lead was fixated to pectoralis muscle using 0 silk suture. The pocket was flushed with copious amounts of vancomycin and saline wash and inspected for hemostasis. The leads were then attached to the pulse generator making sure the pins were in appropriate position, passed set screws, and set screws were all tightened. Pulse generator was then placed in the pocket, making sure the leads were lying flat beneath the device. The incision was closed in a 3-layer fashion using 2-0 Vicryl interrupted suture, followed by 3-0 Vicryl interrupted suture, followed by 4-0 Monocryl running stitch. Then a primaseal dressing was placed EQUIPMENT: 1. Pulse generator is a [employer] Super Model Number [id number] SN: [id number] 2. Right atrial lead, [facility] Ultipace [id number] SN: [id number] 3. Defibrillator Lead; [facility] Durata [id number] SN: [id number] 4. Left bundle lead, [facility] Ulitpace [id number] SN: [id number] INTRAPROCEDURAL FINDINGS: 1. Right atrial lead, P waves 2 millivolts, impedance 580 ohms, threshold 1.2 volts at 0.5 milliseconds. 2. Defibrillator Lead: R waves 8.4mV; impedance 610 ohms; threshold 0.8V @ 0.5ms 4. Left bundle lead, R waves 7.5 millivolts, impedance 710 ohms, threshold 2.2 volts at 0.5 milliseconds. FINAL MEASUREMENTS THROUGH THE DEVICE: 1. Right atrial lead, P waves 1.6 millivolts, impedance 580 ohms, threshold 1.3 volt at 0.5 milliseconds. 2. Defibrillator Lead: R waves 9mV; impedance 530 ohms; threshold 1.0V @ 0.5ms 2. Left bundle lead, impedance 690 ohms, threshold 1.5 volts at 0.5 milliseconds. FINAL PARAMETERS: DDDR 70/115, right atrial and right ventricular (defibrillator lead) amplitude 3.5 volts, pulse width 0.5 milliseconds, sensitivity 0.3mV. Left bundle lead amplitude 3.5volts, pulse width 0.5 milliseconds, IMPRESSION: Successful Bi Ventricular rate responsive implantable cardiac defibrillator under fluoroscopic guidance along with peripheral venogram all under fluoroscopic guidance secondary to Sustained VT, NICM, TBS s/p left sided ppm with occluded left subclavian venous system, chronic heart failure with reduced EF, NYHA Class II PLAN: Monitor the patient post-procedure. A 12-lead ECG, chest x-ray. He is not to lift the left elbow or left shoulder for 1 month. He cannot lift more than 10 pounds with the left arm for 2 weeks. He is to keep the dressing on and dry until his wound check next week.
[2024-09-23 11:49] VITALS: BP 95/59
--- NOTE | 2024-09-23 11:49 | Discharge Summary ---
Date of Service September 23, 2024 Admission HPI Per Admitting Provider 79 year old male with PMH significant for paroxysmal A fib (not on anticoagulation), s/p AVR (2018), history of tachy-rob syndrome s/p pacemaker (2005), systolic and diastolic CHF, seizure disorder, Parkinsons disease, HLD, hypothyroidism, GERD, seasonal allergies, CKD III, and recent syncope secondary to monomorphic v tach s/p dual chamber pacemaker/ICD placement on 09/09/2024 who presented to the ED this morning after suffering a fall at home around 0400. Patient reports he woke up and was getting out of bed to go to the bathroom. He recalls sitting on the edge of the bed and when he went to get up and reach for his walker, he fell backwards into the bedside table. His reports she heard him yell out and crash into the table. He is not on anticoagulation. He denies hitting his head. He denies any dizziness or lightheadedness prior to the fall. He and his do not believe this was a syncopal episode nor seizure. His reports that since being discharged last week, he had been getting progressively stronger with ambulation. She was previously helping him to the bathroom in the middle of the night, but hasn't needed to help him the last few nights because he was doing well ambulating independently with his walker. Patient has been compliant with the medication changes made last week during his admission. He reports a runny nose and cough that were present last night, but these have both resolved as of today. He notes spending a lot of time outside the last few days and has seasonal allergies. He denies fevers, chills, chest pain, SOB, abdominal pain, N/V/D, edema. His denies weight gain and notes a poor appetite that has been ongoing for the last few months. He is not currently in pain but if he has to do any movement he has severe pain in his left side/back where he hit the bedside table. Admission Exam Per Admitting Provider General/Psych: frail, laying in bed, conversing easily Head: normocephalic, atraumatic Eyes: normal inspection, PERRL, conjunctivae pink, anicteric sclerae ENT: external ear and nose normal, oropharynx normal Neck: normal visual inspection, trachea midline Respiratory: normal respiratory effort, lungs clear to auscultation, no wheeze/rales/rhonchi, no accessory muscle use Cardiovascular: regular rate and rhythm, no murmur/rub/gallop, no JVD Extremities: no cyanosis or clubbing, normal peripheral pulses, no BLE edema Abdomen/GI: normal bowel sounds, soft, nontender, no hepatosplenomegaly, hematoma to left flank Neurologic/MSK: A+Ox3, moves all extremities, unable to sit up due to significant pain Skin: no rashes, normal color, warm and dry, dressing over right chest c/d/i, scattered ecchymosis on legs and arms due to prior falls Principal Diagnosis Fall, left 11th rib fracture, possible 12th rib fracture recent pacemaker placement Discharge Exam General: Alert, oriented. No acute distress Skin: bruising on left shoulder, flank, left arm with abrasion, right upper chest (s/p PPM placement) HEENT: NC/AT CV: RRR Resp: no increased effort of breathing, decreased breath sounds Abdomen: Soft, nontender Extremities: Trace edema in lower extremities bilaterally. Discharge Data Allergies Allergy/AdvReac Type Severity Reaction Status Date / Time pollen extracts Allergy Severe Sneezing Unverified 09/18/24 08:04 carbamazepine Allergy Unknown TOXIC, Verified 09/18/24 08:04 DOUBLE VISION indigotindisulfonic acid Allergy Unknown TOXIC, Verified 09/18/24 08:04 DOUBLE VISION doxazosin AdvReac Unknown BP LOSS Verified 09/18/24 08:04 nitrofurantoin AdvReac Unknown DIZZINESS Verified 09/18/24 08:04 Consultations 09/18/24 08:20 ED Decision to Admit Stat 09/19/24 08:31 Consult Cardiology Routine Ordered Studies 09/18/24 06:10 CT abd pelvis IV con only Stat 09/18/24 06:22 CT cervical spine wo con Stat CT chest diagnostic w con Stat CT head/brain wo con Stat 09/18/24 06:57 CT lumbar spine w con Stat 09/18/24 16:30 CT Abd and Pelvis [CT abd pelvis wo con] Stat Findings: The liver is overall of normal size, attenuation, and contour with no sign of cirrhosis or significant fatty infiltration. No definite liver mass lesion is seen on this noncontrast study. The gallbladder has been removed. No bile duct dilatation is noted. The spleen is of normal size. No focal splenic lesion is evident. The pancreas appears normal with no sign of acute or chronic pancreatitis and no mass lesion noted. The pancreatic duct is of normal caliber. The adrenal glands appear unremarkable. There is residual contrast within the renal cortex and renal collecting systems bilaterally. There is no hydronephrosis or perinephric stranding. No definite renal mass lesion is identified. There are bilateral renal cysts, measuring up to 3.4 cm The abdominal aorta is of normal caliber. No abdominal adenopathy is seen. There is prominence of the gastric wall that is likely due to the decompressed state. There is a moderate sized epigastric hernia containing a loop of small bowel. More inferiorly, there is a separate moderate sized ventral hernia containing bowel. There is no definite sign of small bowel obstruction. The colon appears unremarkable. The appendix appears normal also. No free intraperitoneal fluid or air is identified. There is excreted contrast within the area bladder. No obvious bladder mass lesion is evident. The iliac arteries are of normal caliber. No pelvic adenopathy is noted. Lumbar scoliosis and degenerative disc disease is seen. No fracture is identified. No focal osseous lesion is seen Impression: 1. Two separate ventral hernias containing bowel loops. There is no definite sign of associated obstruction 2. Bilateral renal cysts CT chest diagnostic wo con Stat FINDINGS: The lungs are clear, with no focal areas of consolidation. No pulmonary nodules are seen. The central airways are patent. There are no pleural effusions. No pneumothorax is seen. No axillary, hilar, or mediastinal adenopathy is identified. The visualized thyroid is unremarkable. The heart, aorta, and pulmonary arteries are of normal size and configuration. No pericardial effusion is identified. Imaged portions of the upper abdomen are unremarkable. No aggressive appearing osseous lesions are identified. IMPRESSION: No significant abnormality detected Hospital Course (1) Fall against object: (2) Elevated troponin: (3) Monomorphic ventricular tachycardia: (4) Presence of combination internal cardiac defibrillator (ICD) and pacemaker: (5) Paroxysmal atrial fibrillation: (6) Seizure disorder: (7) Parkinson's disease: (8) Systolic and diastolic CHF, chronic: (9) Hyperlipidemia: (10) CKD (chronic kidney disease), stage III: Plan 79 year old male with PMH significant for paroxysmal A fib (not on anticoagulation), s/p AVR (2018), history of tachy-rob syndrome s/p pacemaker (2006), systolic and diastolic CHF, seizure disorder, Parkinsons disease, HLD, hypothyroidism, GERD, seasonal allergies, CKD III, and recent syncope secondary to monomorphic v tach s/p dual chamber pacemaker/ICD placement on 09/09/2024 who presented to the ED this morning after suffering a fall at home around 0400. Fall Contusion Left abdominal wall Hematoma Rib Fractures Patient fell into bedside table while trying to get out of bed to go to the bathroom Seems to be mechanical per patient history but consider arrhythmia in setting of new ICD and seizure disorder as differentials pacemaker interrogation ordered check Orthostatic VS Scans all negative for acute injury except rib series noting "Acute fracture left 11th rib with no pneumothorax" and "possible acute nondisplaced fracture distally at the left 12th rib." Pain control, incentive spirometer, ice packs PT/OT consults hold ASA Continue to monitor DECONDITIONING GENERALIZED WEAKNESS AMBULATORY DYSFUNCTION PT/OT evaluation Boost TID Left arm Abrasions Wound care consult mupirocin BID History of monomorphic v tach s/p pacemaker/ICD s/p right sided dual chamber [place] pacemaker/ICD on 09/09/2024 Interrogation ordered Monitor on telemetry closely for arrhythmias Continue amiodarone Cardiology consulted, appreciate recs- outpt follow-up, fall mechanical, not cardiac related Elevated troponin Likely due to traumatic fall Initial 96 downtrended to 88 cardiology consulted as above Leukocytosis Likely due to traumatic fall Mild elevation to [address] abdomen negative for infectious processes UA unremarkable Patient denies s/s of infection WBC normalized, current 7.1K PAF Continue metoprolol Eliquis was stopped last admission due to risk of fall Seizure disorder Continue valproic acid Drug level therapeutic Parkinson's disease Continue sinemet Systolic and diastolic CHF Echo 09/08/2024 revealed LVEF 40-45%, mild concentric LVH, septal motion consistent with conduction abnormality, mild mitral regurgitation, mild tricuspid regurgitation Continue metoprolol, furosemide, spironolactone on hold Lisinopril was stopped last admission due to hypotension s/p AVR Hold baby aspirin in setting of hematoma/ left flank ecchymosis Hyperlipidemia Continue atorvastatin Hypothyroidism Continue levothyroxine GERD Continue omeprazole Seasonal allergies Continue akshat CKD III Creat 1.4 (at baseline per record review) Stable Pulmonary nodule Small left nodule noted on CT chest Follow up chest CT recommended in 6 months Pt's notes that this is already scheduled PCP: Dr. Dom Underwood Total Time Total Time Spent Total Time Spent (In Minutes): 60 Discharge Plan Discharge Items Patient Disposition: Transfer [facility] Fac Reason For Visit: Fall Discharge Diagnosis: Fall, left 11th rib fracture, possible 12th rib fracture Condition on Discharge: Fair Activity: Per Instructions section Non-emergency contact: Primary Care Provider and Filing Clerk Call non-emergency contact if: you have any medication questions and your symptoms worsen Follow-up/Referrals: Dom Underwood MD [Primary Care Provider] - Diet: Heart Healthy Addtl Attending Provider Instructions: Follow up with primary care physician and automotive detailer. Follow up with primary care physician within 1 week. Pending Studies at Discharge: No Stand-Alone Forms: My [employer] Skilled Items Patient informed of condition?: Yes DNR: Yes Discharge Level of Care: Skilled Communicable Disease: No Discharge Prognosis: Stable Lines: None Urinary Catheter: No Medications and DC Order Prescriptions: New amiodarone 200 mg Tablet 200 mg PO BIDM Qty: 60 0RF fexofenadine [Allergy Relief (fexofenadine)] 180 mg Tablet 180 mg PO DAILY Qty: 30 0RF atorvastatin 10 mg Tablet 10 mg PO DAILY Qty: 30 0RF metoprolol succinate 50 mg Tablet Extended Release 24 Hr 100 mg PO QAM Qty: 60 0RF acetaminophen 325 mg Tablet 650 mg PO Q6 Qty: 20 0RF carbidopa-levodopa [Sinemet] 25-100 mg Tablet 1 tab PO TIDM Qty: 60 0RF divalproex 250 mg Tablet,Delayed Release (Dr/Ec) 750 mg PO PM Qty: 60 0RF divalproex 500 mg Tablet,Delayed Release (Dr/Ec) 500 mg PO QAM Qty: 30 0RF docusate sodium 100 mg Capsule 100 mg PO QAM Qty: 30 0RF pantoprazole 40 mg Tablet,Delayed Release (Dr/Ec) 40 mg PO QAM Qty: 30 0RF sennosides [Senokot] 8.6 mg Tablet 8.6 mg PO DAILY Qty: 30 0RF levothyroxine [Synthroid] 88 mcg Tablet 88 mcg PO DAILYBB Qty: 30 0RF furosemide 40 mg Tablet 40 mg PO QAM Qty: 30 0RF melatonin 3 mg Tablet 6 mg PO HS Qty: 10 0RF benzonatate 100 mg Capsule 100 mg PO TID Qty: 20 0RF dextromethorphan-guaifenesin 10-100 mg/5 mL Syrup 5 ml PO Q6H PRN (Reason: cough) Qty: 237 0RF lidocaine 5 % Adhesive Patch,Medicated 1 patch transdermal QAM Qty: 15 0RF mupirocin 2 % Ointment 1 applic EXT BID Qty: 15 0RF oxycodone 5 mg Tablet 5 mg PO Q6 PRN (Reason: pain) Qty: 10 0RF Continued multivitamin Tablet 1 tab PO QAM acetaminophen [Tylenol] 325 mg Tablet 650 mg PO DIRECTED PRN (Reason: pain, fever) metoprolol succinate [Toprol XL] 100 mg Tablet Extended Release 24 Hr 100 mg PO QAM divalproex 250 mg Tablet,Delayed Release (Dr/Ec) 500 mg PO QAM divalproex 250 mg Tablet,Delayed Release (Dr/Ec) 750 mg PO PM docusate sodium [Colace] 100 mg Capsule 100 mg PO QAM levothyroxine 88 mcg Tablet 88 mcg PO QAM melatonin 5 mg Tablet 5 mg PO HS fexofenadine 180 mg Tablet 180 mg PO DAILY furosemide 40 mg tablet 40 mg PO QAM sennosides [senna] 8.6 mg Tablet 8.6 mg PO DAILY carbidopa-levodopa 25-100 mg tablet 1 tab PO TIDWMEAL amiodarone 200 mg Tablet 200 mg PO BIDM Qty: 60 0RF atorvastatin 20 mg tablet 10 mg PO DAILY Qty: 15 0RF Held aspirin 81 mg Tablet,Delayed Release (Dr/Ec) 81 mg PO QAM Hold Instructions: Resume on 09/30/24. Discuss with your primary care physician when to resume spironolactone 25 mg Tablet 12.5 mg PO QAM Hold Instructions: Resume on 09/30/24. Discuss with your PCP or automotive detailer if/ when to resume Discontinued omeprazole 20 mg capsule,delayed release(DR/EC) 20 mg PO QAM Discharge Orders: Discharge Order (Routine); Ordered 09/23/24 Ordered By: Memo Gregorio Admission Data Admit Date/Time: 09/18/24 09:13 Attending Provider: Memo Gregorio Admit Provider: Eliezer Chavez Primary Care Provider: Dom Underwood Other Providers: Eliezer Chavez; Eduard Amor; [place],[facility], [place]; [facility] Horne [facility] [place]; [facility]; Enedelia Dunn Other Interventions: Discharge Summary Assessment (RN) Last Done: 09/23/24 11:48
== END 2024-09-23 11:57 | DRG 277 ==
LOC: ED 05:53 → SUATTDRO 09:13 → 4W 09:13

== ENCOUNTER 2024-12-15 09:24 | Inpatient (IN) ==
--- NOTE | 2024-12-15 11:14 | History & Physical Bridge Note ---
Date of Service December 15, 2024 History & Physical Bridge Note I have examined the patient, reviewed the History & Physical and in the interval since the performance of the History & Physical I have noted the following changes of clinical significance: no changes noted
--- NOTE | 2024-12-15 11:15 | Pre Anesthesia Assessment ---
Date of Service December 15, 2024 Pre Sedation Assessment Vital Signs Temp Pulse Resp BP Pulse Ox O2 Del Method 12/15/24 09:50 36.5 C 73 14 188/98 H 99 Room Air Cardiovascular RRR, no murmur, no edema Respiratory normal respiratory effort, lungs clear to auscultation Pre-Sedation Airway Assessment Smoking Status: Never smoker Hx Sleep Apnea: No Short, Thick Neck: No Thyromental Distance: > or= 3.5 Finger Breadths Oral Cavity: + Dentures Mallampati Class: IV ASA: ASA4 NPO Status Date of Last Intake of Fluids: 12/14/24 Time of Last Intake of Fluids: 18:00 Date of Last Intake of Solid Food: 12/14/24 Time of Last Intake of Solid Foods: 18:00 Procedure Planning Contraindications for Sedation: none Current Medications Reviewed: Yes Notes The planned sedation has been discussed with the patient. Informed Consent was obtained. I have identified the patient, determined the appropriateness of sedation and have assessed the patient immediately prior to the procedure. All medicine(s) and interventions are by my order.
[2024-12-15] MEDS: MIDAZOLAM HCL 5 MG/ML 1 ML VIAL ONE (12:29)
[2024-12-15] MEDS: ceFAZolin 330 MG/ML 1 GM VIAL ONE (12:29)
[2024-12-15] MEDS ORDERED: ACETAMINOPHEN 325 MG TAB PO PRN (12:35)
--- NOTE | 2024-12-15 12:35 | Post Anesthesia Assessment ---
Date of Service December 15, 2024 Post Sedation Assessment Vital Signs Temp Pulse Resp BP Pulse Ox O2 Del Method 12/15/24 09:50 36.5 C 73 14 188/98 H 99 Room Air Recovery Score Activity: Moves 4 extremities Respiration: Deep Breath/Cough Circulation: +/-20% PreAnes Value Consciousness: Fully Awake Oxygen Saturation: > 92% On Room Air Discharge Sedation Level of Care: Fast Track Phase II Post Sedation Plan On clinical assessment, the patient appears to have tolerated the sedation without complications. Patient is recovering as anticipated. Patient will continue to be monitored by nursing and may be discharged when sedation discharge criteria are met per below protocol. Upon Completions of procedure up to 15 minutes continue every 5 minute vital signs and the P.A.R. score; then discharge to a Phase I or Fast Track to Phase II per the following guidelines: * Discharge Patient to appropriate Phase II area if PAR is 8 or greater or return to pre- procedure baseline. The post - procedure orders will be as directed. * If PAR score is less than 8 or not return to pre-procedure baseline then patient will follow Phase I monitoring till PAR is reached for Phase II. The Phase I may be done in procedure room or may call to secure a Phase I area. * If naloxone or flumazenil are used for reversal, hold in Phase I for continued monitoring from when last reversal dose was given for a minimum of 60 minutes or longer pending the nurse and/or physician discretion of patient condition before discharge to Phase II. Please call the Sedation Physician to re-evaluate and complete post-note for discharge to Phase II area. Do NOT discharge from procedure sedation or Phase 1 until post- sedation evaluation note is complete by procedure /sedation MD Sedation Discharge Instructions to be given to the patient at discharge to home.
[2024-12-15] MEDS ORDERED: HYDROCODONE/ACETAMOPHEN 5/325MG TAB PO PRN (12:46)
[2024-12-15] MEDS: MoRPHine SULFATE 2 MG/ML CARP IV STA (13:06)
--- NOTE | 2024-12-15 14:23 | Consultation ---
Date of Consultation December 15, 2024 Assessment & Plan (1) Parkinson's disease: Plan 79 y/o with a complex cardiac history - TAVR 2017 where he developed staph bacteremia and enterobacter cloacae s/p sternal wound dehiscence at that time. 2016 TBS dx led to left-sided pacemaker placed by Dr. Ashley. In September 2024 he developed a wide-complex tachycardia and was emergently cardioverted on 09/08/2024. He has been taking flecainide as a long chronic medication which, at that time was switched over to amiodarone for better rhythm control on September 11. In September 2024 an ICD was implanted on the right side. There was conversation about removing his left-sided pacemaker however it was decided to just deactivate it at the time of ICD insertion. After his ICD placement he sustained a mechanical fall likely in the setting of his Parkinson's disease and at that time although anticoagulation was discontinued after a risk versus benefit conversation. A small hematoma developed at the right ICD insertion site after his fall and was not improving. Cardiology decided to extract the right sided ICD and generator which occurred today with the care of Dr. Simons. The wound culture was obtained from the right subclavian insertion site. The patient was started on IV Cefazolin. Given the patients history of staph bacteremia; [facility] to [facility] for wound culture and involve infectious disease for possible snf antibiotic discussion and arrangement of a possible PICC line if needed/home support given the patients history of staph bacteremia and enterobacter cloacae. ICD insertion site infection: R sided ICD placed and small hematoma developed at site s/p fall Cardiology decision to remove ICD Extracted ICD leads/generator today Started on IV Cefazolin by Cardiology; continue Wound culture obtained; adjust abx based on culture results Wound packed by Cardiology; site C/D/I Infectious Disease consult to determine extermination supervisor options May need to consider PICC line. (family familiar with PICC) History of monomorphic v tach s/p pacemaker/ICD s/p right sided dual chamber [place] pacemaker/ICD on 09/09/2024 Monitor on telemetry closely for arrhythmias; keep in PCU Continue amiodarone Most recent ECHO: 09/08/2024 revealed LVEF in the range of 40 to 45%, abnormal septal motion consistent with conduction abnormality, normal prosthetic aortic valve function. H/O staph bacetermia and enterobacter cloacae: Given history; will obtain ID consult Continue IV Cefazolin for now Consider PICC if necessary PAF Continue metoprolol Eliquis was stopped last admission due to risk of fall Seizure disorder Continue valproic acid Parkinson's disease Continue sinemet Systolic and diastolic CHF Echo 09/08/2024 revealed LVEF 40-45%, mild concentric LVH, septal motion consistent with conduction abnormality, mild mitral regurgitation, mild tricuspid regurgitation Continue metoprolol, furosemide s/p AVR Hold baby aspirin ISO post removal device Anticoagulation stopped in September 2024 d/t increased risk of falls with PD. CKD III Creat 1.4 (at baseline per record review) Stable Hyperlipidemia Takes atorvastatin; continue Hypothyroidism Takes levothyroxine; continue GERD Continue omeprazole Disposition: DVT Prophylaxis: SCDs for now Code Status: DNR/DNI PCP: Dr. Underwood I spent a total of 62 minutes coordinating, documenting, and providing care for this patient excluding time spent inthe performance of separately billed services or time spent by another provider/QHP. Supervising Physician Co-Signing Physician Notes 79-year-old with complex cardiac history, TAVR 2018 complicated by sternal wound dehiscence and staph and Enterobacter bacteremia, wide-complex tachycardia status post cardioversion September 2024 and right ICD implantation. Patient already had left sided pacemaker which was deactivated at the time of ICD insertion. Given history of parkinsonism and recurrent falls, his anticoagulation has been held. He developed right chest wall trauma and hematoma in the right infra clavicle position with subsequent ongoing swelling despite 20 days of oral Keflex as an outpatient after ICD placement. Patient underwent device extr action today and purulence/soft tissue swelling was noted intraoperatively per my d/w cardiology. Patient has been started on cefazolin, operative cultures has been sent. ID consult. On exam: Patient on room air, NAD, right infraclavicular dressing C/D/I. Trace BLE edema. Rest of the examination as above. Total time spent independently: 21 minutes. I have seen and examined the patient and have discussed the case with the provider above. I agree with the assessment and plan as stated. History of Present Illness Requesting Physician: Dr. Davis Reason for Consultation: Medical Management; specifically infection control Attending Physician: Julienne Simons DO History of Present Illness Mr. Fischer is a 79 year old male that presented to the [facility] as recommended by his Cardiology group. This gentleman is a complex cardiac individual. He has a cardiac history tachybradycardia syndrome was diagnosed left-sided pacemaker was placed by Dr. Ashley in 2015. In September 2024 he developed a wide-complex tachycardia and was emergently cardioverted on September 08, 2024. He has been taking flecainide as a long chronic medication which, at that time was switched over to amiodarone for better rhythm control on September 11. Additional PMH includes a TAVR in 2018 where he developed staph bacteremia and enterobacter cloacae s/p sternal wound dehiscence at that time. In September 2024 an ICD was implanted on the right side. There was conversation about removing his left-sided pacemaker however it was decided to just deactivate it at the time of ICD insertion. After his ICD placement he sustained a mechanical fall likely in the setting of his Parkinson's disease and at that time although anticoagulation was discontinued after a risk versus benefit conversation. Unfortunately a small hematoma was developed at the right ICD insertion site after his fall and was not improving. Cardiology has been following this patient and has reviewed and discussed options. It was decided to extract the right sided ICD and generator which occurred today with the care of Dr. Simons. The wound culture was obtained from the right subclavian insertion site. The patient was started on IV Cefazolin. Given the patients history of staph bacteremia; [facility] to collaborate for wound culture and involve infectious disease for possible extermination supervisor antibiotic discussion and arrangement of a possible PICC line if needed/home support given the patients history of staph bacteremia and enterobacter cloacae. Patient just completed a PO Cephalexin course on 10/20/24 (20 day course) His last ECHO performed 09/08/2024 revealed LVEF in the range of 40 to 45%, abnormal septal motion consistent with conduction abnormality, normal prosthetic aortic valve function. In the room, patient is lying in his hospital bed in no apparent distress. He is normotensive and complaining of minimal pain on the right subclavian area. He denies chest pain, SOB, dizziness, LOCKWOOD, fever, chills, abdominal pain or tenderness. Numerous family members were in the room and I discuss next steps with wound culture, ID, and continuation of IV antibiotics. I also provided reassurance of continuous monitoring given that patient no longer has ICD. Also reviewed his antiarrythmia medications with them. We are available 29/10 via tiger text for any questions or concerns. Please see A/P for further details. Allergies Allergy/AdvReac Type Severity Reaction Status Date / Time pollen extracts Allergy Severe Sneezing Verified 12/15/24 10:20 carbamazepine Allergy Unknown TOXIC, Verified 12/15/24 10:20 DOUBLE VISION indigotindisulfonic acid Allergy Unknown TOXIC, Verified 12/15/24 10:20 DOUBLE VISION doxazosin AdvReac Unknown BP LOSS Verified 12/15/24 10:20 nitrofurantoin AdvReac Unknown DIZZINESS Verified 12/15/24 10:20 Home Medications Medication Instructions Recorded Confirmed Type acetaminophen 325 mg tablet 650 mg PO DIRECTED PRN pain, 03/20/18 09/18/24 History (Tylenol) fever aspirin 81 mg tablet,delayed 81 mg PO QAM 03/20/18 12/15/24 History release divalproex 250 mg tablet,delayed 500 mg PO QAM 03/20/18 12/15/24 History release divalproex 250 mg tablet,delayed 750 mg PO PM 03/20/18 12/15/24 History release metoprolol succinate 100 mg 100 mg PO QAM 03/20/18 12/15/24 History tablet,extended release 24 hr (Toprol XL) multivitamin 1 tab PO QAM 03/20/18 12/15/24 History melatonin 5 mg tablet 5 mg PO HS 05/22/24 12/15/24 History carbidopa 25 mg-levodopa 100 mg 1 tab PO TIDWMEAL 09/08/24 12/15/24 History tablet sennosides 8.6 mg tablet (senna) 8.6 mg PO DAILY 09/08/24 12/15/24 History atorvastatin 20 mg tablet 10 mg (1/2 x 20 mg) PO DAILY #15 09/11/24 12/15/24 Rx tabs fexofenadine 180 mg tablet 180 mg PO DAILY 09/18/24 12/15/24 History acetaminophen 325 mg tablet 650 mg (2 x 325 mg) PO Q6 #20 tabs 09/23/24 Rx amiodarone 200 mg tablet 200 mg PO BIDM #60 tabs 09/23/24 12/15/24 Rx divalproex 500 mg tablet,delayed 500 mg PO QAM #30 tabs 09/23/24 Rx release docusate sodium 100 mg capsule 100 mg PO QAM #30 caps 09/23/24 12/15/24 Rx furosemide 40 mg tablet 40 mg PO QAM #30 tabs 09/23/24 12/15/24 Rx levothyroxine 88 mcg tablet 88 mcg PO DAILYBB #30 tabs 09/23/24 12/15/24 Rx (Synthroid) lidocaine 5 % topical patch 1 patch transdermal QAM #15 ea 09/23/24 Rx mupirocin 2 % topical ointment 1 applic EXT BID #15 grams 09/23/24 Rx oxycodone 5 mg tablet 5 mg PO Q6 PRN pain #10 tabs 09/23/24 Rx pantoprazole 40 mg tablet,delayed 40 mg PO QAM #30 tabs 09/23/24 12/15/24 Rx release cephalexin 250 mg capsule 250 mg PO Q8H 12/15/24 12/15/24 History Patient History Medical History CKD (chronic kidney disease), stage III Syncope, cardiogenic 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 Wide-complex tachycardia Vasovagal syncope Bilateral edema of lower extremity Pacemaker Acute exacerbation of CHF (congestive heart failure) Hyperlipidemia Epilepsy Ichthyosis Chronic mesenteric ischemia Persistent atrial fibrillation Acute on chronic diastolic heart failure with preserved ejection fraction Anticoagulant long-term use Encounter for pre-operative examination Cardiac pacemaker Syncope Abnormal esophagram Encounter for pre-operative examination Acute kidney injury superimposed on chronic kidney disease PNA (pneumonia) Sinoatrial node dysfunction Thrombocytopenia Hypothyroidism Chronic systolic heart failure BPH (benign prostatic hyperplasia) GERD (gastroesophageal reflux disease) Dyslipidemia Aortic stenosis following with vascular surgery [facility] - last checked 02/2020 and will be checked every 6 mo Hypertension Constipation History of COVID-19 dx 03/31 - [facility] coughing, congestion, fevers; all symptoms resolved History of syncope syncopal episode 03/2020 prior to covid diagnosis; last episode prior to 03/2020 was in 2016 pre pacemaker History of anesthesia reaction had a seizure when waking up from cholecystectomy in 1999 per pt and "was on the wrong seizure medicine, is on the right medication now and has not had any issues with any other surgeries since" Surgical History S/P AVR History of cholecystectomy S/P placement of cardiac pacemaker placed 2016 --biotronic- last checked 6 mo ago (to be checked 05/11/20)--follows with Dr. Ashley History of cardiac cath 01/29/18 - Dr Stephens - normal coronary arteries History of cataract extraction with lens replacement History of aortic valve replacement 02/11/18 bioprosthetic valve and left atrial appendege clip [place] [facility] [place] [facility] [place] Rachelle Stark Status post excisional debridement x3 from aortic valve incision History of colonoscopy History of esophagogastroduodenoscopy (EGD) History of phacoemulsification of cataract of both eyes with intraocular lens implantation Family History Other Cerebral aneurysm Heart disease No family history of adverse response to anesthesia Social History Smoking Status: Never smoker Second Hand Exposure: Yes (as a child); Do You Dip or Chew Tobacco: No; Hx Alcohol Use: No Hx Substance Use: No Preferred Language: Tuvaluan Communication Ability: Effective Visual Impairment: No Limitations Hearing Ability: Normal Rn Intensive Care Unit Required: No Beliefs That Will Affect Care: None marital status: Current Living Situation: Spouse Current Living Situation Comment: Lives at home w/ Feels Safe at Home: Yes Assistive Devices: Oxygen - at Night and Walker Review of Systems Review of Systems: Neuro: (-) Falls, trauma, slurred speech HEENT: (-) LOCKWOOD, dizziness, dysphagia, visual or auditory changes CV: (-) CP, palpitations, swelling Resp: (-) SOB GI: (-) appetite changes, N/V/D, bowel changes : (-) urinary changes Skin: (-) rashes Psych: (-) anxiety, depression Physical Exam Physical Exam: Neuro: AAOx4, PERRLA, no aphagia, memory changes, CNII-XII grossly intact HEENT: head normocephalic, moist mucus membranes CV: paced, (-) M, (+) click, (-) edema, cap refill < 3 seconds Resp: Lungs CTA in all grimm. On RA GI: Abdomen S/NT/ND, Ax4 bowel sounds, (-) CVA tenderness Musculoskeletal: 5/5 B/L UE strength, 5/5 B/L LE strength. No gait disturbance Skin: Right subclavian packed pressure dressing C/D/I. Placed by cardiology. (-) rashes , (-) erythema. Psych: euthymic mood Results & Data Vital Signs (Past 12 Hours) Vital Signs Temp Pulse Resp BP BP Pulse Ox O2 Del Method 12/15/24 14:20 36.3 C L 63 18 130/78 98 Room Air 12/15/24 14:00 36.2 C L 67 18 143/75 H 99 Room Air 12/15/24 13:30 68 18 127/73 98 Room Air 12/15/24 13:15 64 18 128/76 98 Room Air 12/15/24 13:00 67 18 137/83 98 Room Air 12/15/24 12:45 63 18 147/77 H 98 Room Air 12/15/24 09:50 36.5 C 73 14 188/98 H 99 Room Air Laboratory Results Short CBC 12/15/24 Range/Units 14:29 WBC 6.22 (4.8-10.8) K/ul Hgb 13.3 L (14.0-18.0) g/dl Hct 40.6 L (42.0-52.0) % Plt Count 103 L (130-400) K/uL BMP 12/15/24 14:29 Sodium 137 Potassium 4.2 Chloride 100 Carbon Dioxide 32 BUN 25 H Creatinine 1.32 Glucose 132 H Calcium 9.0 Liver Function 12/15/24 Range/Units 14:29 Total Bilirubin 0.3 (0.2-1.0) mg/dl AST 69 H (13-39) U/L ALT 7 (7-52) U/L Alkaline Phosphatase 77 (34-104) U/L Albumin 3.6 (3.4-5.0) gm/dl (1) Parkinson's disease Dyskinesia presence: unspecified whether dyskinesia Fluctuating manifestations: unspecified whether manifestations fluctuate Qualified Code(s): G20.A1 - Parkinson's disease without dyskinesia, without mention of fluctuations
[2024-12-15] MEDS: VANCOMYCIN HCL 1000MG/20ML VIAL ONE (14:27)
[2024-12-15] MEDS: LIDOCAINE 1% LOCAL 20 ML VIAL ONE (14:27)
[2024-12-15] MEDS: BUPIVACAINE 0.25% PF 30 ML VIAL ONE (14:27)
[2024-12-15] MEDS: WATER, STERILE FOR INJ 10 ML VIAL ONE (14:28)
[2024-12-15] MEDS: MoRPHine SULFATE 2 MG/ML CARP ONE (14:29)
[2024-12-15 14:48] LABS: Hematocrit (blood only) 40.6 % (42.0-52.0); Hemoglobin 13.3 g/dl (14.0-18.0); Immature Granulocytes # (auto) 0.01 K/uL (0.01-0.20); Immature Granulocytes % (auto) 0.2 %; Mean Corpuscular Hemoglobin 31.1 pg (25.0-34.0); Mean Corpuscular Volume 95.1 fL (80.0-100.0); Platelet Count 103 K/uL (130-400); RDW Standard Deviation 47.5 fL (36.4-46.3); Red Blood Count 4.27 M/uL (4.70-6.10); White Blood Count 6.22 K/ul (4.8-10.8)
[2024-12-15 15:03] LABS: Alanine Aminotransferase 7.0 U/L (7-52); Albumin Globulin Ratio 1.1 (0.9-2); Albumin Level 3.6 gm/dl (3.4-5.0); Alkaline Phosphatase 77.0 U/L (34-104); Anion Gap 5.0 (3-11); Bilirubin,Total 0.3 mg/dl (0.2-1.0); Blood Urea Nitrogen 25.0 mg/dl (6-23); Calcium 9.0 mg/dl (8.6-10.3); Carbon Dioxide 32.0 mmol/L (21-32); Chloride 100.0 mmol/L (98-107); Creatinine Clr Calc Pharmacy 43.9 ml/min; Globulin 3.2 gm/dl (2.5-4.0); Glucose 132.0 mg/dl (70-99(Fasting)); Potassium 4.2 mmol/L (3.5-5.1); Sodium 137.0 mmol/L (136-145); Total Protein 6.8 gm/dl (6.0-8.3)
--- NOTE | 2024-12-15 17:26 | Cardiology Progress Note ---
Date of Service December 15, 2024 Assessment & Plan (1) Infection of pacemaker pocket: (2) Paroxysmal atrial fibrillation: (3) Paroxysmal ventricular tachycardia: Plan Patient with history of aortic valve stenosis for which she underwent surgical aortic valve replacement in 2018 with a bioprosthesis. He underwent surgical clipping of the left atrial appendage at the time of the aortic valve replacement. Complex history of sternal wound dehiscence with Enterobacter [place] and Staph aureus and omental flap closure in 2018. Patient with tachycardia-bradycardia syndrome, initial Biotronik permanent pacemaker implanted in 2005, dual-chamber device with generator change in June, (in the left infraclavicular position). Ad[facility] September, with recurrent syncope, found to have unstable wide-complex tachycardia consistent monomorphic ventricular tachycardia and underwent emergent cardioversion in the emergency department. Flecainide subsequently discontinued and amiodarone initiated after appropriate washout interval. Patient then underwent implantation of a right sided dual-chamber [place] pacemaker/AICD 09/09/24 with right atrial lead, right ventricular defibrillator, left bundle lead. He was readmitted shortly thereafter after a mechanical fall with chest trauma. Eliquis discontinued September, after a fall with ongoing anticoagulation risk with regards to bleeding felt to be higher than the prophylactic benefit especially given history of surgical left atrial appendage occlusion. Patient was ultimately found on outpatient follow-up to have progressive difficulty with pocket hematoma in the right infraclavicular position with subsequent ongoing swelling as noticed at time of outpatient visit on 12/11/2024 and presented today for device extraction. Blood cultures not obtained. Patient completed 20-day course of oral cephalexin started on 10/20/2024. Wound cultures obtained at time of procedure today. * Proceed with local treatment, wound packing as ordered by Dr Simons.Intraoperative pocket findings at time of today's procedure felt to be consistent with infection with erythema and inflammatory changes. * Continue cefazolin 2000 mg every 8 hours for now pending infectious disease input. * Most recent transthoracic echocardiogram performed 09/08/2024 revealed LVEF in the range of 40 to 45%, abnormal septal motion consistent with conduction abnormality, normal prosthetic aortic valve function. * Patient has a functioning left sided Biotronik pacemaker which has now been reactivated as patient requires right ventricular pacing. Antibiotic therapy planned in effort to protect prosthetic aortic valve and the existing chronic pacemaker. Extracting the 2016 pacemaker leads felt to be prohibitively risky in this case. Alexei Davis DO Admission and Anticipated Discharge Date Admission Date: December 15, 2024 Subjective Patient has recently been started on a course of oral cephalexin on 10/20/2024, 250 mg by mouth 3 times per day and completed a 20-day course. Patient reassessed post procedure. Sitting comfortably. Telemetry reveals atrial sensed, ventricular paced rhythm in the 60s. Physical Exam Physical Exam: General: no acute distress and stated age Eyes: conjunctiva are pink and non-injected, sclera clear Neck: normal jugular venous pulse, no hepatojugular reflux Chest: normal shape and normal respiratory effort -Well-healed chronic midline sternotomy incision. Right infraclavicular pacemaker pocket with dressing, packing. Lungs: clear to auscultation and percussion Cardiac Exam: - regular heart sounds, no murmurs, rubs, or gallops, no jugular venous distention Abdomen: abdomen soft, non-tender, no abnormal masses and no hepatosplenomegaly Extremities: no edema and no cyanosis Neuro:awake, conversant, follows commands, Noted chronic cognitive impairment related to Parkinson's Results & Data Vital Signs (Past 12 Hours) Vital Signs Temp Pulse Pulse Resp BP BP Pulse Ox 12/15/24 14:50 36.4 C L 63 18 123/78 96 12/15/24 14:42 66 12/15/24 14:20 36.3 C L 63 18 130/78 98 12/15/24 14:00 36.2 C L 67 18 143/75 H 99 12/15/24 13:30 68 18 127/73 98 12/15/24 13:15 64 18 128/76 98 12/15/24 13:00 67 18 137/83 98 12/15/24 12:45 63 18 147/77 H 98 12/15/24 09:50 36.5 C 73 14 188/98 H 99 O2 Del Method 12/15/24 14:50 Room Air 12/15/24 14:42 12/15/24 14:20 Room Air 12/15/24 14:00 Room Air 12/15/24 13:30 Room Air 12/15/24 13:15 Room Air 12/15/24 13:00 Room Air 12/15/24 12:45 Room Air 12/15/24 09:50 Room Air Coding Level of Care Code None Diagnoses Infection of pacemaker pocket T82.7XXA Paroxysmal atrial fibrillation I48.0 Paroxysmal ventricular tachycardia I47.20
[2024-12-15] MEDS: ACETAMINOPHEN 325 MG TAB PO SCH (17:37)
[2024-12-15] MEDS: AMIODARONE 200 MG TAB PO SCH (17:38)
[2024-12-15] MEDS: CARBIDOPA/LEVODOPA 25/100MG TAB PO SCH (17:38)
[2024-12-15] MEDS: MELATONIN 3 MG TAB PO SCH (20:08)
[2024-12-15] MEDS: DIVALPROEX DELAY RELEASE 250 MG TABEC PO SCH (20:08)
[2024-12-16] MEDS: LEVOTHYROXINE SODIUM 88 MCG TABLET PO SCH (06:08)
[2024-12-16] MEDS: ATORVASTATIN 10 MG TAB PO SCH (08:14)
[2024-12-16] MEDS: FEXOFENADINE HCL 180 MG TAB PO SCH (08:14)
[2024-12-16] MEDS: FUROSEMIDE 40 MG TAB PO SCH (08:14)
[2024-12-16] MEDS: MULTIVITAMIN TAB PO SCH (08:14)
[2024-12-16] MEDS: METOPROLOL SUCC 50MG EXT REL TAB PO SCH (08:14)
[2024-12-16] MEDS: DIVALPROEX DELAY RELEASE 500 MG TAB PO SCH (08:15)
[2024-12-16] MEDS: SENNA 8.6 MG TAB PO SCH (08:16)
[2024-12-16] MEDS: DOCUSATE SODIUM 100 MG CAP PO SCH (08:16)
[2024-12-16 09:07] LABS: Creatinine Clr Calc Pharmacy 50.0 ml/min
--- NOTE | 2024-12-16 11:04 | Hospitalist Progress Note ---
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 Continue current antibiotics Follow cultures Infectious disease consultation pending MRSA swab screen Continue outpatient medications as ordered Therapies Case management for coordination of disposition planning Increase activity Admission and Anticipated Discharge Date Admission Date: December 15, 2024 Subjective No acute events overnight. Patient denies any pain at the surgical site. No chest pain or shortness of breath. No acute issues per nursing Physical Exam Physical Exam: Constitutional: Alert, nontoxic HEENT: Mucous membranes moist. Lungs: Clear to auscultation, decreased, no wheezes rales or rhonchi CV: S1-S2, regular Abdomen: Soft, nontender, nondistended Extremities: No significant edema Neuro: No focal deficits Psych: Cooperative, normal mood Results & Data Results & Data Vital Signs (Past 12 Hours) Vital Signs Temp Pulse Pulse Resp BP Pulse Ox O2 Del Method 12/16/24 07:29 36.7 C 81 18 125/74 92 Room Air 12/16/24 03:36 36.5 C 71 18 133/76 97 Room Air 12/15/24 23:25 36.2 C L 76 18 119/63 96 Room Air 12/15/24 23:07 65 Diagnostic Findings Reviewed imaging, laboratory and diagnostic studies. Pertinent findings as below. Cultures pending WBCs 6.2 Hemoglobin 13.3 Electrolytes stable Creatinine 1.16 Glucose was reviewed (2) Parkinson's disease Dyskinesia presence: unspecified whether dyskinesia Fluctuating manifestations: unspecified whether manifestations fluctuate Qualified Code(s): G20.A1 - Parkinson's disease without dyskinesia, without mention of fluctuations (6) Hypothyroidism Hypothyroidism type: unspecified Qualified Code(s): E03.9 - Hypothyroidism, unspecified
--- NOTE | 2024-12-16 12:17 | Cardiology Progress Note ---
Date of Service December 16, 2024 Assessment & Plan (1) Infection of pacemaker pocket: (2) Paroxysmal atrial fibrillation: (3) Paroxysmal ventricular tachycardia: Plan Patient with history of aortic valve stenosis for which she underwent surgical aortic valve replacement in 2018 with a bioprosthesis. He underwent surgical clipping of the left atrial appendage at the time of the aortic valve replacement. Complex history of sternal wound dehiscence with Enterobacter [place] and Staph aureus and omental flap closure in 2018. Patient with tachycardia-bradycardia syndrome, initial Biotronik permanent pacemaker implanted in 2005, dual-chamber device with generator change in June, (in the left infraclavicular position). Admission to [facility] September, with recurrent syncope, found to have unstable wide-complex tachycardia consistent monomorphic ventricular tachycardia and underwent emergent cardioversion in the emergency department. Flecainide subsequently discontinued and amiodarone initiated after appropriate washout interval. Patient then underwent implantation of a right sided dual-chamber [place] pacemaker/AICD 09/09/24 with right atrial lead, right ventricular defibrillator, left bundle lead. He was readmitted shortly thereafter after a mechanical fall with chest trauma. Eliquis discontinued September, after a fall with ongoing anticoagulation risk with regards to bleeding felt to be higher than the prophylactic benefit especially given history of surgical left atrial appendage occlusion. Patient was ultimately found on outpatient follow-up to have progressive difficulty with pocket hematoma in the right infraclavicular position with subse quent ongoing swelling as noticed at time of outpatient visit on 12/11/2024 and presented today for device extraction. Blood cultures not obtained. Patient completed 20-day course of oral cephalexin started on 10/20/2024. Wound cultures obtained at time of procedure today. * Continue cefazolin 2000 mg every 8 hours for now pending infectious disease input. * Most recent transthoracic echocardiogram performed 09/08/2024 revealed LVEF in the range of 40 to 45%, abnormal septal motion consistent with conduction abnormality, normal prosthetic aortic valve function. * Patient has a functioning left sided Biotronik pacemaker which has now been reactivated as patient requires right ventricular pacing. Antibiotic therapy planned in effort to protect prosthetic aortic valve and the existing chronic pacemaker. Extracting the 2016 pacemaker leads felt to be prohibitively risky in this case. * Repeat transthoracic echocardiogram * wound cultures pending I spent a total of 50 minutes on the date of service in preparation, delivery, and documentation of the care provided to this patient, excluding any time spent in the performance of separately billed services. Alexei Davis DO Admission and Anticipated Discharge Date Admission Date: December 15, 2024 Subjective Patient seen cardiology follow-up. No acute complaints. Afebrile. Pain well- controlled. Telemetry reveals AV sequential paced rhythm in the 70s. Physical Exam Physical Exam: General: no acute distress and stated age Eyes: conjunctiva are pink and non-injected, sclera clear Neck: normal jugular venous pulse, no hepatojugular reflux Chest: normal shape and normal respiratory effort -Well-healed chronic midline sternotomy incision. Right infraclavicular pacemaker pocket with dressing Lungs: clear to auscultation and percussion Cardiac Exam: - regular heart sounds, no murmurs, rubs, or gallops, no jugular venous distention Abdomen: abdomen soft, non-tender, no abnormal masses and no hepatosplenomegaly Extremities: no edema and no cyanosis Neuro:awake, conversant, follows commands, Noted chronic cognitive impairment related to Parkinson's Results & Data Vital Signs (Past 12 Hours) Vital Signs Temp Pulse Resp BP Pulse Ox O2 Del Method 12/16/24 07:29 36.7 C 81 18 125/74 92 Room Air 12/16/24 03:36 36.5 C 71 18 133/76 97 Room Air Laboratory Results Cardiac Enzymes 12/15/24 Range/Units 14:29 AST 69 H (13-39) U/L CBC 12/15/24 Range/Units 14:29 WBC 6.22 (4.8-10.8) K/ul RBC 4.27 L (4.70-6.10) M/uL Hgb 13.3 L (14.0-18.0) g/dl Hct 40.6 L (42.0-52.0) % Plt Count 103 L (130-400) K/uL Neut # (Auto) 4.38 (1.40-6.50) K/uL Lymph # (Auto) 0.99 L (1.20-3.40) K/uL [place] # (Auto) 0.54 (0.11-0.59) K/uL Eos # (Auto) 0.27 (0.00-0.50) K/uL Baso # (Auto) 0.03 (0.00-0.20) K/uL Comprehensive Metabolic Panel 12/15/24 12/16/24 Range/Units 14:29 07:50 Sodium 137 (136-145) mmol/L Potassium 4.2 (3.5-5.1) mmol/L Chloride 100 (98-107) mmol/L Carbon Dioxide 32 (21-32) mmol/L BUN 25 H (6-23) mg/dl Creatinine 1.32 1.16 (0.6-1.4) mg/dl Glucose 132 H (70-99(Fasting)) mg/dl Calcium 9.0 (8.6-10.3) mg/dl AST 69 H (13-39) U/L ALT 7 (7-52) U/L Alkaline Phosphatase 77 (34-104) U/L Total Protein 6.8 (6.0-8.3) gm/dl Albumin 3.6 (3.4-5.0) gm/dl Coding Level of Care Code 56475 SUB INP/OBS CARE 3/50MIN Diagnoses Infection of pacemaker pocket T82.7XXA Paroxysmal atrial fibrillation I48.0 Paroxysmal ventricular tachycardia I47.20
--- NOTE | 2024-12-16 13:43 | Infectious Disease Consult ---
Date of Service December 16, 2024 Telehealth Information I performed this visit using a real-time telehealth connection between my location and the patients location ([facility]). After connecting through interactive tele-video, patient was identified by name and date of and/or wristband check.Patient (or authorized healthcare telemarketing sales representative) was informed that this was a telemedicine visit and it was being conducted confidentially over secure lines. My office door was closed and no one else was present in the room with me.Patient (or authorized healthcare telemarketing sales representative) provided consent to proceed with the visit, expressed an understanding of privacy and security of the telemedicine visit, and gave permission to have a hospital telemarketing sales representative in the room in order to assist with the visit and to conduct portions of the visit, as needed. I informed the patient (or authorized healthcare telemarketing sales representative) that I reviewed their record and presented the opportunity for them to ask any questions regarding the visit today. The patient agreed to participate. Assessment & Plan (1) Infection of pacemaker pocket: (2) Encounter for adjustment and management of other cardiac device: (3) History of aortic valve replacement: Plan IV cefazolin is very reasonable at this point. We will follow up on the intraoperative cultures and decide on the final antibiotic plan. If the blood and intraoperative cultures remain negative, then he can go home on oral cefadroxil 500 mg twice daily to complete a course of 14 days from the day of ICD extraction and I&D of the ICD pocket. Thank you for consulting Infectious Disease. We will continue to follow. History of Present Illness History of Present Illness Mr. Fischer is a 79-year-old man who was admitted to [facility] on 12/15/2024 for elective removal of an ICD because of concern for ICD pocket infection. He has an ICD placed in early September 2024. Soon after, he had a fall at home which resulted in a trauma of the ICD site and development of hematoma which was initially compressed by Cardiology with persistent bloody drainage. In mid October 2024, Cardiology had suspicion for infection, hence, the patient was started on oral Keflex which he has been taking since then. Recently, in the beginning of December 2024, the started noticing that the drainage is more like yellowish with blood-tinged and hence, was recommended by the Cardiology team to be removed. Per the 's report, no fever or chills at any point after the development of hematoma. Also, no surrounding redness or tenderness. The ICD along with the leads were eventually removed on 12/15/2024. ID team was consulted for further recommendations and to help guide antibiotic treatment. Of note, he has a history of calcific aortic valve disease status post aortic valve replacement in February 2018 which was complicated with surgical site infection due to Enterobacter cloaca and staph aureus (MSSA). At that time, he was treated as sternal osteomyelitis with IV cefepime for a total duration of 6 weeks. Allergies Allergy/AdvReac Type Severity Reaction Status Date / Time pollen extracts Allergy Severe Sneezing Verified 12/15/24 10:20 carbamazepine Allergy Unknown TOXIC, Verified 12/15/24 10:20 DOUBLE VISION indigotindisulfonic acid Allergy Unknown TOXIC, Verified 12/15/24 10:20 DOUBLE VISION doxazosin AdvReac Unknown BP LOSS Verified 12/15/24 10:20 nitrofurantoin AdvReac Unknown DIZZINESS Verified 12/15/24 10:20 Home Medications Medication Instructions Recorded Confirmed Type acetaminophen 325 mg tablet 650 mg PO DIRECTED PRN pain, 03/20/18 09/18/24 History (Tylenol) fever aspirin 81 mg tablet,delayed 81 mg PO QAM 03/20/18 12/15/24 History release divalproex 250 mg tablet,delayed 500 mg PO QAM 03/20/18 12/15/24 History release divalproex 250 mg tablet,delayed 750 mg PO PM 03/20/18 12/15/24 History release metoprolol succinate 100 mg 100 mg PO QAM 03/20/18 12/15/24 History tablet,extended release 24 hr (Toprol XL) multivitamin 1 tab PO QAM 03/20/18 12/15/24 History melatonin 5 mg tablet 5 mg PO HS 05/22/24 12/15/24 History carbidopa 25 mg-levodopa 100 mg 1 tab PO TIDWMEAL 09/08/24 12/15/24 History tablet sennosides 8.6 mg tablet (senna) 8.6 mg PO DAILY 09/08/24 12/15/24 History atorvastatin 20 mg tablet 10 mg (1/2 x 20 mg) PO DAILY #15 09/11/24 12/15/24 Rx tabs fexofenadine 180 mg tablet 180 mg PO DAILY 09/18/24 12/15/24 History acetaminophen 325 mg tablet 650 mg (2 x 325 mg) PO Q6 #20 tabs 09/23/24 Rx amiodarone 200 mg tablet 200 mg PO BIDM #60 tabs 09/23/24 12/15/24 Rx divalproex 500 mg tablet,delayed 500 mg PO QAM #30 tabs 09/23/24 Rx release docusate sodium 100 mg capsule 100 mg PO QAM #30 caps 09/23/24 12/15/24 Rx furosemide 40 mg tablet 40 mg PO QAM #30 tabs 09/23/24 12/15/24 Rx levothyroxine 88 mcg tablet 88 mcg PO DAILYBB #30 tabs 09/23/24 12/15/24 Rx (Synthroid) lidocaine 5 % topical patch 1 patch transdermal QAM #15 ea 09/23/24 Rx mupirocin 2 % topical ointment 1 applic EXT BID #15 grams 09/23/24 Rx oxycodone 5 mg tablet 5 mg PO Q6 PRN pain #10 tabs 09/23/24 Rx pantoprazole 40 mg tablet,delayed 40 mg PO QAM #30 tabs 09/23/24 12/15/24 Rx release cephalexin 250 mg capsule 250 mg PO Q8H 12/15/24 12/15/24 History Patient History Medical History CKD (chronic kidney disease), stage III Syncope, cardiogenic 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 Wide-complex tachycardia Vasovagal syncope Bilateral edema of lower extremity Pacemaker Acute exacerbation of CHF (congestive heart failure) Hyperlipidemia Epilepsy Ichthyosis Chronic mesenteric ischemia Persistent atrial fibrillation Acute on chronic diastolic heart failure with preserved ejection fraction Anticoagulant long-term use Encounter for pre-operative examination Cardiac pacemaker Syncope Abnormal esophagram Encounter for pre-operative examination Acute kidney injury superimposed on chronic kidney disease PNA (pneumonia) Sinoatrial node dysfunction Thrombocytopenia Hypothyroidism Chronic systolic heart failure BPH (benign prostatic hyperplasia) GERD (gastroesophageal reflux disease) Dyslipidemia Aortic stenosis following with vascular surgery [facility] - last checked 02/2020 and will be checked every 6 mo Hypertension Constipation History of COVID-19 dx 03/31 - Urgent [facility] [place] [place]. coughing, congestion, fevers; all symptoms resolved History of syncope syncopal episode 03/2020 prior to covid diagnosis; last episode prior to 03/2020 was in 2016 pre pacemaker History of anesthesia reaction had a seizure when waking up from cholecystectomy in 1999 per pt and "was on the wrong seizure medicine, is on the right medication now and has not had any issues with any other surgeries since" Surgical History S/P AVR History of cholecystectomy S/P placement of cardiac pacemaker placed 2015 --biotronic- last checked 6 mo ago (to be checked 05/11/20)--follows with Dr. Ashley History of cardiac cath 01/29/18 - Dr Stephens - normal coronary arteries History of cataract extraction with lens replacement History of aortic valve replacement 02/11/18 bioprosthetic valve and left atrial appendege clip at [facility] by Dr Rachelle Stark Status post excisional debridement x3 from aortic valve incision History of colonoscopy History of esophagogastroduodenoscopy (EGD) History of phacoemulsification of cataract of both eyes with intraocular lens implantation Family History Other Cerebral aneurysm Heart disease No family history of adverse response to anesthesia Social History Smoking Status: Never smoker Second Hand Exposure: Yes (as a child); Do You Dip or Chew Tobacco: No; Hx Alcohol Use: No Hx Substance Use: No Preferred Language: Tristanian Communication Ability: Effective Visual Impairment: No Limitations Hearing Ability: Normal Casualty Claims Supervisor Required: No Beliefs That Will Affect Care: None marital status: Current Living Situation: Spouse Current Living Situation Comment: Lives at home w/ Feels Safe at Home: Yes Assistive Devices: Oxygen - at Night and Walker Review of Systems Negative except for what was mentioned in the H&P. Physical Exam Could not be performed as the visit was conducted via TeleMed. Results & Data Vital Signs (Past 12 Hours) Vital Signs Temp Pulse Resp BP Pulse Ox O2 Del Method 12/16/24 07:29 36.7 C 81 18 125/74 92 Room Air 12/16/24 03:36 36.5 C 71 18 133/76 97 Room Air Laboratory Results Microbiology: 12/15: Deep wound culture obtained intraoperatively negative to date 12/15: 3 intraoperative foreign body cultures negative to date
[2024-12-16] MEDS ORDERED: VANCOMYCIN CONSULT ACTIVE PRN (14:35)
[2024-12-16] MEDS: VANCOMYCIN HCL 1,750 MG in SODIUM CHLORIDE 0.9% 500 ML IV ONE (15:39)
[2024-12-17 03:30] VITALS: TEMP 97.5
[2024-12-17 07:24] LABS: Hematocrit (blood only) 37.0 % (42.0-52.0); Hemoglobin 12.4 g/dl (14.0-18.0); Mean Corpuscular Hemoglobin 31.2 pg (25.0-34.0); Mean Corpuscular Volume 93.0 fL (80.0-100.0); Platelet Count 89 K/uL (130-400); RDW Standard Deviation 47.6 fL (36.4-46.3); Red Blood Count 3.98 M/uL (4.70-6.10); White Blood Count 6.56 K/ul (4.8-10.8)
[2024-12-17 07:32] LABS: Anion Gap 6.0 (3-11); Calcium 8.7 mg/dl (8.6-10.3); Carbon Dioxide 29.0 mmol/L (21-32); Chloride 103.0 mmol/L (98-107); Potassium 4.0 mmol/L (3.5-5.1); Sodium 138.0 mmol/L (136-145)
[2024-12-17 07:38] LABS: Blood Urea Nitrogen 21.0 mg/dl (6-23); Creatinine Clr Calc Pharmacy 50.4 ml/min; Glucose 86.0 mg/dl (70-99(Fasting))
[2024-12-17 08:03] VITALS: PULSE 79
--- NOTE | 2024-12-17 11:12 | Discharge Summary ---
Date of Service December 17, 2024 Admission HPI Per Admitting Provider Tariq Fischer is a 79 year old male with a history of aortic valve stenosis for which he underwent surgical aortic valve replacement in 2018 with a bioprosthesis. He underwent surgical clipping of the left atrial appendage at the time of the aortic valve replacement. Complex history of sternal wound dehiscence with Enterobacter [place] and Staph aureus and omental flap closure in 2018. Patient with tachycardia-bradycardia syndrome, initial Biotronik permanent pacemaker implanted in 2005, dual-chamber device with generator change in June, (in the left infraclavicular position). He was admitted to [facility] September, with recurrent syncope, found to have unstable wide-complex tachycardia consistent monomorphic ventricular tachycardia and underwent emergent cardioversion in the emergency department. Flecainide subsequently discontinued and amiodarone initiated after appropriate washout interval. Patient then underwent implantation of a right sided dual-chamber [place] pacemaker/AICD 09/09/24 with right atrial lead, right ventricular defibrillator, left bundle lead. He was readmitted shortly thereafter after a mechanical fall with chest trauma. Eliquis discontinued September, after a fall with ongoing anticoagulation risk with regards to bleeding felt to be higher than the prophylactic benefit especially given history of surgical left atrial appendage occlusion. Patient was ultimately found on outpatient follow-up to have progressive difficulty with pocket hematoma in the right infraclavicular position with subsequent ongoing swelling as noticed at time of outpatient visit on 12/11/2024 and presented today for device extraction. Patient was started cephalexin started 10/20/2024 and had remained on cephalexin until he presented for plan right sided pacemaker AICD extraction on 12/15/24 to address device pocket infection. Wound cultures obtained at time of the extraction procedure. Discharge Data Consultations 12/15/24 14:01 Consult Hospitalist Routine 12/15/24 14:08 Consult Infectious Diseases Routine Procedures Performed Operation Date: 12/15/24 10:30 Actual Procedures p ICD Removal - Julienne Simons DO s ICD Lead Extraction - Julienne Simons DO Hospital Course (1) Infection of pacemaker pocket: (2) Paroxysmal atrial fibrillation: (3) Paroxysmal ventricular tachycardia: Plan Subjective: Patient reexamined today, 12/17/2024. Spouse, Michelle, at the bedside during my assessment. Patient without subjective complaint. Pain at procedure site well-controlled. Denies subjective fevers or chills. Physical exam 12/17/2024, day of discharge: Vital Signs 12/17/2024 at 8:03 AM, temperature 36.4, pulse 79, respiratory rate 19, blood pressure 133/73 mmHg, pulse oximetry 98% on room air General: no acute distress and stated age Eyes: conjunctiva are pink and non-injected, sclera clear Neck: normal jugular venous pulse, no hepatojugular reflux Chest: normal shape and normal respiratory effort -Right infraclavicular device pocket wound revealing appropriate postprocedure changes. The packing was removed from the wound, minimal residual serosanguineo us drainage was observed. Two steristrips were placed (by Dr Davis) to help with approximation of the lateral portion of the middle of the 3 incisions. -The wound was covered with a clean sterile 4 x 4 -The left infraclavicular pacemaker pocket is clean dry and intact with no erythema. Lungs: clear to auscultation and percussion Cardiac Exam: - regular heart sounds, no murmurs, rubs, or gallops, no jugular venous distention Abdomen: abdomen soft, non-tender, no abnormal masses and no hepatosplenomegaly Musculoskeletal: no gait disturbance, no weakness Extremities: no edema and no cyanosis Neuro:awake, conversant, follows commands, no focal motor deficits Additional data: Patient underwent transthoracic echocardiogram on 12/16/2024 With findings of moderate concentric left ventricular hypertrophy, septal motion abnormal consistent with conduction abnormality, mildly reduced left ventricular systolic function LVEF in the range of 45-50%. The bioprosthetic aortic valve was found to have normal systolic gradients and no significant regurgitation. Grade II diastolic dysfunction was observed. Compared to the previous study dated 09/07/2024 the left ventricular systolic function is relatively unchanged. No evidence of valvular vegetation within the scope of limitation of this imaging modality. Impression: (1) Infection of pacemaker pocket: (2) Paroxysmal atrial fibrillation: (3) Paroxysmal ventricular tachycardia: Plan: Stable for discharge today. Do not lift more than 10 pounds with the right arm for 2 weeks Keep 4 x 4 dressing on & dry until wound check-no shower Device and wound check as scheduled at [facility] on 12/22/2024 at 1 PM Patient's spouse aware to reach out to Dr Simons by phone this weekend with any concerns. Infectious disease input noted and appreciated. Plan for oral cefadroxil 500 mg twice daily to complete a 14-day course, with plan for outpatient cardiology assessment with regards to the need for additional oral antibiotics With antibiotic plan to be adjusted as necessary depending upon the results of the intraoperative wound cultures. Continue oral amiodarone for both rhythm control from an atrial fibrillation standpoint and for suppression of ventricular tachycardia. Case discussed with electrophysiology and it is felt the ventricular tachycardia that required emergent defibrillation in September most likely related to underlying structural heart disease (history of surgical aortic valve replacement, mild left ventricular systolic dysfunction) and flecainide exposure. No additional ventricular arrhythmias observed clinically or on device checks in the meantime.Will plan on observing the patient on amiodarone without wearable defibrillator for now. Concerns raised that wearable defibrillator would potentially cause additional soft tissue trauma to the wound and impair healing and the risk of such a device is felt to outweigh the prophylactic benefit. With the new pacemaker AICD having been extracted, the previous left infraclavicular Biotronik dual-chamber pacemaker has been reactivated to provide heart rate support. As previously noted, patient is not on anticoagulation due to history of recurrent falls in the setting of Parkinson's disease, with previous surgical left atrial appendage closure, and ongoing bleeding risk felt to outweigh the prophylactic benefit of anticoagulation. I spent a total of 85 minutes on the date of service in preparation, delivery, and documentation of the care provided to this patient, excluding any time spent in the performance of separately billed services. Alexei Davis DO Coding [place] [address] INP/OBS DISCH >30 MIN Patient Type Established History Comprehensive Exam Comprehensive Medical Decision Making High Complexity Diagnoses Infection of pacemaker pocket T82.7XXA Paroxysmal atrial fibrillation I48.0 Paroxysmal ventricular tachycardia I47.20 Time Spent (min) 85
[2024-12-17 11:48] VITALS: RESP 20; O2SAT 96
[2024-12-17 12:12] VITALS: BP 127/73
--- NOTE | 2024-12-17 13:15 | Hospitalist Progress Note ---
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 -Per cardiology - stable for discharge today -Appreciate ID recs- Cefadroxil 500 mg PO BID to complete a 14-day course, with plan for outpatient cardiology assessment with regards to the need for additional oral antibiotics -Antibiotic plan to be adjusted as necessary depending upon the results of the intraoperative wound cultures (pending) - follow -Activities and wound care instruction per cards service -Tele reviewed- demonstrating paced rhyrhm. Continue cardiac medications as ordered -Per cards, not on anticoagulation due to history of recurrent falls in the setting of Parkinson's disease, with previous surgical left atrial appendage closure, and ongoing bleeding risk felt to outweigh the prophylactic benefit of anticoagulation -PCP follow up scheduled Thank you for this consultation. We will follow the patient with you during their hospital stay. You can reach a member of the [facility] via [employer] Care coordinated with Dr. Rachelle Eden spent a total of 35 minutes coordinating, documenting, and providing care for this patient excluding time spent in the performance of separately billed services or time spent by another provider/QHP. Admission and Anticipated Discharge Date Admission Date: December 15, 2024 Subjective Seen and examined in 244-1. NAEO. No discomfort at surgical site. No CP, palpitations or SOB. Review of Systems Review of Systems: At least ten systems reviewed and negative except as noted in the HPI. Physical Exam Physical Exam: Gen: WD/WN, NAD, resting in bed, A&Ox3, spouse at bedside HEENT: Normocephalic, atraumatic, mucous membranes moist Lung: Clear to Auscultation bilaterally, no wheezes/rales/rhonchi Heart: Regular rate, regular rhythm, no murmurs, rubs, or gallops Chest: Dressing R chest c/d/i Abdomen: Soft, NT, ND +BS x 4 Extremities: no edema Skin: Warm, no rash Results & Data Results & Data Vital Signs (Past 12 Hours) Vital Signs Temp Pulse Resp BP BP Pulse Ox O2 Del Method 12/17/24 12:10 36.4 C L 79 20 96/60 L 127/73 96 12/17/24 11:47 36.4 C L 79 20 96/60 L 96 Room Air 12/17/24 08:03 36.4 C L 79 19 133/73 98 Room Air 12/17/24 02:54 36.4 C L 105 H 18 111/72 100 Room Air Laboratory Results Short CBC 12/17/24 Range/Units 06:44 WBC 6.56 (4.8-10.8) K/ul Hgb 12.4 L (14.0-18.0) g/dl Hct 37.0 L (42.0-52.0) % Plt Count 89 L (130-400) K/uL BMP 12/17/24 06:44 Sodium 138 Potassium 4.0 Chloride 103 Carbon Dioxide 29 BUN 21 Creatinine 1.15 Glucose 86 Calcium 8.7 (2) Parkinson's disease Dyskinesia presence: unspecified whether dyskinesia Fluctuating manifestations: unspecified whether manifestations fluctuate Qualified Code(s): G20.A1 - Parkinson's disease without dyskinesia, without mention of fluctuations (6) Hypothyroidism Hypothyroidism type: unspecified Qualified Code(s): E03.9 - Hypothyroidism, unspecified
--- NOTE | 2025-01-04 17:41 | Operative Report ---
Post Operative Report DATE OF PROCEDURE: 12/15/2024 PREOPERATIVE DIAGNOSES: Device pocket infection POSTOPERATIVE DIAGNOSIS: Same PROCEDURE: A biventricular rate responsive permanent ICD explantation under fluoroscopic guidance. SURGEON: Julienne Simons DO ASSISTANTS: None. ANESTHESIA: Monitored conscious sedation administered under my supervision by Bettie Sawyer. Start time 11:45, end time 12:30, a total of 3 mg of Versed and 75 mcg of fentanyl. INTRAVENOUS FLUIDS: 0 mL. CONTRAST: None ANTIBIOTICS: 2 grams of Ancef. ADDITIONAL MEDICATIONS: None BLOOD LOSS: 20 mL. URINE OUTPUT: Not applicable. SPECIMENS: None. FINDINGS: See below. DRAINS: None. COMPLICATIONS: None. CONDITION: Stable. 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, 25 mm [place] Epic bioprosthesis Status post 50 mm left atrial appendage clip at the time of AVR, Diagnostic cardiac catheterization in January 29, 2018 with angiographically normal coronary arteries ([facility]), Sternal wound dehiscence without sepsis, Enterobacter cloacae and staph aureus with omental flap closure April 04, 2018, requiring wound vac with resolve, Paroxysmal atrial arrhythmias, Tachy-Jair Syndrome status post Biotronik pacemaker implantation in 2005, generator exchange in June 2015, Admission to [facility] 09/08/2024 with recurrent syncopal episode -> unstable wide-complex tachycardia consistent with monomorphic ventricular tachy cardia status post successful cardioversion in the ER to a AV dual paced rhythm, Flecainide (previously prescribed by EP due to PAF, last dose in AM of 09/08) discontinued, Status post September 09, 2024 right sided dual chamber [place] pacemaker/ICD, pulse generator: [place] HF Model Number [id number] SN: [id number], Right atrial lead: [place] [facility] Ultipace [id number] SN: [id number], Defibrillator Lead: [place] SJM Durata [id number] SN: [id number], Left bundle lead: [place] SJM Ulitpace LPA 1231 SN: [id number], Prior left sided Biotronik generator with Medtronic leads left in place (stenosis of left subclavian veins prevented device upgrade), Amiodarone initiated on 09/11/2024 (after washing out flecainide), RE: VT, and atrial fibrillation Apixaban (Eliquis) discontinued in September 2024, risks felt to be greater than the benefits (history of left atrial appendage ligation, Parkinson's disease, seizure disorder (on Depakote), gait instability, recurrent falls), Systolic and diastolic congestive heart failure, Mild to moderate reduction in systolic function noted dating back to the time of the AVR, Recurrent, vagally mediated syncope, Chronic seizure disorder, Parkinson's, Delirium, Labile hypertension, Hyperlipidemia , Stage III chronic renal insufficiency, Chronic mesenteric ischemia, BPH with LUTS, Prediabetes, Colonoscopy with polypectomy, Status post TURP, Status post cholecystectomy. He was found to have a delayed hematoma and then pocket infection of the BiV ICD site and was recommended extraction. CONSENT: Consent was obtained prior to the patient going into the electrophysiology lab. The patient was informed of the risks, benefits, and alternatives to the procedure. Risks include, but not limited to, sudden cardiac , cardiac arrhythmias, cerebrovascular accident, myocardial infarction, injury to his blood vessels, chamber of the heart, bleeding and infection. The patient understood these risks and agreed to the procedure as planned. Informed consent was obtained. DESCRIPTION OF PROCEDURE: The patient was brought into electrophysiology lab in a fasting state. He was connected to continuous cardiac monitoring. A timeout was performed to ensure the patient's identity and procedure correctly. He was prepped and draped in the right infraclavicular space in normal surgical standard fashion. Monitored conscious sedation was given throughout the procedure for the patient's comfort level. [place] precautions were maintained throughout the procedure. Prophylactic antibiotics were given prior to incision. A 20 mL of 1% lidocaine and bupivacaine mixture were given in the prior surgical incision. The prior incision was opened with blunt dissection. There was dark old blood fluid somewhat whitish infected looking-no pritesh pus from the incision/pocket area, but the tissue did not look healthy.. The pocket was swapped with wound cultures x 2. The sutures were removed. Then the defibrillator was removed from the pocket and the leads were detached from the device. The suture sleeve sutures were then removed. Stylets were then placed down the lead. Then the screws of the lead were retracted. Then with santi retraction the leads were extracted from the body under fluoroscopic guidance. The pocket was flushed with vancomycin and saline wash. Then the incision was closed by secondary healing using 2.0 Ethicon mattress stitch. The patient is now using the old biotronic pacemaker from the left side of his chest that was never removed prior to the implant of the BiV ICD back on 09/09/2024 EQUIPMENT Explanted: 1. Pulse generator is a [employer] [place] MRI Model Number [id number] SN: [id number] implanted 09/09/2024 2. Right atrial lead, [place] SJM Ultipace LPA 1231 SN: [id number] implanted 09/09/2024 3. Right ventricular lead, [place] 7122Q/58 SN: [id number] implanted 09/09/2024 4. Left bundle lead: [place] Ultipace [id number]; SN [id number] implanted 09/09/2024 IMPRESSION: Successful BiV ICD explant under fluoroscopic guidance due to d evice pocket infection PLAN: Monitor the patient post-procedure. admit to telemetry.
== END 2024-12-17 14:51 | disposition home or self-care (01) | DRG 261 ==
LOC: EP 09:24 → 2S 12:07